=== PATIENT | female | born 1935 | race Caucasian/White ===

== ENCOUNTER 2016-03-24 04:39 | Inpatient (IN) | payer MEDICARE, OTHER ==
[~2016-03-24] VITALS: Ht 160 cm; Wt 61.8 kg
[2016-03-24] VITALS (20 sets, daily range): BP systolic 112–229; BP diastolic 42–93
--- NOTE | 2016-03-24 04:56 | PHYS DOC ---
Past Medical History Past Medical History: Asthma, High Cholesterol, Hypertension Past Surgical History: Angioplasty, Hip Replacement, Hysterectomy, Other Additional Past Surgical Histo: hernia x 2, bladder tie, suspension of vagina Alcohol Use: Occasionally Drug Use: None Adult General Chief Complaint Chief Complaint: CHEST PAIN [facility] HPI 81-year-old female who called about EMS for chest pain that started around 9 PM this evening. She states it is substernal with associated nausea. She feels mildly short of breath as well. She states she's never had chest pain like this before. Upon arrival, EMS administered one sublingual nitroglycerin and a 325 mg aspirin. Patient does state some mild discomfort in her chest but states it improved after sublingual nitroglycerin. She has history of hypercholesterolemia and hypertension but denies any significant coronary disease. Currently she rates her pain a 4/10 on the pain scale described as a mild chest discomfort. Review of Systems Review of Systems Constitutional: Denies fever or chills [] Eyes: Denies change in visual acuity, redness, or eye pain [] HENT: Denies nasal congestion or sore throat [] Respiratory: Denies cough or shortness of breath [] Cardiovascular: No additional information not addressed in HPI [] GI: Denies abdominal pain, has nausea, denies vomiting, denies bloody stools, denies diarrhea [] : Denies dysuria or hematuria [] Musculoskeletal: Denies back pain or joint pain [] Integument: Denies rash or skin lesions [] Neurologic: Denies headache, focal weakness or sensory changes [] Endocrine: Denies polyuria or polydipsia [] Current Medications Current Medications Current Medications Medications (Trade) Dose Ordered Sig/[facility] Start Time Stop Time Status Last Admin Dose Admin Acetaminophen (Tylenol) 650 mg PRN Q4HRS PRN 03/24/16 05:00 03/25/16 04:59 Nitroglycerin (Nitrostat) 0.4 mg PRN Q5MIN PRN 03/24/16 05:00 03/25/16 04:59 Ondansetron HCl (Zofran) 4 mg PRN Q8HRS PRN 03/24/16 05:00 03/25/16 04:59 Allergies Allergies Allergies Coded Allergies Type Severity Reaction Last Updated Verified iodine Allergy Unknown Nausea and Vomiting 03/24/16 Yes shellfish derived Allergy Unknown Nausea and Vomiting 03/24/16 Yes shrimp Allergy Unknown Nausea and Vomiting 03/24/16 Yes Physical Exam Physical Exam Constitutional: Well developed, well nourished, no acute distress, non-toxic appearance. [] HENT: Normocephalic, atraumatic, bilateral external ears normal, oropharynx moist, no oral exudates, nose normal. [] Eyes: PERRLA, EOMI, conjunctiva normal, no discharge. [] Neck: Normal range of motion, no tenderness, supple, no stridor. [] Cardiovascular:Heart rate regular rhythm, no murmur [] Lungs & Thorax: Bilateral breath sounds clear to auscultation [] Abdomen: Bowel sounds normal, soft, no tenderness, no masses, no pulsatile masses. [] Skin: Warm, dry, no erythema, no rash. [] Back: No tenderness, no CVA tenderness. [] Extremities: No tenderness, no cyanosis, no clubbing, ROM intact, no edema. [] Neurologic: Alert and oriented X 3, normal motor function, normal sensory function, no focal deficits noted. [] Psychologic: Affect normal, judgement normal, mood normal. [] Current Patient Data Vital Signs Vital Signs Date Time Temp Pulse Resp B/P Pulse Ox O2 Delivery O2 Flow Rate FiO2 03/24/16 05:11 69 200/89 03/24/16 04:42 98.7 16 95 Room Air 98.7 Lab Values Laboratory Tests Test 03/24/16 05:08 White Blood Count 13.4x10^3/uL (4.0-11.0) H Red Blood Count 4.35x10^6/uL (3.50-5.40) Hemoglobin 13.0g/dL (12.0-15.5) Hematocrit 37.6% (36.0-47.0) Mean Corpuscular Volume 86fL (79-100) Mean Corpuscular Hemoglobin 30pg (25-35) Mean Corpuscular Hemoglobin Concent 35g/dL (31-37) Red Cell Distribution Width 14.0% (11.5-14.5) Platelet Count 224x10^3/uL (140-400) Neutrophils (%) (Auto) 86% (31-73) H Lymphocytes (%) (Auto) 10% (24-48) L Monocytes (%) (Auto) 3% (0-9) Eosinophils (%) (Auto) 0% (0-3) Basophils (%) (Auto) 1% (0-3) Neutrophils # (Auto) 11.5x10^3uL (1.8-7.7) H Lymphocytes # (Auto) 1.4x10^3/uL (1.0-4.8) Monocytes # (Auto) 0.4x10^3/uL (0.0-1.1) Eosinophils # (Auto) 0.0x10^3/uL (0.0-0.7) Basophils # (Auto) 0.1x10^3/uL (0.0-0.2) Platelet Estimate Pending Sodium Level 139mmol/L (136-145) Potassium Level 4.3mmol/L (3.5-5.1) Chloride Level 104mmol/L (98-107) Carbon Dioxide Level 29mmol/L (21-32) Anion Gap 6 (6-14) Blood Urea Nitrogen 15mg/dL (7-20) Creatinine 0.7mg/dL (0.6-1.0) Estimated GFR (Cockcroft-Gault) 80.1 Glucose Level 181mg/dL (70-99) H Calcium Level 9.2mg/dL (8.5-10.1) Troponin I Quantitative < 0.017ng/mL (0.000-0.055) Laboratory Tests 03/24/16 05:08 Laboratory Tests 03/24/16 05:08 EKG EKG EKG as interpreted by me shows a normal sinus rhythm with a rate of 71 bpm. There are no acute ischemic findings on this EKG. Radiology/Procedures Radiology/Procedures Portable one view of the chest does not reveal an acute cardiopulmonary process. Course & Med Decision Making Course & Med Decision Making Pertinent Labs and Imaging studies reviewed. (See chart for details) This 81 yo female who presents with chest pain that began around 9 pm last evening and relieved with one SL nitroglycerin will be admitted to the hospital for further evaluation and treatment as I have strong suspicion that her symptoms are cardiac in etiology. Her EKG does not reveal any acute signs of ischemia. A portable 1 view of her chest did not demonstrate an acute cardiopulmonary process. Her laboratory workup, including a set of cardiac enzymes, is unrevealing. I discussed the case with the hospitalist, Dr. Velasco, and placed a cardiology consult as well for her ongoing chest pain. Dragon Disclaimer Dragon Disclaimer This electronic medical record was generated, in whole or in part, using a voice recognition dictation system. Departure Departure Impression: Primary Impression: Chest pain Disposition: ADMITTED INPATIENT Admitting Physician: Osmani Velasco Condition: STABLE BRIANA GONZALEZ DO Mar 24, 2016 04:55
[2016-03-24] MEDS ORDERED: NITROGLYCERIN SUBLINGUAL 0.4 MG BOTTLE OF 25. SL PRN ×2 (05:00→06:00)
[2016-03-24] MEDS ORDERED: ONDANSETRON PF 4 MG/2 ML VIAL. IV PRN ×2 (05:00→10:45)
[2016-03-24] MEDS ORDERED: ACETAMINOPHEN 325 MG TABLET. PO PRN (05:00)
[2016-03-24] MEDS: NITROGLYCERIN SUBLINGUAL 0.4 MG BOTTLE OF 25. SL PRN ×2 (05:11→05:54)
[2016-03-24 05:21] LABS: BASO # 0.1 x10^3/uL (0.0-0.2); BASO % 1 % (0-3); EOS % 0 % (0-3); HEMATOCRIT 37.6 % (36.0-47.0); LYMPH # 1.4 x10^3/uL (1.0-4.8); LYMPH % 10 % (24-48); MEAN CORPUSCULAR HEMOGLOBIN 30 pg (25-35); MEAN CORPUSCULAR HGB CONC 35 g/dL (31-37); MEAN CORPUSCULAR VOLUME 86 fL (79-100); MONO % 3 % (0-9); NEUT % 86 % (31-73); PLATELET COUNT 224 x10^3/uL (140-400); RED BLOOD COUNT 4.35 x10^6/uL (3.50-5.40); WHITE BLOOD COUNT 13.4 x10^3/uL (4.0-11.0)
[2016-03-24 05:29] LABS: CALCIUM 9.2 mg/dL (8.5-10.1); CREATININE 0.7 mg/dL (0.6-1.0); GFR 80.1; POTASSIUM 4.3 mmol/L (3.5-5.1)
[2016-03-24] MEDS ORDERED: LISINOPRIL 10 MG TABLET PO ONE ×2 (06:00→16:00)
--- NOTE | 2016-03-24 06:28 | ACF ---
Admission Forms Criteria CARDIOLOGY GRG Clinical Indications for Admission to Inpatient Care ( Place 'X' for any and all applicable criteria): Hospital admission is needed for appropriate care of the patient because of ANY ONE of the following (1): [ ] I. Hemodynamic instability as indicated by ALL of the following (1)(2)(3) (4)(5) [ ]a) Vital signs or other findings not as expected for chronic patient condition or baseline [ ]b) Instability indicated by ANY ONE of the following: [ ]i) Hypotension [ ]ii) Symptomatic Tachycardia unresponsive to treatment ( e.g., analgesia, fluids, sedation as indicated) [ ]iii) Inadequate perfusion indicated by ANY ONE of the following: [ ] 1) Lactic acidosis (> 2 mmol/L) [ ] 2) New abnormal capillary refill (> 3 seconds) [ ] 3) Reduced urine output [ ] 4) New altered mental status [ ]iv) Orthostatic vital sign changes unresponsive to treatment (e.g., fluids) [ ]v) IV inotropic or vasopressor medication required to maintain adequate blood pressure or perfusion [ ] II. Severe heart failure as indicated by ANY ONE of the following(17)(18) [ ]a) Respiratory distress [ ]b) Hypotension [ ]c) Anasarca (refractory to outpatient therapy) [ ]d) Cardiac arrhythmias of immediate concern [ ]e) Myocardial ischemia [ ] III. Cardiac arrhythmias or findings of immediate concern indicated by ANY ONE of the following (19)(20): [ ] a) Heart rhythms that are inherently dangerous or unstable indicated by ANY ONE of the following (21)(22)(23): [ ] i) Resuscitated ventricular fibrillation or cardiac arrest [ ] ii) Ventricular escape rhythm [ ] iii) Sustained ventricular tachycardia (30 seconds or more of ventricular rhythm at greater than 100 beats per minute) [ ] iv) Nonsustained ventricular tachycardia and ANY ONE of the following: [ ] 1) Suspected cardiac ischemia as cause or consequence of ventricular tachycardia [ ] 2) In setting of acute myocarditis [ ] b) Unstable cardiac conduction defects indicated by ANY ONE of the following(23)(24)(25) [ ] i) Type II second-degree atrioventricular block [ ]ii) Third-degree atrioventricular block [ ]iii) New-onset left bundle branch block with suspected myocardial ischemia [ ]c) Any heart rhythm and ANY ONE of the following (21)(22)(26)(27) (28) [ ] i) Continuous long-term ECG monitoring needed (e.g., initiation of drug requiring monitoring for more than 24 hours) [ ] ii) Patient has automatic implanted cardioverter defibrillator that is repeatedly firing, malfunctioning, or in need of immediate adjustment of settings beyond the scope of ambulatory or observation care [ ]d) Heart rhythms of concern due to ANY ONE of the following: [ ] i) Hypotension [ ] ii) Respiratory distress [ ] iii) Association with other significant symptoms (e.g., bradycardia with syncope or ongoing dizziness, supraventricular tachycardia with chest pain (14)(15)(17) [ ] IV. Monitoring for cardiac contusion beyond the scope of observation care needed [A](30)(31)(32) [ ] V. Surgical or device complication (e.g., valve replacement complication , pacemaker dysfunction) (35)(41)(44)(45)(46) [ ] . Inpatient palliative care needed. [B](49) Also use Inpatient Palliative Care Criteria [ ] VII. Nonbacterial thrombotic (marantic) endocarditis (36)(43)(47)(48) [X] VIII. Cardiology condition, symptom, or finding for which emergency and observation care has failed or are not considered appropriate. [ ] IX. Acute valvular disease requiring inpatient as indicated by ANY ONE of the following (41) [ ]a) Acute valvular regurgitation (42) [ ]b) Noninfectious valvulitis (43) [ ]c) Obstructive valve thrombosis [ ]d) Paravalvular leak [ ]e) Other significant valvular disorder remaining after emergency or observation level of care (as appropriate) [ ]X. Pericardial disease requiring inpatient treatment as indicated by ANY ONE of the following (33)(34)(35)(36)(37) [ ]a) Suspected tamponade (38)(39)(40) [ ]b) Hemopericardium [ ]c) Other significant pericardial disorder remaining after emergency or observation level of care (as appropriate) [ ] XI. Cardiac ischemia beyond scope of emergency and observation care. [ ] XII. Hypertension requiring inpatient treatment as indicated by ANY ONE of the following (6)(7)(8) [ ]a) SBP greater than 220 mm Hg or DBP greater than 120 mmHg despite treatment [ ]b) SBP greater than 140 mm Hg or DBP greater than 100 mm Hg with evidence of acute end organ damage as indicated by ANY ONE of the following [ ] i) Encephalopathy [ ] ii) Acute renal failure as indicated by new onset of ANY ONE of the following (9)(10)(11)(12)(13) [ ]1) 3-fold rise in serum creatinine from baseline [ ]2) Serum creatinine greater than 4 mg/dL ( 354 micromoles/L) with acute rise greater than 0.5 mg/dL (44.2 micromoles/L) [ ]3) Reduction of more than 75% in estimated glomerular filtration rate from baseline [ ]4) Estimated glomerular filtration rate less than 35 mL/min/1.73m2 (0.59 mL/sec/1.73m2) in child up to 18 years of age [ ]5) Cessation of urine output indicated by ALL of the following [ ]A. Adequate volume status [ ]B. Inadequate urine output as indicated by ANY ONE of the following [ ]a. Urine output less than 0.3 mL/kg/hr for 24 hours [ ]b. Anuria (urine output less than 0.1 mL/kg/hr) for 12 hours [ ] iii) Aortic dissection [ ] iv) Myocardial Ischemia [ ] v) Left ventricular heart failure [ ]vi) Retinal Hemorrhage [ ]vii) Other significant finding [ ]c) Hypertension in child requiring inpatient treatment as indicated by ALL of the following(14)(15)(16) [ ] i) Outpatient treatment not effective, not available, or not appropriate [ ]ii) SBP or DBP greater than 95th percentile for age [ ]iii) Evidence of acute end organ damage as indicated by ANY ONE of the following [ ]1) Altered mental status [ ]2) Acute renal failure as indicated by new onset of ANY ONE of the following(9)(10)(11)(12)(13) [ ]A. 3-fold rise in serum creatinine from baseline [ ]B. Serum creatinine greater than 4 mg/dL (354 micromoles/L) with acute rise greater than 0.5 mg/dL (44.2 micromoles/L) [ ]C. Reduction of more than 75% in estimated glomerular filtration rate from baseline [ ]D. Estimated glomerular filtration rate less than 35 mL/min/1.73m2 (0.59 mL/sec/1.73m2) in child up to 18 years of age [ ]E. Cessation of urine output indicated by ALL of the following [ ]a. Adequate volume status [ ]b. Inadequate urine output as indicated by ANY ONE of the following [ ]i) Urine output less than 0.3 mL/kg/hr for 24 hours [ ]ii) Anuria ( urine output less than 0.1 mL/kg/hr) for 12 hours [ ]3) Severe headache [ ]4) Visual disturbance [ ]5) Retinal hemorrhage [ ]6) Other significant finding [ ]XIII. Complications of transplanted heart indicated by ANY ONE of the following(61): [ ]a) Acute graft rejection requiring inpatient management (eg, intravenous immunosuppression)(62)(63) [ ]b) Acute graft heart failure indicated by ANY ONE of the following(64): [ ]i) Hemodynamic instability [ ]ii) Cardiac arrhythmias of immediate concern [ ]iii) Pulmonary edema that is very severe (eg, mechanical ventilation needed, imminent or likely, need for 100% oxygen to keep oxygen saturation above 90%) [ ]iv) Pulmonary edema that is persistent as indicated by ALL of the following: [ ]1) New need for oxygen therapy to keep oxygen saturation above 90% (or increased FiO2 need from baseline) [ ]2) Has not improved sufficiently with emergency department or observation care IV diuretics or other heart failure treatments[E] [ ]v) Altered mental status that is severe or persistent [ ]vi) Increased creatinine (new on laboratory test) with reduction of more than 50% in estimated glomerular filtration rate from baseline [ ]vii) Progressively (ongoing) rising creatinine (known from past laboratory test) with reduction of more than 25% in estimated glomerular filtration rate from baseline [ ]viii) Acute renal failure [ ]ix) Acute peripheral ischemia (eg, examination shows pulseless, cool, mottled, or cyanotic extremity) [ ]x) Pulmonary artery catheter monitoring needed [ ]xi) Other sign or symptom of heart failure requiring inpatient treatment (ie, too severe or not responsive to outpatient and observation care treatment) [ ]c) Infection requiring inpatient management (eg, Hemodynamic instability, need for intravenous antimicrobial treatment)(66)(67)(68)(69)(70) [ ]d) Cardiac allograft vasculopathy requiring inpatient management ( eg evidence of cardiac ischemia)(71) [ ]e) Other complication of transplanted heart (eg, stroke, severe pulmonary hypertension, severe valvular dysfunction) requiring inpatient management(72) The original [facility] content created by [facility] has been revised. The portions of the content which have been revised are identified through the use of italic text or in bold, and [facility] has neither reviewed nor approved the modified material. All other unmodified content is copyright [facility]. Please see references footnoted in the original [facility] edition 2016 Admission Criteria Met?: Yes ALEXANDRU SINHA Mar 24, 2016 06:28
[2016-03-24] MEDS ORDERED: MORPHINE SULFATE 2 MG/ML DISP.SYRIN. IV ONE (06:30)
[2016-03-24] MEDS ORDERED: hydrALAZINE 20 MG/ML VIAL. IVP PRN (06:30)
--- NOTE | 2016-03-24 06:48 | EKG ---
[facility] [address] [place] [address] Test Date: 2016-03-24 Test Time: 04:44:03 Pat Name: ALIVIA MARRERO Department: Room: [facility] Gender: F Cradle Placer: : 1935 Requested By: BRIANA GONZALEZ Order Number: [id number] Reading MD: Isabel Grant Measurements Intervals Cameron Rate: 71 P: 51 CO: 128 QRS: 57 QRSD: 82 T: 65 QT: 398 QTc: 437 Interpretive Statements SINUS RHYTHM NORMAL ECG RI6.01 No previous ECG available for comparison Electronically Signed On 03-25-2016 9:35:47 PRODUCTION LINE SOLDERER by Isabel Grant
[2016-03-24 07:06] LABS: % EOS 1 % (0-5); PLT ESTIMATE ADEQUATE (ADEQUATE)
--- NOTE | 2016-03-24 07:13 | RAD ---
Portable chest, 03/24/2016: History: Chest pain The heart size and pulmonary vascularity are normal. There is calcific plaquing of the thoracic aorta. No pulmonary infiltrates are seen. There is no evidence of pleural fluid. The bony structures are demineralized. There is moderate degenerative change of the left shoulder. IMPRESSION: 1. Aortic atherosclerosis. 2. No acute cardiopulmonary abnormality is detected.
[2016-03-24] MEDS ORDERED: HYDR-2868 PO (07:40)
[2016-03-24] MEDS ORDERED: BIMA2.5D OP (07:40)
[2016-03-24] MEDS ORDERED: VENTOLIN HFA18 GM INH (07:40)
[2016-03-24] MEDS ORDERED: ASPI-482 PO (07:40)
[2016-03-24] MEDS ORDERED: FLUT1DIS3 IH (07:40)
[2016-03-24] MEDS ORDERED: FLUT9.9S NS (07:40)
[2016-03-24] MEDS ORDERED: LISI10TA2 PO (07:40)
[2016-03-24] MEDS ORDERED: OMEP20TA63 PO (07:40)
[2016-03-24] MEDS: BUDESONIDE 0.5 MG/2 ML NEBU NEB SCH ×2 (08:00→19:20)
[2016-03-24] MEDS: ALBUTEROL SULFATE 2.5 MG/3 ML NEBU. NEB SCH ×3 (08:00→19:20)
[2016-03-24] MEDS ORDERED: PANTOPRAZOLE 40 MG TABLET. PO SCH (08:00)
--- NOTE | 2016-03-24 08:43 | RAD ---
Indication right upper quadrant abdominal pain. Grayscale imaging was performed. Examination was targeted to the right upper quadrant. Imaging of the liver demonstrates increased attenuation of the ultrasound beam compatible with fatty infiltration. A focal mass lesion in the visualized liver is not seen. The gallbladder is somewhat distended. There is cholelithiasis. There is no gallbladder wall thickening. The common bile duct is prominent measuring 11 mm. The right kidney appears unremarkable. The visualized pancreas appears unremarkable. IMPRESSION: Cholelithiasis. The gallbladder, additionally, is somewhat distended. Dilated common bile duct to approximately 11 mm. Fatty infiltration of the liver
[2016-03-24] MEDS ORDERED: NON FORMULARY ITEM (Albuterol Sulfate (Ventolin Hfa Inhaler) 2 PUFF) INH SCH (09:00)
[2016-03-24] MEDS: ASPIRIN ENTERIC COATED 81 MG TABLET.DR. PO SCH (09:00)
[2016-03-24] MEDS: FLUTICASONE 50MCG/NASAL SPRAY 16GM BOTTLE. NS SCH (09:00)
[2016-03-24] MEDS: LISINOPRIL 10 MG TABLET PO SCH (09:00)
[2016-03-24] MEDS ORDERED: HYDRALAZINE 25 MG TABLET PO SCH (09:00)
[2016-03-24] MEDS ORDERED: NON FORMULARY ITEM (Fluticasone/Salmeterol (Advair 250-50 Diskus) 1 INH) IH SCH (09:00)
--- NOTE | 2016-03-24 09:12 | HP ---
ADMIT DATE: 03/24/2016 CHIEF COMPLAINT: Chest pain. HISTORY OF PRESENT ILLNESS: The patient is a pleasant middle-aged female who presents to the ER with chest pain, rates it 7/10, states it is pressure like in sensation. She has associated nausea. She came in by EMS. She has some slight shortness of breath. Denies any history of coronary disease. She does not smoke. She does not have diabetes, coronary artery diseases not run in her family. I have discussed the case with the ER physician. We are concerned she could be having a cardiac event. I am going to go ahead and admit the patient and consult Cardiology. I am also going to check ultrasound of her gallbladder to make sure she does not have gallstones. PAST MEDICAL HISTORY: Asthma, hypertension, hyperlipidemia, previous angioplasty (the patient denies any history of coronary disease when I originally spoke with her), hip replacement, hysterectomy, hernia, vaginal suspension. ALLERGIES: IODINE AND SHRIMP. FAMILY HISTORY: She denies any coronary disease in the family. SOCIAL HISTORY: She is . She does not drink, smoke or take drugs. MEDICATIONS: Reviewed, please refer to the MRAD. REVIEW OF SYSTEMS: GENERAL: No history of weight change, weakness or fevers. SKIN: No bruising, hair changes or rashes. EYES: No blurred, double or loss of vision. NOSE AND THROAT: No history of nosebleeds, hoarseness or sore throat. HEART: No history of palpitations, chest pain or shortness of breath on exertion. LUNGS: Denies cough, hemoptysis, wheezing or shortness of breath. GASTROINTESTINAL: She complains of nausea. Denies changes in appetite, vomiting, diarrhea or constipation. GENITOURINARY: No history of frequency, urgency, hesitancy or nocturia. NEUROLOGIC: Denies history of numbness, tingling, tremor or weakness. PSYCHIATRIC: No history of panic, anxiety or depression. ENDOCRINE: No history of heat or cold intolerance, polyuria or polydipsia. EXTREMITIES: Denies muscle weakness, joint pain, pain on walking or stiffness. PHYSICAL EXAMINATION: VITAL SIGNS: Temperature afebrile, pulse 74, respirations 18, blood pressure 113/60... GENERAL: Upon my arrival, she has nausea. She has emesis . Her is present. The patient appears moderately ill. HEART: Distant S1, S2. LUNGS: Clear to auscultation. ABDOMEN: Soft. Decreased bowel sounds, tender in the epigastrium. EXTREMITIES: No edema. SKIN: No rashes. PSYCHIATRIC: She seems depressed. VASCULAR: Good capillary refill. ENDOCRINE: No thyromegaly. LYMPHATICS: No cervical nodes. HEMATOPOIETIC: No bruising. LABORATORY DATA: White count 13, hemoglobin 13, platelets 224. Electrolytes normal other than glucose of 181. Troponin is 0.017. ASSESSMENT AND PLAN: Chest pain with nausea, suspect cardiac disease versus gallstones. The patient has been admitted. We will check serial enzymes, serial EKGs, cardiac monitoring, consult Cardiology, check an ultrasound of gallbladder, continue home medicines, p.r.n. antiemetics, p.r.n. narcotics. PROGNOSIS: Guarded. SALO HANNAH DO DR: SHERLY/robert JOB#: [id number] / [id number]
[2016-03-24] MEDS ORDERED: METOPROLOL TARTRATE 5 MG/5 ML VIAL. IVP STA (09:23)
[2016-03-24] MEDS ORDERED: METOCLOPRAMIDE HCL 10 MG/2 ML VIAL. IV ONE (09:45)
[2016-03-24] MEDS ORDERED: PANTOPRAZOLE IV PUSH 40 MG VIAL. IVP ONE (09:45)
[2016-03-24] MEDS ORDERED: HYDR12.58 PO ×2 (09:48→15:56)
--- NOTE | 2016-03-24 09:48 | PDOC2 ---
MARLENE VIDES [employer] 03/24/16 0948: CARDIAC CONSULT DATE OF CONSULT Date of Consult DATE: 03/24/16 TIME: 09:47 REASON FOR CONSULT Reason for Consult: chest pain REFERRING PHYSICIAN Referring Physician: Dr. Ariel Santiago SOURCE Source: Chart review, Patient HISTORY OF PRESENT ILLNESS HISTORY OF PRESENT ILLNESS 81 year old female who developed substernal chest discomfort while watching football about 2100 yesterday evening. Pain has been constant and associated with nausea but not dyspnea or dizziness. Minimal relief with SL NTG in the ER. No previous similar episodes. Remains nauseated this a.m. despite IV Zofran. Malignant HTN POA without significant changes in readings overnight. EKG NSR without acute findings and initial troponin level not consistent with AMI. 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 ), Hysterectomy (with bladder suspension), Other ( vaginal suspension ) FAMILY HISTORY Family History: Coronary Artery Disease (father) SOCIAL HISTORY Smoke: Quit (20 years ago) ALCOHOL: occassional Drugs: None Lives: with Family CURRENT MEDICATIONS CURRENT MEDICATIONS Current Medications Medications (Trade) Dose Ordered Sig/Gagan Route PRN Reason Start Time Stop Time Status Last Admin Dose Admin Nitroglycerin (Nitrostat) 0.4 mg PRN Q5MIN PRN SL CHEST PAIN 03/24/16 05:00 03/24/16 05:54 Ondansetron HCl (Zofran) 4 mg PRN Q8HRS PRN IV NAUSEA/VOMITING 03/24/16 05:00 03/25/16 04:59 03/24/16 05:57 Lisinopril (Prinivil) 10 mg 1X ONCE PO 03/24/16 06:00 03/24/16 06:01 DC 03/24/16 05:57 Morphine Sulfate 2 mg 1X ONCE IV 03/24/16 06:30 03/24/16 06:31 DC 03/24/16 06:27 Hydralazine HCl (Apresoline) 10 mg PRN Q4HRS PRN IVP ELEVATED BP, SEE COMMENTS 03/24/16 06:30 03/24/16 06:59 Metoprolol Tartrate (Lopressor) 5 mg STAT STAT IVP 03/24/16 09:23 03/24/16 09:25 DC 03/24/16 09:31 ALLERGIES ALLERGIES: Coded Allergies: iodine (Verified Allergy, Unknown, Nausea and Vomiting, 03/24/16) shellfish derived (Verified Allergy, Unknown, Nausea and Vomiting, 03/24/16 ) shrimp (Verified Allergy, Unknown, Nausea and Vomiting, 03/24/16) ROS General: No: Appetite, Chills, Fatigue, Malaise, Night Sweats, Other PSYCHOLOGICAL ROS: No: Anxiety, Behavioral Disorder, Concentration difficultie , Decreased libido, Depression, Disorientation, Hallucinations, Hostility, Irritablity, Memory difficulties, Mood Swings, Obsessive thoughts, Other, Physical abuse, Sexual abuse, Sleep disturbances, Suicidal ideation Eyes: Yes Uses glasses HEENT: No: Epistaxis, Heacaches, Hearing change, Nasal congestion, Nasal discharge, Oral lesions, Other, Sinus pain, Sneezing, Snoring, Sore Throat, Tinnitus, Vertigo, Visual Changes, Vocal changes ALLERGY AND IMMUNOLOGY: No: Hives, Insect Bite Sensitivity, Itchy/Watery Eyes, Nasal Congestion, Other, Post Nasal Drip, Seasonal Allergies Hematological and Lymphatic: No: Bleeding Problems, Blood Clots, Blood Transfusions, Brusing, Night Sweats, Other, Pallor, Swollen Lymph Nodes ENDOCRINE: No: Breast Changes, Galactorrhea, Hair Pattern Changes, Hot Flashes , Malaise/lethargy, Mood Swings, Other, Palpitations, Polydipsia/polyuria, Skin Changes, Temperature Intolerance, Unexpected Weight Changes Respiratory: YES: SOB with excertion, No: Cough, Hemoptysis, Orthopnea, Other, Pleuritic Pain, Shortness of breath , Sputum Changes, Stridor, Tachypnea, Wheezing Cardiovascular: yes Chest Pain, No Edema, No Lt Headedness, No Orthopnea, No Other, No Palpitations, No Paroxysmal Noc. Dyspnea Gastrointestinal: Yes Nausea, Yes Vomiting, No Abdominal Pain, No Constipation, No Diarrhea, No Hematochezia, No Melena, No Other Genitourinary: No Discharge, No Dysuria, No Flank Pain, No Frequency, No Hematuria, No Incontinence, No Other, No Pain, No Retention, No Urgency Musculoskeletal: No Gait Disturbance, No Joint Pain, No Joint Stiffness, No Joint Swelling, No Muscle Pain, No Muscular Weakness, No Other, No Pain In:, No Swelling In: Neurological: No Behavorial Changes, No Bowel/Bladder ControlChng, No Confusion , No Dizziness, No Gait Disturbance, No Headaches, No Impaired Coord/balance, No Memory Loss, No Numbness/Tingling, No Other, No Seizures, No Speech Problems , No Tremors, No Visual Changes, No Weakness Skin: No Acne, No Dry Skin, No Eczema, No Hair Changes, No Lumps, No Mole Changes, No Mottling, No Nail Changes, No Other, No Pruritus, No Rash, No Skin Lesion Changes PHYSICAL EXAM General: Alert, Oriented X3, Cooperative, mild distress HEENT: Atraumatic, PERRLA Lungs: Clear to auscultation, Normal air movement Heart: Regular rate, Normal S1, Normal S2, No murmurs, Other (no carotid bruits ) Abdomen: Soft, Other (diffuse tenderness) Extremities: No edema, Normal pulses Skin: No rashes Neuro: Normal speech Psych/Mental Status: Mental status NL, Mood NL MUSCULOSKELETAL: Osteoarthritic changes both hands VITALS VITALS Vital Signs Date Time Temp Pulse Resp B/P Pulse Ox O2 Delivery O2 Flow Rate FiO2 03/24/16 09:31 118 188/79 03/24/16 07:53 22 Room Air 03/24/16 06:49 98.0 96 98.0 LABS Lab: Laboratory Tests Test 03/24/16 05:08 White Blood Count 13.4x10^3/uL (4.0-11.0) Red Blood Count 4.35x10^6/uL (3.50-5.40) Hemoglobin 13.0g/dL (12.0-15.5) Hematocrit 37.6% (36.0-47.0) Mean Corpuscular Volume 86fL (79-100) Mean Corpuscular Hemoglobin 30pg (25-35) Mean Corpuscular Hemoglobin Concent 35g/dL (31-37) Red Cell Distribution Width 14.0% (11.5-14.5) Platelet Count 224x10^3/uL (140-400) Neutrophils (%) (Auto) 86% (31-73) Lymphocytes (%) (Auto) 10% (24-48) Monocytes (%) (Auto) 3% (0-9) Eosinophils (%) (Auto) 0% (0-3) Basophils (%) (Auto) 1% (0-3) Neutrophils # (Auto) 11.5x10^3uL (1.8-7.7) Lymphocytes # (Auto) 1.4x10^3/uL (1.0-4.8) Monocytes # (Auto) 0.4x10^3/uL (0.0-1.1) Eosinophils # (Auto) 0.0x10^3/uL (0.0-0.7) Basophils # (Auto) 0.1x10^3/uL (0.0-0.2) Segmented Neutrophils % 80% (35-66) Band Neutrophils % 9% (0-9) Lymphocytes % 6% (24-48) Atypical Lymphocytes % (Manual) 1% (0-0) Monocytes % 3% (0-10) Eosinophils % 1% (0-5) Platelet Estimate Adequate (ADEQUATE) Sodium Level 139mmol/L (136-145) Potassium Level 4.3mmol/L (3.5-5.1) Chloride Level 104mmol/L (98-107) Carbon Dioxide Level 29mmol/L (21-32) Anion Gap 6 (6-14) Blood Urea Nitrogen 15mg/dL (7-20) Creatinine 0.7mg/dL (0.6-1.0) Estimated GFR (Cockcroft-Gault) 80.1 Glucose Level 181mg/dL (70-99) Calcium Level 9.2mg/dL (8.5-10.1) Troponin I Quantitative < 0.017ng/mL (0.000-0.055) IMAGES IMAGES US GB: Cholelithiasis. The gallbladder, additionally, is somewhat distended. Dilated common bile duct to approximately 11 mm. Fatty infiltration of the liver CXR: The heart size and pulmonary vascularity are normal. There is calcific plaquing of the thoracic aorta. No pulmonary infiltrates are seen. There is no evidence of pleural fluid. The bony structures are demineralized. There is moderate degenerative change of the left shoulder. IMPRESSION: 1. Aortic atherosclerosis. 2. No acute cardiopulmonary abnormality is detected. EKG EKG no acute changes ASSESSMENT/PLAN ASSESSMENT/PLAN 1. chest pain no evidence of AMI in EKG or initial troponin - continue serial markers echo to evaluate LVEF and assess WM - will consider further evaluation if abnormal IV PPI while NPO ? pain related to GB disease 2. malignant HTN, POA IV hydralazine X 1 and lisinopril p.o. X 1 without improvement stat dose of IV metoprolol, if no response, will move to ICU for titratable gtt 3 . ? GB disease US with cholelithiasis and distended GB one time dose of Reglan to address nausea 4. HLD continue home statin therapy Problems: TANMAY MONROY MD 03/24/16 2020: CARDIAC CONSULT ALLERGIES ALLERGIES: Coded Allergies: iodine (Verified Allergy, Unknown, Nausea and Vomiting, 03/24/16) shellfish derived (Verified Allergy, Unknown, Nausea and Vomiting, 03/24/16 ) shrimp (Verified Allergy, Unknown, Nausea and Vomiting, 03/24/16) ASSESSMENT/PLAN ASSESSMENT/PLAN Pt. seen and examined. Agree with above TECHNOLOGY ADMINISTRATOR note. 81 y.o woman presenting with nausea and uncontrolled BP On exam normal heart tones. labs reviewed. Echo wnl. Start home meds. Will follow. Problems: MARLENE VIDES APRN Mar 24, 2016 09:48 TANMAY MONROY MD Mar 24, 2016 20:20
[2016-03-24] MEDS: METOPROLOL TARTRATE 5 MG/5 ML VIAL. IVP SCH ×2 (10:00→17:09)
[2016-03-24] MEDS ORDERED: PROCHLORPERAZINE 10 MG/2 ML VIAL. IV PRN (10:30)
[2016-03-24] MEDS ORDERED: NICARDIPINE HCL 50 MG in IV NORMAL SALINE 250ML 250 ML IV PRN (11:00)
--- NOTE | 2016-03-24 13:27 | CARD ---
APPROVED REPORT EXAM: Two-dimensional and M-mode echocardiogram with Doppler and color Doppler. Other Information Quality : GoodHR: 113bpm Rhythm : Tachycardia INDICATION Hypertension/HCVD Chest Pain 2D DIMENSIONS RVDd1.8 (2.9-3.5cm)Left Atrium(2D)3.1 (1.6-4.0cm) IVSd0.9 (0.7-1.1cm)Aortic Root(2D)2.7 (2.0-3.7cm) LVDd4.6 (3.9-5.9cm)LVOT Diameter2.1 (1.8-2.4cm) PWd0.9 (0.7-1.1cm)LVDs2.8 (2.5-4.0cm) FS (%) 38.6 %SV66.2 ml LVEF(%)69.0 (>50%) Aortic Valve AoV Peak Marcelo.191.6cm/sAoV VTI32.0cm AO Peak GR.14.7mmHgLVOT VTI 22.51cm AO Mean GR.8mmHg Mitral Valve MV E Oqlmrsde528.2cm/sMV E Peak Gr.13mmHg MV DECEL [id number] A Xwctqtmr847.2cm/s MV E Mean Gr.5mmHgE/A Ratio0.9 LEFT VENTRICLE The left ventricle is normal size. There is normal left ventricular wall thickness. The Ejection Frac tion is > 70%. There is normal LV segmental wall motion. The left ventricular diastolic function and filling is normal for age. RIGHT VENTRICLE The right ventricle is normal size. There is normal right ventricular wall thickness. The right ventr icular systolic function is normal. ATRIA The left atrium size is normal. The right atrium size is normal. The interatrial septum is intact wit h no evidence for an atrial septal defect or patent foramen ovale as noted on 2-D or Doppler imaging. AORTIC VALVE The aortic valve is normal in structure and function. Doppler and Color Flow revealed no significant aortic regurgitation. There is no significant aortic valvular stenosis. MITRAL VALVE The mitral valve is normal in structure and function. There is no evidence of mitral valve prolapse. There is no mitral valve stenosis. Doppler and Color Flow revealed no mitral valve regurgitation note d. TRICUSPID VALVE The tricuspid valve is normal in structure and function. Doppler and Color Flow revealed no tricuspid valve regurgitation noted. PULMONIC VALVE The pulmonary valve is normal in structure and function. Doppler and Color Flow revealed no pulmonic valvular regurgitation. GREAT VESSELS The aortic root is normal in size. The ascending aorta is normal in size. The IVC is normal in size a nd collapses >50% with inspiration. PERICARDIAL EFFUSION There is no evidence of significant pericardial effusion. Critical Notification Critical Value: No <Conclusion> The Ejection Fraction is > 70%. There is normal LV segmental wall motion.
[2016-03-24] MEDS ORDERED: IV NORMAL SALINE 500ML BAG 500 ML IV ONE (13:45)
[2016-03-24] MEDS ORDERED: NON FORMULARY ITEM (Hydrochlorothiazide (Hydrochlorothiazide Tablet) 25 MG) PO SCH (16:00)
--- NOTE | 2016-03-24 16:58 | PDOC2 ---
CONSULT Date of Consult Date of Consult DATE: 03/24/16 TIME: 16:43 Reason for Consult Reason for Consult: "Black stools"/gallstones. Referring Physician Referring Physician: Dr. Ibarra Source Source: Chart review, Patient History of Present Illness Reason for Visit: 81 y/o female after several hours of lower substernal/epigastric pain with N and V last evening. Feels better now. Not felt to have cardiac issue from serial enzymes and ECHO. Vomiting was bilious. Stools were black, but took PeptoBismol a couple of days ago and her description not consistent with true melena. On sonogram, cholelithiasis with somewhat dilated GB and CBD. No known h/o gallstones. Long h/o reflux with prior EGD remotely w/o historically much injury. Takes daily PPI faithfully. No dysphagia, PUD, liver or pancreatic history. Tells me no tobacco or alcohol use. May use ASA (as [place]- [place]) occasionally. No NSAID use. Recent gastroenteritis-like illness with diarrhea, but typically w/o this or constipation chronically. No overt hematochezia. Prior colonoscopy 6-7 years ago showed diverticulosis. Wt/ appetite stable. GI FH negative. 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 ), Hysterectomy (with bladder suspension), Other ( vaginal suspension ) Family History Family History: Coronary Artery Disease (father) Social History Quit (20 years ago) ALCOHOL: occassional Drugs: None Lives: with Family Current Problem List Problem List Problems Medical Problems: (1) Chest pain Status: Acute (2) Malignant hypertension Status: Acute Current Medications Current Medications Current Medications Nitroglycerin (Nitrostat) 0.4 mg PRN Q5MIN PRN SL CHEST PAIN Last administered on 03/24/16 05:54; Start 03/24/16 at 05:00 Ondansetron HCl (Zofran) 4 mg PRN Q8HRS PRN IV NAUSEA/VOMITING Last administered on 03/24/16 05:57; Start 03/24/16 at 05:00; Stop 03/24/16 at 10:54 ; Status DC Acetaminophen (Tylenol) 650 mg PRN Q4HRS PRN PO FEVER; Start 03/24/16 at 05:00 ; Stop 03/25/16 at 04:59 Nitroglycerin (Nitrostat) 0.4 mg PRN Q5MIN PRN SL CHEST PAIN; Start 03/24/16 at 05:00; Stop 03/25/16 at 04:59; Status Cancel Lisinopril (Prinivil) 10 mg 1X ONCE PO Last administered on 03/24/16 05:57; Start 03/24/16 at 06:00; Stop 03/24/16 at 06:01; Status DC Nitroglycerin (Nitrostat) 0.4 mg PRN Q5MIN PRN SL CHEST PAIN; Start 03/24/16 at 06:00; Status Cancel Morphine Sulfate 2 mg PRN Q2HR PRN IV PAIN; Start 03/24/16 at 06:30 Morphine Sulfate 2 mg 1X ONCE IV Last administered on 03/24/16 06:27; Start 03/24/16 at 06:30; Stop 03/24/16 at 06:31; Status DC Hydralazine HCl (Apresoline) 10 mg PRN Q4HRS PRN IVP ELEVATED BP, SEE COMMENTS Last administered on 03/24/16 06:59; Start 03/24/16 at 06:30 Aspirin (Ecotrin) 81 mg DAILY PO ; Start 03/24/16 at 09:00 Hydralazine HCl (Apresoline) 25 mg DAILY PO Last administered on 03/24/16 09: 00; Start 03/24/16 at 09:00; Stop 03/24/16 at 09:49; Status DC Lisinopril (Prinivil) 10 mg DAILY PO ; Start 03/24/16 at 09:00 Non-Formulary Medication 2 puff QID INH FOR ASTHMA; Start 03/24/16 at 09:00; Stop 03/24/16 at 09:00; Status DC Fluticasone Propionate (Flonase) 2 spray DAILY NS ; Start 03/24/16 at 09:00 Non-Formulary Medication 1 inh BID IH ; Start 03/24/16 at 09:00; Stop 03/24/16 at 09:00; Status DC Pantoprazole Sodium (Protonix) 40 mg DAILYAC PO ; Start 03/24/16 at 08:00 Albuterol Sulfate (Ventolin Neb Soln) 2.5 mg Q6HRS NEB ; Start 03/24/16 at 08:00 Budesonide (Pulmicort) 0.5 mg RTBID NEB ; Start 03/24/16 at 08:00 Metoprolol Tartrate (Lopressor) 5 mg STAT STAT IVP Last administered on 09:31; Start 03/24/16 at 09:23; Stop 03/24/16 at 09:25; Status DC Pantoprazole Sodium (Protonix Vial) 40 mg 1X ONCE IVP ; Start 03/24/16 at 09:45 ; Stop 03/24/16 at 09:53; Status DC Metoclopramide HCl (Reglan) 10 mg 1X ONCE IV ; Start 03/24/16 at 09:45; Stop at 09:53; Status DC Metoprolol Tartrate (Lopressor) 5 mg Q6HRS IVP ; Start 03/24/16 at 10:00 Prochlorperazine Edisylate (Compazine) 10 mg PRN Q6HRS PRN IV NAUSEA/VOMITING Last administered on 03/24/16 10:56; Start 03/24/16 at 10:30 Ondansetron HCl 4 mg 4 mg PRN Q6HRS PRN IV NAUSEA/VOMITING; Start 03/24/16 at 10:45 Nicardipine HCl 50 mg/Sodium Chloride 270 ml @ 0 mls/hr CONT PRN IV SEE I/O RECORD; Start 03/24/16 at 11:00 Sodium Chloride (Iv Sodium Chloride 0.9% 500ml Bag) 500 ml @ 500 mls/hr 1X ONCE IV Last administered on 03/24/16 15:03; Start 03/24/16 at 13:45; Stop at 14:44; Status DC Lisinopril (Prinivil) 10 mg 1X ONCE PO Last administered on 03/24/16 16:08; Start 03/24/16 at 16:00; Stop 03/24/16 at 16:01; Status DC Non-Formulary Medication 25 mg PRN PO ; Start 03/24/16 at 16:00; Status UNV Active Scripts Active Reported Lumigan (Bimatoprost) 2.5 Ml Drops 2.5 Ml OP Ventolin Hfa Inhaler (Albuterol Sulfate) 18 Gm Hfa.aer.ad 2 Puff INH QID Advair 250-50 Diskus (Fluticasone/Salmeterol) 1 Each Disk.w.dev 1 Inh IH BID Flonase Allergy Relief (Fluticasone Propionate) 9.9 Ml [place].susp 2 Sprays NS DAILY Prilosec Otc (Omeprazole Magnesium) 20 Mg Tablet. 20 Mg PO DAILY Aspir 81 (Aspirin) 81 Mg Tablet. 81 Mg PO Lisinopril 10 Mg Tablet 10 Mg PO DAILY Allergies Allergies: Coded Allergies: iodine (Verified Allergy, Unknown, Nausea and Vomiting, 03/24/16) shellfish derived (Verified Allergy, Unknown, Nausea and Vomiting, 03/24/16 ) shrimp (Verified Allergy, Unknown, Nausea and Vomiting, 03/24/16) ROS Review of System 10-point review otherwise negative Physical Exam General: Alert, Oriented X3, Cooperative, No acute distress HEENT: Other (maybe a hint of scleral icterus?) Lungs: Clear to auscultation Heart: Regular rate, Normal S1, Normal S2, No murmurs Abdomen: Normal bowel sounds, Soft, No hepatosplenomegaly, No masses, Other ( epigastric, tending toward RUQ, tenderness) Extremities: No cyanosis, No edema Skin: No significant lesion Neuro: Normal speech, Strength at 5/5 X4 ext, Normal tone, Sensation intact, Cranial nerves 3-12 NL, Reflexes 2+ Psych/Mental Status: Mental status NL MUSCULOSKELETAL: No deformity, No swelling Vitals VITALS Vital Signs Date Time Temp Pulse Resp B/P Pulse Ox O2 Delivery O2 Flow Rate FiO2 03/24/16 16:27 Nasal Cannula 2.0 03/24/16 16:25 107 18 126/64 97 03/24/16 12:28 98.3 98.3 Labs Labs Laboratory Tests Test 03/24/16 05:08 03/24/16 10:55 White Blood Count 13.4x10^3/uL (4.0-11.0) Red Blood Count 4.35x10^6/uL (3.50-5.40) Hemoglobin 13.0g/dL (12.0-15.5) Hematocrit 37.6% (36.0-47.0) Mean Corpuscular Volume 86fL (79-100) Mean Corpuscular Hemoglobin 30pg (25-35) Mean Corpuscular Hemoglobin Concent 35g/dL (31-37) Red Cell Distribution Width 14.0% (11.5-14.5) Platelet Count 224x10^3/uL (140-400) Neutrophils (%) (Auto) 86% (31-73) Lymphocytes (%) (Auto) 10% (24-48) Monocytes (%) (Auto) 3% (0-9) Eosinophils (%) (Auto) 0% (0-3) Basophils (%) (Auto) 1% (0-3) Neutrophils # (Auto) 11.5x10^3uL (1.8-7.7) Lymphocytes # (Auto) 1.4x10^3/uL (1.0-4.8) Monocytes # (Auto) 0.4x10^3/uL (0.0-1.1) Eosinophils # (Auto) 0.0x10^3/uL (0.0-0.7) Basophils # (Auto) 0.1x10^3/uL (0.0-0.2) Segmented Neutrophils % 80% (35-66) Band Neutrophils % 9% (0-9) Lymphocytes % 6% (24-48) Atypical Lymphocytes % (Manual) 1% (0-0) Monocytes % 3% (0-10) Eosinophils % 1% (0-5) Platelet Estimate Adequate (ADEQUATE) Sodium Level 139mmol/L (136-145) Potassium Level 4.3mmol/L (3.5-5.1) Chloride Level 104mmol/L (98-107) Carbon Dioxide Level 29mmol/L (21-32) Anion Gap 6 (6-14) Blood Urea Nitrogen 15mg/dL (7-20) Creatinine 0.7mg/dL (0.6-1.0) Estimated GFR (Cockcroft-Gault) 80.1 Glucose Level 181mg/dL (70-99) Calcium Level 9.2mg/dL (8.5-10.1) Troponin I Quantitative < 0.017ng/mL (0.000-0.055) 0.039ng/mL (0.000-0.055) Magnesium Level 1.9mg/dL (1.8-2.4) Thyroid Stimulating Hormone (TSH) 0.332uIU/mL (0.358-3.74) Free Thyroxine 1.16ng/dL (0.76-1.46) Laboratory Tests Test 03/24/16 05:08 03/24/16 10:55 White Blood Count 13.4x10^3/uL (4.0-11.0) Red Blood Count 4.35x10^6/uL (3.50-5.40) Hemoglobin 13.0g/dL (12.0-15.5) Hematocrit 37.6% (36.0-47.0) Mean Corpuscular Volume 86fL (79-100) Mean Corpuscular Hemoglobin 30pg (25-35) Mean Corpuscular Hemoglobin Concent 35g/dL (31-37) Red Cell Distribution Width 14.0% (11.5-14.5) Platelet Count 224x10^3/uL (140-400) Neutrophils (%) (Auto) 86% (31-73) Lymphocytes (%) (Auto) 10% (24-48) Monocytes (%) (Auto) 3% (0-9) Eosinophils (%) (Auto) 0% (0-3) Basophils (%) (Auto) 1% (0-3) Neutrophils # (Auto) 11.5x10^3uL (1.8-7.7) Lymphocytes # (Auto) 1.4x10^3/uL (1.0-4.8) Monocytes # (Auto) 0.4x10^3/uL (0.0-1.1) Eosinophils # (Auto) 0.0x10^3/uL (0.0-0.7) Basophils # (Auto) 0.1x10^3/uL (0.0-0.2) Segmented Neutrophils % 80% (35-66) Band Neutrophils % 9% (0-9) Lymphocytes % 6% (24-48) Atypical Lymphocytes % (Manual) 1% (0-0) Monocytes % 3% (0-10) Eosinophils % 1% (0-5) Platelet Estimate Adequate (ADEQUATE) Sodium Level 139mmol/L (136-145) Potassium Level 4.3mmol/L (3.5-5.1) Chloride Level 104mmol/L (98-107) Carbon Dioxide Level 29mmol/L (21-32) Anion Gap 6 (6-14) Blood Urea Nitrogen 15mg/dL (7-20) Creatinine 0.7mg/dL (0.6-1.0) Estimated GFR (Cockcroft-Gault) 80.1 Glucose Level 181mg/dL (70-99) Calcium Level 9.2mg/dL (8.5-10.1) Troponin I Quantitative < 0.017ng/mL (0.000-0.055) 0.039ng/mL (0.000-0.055) Magnesium Level 1.9mg/dL (1.8-2.4) Thyroid Stimulating Hormone (TSH) 0.332uIU/mL (0.358-3.74) Free Thyroxine 1.16ng/dL (0.76-1.46) No LFT's. Lowish TSH. Images Images Sono as mentioned above. Assessment/Plan Assessment/Plan IMP: 1. Biliary colic? Concern re: choledocholithiasis. 2. H/o GERD, on daily PPI. PUD doubtful in this setting and no history to suggest UGI bleeding from other source. 3. Diverticulosis 4. T3 toxicosis? Seems doubtful with only borderline low TSH and normal T4, though T3 toxicosis possible. REC: 1. Check LFT''s and "true" T3. 2. MRCP. 3. IV PPI as basically NPO though could have ice chips. --other pending. Thank you for allowing me to assist in the care of this patient. Please call if questions. PRESTON RANDOLPH MD Mar 24, 2016 16:58
[2016-03-24] MEDS: PANTOPRAZOLE IV PUSH 40 MG VIAL. IVP SCH (17:32)
[2016-03-24 17:53] LABS: ALBUMIN 3.3 g/dL (3.4-5.0); DIRECT BILIRUBIN 0.2 mg/dL (0.0-0.2); TOTAL BILIRUBIN 0.5 mg/dL (0.2-1.0); TOTAL PROTEIN 7.3 g/dL (6.4-8.2)
[2016-03-24] MEDS: IV 1/2 NORMAL SALINE 1,000 ML IV SCH (19:15)
[2016-03-24] MEDS: MORPHINE SULFATE 2 MG/ML DISP.SYRIN. IV PRN (21:35)
[2016-03-25] VITALS (13 sets, daily range): BP systolic 101–143; BP diastolic 54–66
[2016-03-25] MEDS: METOPROLOL TARTRATE 5 MG/5 ML VIAL. IVP SCH ×4 (00:01→18:00)
[2016-03-25] MEDS: ALBUTEROL SULFATE 2.5 MG/3 ML NEBU. NEB SCH ×6 (01:00→18:00)
[2016-03-25] MEDS: MORPHINE SULFATE 2 MG/ML DISP.SYRIN. IV PRN ×2 (04:36→11:44)
[2016-03-25 05:24] LABS: ALBUMIN 3.1 g/dL (3.4-5.0); ALBUMIN/GLOBULIN RATIO 0.8 (1.0-1.7); CALCIUM 9.1 mg/dL (8.5-10.1); CREATININE 0.7 mg/dL (0.6-1.0); GFR 80.1; TOTAL BILIRUBIN 0.8 mg/dL (0.2-1.0); TOTAL PROTEIN 6.8 g/dL (6.4-8.2)
[2016-03-25 05:25] LABS: POTASSIUM 5.3 mmol/L (3.5-5.1)
[2016-03-25 05:55] LABS: CHOLESTEROL/HDL RATIO 1.7
[2016-03-25] MEDS: PANTOPRAZOLE IV PUSH 40 MG VIAL. IVP SCH ×2 (06:21→18:24)
[2016-03-25] MEDS: BUDESONIDE 0.5 MG/2 ML NEBU NEB SCH ×2 (07:48→19:25)
[2016-03-25] MEDS: IV 1/2 NORMAL SALINE 1,000 ML IV SCH (08:41)
[2016-03-25] MEDS: ASPIRIN ENTERIC COATED 81 MG TABLET.DR. PO SCH (08:41)
[2016-03-25] MEDS: LISINOPRIL 10 MG TABLET PO SCH (08:41)
[2016-03-25] MEDS: FLUTICASONE 50MCG/NASAL SPRAY 16GM BOTTLE. NS SCH (08:42)
[2016-03-25 08:44] LABS: BASO # 0.1 x10^3/uL (0.0-0.2); BASO % 0 % (0-3); EOS % 0 % (0-3); HEMATOCRIT 40.5 % (36.0-47.0); HEMOGLOBIN 13.2 g/dL (12.0-15.5); LYMPH # 2.3 x10^3/uL (1.0-4.8); LYMPH % 10 % (24-48); MEAN CORPUSCULAR HEMOGLOBIN 29 pg (25-35); MEAN CORPUSCULAR HGB CONC 33 g/dL (31-37); MEAN CORPUSCULAR VOLUME 88 fL (79-100); MONO % 9 % (0-9); NEUT % 81 % (31-73); PLATELET COUNT 224 x10^3/uL (140-400); RED BLOOD COUNT 4.61 x10^6/uL (3.50-5.40); RED CELL DISTRIBUTION WIDTH 14.4 % (11.5-14.5)
--- NOTE | 2016-03-25 10:00 | PDOC ---
MAHOGANYMARLENE Ella [employer] 03/25/16 1000: CARDIO Progress Notes Date and Time Date of Service 03/25/2016 Time of Evaluation 0956 Subjective Subjective: No Chest Pain, No shortness of breath, No Palpitations, No Dizziness, Other (nausea resolved with being NPO) Vitals Vitals Vital Signs Date Time Temp Pulse Resp B/P Pulse Ox O2 Delivery O2 Flow Rate FiO2 03/25/16 09:05 85 22 132/60 95 Nasal Cannula 2.0 03/25/16 07:21 99.5 99.5 Weight Weight [ ] Stability Assessment Stability Assess.: stable for transfer Input and Output Intake and Output Intake and Output 03/25/16 07:00 Intake Total 890 ml Output Total 300 ml Balance 590 ml Intake Oral 60 ml IV Total 330 ml Other 500 ml Output Urine Total 300 ml # Voids 2 Laboratory Labs Laboratory Tests Test 03/24/16 10:55 03/24/16 16:20 03/25/16 04:08 03/25/16 07:48 Magnesium Level 1.9mg/dL (1.8-2.4) Troponin I Quantitative 0.039ng/mL (0.000-0.055) 0.047ng/mL (0.000-0.055) Thyroid Stimulating Hormone (TSH) 0.332uIU/mL (0.358-3.74) Free Thyroxine 1.16ng/dL (0.76-1.46) Total Triiodothyronine 105ng/dL (71-180) Total Bilirubin 0.5mg/dL (0.2-1.0) 0.8mg/dL (0.2-1.0) Direct Bilirubin 0.2mg/dL (0.0-0.2) Aspartate Amino Transf (AST/SGOT) 25U/L (15-37) 32U/L (15-37) Alanine Aminotransferase (ALT/SGPT) 30U/L (14-59) 30U/L (14-59) Alkaline Phosphatase 71U/L (46-116) 70U/L (46-116) Total Protein 7.3g/dL (6.4-8.2) 6.8g/dL (6.4-8.2) Albumin 3.3g/dL (3.4-5.0) 3.1g/dL (3.4-5.0) Free Triiodothyronine (T3) pg/mL 2.10pg/mL (2.18-3.98) Sodium Level 137mmol/L (136-145) Potassium Level 5.3mmol/L (3.5-5.1) Chloride Level 102mmol/L (98-107) Carbon Dioxide Level 26mmol/L (21-32) Anion Gap 9 (6-14) Blood Urea Nitrogen 17mg/dL (7-20) Creatinine 0.7mg/dL (0.6-1.0) Estimated GFR (Cockcroft-Gault) 80.1 BUN/Creatinine Ratio 24 (6-20) Glucose Level 106mg/dL (70-99) Calcium Level 9.1mg/dL (8.5-10.1) Albumin/Globulin Ratio 0.8 (1.0-1.7) Triglycerides Level 35mg/dL (0-150) Cholesterol Level 141mg/dL (0-200) LDL Cholesterol, Calculated 52mg/dL (0-100) VLDL Cholesterol, Calculated 7mg/dL (0-40) HDL Cholesterol 82mg/dL (40-60) Cholesterol/HDL Ratio 1.7 White Blood Count 24.0x10^3/uL (4.0-11.0) Red Blood Count 4.61x10^6/uL (3.50-5.40) Hemoglobin 13.2g/dL (12.0-15.5) Hematocrit 40.5% (36.0-47.0) Mean Corpuscular Volume 88fL (79-100) Mean Corpuscular Hemoglobin 29pg (25-35) Mean Corpuscular Hemoglobin Concent 33g/dL (31-37) Red Cell Distribution Width 14.4% (11.5-14.5) Platelet Count 224x10^3/uL (140-400) Neutrophils (%) (Auto) 81% (31-73) Lymphocytes (%) (Auto) 10% (24-48) Monocytes (%) (Auto) 9% (0-9) Eosinophils (%) (Auto) 0% (0-3) Basophils (%) (Auto) 0% (0-3) Neutrophils # (Auto) 19.4x10^3uL (1.8-7.7) Lymphocytes # (Auto) 2.3x10^3/uL (1.0-4.8) Monocytes # (Auto) 2.1x10^3/uL (0.0-1.1) Eosinophils # (Auto) 0.0x10^3/uL (0.0-0.7) Basophils # (Auto) 0.1x10^3/uL (0.0-0.2) Physical Exam HEENT: Neck Supple W Full Motion Chest: Symmetric LUNGS: Clear to Auscultation Heart: S1S2, RRR, no murmurs, other (Tele: ST) Extremities: No Edema Neurology: alert, oriented Assessment Assessment 1. 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 malignant HTN, POA resolved with nicardipine weaned off overnight continue IV meds while NPO may transfer to med-tele 3 . ? GB disease US with cholelithiasis and distended GB one time dose of Reglan to address nausea per GI 4. HLD continue home statin therapy Will follow peripherally Please contact for further assistance TANMAY MONROY MD 03/25/16 0037: CARDIO Progress Notes Plan Plan Pt. seen and examined. Agree with above WELT [employer]KER note. No acute CV events overnight. Normal heart exam. no edema. labs reviewed. echo wnl. Supportive care from CV perspective. No further testing necessary prior to any GI w/u or procedure. Thx for consult. MARLENE VIDES APRN Mar 25, 2016 10:00 TANMAY MONROY MD Mar 25, 2016 22:37
--- NOTE | 2016-03-25 10:54 | PDOC ---
G I PROGRESS NOTE Subjective Stomach feels better; nausea improved. Some right-sided pain when she coughs. Physical Exam Lungs clear. RRR Abdomen soft, not distended nor tender. Right-sided rib tenderness. Review of Relevant I have reviewed the following items rodrigue (where applicable) has been applied. Labs Laboratory Tests Test 03/24/16 05:08 03/24/16 10:55 03/24/16 16:20 03/25/16 04:08 White Blood Count 13.4x10^3/uL (4.0-11.0) Red Blood Count 4.35x10^6/uL (3.50-5.40) Hemoglobin 13.0g/dL (12.0-15.5) Hematocrit 37.6% (36.0-47.0) Mean Corpuscular Volume 86fL (79-100) Mean Corpuscular Hemoglobin 30pg (25-35) Mean Corpuscular Hemoglobin Concent 35g/dL (31-37) Red Cell Distribution Width 14.0% (11.5-14.5) Platelet Count 224x10^3/uL (140-400) Neutrophils (%) (Auto) 86% (31-73) Lymphocytes (%) (Auto) 10% (24-48) Monocytes (%) (Auto) 3% (0-9) Eosinophils (%) (Auto) 0% (0-3) Basophils (%) (Auto) 1% (0-3) Neutrophils # (Auto) 11.5x10^3uL (1.8-7.7) Lymphocytes # (Auto) 1.4x10^3/uL (1.0-4.8) Monocytes # (Auto) 0.4x10^3/uL (0.0-1.1) Eosinophils # (Auto) 0.0x10^3/uL (0.0-0.7) Basophils # (Auto) 0.1x10^3/uL (0.0-0.2) Segmented Neutrophils % 80% (35-66) Band Neutrophils % 9% (0-9) Lymphocytes % 6% (24-48) Atypical Lymphocytes % (Manual) 1% (0-0) Monocytes % 3% (0-10) Eosinophils % 1% (0-5) Platelet Estimate Adequate (ADEQUATE) Sodium Level 139mmol/L (136-145) 137mmol/L (136-145) Potassium Level 4.3mmol/L (3.5-5.1) 5.3mmol/L (3.5-5.1) Chloride Level 104mmol/L (98-107) 102mmol/L (98-107) Carbon Dioxide Level 29mmol/L (21-32) 26mmol/L (21-32) Anion Gap 6 (6-14) 9 (6-14) Blood Urea Nitrogen 15mg/dL (7-20) 17mg/dL (7-20) Creatinine 0.7mg/dL (0.6-1.0) 0.7mg/dL (0.6-1.0) Estimated GFR (Cockcroft-Gault) 80.1 80.1 Glucose Level 181mg/dL (70-99) 106mg/dL (70-99) Calcium Level 9.2mg/dL (8.5-10.1) 9.1mg/dL (8.5-10.1) Troponin I Quantitative < 0.017ng/mL (0.000-0.055) 0.039ng/mL (0.000-0.055) 0.047ng/mL (0.000-0.055) Magnesium Level 1.9mg/dL (1.8-2.4) Thyroid Stimulating Hormone (TSH) 0.332uIU/mL (0.358-3.74) Free Thyroxine 1.16ng/dL (0.76-1.46) Total Triiodothyronine 105ng/dL (71-180) Total Bilirubin 0.5mg/dL (0.2-1.0) 0.8mg/dL (0.2-1.0) Direct Bilirubin 0.2mg/dL (0.0-0.2) Aspartate Amino Transf (AST/SGOT) 25U/L (15-37) 32U/L (15-37) Alanine Aminotransferase (ALT/SGPT) 30U/L (14-59) 30U/L (14-59) Alkaline Phosphatase 71U/L (46-116) 70U/L (46-116) Total Protein 7.3g/dL (6.4-8.2) 6.8g/dL (6.4-8.2) Albumin 3.3g/dL (3.4-5.0) 3.1g/dL (3.4-5.0) Free Triiodothyronine (T3) pg/mL 2.10pg/mL (2.18-3.98) BUN/Creatinine Ratio 24 (6-20) Albumin/Globulin Ratio 0.8 (1.0-1.7) Triglycerides Level 35mg/dL (0-150) Cholesterol Level 141mg/dL (0-200) LDL Cholesterol, Calculated 52mg/dL (0-100) VLDL Cholesterol, Calculated 7mg/dL (0-40) HDL Cholesterol 82mg/dL (40-60) Cholesterol/HDL Ratio 1.7 Test 03/25/16 07:48 White Blood Count 24.0x10^3/uL (4.0-11.0) Red Blood Count 4.61x10^6/uL (3.50-5.40) Hemoglobin 13.2g/dL (12.0-15.5) Hematocrit 40.5% (36.0-47.0) Mean Corpuscular Volume 88fL (79-100) Mean Corpuscular Hemoglobin 29pg (25-35) Mean Corpuscular Hemoglobin Concent 33g/dL (31-37) Red Cell Distribution Width 14.4% (11.5-14.5) Platelet Count 224x10^3/uL (140-400) Neutrophils (%) (Auto) 81% (31-73) Lymphocytes (%) (Auto) 10% (24-48) Monocytes (%) (Auto) 9% (0-9) Eosinophils (%) (Auto) 0% (0-3) Basophils (%) (Auto) 0% (0-3) Neutrophils # (Auto) 19.4x10^3uL (1.8-7.7) Lymphocytes # (Auto) 2.3x10^3/uL (1.0-4.8) Monocytes # (Auto) 2.1x10^3/uL (0.0-1.1) Eosinophils # (Auto) 0.0x10^3/uL (0.0-0.7) Basophils # (Auto) 0.1x10^3/uL (0.0-0.2) Laboratory Tests Test 03/24/16 10:55 03/24/16 16:20 03/25/16 04:08 03/25/16 07:48 Magnesium Level 1.9mg/dL (1.8-2.4) Troponin I Quantitative 0.039ng/mL (0.000-0.055) 0.047ng/mL (0.000-0.055) Thyroid Stimulating Hormone (TSH) 0.332uIU/mL (0.358-3.74) Free Thyroxine 1.16ng/dL (0.76-1.46) Total Triiodothyronine 105ng/dL (71-180) Total Bilirubin 0.5mg/dL (0.2-1.0) 0.8mg/dL (0.2-1.0) Direct Bilirubin 0.2mg/dL (0.0-0.2) Aspartate Amino Transf (AST/SGOT) 25U/L (15-37) 32U/L (15-37) Alanine Aminotransferase (ALT/SGPT) 30U/L (14-59) 30U/L (14-59) Alkaline Phosphatase 71U/L (46-116) 70U/L (46-116) Total Protein 7.3g/dL (6.4-8.2) 6.8g/dL (6.4-8.2) Albumin 3.3g/dL (3.4-5.0) 3.1g/dL (3.4-5.0) Free Triiodothyronine (T3) pg/mL 2.10pg/mL (2.18-3.98) Sodium Level 137mmol/L (136-145) Potassium Level 5.3mmol/L (3.5-5.1) Chloride Level 102mmol/L (98-107) Carbon Dioxide Level 26mmol/L (21-32) Anion Gap 9 (6-14) Blood Urea Nitrogen 17mg/dL (7-20) Creatinine 0.7mg/dL (0.6-1.0) Estimated GFR (Cockcroft-Gault) 80.1 BUN/Creatinine Ratio 24 (6-20) Glucose Level 106mg/dL (70-99) Calcium Level 9.1mg/dL (8.5-10.1) Albumin/Globulin Ratio 0.8 (1.0-1.7) Triglycerides Level 35mg/dL (0-150) Cholesterol Level 141mg/dL (0-200) LDL Cholesterol, Calculated 52mg/dL (0-100) VLDL Cholesterol, Calculated 7mg/dL (0-40) HDL Cholesterol 82mg/dL (40-60) Cholesterol/HDL Ratio 1.7 White Blood Count 24.0x10^3/uL (4.0-11.0) Red Blood Count 4.61x10^6/uL (3.50-5.40) Hemoglobin 13.2g/dL (12.0-15.5) Hematocrit 40.5% (36.0-47.0) Mean Corpuscular Volume 88fL (79-100) Mean Corpuscular Hemoglobin 29pg (25-35) Mean Corpuscular Hemoglobin Concent 33g/dL (31-37) Red Cell Distribution Width 14.4% (11.5-14.5) Platelet Count 224x10^3/uL (140-400) Neutrophils (%) (Auto) 81% (31-73) Lymphocytes (%) (Auto) 10% (24-48) Monocytes (%) (Auto) 9% (0-9) Eosinophils (%) (Auto) 0% (0-3) Basophils (%) (Auto) 0% (0-3) Neutrophils # (Auto) 19.4x10^3uL (1.8-7.7) Lymphocytes # (Auto) 2.3x10^3/uL (1.0-4.8) Monocytes # (Auto) 2.1x10^3/uL (0.0-1.1) Eosinophils # (Auto) 0.0x10^3/uL (0.0-0.7) Basophils # (Auto) 0.1x10^3/uL (0.0-0.2) LFT's and thyroid studies OK. Medications Current Medications Nitroglycerin (Nitrostat) 0.4 mg PRN Q5MIN PRN SL CHEST PAIN Last administered on 03/24/16 05:54; Start 03/24/16 at 05:00 Ondansetron HCl (Zofran) 4 mg PRN Q8HRS PRN IV NAUSEA/VOMITING Last administered on 03/24/16 05:57; Start 03/24/16 at 05:00; Stop 03/24/16 at 10:54 ; Status DC Acetaminophen (Tylenol) 650 mg PRN Q4HRS PRN PO FEVER; Start 03/24/16 at 05:00 ; Stop 03/25/16 at 04:59; Status DC Nitroglycerin (Nitrostat) 0.4 mg PRN Q5MIN PRN SL CHEST PAIN; Start 03/24/16 at 05:00; Stop 03/25/16 at 04:59; Status Cancel Lisinopril (Prinivil) 10 mg 1X ONCE PO Last administered on 03/24/16 05:57; Start 03/24/16 at 06:00; Stop 03/24/16 at 06:01; Status DC Nitroglycerin (Nitrostat) 0.4 mg PRN Q5MIN PRN SL CHEST PAIN; Start 03/24/16 at 06:00; Status Cancel Morphine Sulfate 2 mg PRN Q2HR PRN IV PAIN Last administered on 03/25/16 04:36 ; Start 03/24/16 at 06:30 Morphine Sulfate 2 mg 1X ONCE IV Last administered on 03/24/16 06:27; Start 03/24/16 at 06:30; Stop 03/24/16 at 06:31; Status DC Hydralazine HCl (Apresoline) 10 mg PRN Q4HRS PRN IVP ELEVATED BP, SEE COMMENTS Last administered on 03/24/16 06:59; Start 03/24/16 at 06:30 Aspirin (Ecotrin) 81 mg DAILY PO Last administered on 03/25/16 08:41; Start at 09:00 Hydralazine HCl (Apresoline) 25 mg DAILY PO Last administered on 03/24/16 09: 00; Start 03/24/16 at 09:00; Stop 03/24/16 at 09:49; Status DC Lisinopril (Prinivil) 10 mg DAILY PO Last administered on 03/25/16 08:41; Start 03/24/16 at 09:00 Non-Formulary Medication 2 puff QID INH FOR ASTHMA; Start 03/24/16 at 09:00; Stop 03/24/16 at 09:00; Status DC Fluticasone Propionate (Flonase) 2 spray DAILY NS Last administered on 08:42; Start 03/24/16 at 09:00 Non-Formulary Medication 1 inh BID IH ; Start 03/24/16 at 09:00; Stop 03/24/16 at 09:00; Status DC Pantoprazole Sodium (Protonix) 40 mg DAILYAC PO ; Start 03/24/16 at 08:00; Stop 03/24/16 at 17:03; Status DC Albuterol Sulfate (Ventolin Neb Soln) 2.5 mg Q6HRS NEB Last administered on 07:48; Start 03/24/16 at 08:00 Budesonide (Pulmicort) 0.5 mg RTBID NEB Last administered on 03/25/16 07:48; Start 03/24/16 at 08:00 Metoprolol Tartrate (Lopressor) 5 mg STAT STAT IVP Last administered on 09:31; Start 03/24/16 at 09:23; Stop 03/24/16 at 09:25; Status DC Pantoprazole Sodium (Protonix Vial) 40 mg 1X ONCE IVP ; Start 03/24/16 at 09:45 ; Stop 03/24/16 at 09:53; Status DC Metoclopramide HCl (Reglan) 10 mg 1X ONCE IV ; Start 03/24/16 at 09:45; Stop at 09:53; Status DC Metoprolol Tartrate (Lopressor) 5 mg Q6HRS IVP Last administered on 03/25/16 06:17; Start 03/24/16 at 10:00 Prochlorperazine Edisylate (Compazine) 10 mg PRN Q6HRS PRN IV NAUSEA/VOMITING Last administered on 03/24/16 10:56; Start 03/24/16 at 10:30 Ondansetron HCl 4 mg 4 mg PRN Q6HRS PRN IV NAUSEA/VOMITING; Start 03/24/16 at 10:45 Nicardipine HCl 50 mg/Sodium Chloride 270 ml @ 0 mls/hr CONT PRN IV SEE I/O RECORD; Start 03/24/16 at 11:00 Sodium Chloride (Iv Sodium Chloride 0.9% 500ml Bag) 500 ml @ 500 mls/hr 1X ONCE IV Last administered on 03/24/16 15:03; Start 03/24/16 at 13:45; Stop at 14:44; Status DC Lisinopril (Prinivil) 10 mg 1X ONCE PO Last administered on 03/24/16 16:08; Start 03/24/16 at 16:00; Stop 03/24/16 at 16:01; Status DC Non-Formulary Medication 25 mg PRN PO ; Start 03/24/16 at 16:00; Stop 03/24/16 at 17:57; Status DC Pantoprazole Sodium 40 mg 40 mg [id number] IVP Last administered on 03/25/16 06:21 ; Start 03/24/16 at 18:00 Sodium Chloride (Iv Sodium Chloride 0.45%) 1,000 ml @ 75 mls/hr [id number] IV Last administered on 03/25/16 08:41; Start 03/24/16 at 19:00 Active Scripts Active Reported Lumigan (Bimatoprost) 2.5 Ml Drops 2.5 Ml OP Ventolin Hfa Inhaler (Albuterol Sulfate) 18 Gm Hfa.aer.ad 2 Puff INH QID Advair 250-50 Diskus (Fluticasone/Salmeterol) 1 Each Disk.w.dev 1 Inh IH BID Flonase Allergy Relief (Fluticasone Propionate) 9.9 [address] [place] [address]ane.susp 2 Sprays NS DAILY Prilosec Otc (Omeprazole Magnesium) 20 Mg Tablet. 20 Mg PO DAILY Aspir 81 (Aspirin) 81 Mg Tablet. 81 Mg PO Lisinopril 10 Mg Tablet 10 Mg PO DAILY Vitals/I & O Vital Sign - Last 24 Hours 03/24/16 03/24/16 03/24/16 03/24/16 11:11 11:23 12:00 12:28 Temp 98.2 98.3 98.2 98.3 Pulse 104 108 115 Resp 20 16 18 B/P 168/75 169/74 119/42 Pulse Ox 92 92 O2 Delivery Room Air Room Air Room Air Room Air 03/24/16 03/24/16 03/24/16 03/24/16 12:29 13:25 13:40 14:52 Pulse 115 110 110 Resp 20 21 20 B/P 136/60 145/56 112/93 Pulse Ox 92 93 90 90 O2 Delivery Room Air Room Air Room Air Room Air 03/24/16 03/24/16 03/24/1617 16:08 16:25 16:27 16:59 Pulse 109 107 103 Resp 18 16 B/P 152/59 126/64 113/57 Pulse Ox 97 97 O2 Delivery Room Air Nasal Cannula Room Air O2 Flow Rate 2.0 03/24/16 03/24/16 03/24/16 03/24/16 17:09 17:48 18:42 19:00 Temp 98.8 98.8 Pulse 96 96 106 100 Resp 18 18 20 B/P 128/62 159/70 156/74 159/71 Pulse Ox 98 98 98 O2 Delivery Room Air Nasal Cannula Nasal Cannula O2 Flow Rate 2.0 2.0 03/24/16 03/24/16 03/24/16 03/24/16 19:18 20:00 20:00 21:00 Temp 97.7 97.7 Pulse 102 100 Resp 20 20 B/P 124/65 154/72 Pulse Ox 96 97 97 O2 Delivery Nasal Cannula Nasal Cannula Nasal Cannula Nasal Cannula O2 Flow Rate 2.0 2.0 2.0 2.0 03/24/16 03/24/16 03/24/16 03/24/16 21:35 22:00 23:00 23:59 Pulse 92 90 Resp 18 20 20 B/P 147/64 148/72 Pulse Ox 97 97 O2 Delivery Nasal Cannula Nasal Cannula Nasal Cannula Nasal Cannula O2 Flow Rate 2.0 2.0 2.0 2.0 03/24/16 03/25/16 03/25/16 03/25/16 23:59 00:01 01:00 01:00 Temp 99.1 99.1 Pulse 96 96 77 Resp 18 18 B/P 136/58 136/58 125/63 Pulse Ox 95 100 97 O2 Delivery Nasal Cannula Nasal Cannula Nasal Cannula O2 Flow Rate 2.0 2.0 2.0 03/25/16 03/25/16 03/25/16 03/25/16 02:00 03:00 04:00 04:00 Temp 98.1 98.1 Pulse 80 84 90 Resp 20 18 20 B/P 143/64 135/58 137/56 Pulse Ox 96 96 97 O2 Delivery Nasal Cannula Nasal Cannula Nasal Cannula Nasal Cannula O2 Flow Rate 2.0 2.0 2.0 2.0 03/25/16 03/25/16 03/25/16 03/25/16 04:36 05:00 05:00 06:00 Pulse 85 92 Resp 20 18 18 18 B/P 134/62 120/57 Pulse Ox 96 95 95 95 O2 Delivery Nasal Cannula Nasal Cannula Nasal Cannula Nasal Cannula O2 Flow Rate 2.0 2.0 2.0 2.0 03/25/16 03/25/16 03/25/16 03/25/16 06:17 07:00 07:21 07:45 Temp 99.5 99.5 Pulse 86 74 Resp 18 B/P 120/57 112/54 Pulse Ox 95 96 O2 Delivery Nasal Cannula Nasal Cannula O2 Flow Rate 2.0 2.0 03/25/16 03/25/16 03/25/16 03/25/16 07:55 08:41 09:05 10:08 Pulse 89 85 93 Resp 22 36 B/P 134/59 132/60 119/66 Pulse Ox 95 95 O2 Delivery Nasal Cannula Nasal Cannula Nasal Cannula O2 Flow Rate 2.0 2.0 2.0 Intake and Output 03/24/16 03/24/16 03/25/16 15:00 23:00 07:00 Intake Total 500 ml 0 ml 390 ml Output Total 300 ml Balance 500 ml 0 ml 90 ml Images MRCP pending. Problem List Problems Medical Problems: (1) Chest pain Status: Acute (2) Malignant hypertension Status: Acute Assessment Abdomen/chest pain--GERD may contribute, but cholelithiasis and question of dilated CBD. Plan of Care: Continue current Tx, Mgmt Plan of Care Note Await MRCP. PRESTON RANDOLPH MD Mar 25, 2016 10:53
[2016-03-25 12:54] LABS: PLT ESTIMATE ADEQUATE (ADEQUATE)
--- NOTE | 2016-03-25 16:54 | RAD ---
MRCP, 03/25/2016: History: Abnormal gallbladder, dilated common hepatic duct Imaging was performed in axial and coronal planes utilizing a variety of imaging sequences included T2-weighted, fat-suppressed T2 weighted and opposed phase gradient echo sequences. 2-D and 3-D MRCP sequences were obtained with and without respiratory gating and MIP images reconstructed. The gallbladder is distended. It contains multiple gallstones. There is increased pericholecystic signal on the T2-weighted sequences compatible with pericholecystic edema. The common hepatic duct is mildly dilated measuring 2-11 mm. In the head of the pancreas the common bile duct is at the upper limits of normal in size measuring 9-10 mm. On series 5 there is a small focus of decreased signal within the distal common bile duct. There is also a suggestion of tiny distal common duct filling defects on image 1 of series 7. These findings are not confirmed on some of the other images. The pancreatic duct is unremarkable. There appears to be right-sided pleural fluid with underlying right basilar atelectasis. IMPRESSION: 1. Cholelithiasis with pericholecystic edema compatible with acute cholecystitis. 2. Mild dilatation of the common hepatic duct with possible choledocholithiasis as described above. 3. Small right pleural effusion with right basilar atelectasis/infiltrate.
--- NOTE | 2016-03-25 18:23 | PDOC ---
PROGRESS NOTES Chief Complaint Chief Complaint Chest pain ?CAD? Asthma, Hypertension, Hyperlipidemia, ? Previous angioplasty (the patient denies any history of coronary disease when I originally spoke with her), Hip replacement, Hysterectomy Hernia vaginal suspension. History of Present Illness History of Present Illness Pt seen in ICU VSS Cardiac w/u in progress BATSHEVA RN Vitals Vitals Vital Signs Date Time Temp Pulse Resp B/P Pulse Ox O2 Delivery O2 Flow Rate FiO2 03/25/16 16:04 97 25 113/63 91 Nasal Cannula 2.0 03/25/16 07:21 99.5 99.5 Physical Exam General: Alert, Oriented X3, Cooperative, No acute distress Heart: Regular rate, Normal S1, Normal S2, No murmurs Lungs: Clear Abdomen: Normal bowel sounds, Soft, No hepatosplenomegaly, No masses, Other ( epigastric, tending toward RUQ, tenderness) Extremities: No cyanosis, No edema Skin: No rashes, No breakdown, No significant lesion Labs LABS Laboratory Tests Test 03/25/16 04:08 03/25/16 07:48 Sodium Level 137mmol/L (136-145) Potassium Level 5.3mmol/L (3.5-5.1) Chloride Level 102mmol/L (98-107) Carbon Dioxide Level 26mmol/L (21-32) Anion Gap 9 (6-14) Blood Urea Nitrogen 17mg/dL (7-20) Creatinine 0.7mg/dL (0.6-1.0) Estimated GFR (Cockcroft-Gault) 80.1 BUN/Creatinine Ratio 24 (6-20) Glucose Level 106mg/dL (70-99) Calcium Level 9.1mg/dL (8.5-10.1) Total Bilirubin 0.8mg/dL (0.2-1.0) Aspartate Amino Transf (AST/SGOT) 32U/L (15-37) Alanine Aminotransferase (ALT/SGPT) 30U/L (14-59) Alkaline Phosphatase 70U/L (46-116) Total Protein 6.8g/dL (6.4-8.2) Albumin 3.1g/dL (3.4-5.0) Albumin/Globulin Ratio 0.8 (1.0-1.7) Triglycerides Level 35mg/dL (0-150) Cholesterol Level 141mg/dL (0-200) LDL Cholesterol, Calculated 52mg/dL (0-100) VLDL Cholesterol, Calculated 7mg/dL (0-40) HDL Cholesterol 82mg/dL (40-60) Cholesterol/HDL Ratio 1.7 White Blood Count 24.0x10^3/uL (4.0-11.0) Red Blood Count 4.61x10^6/uL (3.50-5.40) Hemoglobin 13.2g/dL (12.0-15.5) Hematocrit 40.5% (36.0-47.0) Mean Corpuscular Volume 88fL (79-100) Mean Corpuscular Hemoglobin 29pg (25-35) Mean Corpuscular Hemoglobin Concent 33g/dL (31-37) Red Cell Distribution Width 14.4% (11.5-14.5) Platelet Count 224x10^3/uL (140-400) Neutrophils (%) (Auto) 81% (31-73) Lymphocytes (%) (Auto) 10% (24-48) Monocytes (%) (Auto) 9% (0-9) Eosinophils (%) (Auto) 0% (0-3) Basophils (%) (Auto) 0% (0-3) Neutrophils # (Auto) 19.4x10^3uL (1.8-7.7) Lymphocytes # (Auto) 2.3x10^3/uL (1.0-4.8) Monocytes # (Auto) 2.1x10^3/uL (0.0-1.1) Eosinophils # (Auto) 0.0x10^3/uL (0.0-0.7) Basophils # (Auto) 0.1x10^3/uL (0.0-0.2) Segmented Neutrophils % 86% (35-66) Band Neutrophils % 3% (0-9) Lymphocytes % 9% (24-48) Monocytes % 2% (0-10) Platelet Estimate Adequate (ADEQUATE) Review of Systems Review of Systems co cp co weakness Assessment and Plan Assessmemt and Plan Problems Medical Problems: (1) Chest pain Status: Acute (2) Malignant hypertension Status: Acute Chest pain ?CAD? Asthma, Hypertension, Hyperlipidemia, ? Previous angioplasty (the patient denies any history of coronary disease when I originally spoke with her), Hip replacement, Hysterectomy Hernia vaginal suspension. Plan Serial Enzymes Cardiac consult Heart Monitor Home med ASA PTOT Problems: Comment Review of Relevant I have reviewed the following items rodrigue (where applicable) has been applied. Labs Laboratory Tests Test 03/24/16 05:08 03/24/16 10:55 03/24/16 16:20 03/25/16 04:08 White Blood Count 13.4x10^3/uL (4.0-11.0) Red Blood Count 4.35x10^6/uL (3.50-5.40) Hemoglobin 13.0g/dL (12.0-15.5) Hematocrit 37.6% (36.0-47.0) Mean Corpuscular Volume 86fL (79-100) Mean Corpuscular Hemoglobin 30pg (25-35) Mean Corpuscular Hemoglobin Concent 35g/dL (31-37) Red Cell Distribution Width 14.0% (11.5-14.5) Platelet Count 224x10^3/uL (140-400) Neutrophils (%) (Auto) 86% (31-73) Lymphocytes (%) (Auto) 10% (24-48) Monocytes (%) (Auto) 3% (0-9) Eosinophils (%) (Auto) 0% (0-3) Basophils (%) (Auto) 1% (0-3) Neutrophils # (Auto) 11.5x10^3uL (1.8-7.7) Lymphocytes # (Auto) 1.4x10^3/uL (1.0-4.8) Monocytes # (Auto) 0.4x10^3/uL (0.0-1.1) Eosinophils # (Auto) 0.0x10^3/uL (0.0-0.7) Basophils # (Auto) 0.1x10^3/uL (0.0-0.2) Segmented Neutrophils % 80% (35-66) Band Neutrophils % 9% (0-9) Lymphocytes % 6% (24-48) Atypical Lymphocytes % (Manual) 1% (0-0) Monocytes % 3% (0-10) Eosinophils % 1% (0-5) Platelet Estimate Adequate (ADEQUATE) Sodium Level 139mmol/L (136-145) 137mmol/L (136-145) Potassium Level 4.3mmol/L (3.5-5.1) 5.3mmol/L (3.5-5.1) Chloride Level 104mmol/L (98-107) 102mmol/L (98-107) Carbon Dioxide Level 29mmol/L (21-32) 26mmol/L (21-32) Anion Gap 6 (6-14) 9 (6-14) Blood Urea Nitrogen 15mg/dL (7-20) 17mg/dL (7-20) Creatinine 0.7mg/dL (0.6-1.0) 0.7mg/dL (0.6-1.0) Estimated GFR (Cockcroft-Gault) 80.1 80.1 Glucose Level 181mg/dL (70-99) 106mg/dL (70-99) Calcium Level 9.2mg/dL (8.5-10.1) 9.1mg/dL (8.5-10.1) Troponin I Quantitative < 0.017ng/mL (0.000-0.055) 0.039ng/mL (0.000-0.055) 0.047ng/mL (0.000-0.055) Magnesium Level 1.9mg/dL (1.8-2.4) Thyroid Stimulating Hormone (TSH) 0.332uIU/mL (0.358-3.74) Free Thyroxine 1.16ng/dL (0.76-1.46) Total Triiodothyronine 105ng/dL (71-180) Total Bilirubin 0.5mg/dL (0.2-1.0) 0.8mg/dL (0.2-1.0) Direct Bilirubin 0.2mg/dL (0.0-0.2) Aspartate Amino Transf (AST/SGOT) 25U/L (15-37) 32U/L (15-37) Alanine Aminotransferase (ALT/SGPT) 30U/L (14-59) 30U/L (14-59) Alkaline Phosphatase 71U/L (46-116) 70U/L (46-116) Total Protein 7.3g/dL (6.4-8.2) 6.8g/dL (6.4-8.2) Albumin 3.3g/dL (3.4-5.0) 3.1g/dL (3.4-5.0) Free Triiodothyronine (T3) pg/mL 2.10pg/mL (2.18-3.98) BUN/Creatinine Ratio 24 (6-20) Albumin/Globulin Ratio 0.8 (1.0-1.7) Triglycerides Level 35mg/dL (0-150) Cholesterol Level 141mg/dL (0-200) LDL Cholesterol, Calculated 52mg/dL (0-100) VLDL Cholesterol, Calculated 7mg/dL (0-40) HDL Cholesterol 82mg/dL (40-60) Cholesterol/HDL Ratio 1.7 Test 03/25/16 07:48 White Blood Count 24.0x10^3/uL (4.0-11.0) Red Blood Count 4.61x10^6/uL (3.50-5.40) Hemoglobin 13.2g/dL (12.0-15.5) Hematocrit 40.5% (36.0-47.0) Mean Corpuscular Volume 88fL (79-100) Mean Corpuscular Hemoglobin 29pg (25-35) Mean Corpuscular Hemoglobin Concent 33g/dL (31-37) Red Cell Distribution Width 14.4% (11.5-14.5) Platelet Count 224x10^3/uL (140-400) Neutrophils (%) (Auto) 81% (31-73) Lymphocytes (%) (Auto) 10% (24-48) Monocytes (%) (Auto) 9% (0-9) Eosinophils (%) (Auto) 0% (0-3) Basophils (%) (Auto) 0% (0-3) Neutrophils # (Auto) 19.4x10^3uL (1.8-7.7) Lymphocytes # (Auto) 2.3x10^3/uL (1.0-4.8) Monocytes # (Auto) 2.1x10^3/uL (0.0-1.1) Eosinophils # (Auto) 0.0x10^3/uL (0.0-0.7) Basophils # (Auto) 0.1x10^3/uL (0.0-0.2) Segmented Neutrophils % 86% (35-66) Band Neutrophils % 3% (0-9) Lymphocytes % 9% (24-48) Monocytes % 2% (0-10) Platelet Estimate Adequate (ADEQUATE) Laboratory Tests Test 03/25/16 04:08 1/17/17 07:48 Sodium Level 137mmol/L (136-145) Potassium Level 5.3mmol/L (3.5-5.1) Chloride Level 102mmol/L (98-107) Carbon Dioxide Level 26mmol/L (21-32) Anion Gap 9 (6-14) Blood Urea Nitrogen 17mg/dL (7-20) Creatinine 0.7mg/dL (0.6-1.0) Estimated GFR (Cockcroft-Gault) 80.1 BUN/Creatinine Ratio 24 (6-20) Glucose Level 106mg/dL (70-99) Calcium Level 9.1mg/dL (8.5-10.1) Total Bilirubin 0.8mg/dL (0.2-1.0) Aspartate Amino Transf (AST/SGOT) 32U/L (15-37) Alanine Aminotransferase (ALT/SGPT) 30U/L (14-59) Alkaline Phosphatase 70U/L (46-116) Total Protein 6.8g/dL (6.4-8.2) Albumin 3.1g/dL (3.4-5.0) Albumin/Globulin Ratio 0.8 (1.0-1.7) Triglycerides Level 35mg/dL (0-150) Cholesterol Level 141mg/dL (0-200) LDL Cholesterol, Calculated 52mg/dL (0-100) VLDL Cholesterol, Calculated 7mg/dL (0-40) HDL Cholesterol 82mg/dL (40-60) Cholesterol/HDL Ratio 1.7 White Blood Count 24.0x10^3/uL (4.0-11.0) Red Blood Count 4.61x10^6/uL (3.50-5.40) Hemoglobin 13.2g/dL (12.0-15.5) Hematocrit 40.5% (36.0-47.0) Mean Corpuscular Volume 88fL (79-100) Mean Corpuscular Hemoglobin 29pg (25-35) Mean Corpuscular Hemoglobin Concent 33g/dL (31-37) Red Cell Distribution Width 14.4% (11.5-14.5) Platelet Count 224x10^3/uL (140-400) Neutrophils (%) (Auto) 81% (31-73) Lymphocytes (%) (Auto) 10% (24-48) Monocytes (%) (Auto) 9% (0-9) Eosinophils (%) (Auto) 0% (0-3) Basophils (%) (Auto) 0% (0-3) Neutrophils # (Auto) 19.4x10^3uL (1.8-7.7) Lymphocytes # (Auto) 2.3x10^3/uL (1.0-4.8) Monocytes # (Auto) 2.1x10^3/uL (0.0-1.1) Eosinophils # (Auto) 0.0x10^3/uL (0.0-0.7) Basophils # (Auto) 0.1x10^3/uL (0.0-0.2) Segmented Neutrophils % 86% (35-66) Band Neutrophils % 3% (0-9) Lymphocytes % 9% (24-48) Monocytes % 2% (0-10) Platelet Estimate Adequate (ADEQUATE) Medications Current Medications Nitroglycerin (Nitrostat) 0.4 mg PRN Q5MIN PRN SL CHEST PAIN Last administered on 03/24/16 05:54; Start 03/24/16 at 05:00 Ondansetron HCl (Zofran) 4 mg PRN Q8HRS PRN IV NAUSEA/VOMITING Last administered on 03/24/16 05:57; Start 03/24/16 at 05:00; Stop 03/24/16 at 10:54 ; Status DC Acetaminophen (Tylenol) 650 mg PRN Q4HRS PRN PO FEVER; Start 03/24/16 at 05:00 ; Stop 03/25/16 at 04:59; Status DC Nitroglycerin (Nitrostat) 0.4 mg PRN Q5MIN PRN SL CHEST PAIN; Start 03/24/16 at 05:00; Stop 03/25/16 at 04:59; Status Cancel Lisinopril (Prinivil) 10 mg 1X ONCE PO Last administered on 03/24/16 05:57; Start 03/24/16 at 06:00; Stop 03/24/16 at 06:01; Status DC Nitroglycerin (Nitrostat) 0.4 mg PRN Q5MIN PRN SL CHEST PAIN; Start 03/24/16 at 06:00; Status Cancel Morphine Sulfate 2 mg PRN Q2HR PRN IV PAIN Last administered on 03/25/16 11:44 ; Start 03/24/16 at 06:30 Morphine Sulfate 2 mg 1X ONCE IV Last administered on 03/24/16 06:27; Start 03/24/16 at 06:30; Stop 03/24/16 at 06:31; Status DC Hydralazine HCl (Apresoline) 10 mg PRN Q4HRS PRN IVP ELEVATED BP, SEE COMMENTS Last administered on 03/24/16 06:59; Start 03/24/16 at 06:30 Aspirin (Ecotrin) 81 mg DAILY PO Last administered on 03/25/16 08:41; Start at 09:00 Hydralazine HCl (Apresoline) 25 mg DAILY PO Last administered on 03/24/16 09: 00; Start 03/24/16 at 09:00; Stop 03/24/16 at 09:49; Status DC Lisinopril (Prinivil) 10 mg DAILY PO Last administered on 03/25/16 08:41; Start 03/24/16 at 09:00 Non-Formulary Medication 2 puff QID INH FOR ASTHMA; Start 03/24/16 at 09:00; Stop 03/24/16 at 09:00; Status DC Fluticasone Propionate (Flonase) 2 spray DAILY NS Last administered on 08:42; Start 03/24/16 at 09:00 Non-Formulary Medication 1 inh BID IH ; Start 03/24/16 at 09:00; Stop 03/24/16 at 09:00; Status DC Pantoprazole Sodium (Protonix) 40 mg DAILYAC PO ; Start 03/24/16 at 08:00; Stop 03/24/16 at 17:03; Status DC Albuterol Sulfate (Ventolin Neb Soln) 2.5 mg Q6HRS NEB Last administered on 13:33; Start 03/24/16 at 08:00 Budesonide (Pulmicort) 0.5 mg RTBID NEB Last administered on 03/25/16 07:48; Start 03/24/16 at 08:00 Metoprolol Tartrate (Lopressor) 5 mg STAT STAT IVP Last administered on 09:31; Start 03/24/16 at 09:23; Stop 03/24/16 at 09:25; Status DC Pantoprazole Sodium (Protonix Vial) 40 mg 1X ONCE IVP ; Start 03/24/16 at 09:45 ; Stop 03/24/16 at 09:53; Status DC Metoclopramide HCl (Reglan) 10 mg 1X ONCE IV ; Start 03/24/16 at 09:45; Stop at 09:53; Status DC Metoprolol Tartrate (Lopressor) 5 mg Q6HRS IVP Last administered on 03/25/16 06:17; Start 03/24/16 at 10:00 Prochlorperazine Edisylate (Compazine) 10 mg PRN Q6HRS PRN IV NAUSEA/VOMITING Last administered on 03/24/16 10:56; Start 03/24/16 at 10:30 Ondansetron HCl 4 mg 4 mg PRN Q6HRS PRN IV NAUSEA/VOMITING; Start 03/24/16 at 10:45 Nicardipine HCl 50 mg/Sodium Chloride 270 ml @ 0 mls/hr CONT PRN IV SEE I/O RECORD; Start 03/24/16 at 11:00 Sodium Chloride (Iv Sodium Chloride 0.9% 500ml Bag) 500 ml @ 500 mls/hr 1X ONCE IV Last administered on 03/24/16 15:03; Start 03/24/16 at 13:45; Stop at 14:44; Status DC Lisinopril (Prinivil) 10 mg 1X ONCE PO Last administered on 03/24/16 16:08; Start 03/24/16 at 16:00; Stop 03/24/16 at 16:01; Status DC Non-Formulary Medication 25 mg PRN PO ; Start 03/24/16 at 16:00; Stop 03/24/16 at 17:57; Status DC Pantoprazole Sodium 40 mg 40 mg [id number] IVP Last administered on 03/25/16 06:21 ; Start 03/24/16 at 18:00 Sodium Chloride (Iv Sodium Chloride 0.45%) 1,000 ml @ 75 mls/hr [id number] IV Last administered on 03/25/16 08:41; Start 03/24/16 at 19:00 Active Scripts Active Reported Lumigan (Bimatoprost) 2.5 Ml Drops 2.5 Ml OP Ventolin Hfa Inhaler (Albuterol Sulfate) 18 Gm Hfa.aer.ad 2 Puff INH QID Advair 250-50 Diskus (Fluticasone/Salmeterol) 1 Each Disk.w.dev 1 Inh IH BID Flonase Allergy Relief (Fluticasone Propionate) 9.9 Ml [place].susp 2 Sprays NS DAILY Prilosec Otc (Omeprazole Magnesium) 20 Mg Tablet. 20 Mg PO DAILY Aspir 81 (Aspirin) 81 Mg Tablet. 81 Mg PO Lisinopril 10 Mg Tablet 10 Mg PO DAILY Vitals/I & O Vital Sign - Last 24 Hours 03/24/16 03/24/16 03/24/16 03/24/16 18:42 19:00 19:18 20:00 Temp 98.8 97.7 98.8 97.7 Pulse 106 100 102 Resp 18 20 20 B/P 156/74 159/71 124/65 Pulse Ox 98 98 96 97 O2 Delivery Nasal Cannula Nasal Cannula Nasal Cannula Nasal Cannula O2 Flow Rate 2.0 2.0 2.0 2.0 03/24/16 03/24/16 03/24/16 03/24/16 20:00 21:00 21:35 22:00 Pulse 100 92 Resp 20 18 20 B/P 154/72 147/64 Pulse Ox 97 97 O2 Delivery Nasal Cannula Nasal Cannula Nasal Cannula Nasal Cannula O2 Flow Rate 2.0 2.0 2.0 2.0 03/24/16 03/24/16 03/24/16 03/25/16 23:00 23:59 23:59 00:01 Temp 99.1 99.1 Pulse 90 96 96 Resp 20 18 B/P 148/72 136/58 136/58 Pulse Ox 97 95 O2 Delivery Nasal Cannula Nasal Cannula Nasal Cannula O2 Flow Rate 2.0 2.0 2.0 03/25/16 03/25/16 03/25/16 03/25/16 01:00 01:00 02:00 03:00 Pulse 77 80 84 Resp 18 20 18 B/P 125/63 143/64 135/58 Pulse Ox 100 97 96 96 O2 Delivery Nasal Cannula Nasal Cannula Nasal Cannula Nasal Cannula O2 Flow Rate 2.0 2.0 2.0 2.0 03/25/16 03/25/16 03/25/1603/25/17 04:00 04:00 04:36 05:00 Temp 98.1 98.1 Pulse 90 Resp 20 20 18 B/P 137/56 Pulse Ox 97 96 95 O2 Delivery Nasal Cannula Nasal Cannula Nasal Cannula Nasal Cannula O2 Flow Rate 2.0 2.0 2.0 2.0 03/25/16 03/25/16 03/25/16 03/25/16 05:00 06:00 06:17 07:00 Pulse 85 92 86 74 Resp 18 18 18 B/P 134/62 120/57 120/57 112/54 Pulse Ox 95 95 95 O2 Delivery Nasal Cannula Nasal Cannula Nasal Cannula O2 Flow Rate 2.0 2.0 2.0 03/25/16 03/25/16 03/25/16 03/25/16 07:21 07:45 07:55 08:41 Temp 99.5 99.5 Pulse 89 B/P 134/59 Pulse Ox 96 O2 Delivery Nasal Cannula Nasal Cannula O2 Flow Rate 2.0 2.0 03/25/16 03/25/16 03/25/16 03/25/16 09:05 10:08 11:44 11:45 Pulse 85 93 94 Resp 22 36 B/P 132/60 119/66 102/60 Pulse Ox 95 95 95 O2 Delivery Nasal Cannula Nasal Cannula Nasal Cannula O2 Flow Rate 2.0 2.0 2.0 03/25/16 03/25/16 03/25/16 11:48 13:33 16:04 Pulse 100 97 Resp 20 25 B/P 102/60 113/63 Pulse Ox 93 91 O2 Delivery Nasal Cannula Nasal Cannula Nasal Cannula O2 Flow Rate 2.0 2.0 2.0 Intake and Output 03/24/16 03/24/16 03/25/16 15:00 23:00 07:00 Intake Total 500 ml 0 ml 390 ml Output Total 300 ml Balance 500 ml 0 ml 90 ml CASTLE,NIAL K III DO Mar 25, 2016 18:23
[2016-03-26] VITALS (7 sets, daily range): BP systolic 122–155; BP diastolic 53–66
[2016-03-26] MEDS: ALBUTEROL SULFATE 2.5 MG/3 ML NEBU. NEB SCH ×5 (00:51→23:14)
[2016-03-26] MEDS: METOPROLOL TARTRATE 5 MG/5 ML VIAL. IVP SCH ×4 (01:10→17:38)
[2016-03-26] MEDS: IV 1/2 NORMAL SALINE 1,000 ML IV SCH ×2 (01:11→11:00)
[2016-03-26] MEDS: MORPHINE SULFATE 2 MG/ML DISP.SYRIN. IV PRN (05:04)
[2016-03-26] MEDS: PANTOPRAZOLE IV PUSH 40 MG VIAL. IVP SCH ×2 (06:35→17:42)
[2016-03-26] MEDS: BUDESONIDE 0.5 MG/2 ML NEBU NEB SCH ×2 (07:16→19:22)
[2016-03-26] MEDS: FLUTICASONE 50MCG/NASAL SPRAY 16GM BOTTLE. NS SCH (08:41)
[2016-03-26] MEDS: LISINOPRIL 10 MG TABLET PO SCH (09:00)
[2016-03-26] MEDS: ASPIRIN ENTERIC COATED 81 MG TABLET.DR. PO SCH (09:00)
--- NOTE | 2016-03-26 11:06 | PDOC ---
Subjective: Subjective: Right-sided pain but feeling okay. Objective: Vital Signs: Vital Signs Date Time Temp Pulse Resp B/P Pulse Ox O2 Delivery O2 Flow Rate FiO2 03/26/16 08:10 Nasal Cannula 2.0 03/26/16 08:10 98.6 92 19 122/55 95 98.6 Imaging: MRCP 03/25/16 IMPRESSION: 1. Cholelithiasis with pericholecystic edema compatible with acute cholecystitis. 2. Mild dilatation of the common hepatic duct with possible choledocholithiasis as described above. 3. Small right pleural effusion with right basilar atelectasis/infiltrate. PE: GEN: NAD LUNGS: CTAB HEART: RRR ABD: NABS, S/ND/NT, tenderness over right rib NEURO/PSYCH: A & O 3 A/P: Abd/chest pain Cholecystitis, cholelithiasis, ?choledocholithiasis -LFTs WNL -- Will ask surgery to see for possible cholecystectomy w/ IOC. PAUL CAIN Mar 26, 2016 11:06
[2016-03-26] MEDS: PIPERACILLIN/TAZOBACTAM 3.375 GM in IV NORMAL SALINE 50ML 50 ML IV SCH ×2 (12:16→17:37)
--- NOTE | 2016-03-26 12:21 | PDOC2 ---
CONSULT Date of Consult Date of Consult DATE: 03/26/16 TIME: 12:17 History of Present Illness Reason for Visit: The patient is an 81 year old female who was admitted due to chest pain and initial concern for a cardiac source. She reports emesis, and currently describes RUQ pain for the last couple of days. The pain is nonradiating and sharp in nature. She denies any change in bowel function. 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 ), Hysterectomy (with bladder suspension), Other ( vaginal suspension ) Family History Family History: Coronary Artery Disease (father) Social History Quit (20 years ago) ALCOHOL: occassional Drugs: None Lives: with Family Current Problem List Problem List Problems Medical Problems: (1) Chest pain Status: Acute (2) Malignant hypertension Status: Acute Current Medications Current Medications Current Medications Nitroglycerin (Nitrostat) 0.4 mg PRN Q5MIN PRN SL CHEST PAIN Last administered on 03/24/16 05:54; Start 03/24/16 at 05:00 Ondansetron HCl (Zofran) 4 mg PRN Q8HRS PRN IV NAUSEA/VOMITING Last administered on 03/24/16 05:57; Start 03/24/16 at 05:00; Stop 03/24/16 at 10:54 ; Status DC Acetaminophen (Tylenol) 650 mg PRN Q4HRS PRN PO FEVER; Start 03/24/16 at 05:00 ; Stop 03/25/16 at 04:59; Status DC Nitroglycerin (Nitrostat) 0.4 mg PRN Q5MIN PRN SL CHEST PAIN; Start 03/24/16 at 05:00; Stop 03/25/16 at 04:59; Status Cancel Lisinopril (Prinivil) 10 mg 1X ONCE PO Last administered on 03/24/16 05:57; Start 03/24/16 at 06:00; Stop 03/24/16 at 06:01; Status DC Nitroglycerin (Nitrostat) 0.4 mg PRN Q5MIN PRN SL CHEST PAIN; Start 03/24/16 at 06:00; Status Cancel Morphine Sulfate 2 mg PRN Q2HR PRN IV PAIN Last administered on 03/26/16 05:04 ; Start 03/24/16 at 06:30 Morphine Sulfate 2 mg 1X ONCE IV Last administered on 03/24/16 06:27; Start 03/24/16 at 06:30; Stop 03/24/16 at 06:31; Status DC Hydralazine HCl (Apresoline) 10 mg PRN Q4HRS PRN IVP ELEVATED BP, SEE COMMENTS Last administered on 03/24/16 06:59; Start 03/24/16 at 06:30 Aspirin (Ecotrin) 81 mg DAILY PO Last administered on 03/25/16 08:41; Start at 09:00 Hydralazine HCl (Apresoline) 25 mg DAILY PO Last administered on 03/24/16 09: 00; Start 03/24/16 at 09:00; Stop 03/24/16 at 09:49; Status DC Lisinopril (Prinivil) 10 mg DAILY PO Last administered on 03/25/16 08:41; Start 03/24/16 at 09:00 Non-Formulary Medication 2 puff QID INH FOR ASTHMA; Start 03/24/16 at 09:00; Stop 03/24/16 at 09:00; Status DC Fluticasone Propionate (Flonase) 2 spray DAILY NS Last administered on 08:41; Start 03/24/16 at 09:00 Non-Formulary Medication 1 inh BID IH ; Start 03/24/16 at 09:00; Stop 03/24/16 at 09:00; Status DC Pantoprazole Sodium (Protonix) 40 mg DAILYAC PO ; Start 03/24/16 at 08:00; Stop 03/24/16 at 17:03; Status DC Albuterol Sulfate (Ventolin Neb Soln) 2.5 mg Q6HRS NEB Last administered on 07:16; Start 03/24/16 at 08:00 Budesonide (Pulmicort) 0.5 mg RTBID NEB Last administered on 03/26/16 07:16; Start 03/24/16 at 08:00 Metoprolol Tartrate (Lopressor) 5 mg STAT STAT IVP Last administered on 09:31; Start 03/24/16 at 09:23; Stop 03/24/16 at 09:25; Status DC Pantoprazole Sodium (Protonix Vial) 40 mg 1X ONCE IVP ; Start 03/24/16 at 09:45 ; Stop 03/24/16 at 09:53; Status DC Metoclopramide HCl (Reglan) 10 mg 1X ONCE IV ; Start 03/24/16 at 09:45; Stop at 09:53; Status DC Metoprolol Tartrate (Lopressor) 5 mg Q6HRS IVP Last administered on 03/26/16 12:16; Start 03/24/16 at 10:00 Prochlorperazine Edisylate (Compazine) 10 mg PRN Q6HRS PRN IV NAUSEA/VOMITING Last administered on 03/24/16 10:56; Start 03/24/16 at 10:30 Ondansetron HCl 4 mg 4 mg PRN Q6HRS PRN IV NAUSEA/VOMITING; Start 03/24/16 at 10:45 Nicardipine HCl 50 mg/Sodium Chloride 270 ml @ 0 mls/hr CONT PRN IV SEE I/O RECORD; Start 03/24/16 at 11:00 Sodium Chloride (Iv Sodium Chloride 0.9% 500ml Bag) 500 ml @ 500 mls/hr 1X ONCE IV Last administered on 03/24/16 15:03; Start 03/24/16 at 13:45; Stop at 14:44; Status DC Lisinopril (Prinivil) 10 mg 1X ONCE PO Last administered on 03/24/16 16:08; Start 03/24/16 at 16:00; Stop 03/24/16 at 16:01; Status DC Non-Formulary Medication 25 mg PRN PO ; Start 03/24/16 at 16:00; Stop 03/24/16 at 17:57; Status DC Pantoprazole Sodium 40 mg 40 mg [id number] IVP Last administered on 03/26/16 06:35 ; Start 03/24/16 at 18:00 Sodium Chloride 1,000 ml @ 75 mls/hr [id number] IV Last administered on 01:11; Start 03/24/16 at 19:00 Piperacillin Sod/ Tazobactam Sod/ Sodium Chloride (Zosyn/Iv Sodium Chloride 0.9 % 50ml) 50 ml @ 100 mls/hr Q6HRS IV Last administered on 03/26/16t 12:16; Start 03/26/16 at 12:00 Active Scripts Active Reported Lumigan (Bimatoprost) 2.5 Ml Drops 2.5 Ml OP Ventolin Hfa Inhaler (Albuterol Sulfate) 18 Gm Hfa.aer.ad 2 Puff INH QID Advair 250-50 Diskus (Fluticasone/Salmeterol) 1 Each Disk.w.dev 1 Inh IH BID Flonase Allergy Relief (Fluticasone Propionate) 9.9 Ml [place].susp 2 Sprays NS DAILY Prilosec Otc (Omeprazole Magnesium) 20 Mg Tablet.dr 20 Mg PO DAILY Aspir 81 (Aspirin) 81 Mg Tablet.dr 81 Mg PO Lisinopril 10 Mg Tablet 10 Mg PO DAILY Allergies Allergies: Coded Allergies: iodine (Verified Allergy, Unknown, Nausea and Vomiting, 03/24/16) shellfish derived (Verified Allergy, Unknown, Nausea and Vomiting, 03/24/16 ) shrimp (Verified Allergy, Unknown, Nausea and Vomiting, 03/24/16) ROS General: No: Appetite, Chills, Fatigue, Malaise, Night Sweats, Other PSYCHOLOGICAL ROS: No: Anxiety, Behavioral Disorder, Concentration difficultie , Decreased libido, Depression, Disorientation, Hallucinations, Hostility, Irritablity, Memory difficulties, Mood Swings, Obsessive thoughts, Other, Physical abuse, Sexual abuse, Sleep disturbances, Suicidal ideation Eyes: No Blurry vision, No Decreased vision, No Double vision, No Dry eyes, No Excessive tearing, No Eye Pain, No Itchy Eyes, No Loss of vision, No Other, No Photophobia, No Scotomata, No Uses contacts, No Uses glasses HEENT: No: Epistaxis, Heacaches, Hearing change, Nasal congestion, Nasal discharge, Oral lesions, Other, Sinus pain, Sneezing, Snoring, Sore Throat, Tinnitus, Vertigo, Visual Changes, Vocal changes ALLERGY AND IMMUNOLOGY: No: Hives, Insect Bite Sensitivity, Itchy/Watery Eyes, Nasal Congestion, Other, Post Nasal Drip, Seasonal Allergies Hematological and Lymphatic: No: Bleeding Problems, Blood Clots, Blood Transfusions, Brusing, Night Sweats, Other, Pallor, Swollen Lymph Nodes Breast: No New/Changing Breast Lumps, No Nipple changes, No Nipple discharge, No Other Respiratory: No: Cough, Hemoptysis, Orthopnea, Other, Pleuritic Pain, SOB with excertion, Shortness of breath, Sputum Changes, Stridor, Tachypnea, Wheezing Cardiovascular: yes Chest Pain Gastrointestinal: Yes Abdominal Pain, Yes Vomiting Genitourinary: No , No , No , No , No , No , No , No Discharge, No Dysuria, No Flank Pain, No Frequency, No Hematuria, No Incontinence, No Other, No Pain, No Retention, No Urgency Musculoskeletal: No Gait Disturbance, No Joint Pain, No Joint Stiffness, No Joint Swelling, No Muscle Pain, No Muscular Weakness, No Other, No Pain In:, No Swelling In: Neurological: No Behavorial Changes, No Bowel/Bladder ControlChng, No Confusion , No Dizziness, No Gait Disturbance, No Headaches, No Impaired Coord/balance, No Memory Loss, No Numbness/Tingling, No Other, No Seizures, No Speech Problems , No Tremors, No Visual Changes, No Weakness Physical Exam General: Alert, Oriented X3, Cooperative HEENT: Atraumatic Lungs: Clear to auscultation Abdomen: Soft (tender RUQ) Extremities: No cyanosis Skin: No rashes, No breakdown Neuro: Normal speech, Strength at 5/5 X4 ext Psych/Mental Status: Mental status NL Vitals VITALS Vital Signs Date Time Temp Pulse Resp B/P Pulse Ox O2 Delivery O2 Flow Rate FiO2 03/26/16 12:16 97 138/59 03/26/16 11:00 100.9 19 92 Room Air 100.9 03/26/16 08:10 2.0 Labs Labs Laboratory Tests Test 03/24/16 16:20 03/24/16 19:45 03/25/16 04:08 03/25/16 07:48 Total Bilirubin 0.5mg/dL (0.2-1.0) 0.8mg/dL (0.2-1.0) Direct Bilirubin 0.2mg/dL (0.0-0.2) Aspartate Amino Transf (AST/SGOT) 25U/L (15-37) 32U/L (15-37) Alanine Aminotransferase (ALT/SGPT) 30U/L (14-59) 30U/L (14-59) Alkaline Phosphatase 71U/L (46-116) 70U/L (46-116) Troponin I Quantitative 0.047ng/mL (0.000-0.055) Total Protein 7.3g/dL (6.4-8.2) 6.8g/dL (6.4-8.2) Albumin 3.3g/dL (3.4-5.0) 3.1g/dL (3.4-5.0) Free Triiodothyronine (T3) pg/mL 2.10pg/mL (2.18-3.98) Nasal Screen MRSA (PCR) Negative (Negative) Sodium Level 137mmol/L (136-145) Potassium Level 5.3mmol/L (3.5-5.1) Chloride Level 102mmol/L (98-107) Carbon Dioxide Level 26mmol/L (21-32) Anion Gap 9 (6-14) Blood Urea Nitrogen 17mg/dL (7-20) Creatinine 0.7mg/dL (0.6-1.0) Estimated GFR (Cockcroft-Gault) 80.1 BUN/Creatinine Ratio 24 (6-20) Glucose Level 106mg/dL (70-99) Calcium Level 9.1mg/dL (8.5-10.1) Albumin/Globulin Ratio 0.8 (1.0-1.7) Triglycerides Level 35mg/dL (0-150) Cholesterol Level 141mg/dL (0-200) LDL Cholesterol, Calculated 52mg/dL (0-100) VLDL Cholesterol, Calculated 7mg/dL (0-40) HDL Cholesterol 82mg/dL (40-60) Cholesterol/HDL Ratio 1.7 White Blood Count 24.0x10^3/uL (4.0-11.0) Red Blood Count 4.61x10^6/uL (3.50-5.40) Hemoglobin 13.2g/dL (12.0-15.5) Hematocrit 40.5% (36.0-47.0) Mean Corpuscular Volume 88fL (79-100) Mean Corpuscular Hemoglobin 29pg (25-35) Mean Corpuscular Hemoglobin Concent 33g/dL (31-37) Red Cell Distribution Width 14.4% (11.5-14.5) Platelet Count 224x10^3/uL (140-400) Neutrophils (%) (Auto) 81% (31-73) Lymphocytes (%) (Auto) 10% (24-48) Monocytes (%) (Auto) 9% (0-9) Eosinophils (%) (Auto) 0% (0-3) Basophils (%) (Auto) 0% (0-3) Neutrophils # (Auto) 19.4x10^3uL (1.8-7.7) Lymphocytes # (Auto) 2.3x10^3/uL (1.0-4.8) Monocytes # (Auto) 2.1x10^3/uL (0.0-1.1) Eosinophils # (Auto) 0.0x10^3/uL (0.0-0.7) Basophils # (Auto) 0.1x10^3/uL (0.0-0.2) Segmented Neutrophils % 86% (35-66) Band Neutrophils % 3% (0-9) Lymphocytes % 9% (24-48) Monocytes % 2% (0-10) Platelet Estimate Adequate (ADEQUATE) Images Images MRCP and Sonogram reviewed Assessment/Plan Assessment/Plan Suspect acute cholecystitis, start Zosyn, schedule for lap harsh, likely in AM 03/27. I discussed the details and risks of surgery with the patient. She understands and would like to proceed. BRIANA ZIMMERMAN MD Mar 26, 2016 12:21
--- NOTE | 2016-03-26 14:13 | PDOC ---
PROGRESS NOTES Chief Complaint Chief Complaint Chest pain ASSESSMENT AND PLAN: 1. CP: non-cardiac, now resolved. moved to [facility] 2. Cholecystitis per MRCP, prob etiology of CP as well. appreciate GI service input; await surg eval. 3. Sepsis: fever, tachycardia, worsening leukocytosis. on empiric zosyn. recheck labs 3. Asthma: no acute issues . albuterol PRN 4. Hypertension: well controlled on home regimen 5. Hyperlipidemia: on statin 6. Hypernatremia: poss dehydration. IVF. monitor daily Vitals Vitals Vital Signs Date Time Temp Pulse Resp B/P Pulse Ox O2 Delivery O2 Flow Rate FiO2 03/26/16 12:51 Nasal Cannula 2.0 03/26/16 12:16 97 138/59 03/26/16 11:00 100.9 19 92 100.9 Physical Exam General: Alert, Oriented X3, Cooperative, No acute distress Heart: Regular rate, No murmurs Lungs: Clear Abdomen: Soft (tender RUQ), No hepatosplenomegaly Extremities: No cyanosis, No edema Skin: No rashes, No breakdown Review of Systems Review of Systems in good spirits. RUQ pain persisting, but well controlled. no N/V. Comment Review of Relevant I have reviewed the following items rodrigue (where applicable) has been applied. Labs Laboratory Tests Test 03/24/16 16:20 03/24/16 19:45 03/25/16 04:08 03/25/16 07:48 Total Bilirubin 0.5mg/dL (0.2-1.0) 0.8mg/dL (0.2-1.0) Direct Bilirubin 0.2mg/dL (0.0-0.2) Aspartate Amino Transf (AST/SGOT) 25U/L (15-37) 32U/L (15-37) Alanine Aminotransferase (ALT/SGPT) 30U/L (14-59) 30U/L (14-59) Alkaline Phosphatase 71U/L (46-116) 70U/L (46-116) Troponin I Quantitative 0.047ng/mL (0.000-0.055) Total Protein 7.3g/dL (6.4-8.2) 6.8g/dL (6.4-8.2) Albumin 3.3g/dL (3.4-5.0) 3.1g/dL (3.4-5.0) Free Triiodothyronine (T3) pg/mL 2.10pg/mL (2.18-3.98) Nasal Screen MRSA (PCR) Negative (Negative) Sodium Level 137mmol/L (136-145) Potassium Level 5.3mmol/L (3.5-5.1) Chloride Level 102mmol/L (98-107) Carbon Dioxide Level 26mmol/L (21-32) Anion Gap 9 (6-14) Blood Urea Nitrogen 17mg/dL (7-20) Creatinine 0.7mg/dL (0.6-1.0) Estimated GFR (Cockcroft-Gault) 80.1 BUN/Creatinine Ratio 24 (6-20) Glucose Level 106mg/dL (70-99) Calcium Level 9.1mg/dL (8.5-10.1) Albumin/Globulin Ratio 0.8 (1.0-1.7) Triglycerides Level 35mg/dL (0-150) Cholesterol Level 141mg/dL (0-200) LDL Cholesterol, Calculated 52mg/dL (0-100) VLDL Cholesterol, Calculated 7mg/dL (0-40) HDL Cholesterol 82mg/dL (40-60) Cholesterol/HDL Ratio 1.7 White Blood Count 24.0x10^3/uL (4.0-11.0) Red Blood Count 4.61x10^6/uL (3.50-5.40) Hemoglobin 13.2g/dL (12.0-15.5) Hematocrit 40.5% (36.0-47.0) Mean Corpuscular Volume 88fL (79-100) Mean Corpuscular Hemoglobin 29pg (25-35) Mean Corpuscular Hemoglobin Concent 33g/dL (31-37) Red Cell Distribution Width 14.4% (11.5-14.5) Platelet Count 224x10^3/uL (140-400) Neutrophils (%) (Auto) 81% (31-73) Lymphocytes (%) (Auto) 10% (24-48) Monocytes (%) (Auto) 9% (0-9) Eosinophils (%) (Auto) 0% (0-3) Basophils (%) (Auto) 0% (0-3) Neutrophils # (Auto) 19.4x10^3uL (1.8-7.7) Lymphocytes # (Auto) 2.3x10^3/uL (1.0-4.8) Monocytes # (Auto) 2.1x10^3/uL (0.0-1.1) Eosinophils # (Auto) 0.0x10^3/uL (0.0-0.7) Basophils # (Auto) 0.1x10^3/uL (0.0-0.2) Segmented Neutrophils % 86% (35-66) Band Neutrophils % 3% (0-9) Lymphocytes % 9% (24-48) Monocytes % 2% (0-10) Platelet Estimate Adequate (ADEQUATE) Medications Current Medications Nitroglycerin (Nitrostat) 0.4 mg PRN Q5MIN PRN SL CHEST PAIN Last administered on 03/24/16 05:54; Start 03/24/16 at 05:00 Ondansetron HCl (Zofran) 4 mg PRN Q8HRS PRN IV NAUSEA/VOMITING Last administered on 03/24/16 05:57; Start 03/24/16 at 05:00; Stop 03/24/16 at 10:54 ; Status DC Acetaminophen (Tylenol) 650 mg PRN Q4HRS PRN PO FEVER; Start 03/24/16 at 05:00 ; Stop 03/25/16 at 04:59; Status DC Nitroglycerin (Nitrostat) 0.4 mg PRN Q5MIN PRN SL CHEST PAIN; Start 03/24/16 at 05:00; Stop 03/25/16 at 04:59; Status Cancel Lisinopril (Prinivil) 10 mg 1X ONCE PO Last administered on 03/24/16 05:57; Start 03/24/16 at 06:00; Stop 03/24/16 at 06:01; Status DC Nitroglycerin (Nitrostat) 0.4 mg PRN Q5MIN PRN SL CHEST PAIN; Start 03/24/16 at 06:00; Status Cancel Morphine Sulfate 2 mg PRN Q2HR PRN IV PAIN Last administered on 03/26/16 05:04 ; Start 03/24/16 at 06:30 Morphine Sulfate 2 mg 1X ONCE IV Last administered on 03/24/16 06:27; Start 03/24/16 at 06:30; Stop 03/24/16 at 06:31; Status DC Hydralazine HCl (Apresoline) 10 mg PRN Q4HRS PRN IVP ELEVATED BP, SEE COMMENTS Last administered on 03/24/16 06:59; Start 03/24/16 at 06:30 Aspirin (Ecotrin) 81 mg DAILY PO Last administered on 03/25/16 08:41; Start at 09:00 Hydralazine HCl (Apresoline) 25 mg DAILY PO Last administered on 03/24/16 09: 00; Start 03/24/16 at 09:00; Stop 03/24/16 at 09:49; Status DC Lisinopril (Prinivil) 10 mg DAILY PO Last administered on 03/25/16 08:41; Start 03/24/16 at 09:00 Non-Formulary Medication 2 puff QID INH FOR ASTHMA; Start 03/24/16 at 09:00; Stop 03/24/16 at 09:00; Status DC Fluticasone Propionate (Flonase) 2 spray DAILY NS Last administered on 08:41; Start 03/24/16 at 09:00 Non-Formulary Medication 1 inh BID IH ; Start 03/24/16 at 09:00; Stop 03/24/16 at 09:00; Status DC Pantoprazole Sodium (Protonix) 40 mg DAILYAC PO ; Start 03/24/16 at 08:00; Stop 03/24/16 at 17:03; Status DC Albuterol Sulfate (Ventolin Neb Soln) 2.5 mg Q6HRS NEB Last administered on 12:51; Start 03/24/16 at 08:00 Budesonide (Pulmicort) 0.5 mg RTBID NEB Last administered on 03/26/16 07:16; Start 03/24/16 at 08:00 Metoprolol Tartrate (Lopressor) 5 mg STAT STAT IVP Last administered on 09:31; Start 03/24/16 at 09:23; Stop 03/24/16 at 09:25; Status DC Pantoprazole Sodium (Protonix Vial) 40 mg 1X ONCE IVP ; Start 03/24/16 at 09:45 ; Stop 03/24/16 at 09:53; Status DC Metoclopramide HCl (Reglan) 10 mg 1X ONCE IV ; Start 03/24/16 at 09:45; Stop at 09:53; Status DC Metoprolol Tartrate (Lopressor) 5 mg Q6HRS IVP Last administered on 03/26/16 12:16; Start 03/24/16 at 10:00 Prochlorperazine Edisylate (Compazine) 10 mg PRN Q6HRS PRN IV NAUSEA/VOMITING Last administered on 03/24/16 10:56; Start 03/24/16 at 10:30 Ondansetron HCl 4 mg 4 mg PRN Q6HRS PRN IV NAUSEA/VOMITING; Start 03/24/16 at 10:45 Nicardipine HCl 50 mg/Sodium Chloride 270 ml @ 0 mls/hr CONT PRN IV SEE I/O RECORD; Start 03/24/16 at 11:00 Sodium Chloride (Iv Sodium Chloride 0.9% 500ml Bag) 500 ml @ 500 mls/hr 1X ONCE IV Last administered on 03/24/16 15:03; Start 03/24/16 at 13:45; Stop at 14:44; Status DC Lisinopril (Prinivil) 10 mg 1X ONCE PO Last administered on 03/24/16 16:08; Start 03/24/16 at 16:00; Stop 03/24/16 at 16:01; Status DC Non-Formulary Medication 25 mg PRN PO ; Start 03/24/16 at 16:00; Stop 03/24/16 at 17:57; Status DC Pantoprazole Sodium 40 mg 40 mg [id number] IVP Last administered on 03/26/16 06:35 ; Start 03/24/16 at 18:00 Sodium Chloride 1,000 ml @ 75 mls/hr [id number] IV Last administered on 01:11; Start 03/24/16 at 19:00 Piperacillin Sod/ Tazobactam Sod/ Sodium Chloride (Zosyn/Iv Sodium Chloride 0.9 % 50ml) 50 ml @ 100 mls/hr Q6HRS IV Last administered on 03/26/16 12:16; Start 03/26/16 at 12:00 Active Scripts Active Reported Lumigan (Bimatoprost) 2.5 Ml Drops 2.5 Ml OP Ventolin Hfa Inhaler (Albuterol Sulfate) 18 Gm Hfa.aer.ad 2 Puff INH QID Advair 250-50 Diskus (Fluticasone/Salmeterol) 1 Each Disk.w.dev 1 Inh IH BID Flonase Allergy Relief (Fluticasone Propionate) 9.9 Ml [place].susp 2 Sprays NS DAILY Prilosec Otc (Omeprazole Magnesium) 20 Mg Tablet. 20 Mg PO DAILY Aspir 81 (Aspirin) 81 Mg Tablet. 81 Mg PO Lisinopril 10 Mg Tablet 10 Mg PO DAILY Vitals/I & O Vital Sign - Last 24 Hours 03/25/16 03/25/16 03/25/16 03/25/16 16:04 18:00 18:46 19:25 Temp 99.9 99.9 Pulse 97 98 99 Resp 25 19 B/P 113/63 101/65 101/65 Pulse Ox 91 92 96 O2 Delivery Nasal Cannula Nasal Cannula Nasal Cannula O2 Flow Rate 2.0 2.0 2.0 03/25/16 03/25/16 03/26/16 03/26/16 20:00 23:00 00:51 01:10 Temp 99.5 99.5 Pulse 89 94 Resp 18 B/P 120/56 120/56 Pulse Ox 91 O2 Delivery Nasal Cannula Nasal Cannula Nasal Cannula O2 Flow Rate 2.0 2.0 03/26/16 03/26/16 03/26/16 03/26/16 03:15 05:04 05:34 06:35 Temp 98.8 98.8 Pulse 83 93 Resp 18 18 18 B/P 122/66 122/66 Pulse Ox 93 O2 Delivery Nasal Cannula Room Air Room Air 03/26/16 03/26/16 03/26/16 03/26/16 07:16 08:10 08:10 09:00 Temp 98.6 98.6 Pulse 92 92 Resp 19 B/P 122/55 122/55 Pulse Ox 95 95 O2 Delivery Nasal Cannula Room Air Nasal Cannula O2 Flow Rate 2.0 2.0 03/26/16 03/26/16 03/26/16 03/26/16 11:00 12:14 12:16 12:51 Temp 100.9 100.9 Pulse 100 97 97 Resp 19 B/P 155/62 138/59 138/59 Pulse Ox 92 O2 Delivery Room Air Nasal Cannula O2 Flow Rate 2.0 Intake and Output 03/25/16 03/25/16 03/26/16 15:00 23:00 07:00 Intake Total 0 ml 0 ml Output Total 150 ml 200 ml 400 ml Balance -150 ml -200 ml -400 ml ALEJANDRA HERRERA MD Mar 26, 2016 14:13
[2016-03-27] VITALS (13 sets, daily range): BP systolic 129–160; BP diastolic 48–70
[2016-03-27] MEDS: METOPROLOL TARTRATE 5 MG/5 ML VIAL. IVP SCH ×4 (00:07→18:07)
[2016-03-27] MEDS: PIPERACILLIN/TAZOBACTAM 3.375 GM in IV NORMAL SALINE 50ML 50 ML IV SCH ×4 (00:07→18:06)
[2016-03-27] MEDS: IV 1/2 NORMAL SALINE 1,000 ML IV SCH ×2 (00:08→13:40)
[2016-03-27 04:43] LABS: BASO # 0.1 x10^3/uL (0.0-0.2); BASO % 0 % (0-3); EOS % 1 % (0-3); HEMATOCRIT 33.5 % (36.0-47.0); HEMOGLOBIN 11.3 g/dL (12.0-15.5); LYMPH # 2.2 x10^3/uL (1.0-4.8); LYMPH % 15 % (24-48); MEAN CORPUSCULAR HEMOGLOBIN 29 pg (25-35); MEAN CORPUSCULAR HGB CONC 34 g/dL (31-37); MEAN CORPUSCULAR VOLUME 88 fL (79-100); MONO % 10 % (0-9); NEUT % 73 % (31-73); PLATELET COUNT 184 x10^3/uL (140-400); RED BLOOD COUNT 3.83 x10^6/uL (3.50-5.40); RED CELL DISTRIBUTION WIDTH 14.1 % (11.5-14.5); WHITE BLOOD COUNT 14.5 x10^3/uL (4.0-11.0)
[2016-03-27 05:10] LABS: ALBUMIN 2.3 g/dL (3.4-5.0); ALBUMIN/GLOBULIN RATIO 0.6 (1.0-1.7); CALCIUM 8.7 mg/dL (8.5-10.1); CREATININE 0.9 mg/dL (0.6-1.0); GFR 59.9; POTASSIUM 3.6 mmol/L (3.5-5.1); TOTAL BILIRUBIN 1.2 mg/dL (0.2-1.0); TOTAL PROTEIN 6.2 g/dL (6.4-8.2)
[2016-03-27] MEDS: PANTOPRAZOLE IV PUSH 40 MG VIAL. IVP SCH ×2 (05:55→18:07)
[2016-03-27] MEDS ORDERED: PROCHLORPERAZINE 10 MG/2 ML VIAL. IV PRN (07:00)
[2016-03-27] MEDS ORDERED: ONDANSETRON PF 4 MG/2 ML VIAL. IV PRN (07:00)
[2016-03-27] MEDS ORDERED: HYDROMORPHONE 2 MG/ML VIAL. IV PRN (07:00)
[2016-03-27] MEDS ORDERED: LIDOCAINE 1% 1 ML SYRINGE. ID PRN (07:00)
[2016-03-27] MEDS ORDERED: FENTANYL PF 100 MCG/2 ML VIAL. IV PRN ×2 (07:00)
[2016-03-27] MEDS ORDERED: MORPHINE SULFATE 2 MG/ML DISP.SYRIN. IV PRN (07:00)
[2016-03-27] MEDS ORDERED: IV RINGERS,LACTATED 1000ML 1,000 ML IV SCH (07:00)
[2016-03-27] MEDS: LISINOPRIL 10 MG TABLET PO SCH (08:20)
[2016-03-27] MEDS: FLUTICASONE 50MCG/NASAL SPRAY 16GM BOTTLE. NS SCH (08:21)
[2016-03-27] MEDS: BUDESONIDE 0.5 MG/2 ML NEBU NEB SCH ×2 (08:45→19:21)
[2016-03-27] MEDS: ALBUTEROL SULFATE 2.5 MG/3 ML NEBU. NEB SCH ×4 (08:46→19:21)
[2016-03-27] MEDS ORDERED: FENTANYL PF 100 MCG/2 ML VIAL. ONE (10:25)
[2016-03-27] MEDS ORDERED: ROCURONIUM 50 MG/5 ML VIAL. ONE (10:26)
[2016-03-27] MEDS ORDERED: PROPOFOL 20 ML IV ONE ×2 (10:26→13:38)
[2016-03-27] MEDS ORDERED: ONDANSETRON PF 4 MG/2 ML VIAL. ONE (10:26)
[2016-03-27] MEDS ORDERED: DEXAMETHASONE SOD PHOS 20 MG/5 ML VIAL. ONE (10:26)
[2016-03-27] MEDS ORDERED: DESFLURANE > 120 MINUTES IH ONE (10:26)
[2016-03-27] MEDS ORDERED: PHENYLEPHRINE in 0.9% NACL PF 1 MG/10 ML DISP.SYRIN. IV ONE (10:26)
[2016-03-27] MEDS ORDERED: LIDOCAINE 2% 100 MG/5 ML DISP.SYRIN. ONE ×2 (10:26→13:22)
--- NOTE | 2016-03-27 11:08 | PDOC ---
Subjective: Subjective: Out for surgery Objective: Vital Signs: Vital Signs Date Time Temp Pulse Resp B/P Pulse Ox O2 Delivery O2 Flow Rate FiO2 03/27/16 10:26 98.6 95 15 148/67 93 Room Air 98.6 03/27/16 08:01 2.0 Labs: Laboratory Tests Test 03/27/16 03:23 White Blood Count 14.5x10^3/uL Red Blood Count 3.83x10^6/uL Hemoglobin 11.3g/dL Hematocrit 33.5% Mean Corpuscular Volume 88fL Mean Corpuscular Hemoglobin 29pg Mean Corpuscular Hemoglobin Concent 34g/dL Red Cell Distribution Width 14.1% Platelet Count 184x10^3/uL Neutrophils (%) (Auto) 73% Lymphocytes (%) (Auto) 15% Monocytes (%) (Auto) 10% Eosinophils (%) (Auto) 1% Basophils (%) (Auto) 0% Neutrophils # (Auto) 10.6x10^3uL Lymphocytes # (Auto) 2.2x10^3/uL Monocytes # (Auto) 1.5x10^3/uL Eosinophils # (Auto) 0.1x10^3/uL Basophils # (Auto) 0.1x10^3/uL Sodium Level 138mmol/L Potassium Level 3.6mmol/L Chloride Level 103mmol/L Carbon Dioxide Level 27mmol/L Anion Gap 8 Blood Urea Nitrogen 17mg/dL Creatinine 0.9mg/dL Estimated GFR (Cockcroft-Gault) 59.9 BUN/Creatinine Ratio 19 Glucose Level 91mg/dL Calcium Level 8.7mg/dL Total Bilirubin 1.2mg/dL Aspartate Amino Transf (AST/SGOT) 18U/L Alanine Aminotransferase (ALT/SGPT) 20U/L Alkaline Phosphatase 77U/L Total Protein 6.2g/dL Albumin 2.3g/dL Albumin/Globulin Ratio 0.6 PE: no exam A/P: Abd/chest pain Cholecystitis, cholelithiasis, ?choledocholithiasis Leukocytosis -- Await operative findings, IO. PAUL CAIN Mar 27, 2016 11:08
[2016-03-27] MEDS ORDERED: IOHEXOL 300 MG/ML 50 ML VIAL. ONE (11:14)
[2016-03-27] MEDS ORDERED: BUPIVACAINE-EPI 0.5%-1:200000 50 ML VIAL. ONE (11:14)
[2016-03-27] MEDS ORDERED: SURGICEL HEMOSTAT 4X8 EACH. ONE (11:14)
--- NOTE | 2016-03-27 12:08 | PDOC ---
PROGRESS NOTES Chief Complaint Chief Complaint Chest pain ASSESSMENT AND PLAN: 1. CP: non-cardiac, now resolved. moved to [facility] 2. Cholecystitis per MRCP, prob etiology of CP as well. laprascopic CCY by Dr Braxton today 3. Sepsis: resolving by VS and decreasing leukocytosis. on empiric Abx 3. Asthma: no acute issues . albuterol PRN 4. Hypertension: well controlled on home regimen 5. Hyperlipidemia: on statin 6. Hyperkalemia: resolved Vitals Vitals Vital Signs Date Time Temp Pulse Resp B/P Pulse Ox O2 Delivery O2 Flow Rate FiO2 03/27/16 10:26 98.6 95 15 148/67 93 Room Air 98.6 03/27/16 08:01 2.0 Physical Exam General: Alert, Oriented X3, Cooperative, No acute distress Heart: Regular rate, No murmurs Lungs: Clear Abdomen: Soft (tender RUQ) Extremities: No edema Skin: No rashes Labs LABS Laboratory Tests Test 03/27/16 03:23 White Blood Count 14.5x10^3/uL (4.0-11.0) Red Blood Count 3.83x10^6/uL (3.50-5.40) Hemoglobin 11.3g/dL (12.0-15.5) Hematocrit 33.5% (36.0-47.0) Mean Corpuscular Volume 88fL (79-100) Mean Corpuscular Hemoglobin 29pg (25-35) Mean Corpuscular Hemoglobin Concent 34g/dL (31-37) Red Cell Distribution Width 14.1% (11.5-14.5) Platelet Count 184x10^3/uL (140-400) Neutrophils (%) (Auto) 73% (31-73) Lymphocytes (%) (Auto) 15% (24-48) Monocytes (%) (Auto) 10% (0-9) Eosinophils (%) (Auto) 1% (0-3) Basophils (%) (Auto) 0% (0-3) Neutrophils # (Auto) 10.6x10^3uL (1.8-7.7) Lymphocytes # (Auto) 2.2x10^3/uL (1.0-4.8) Monocytes # (Auto) 1.5x10^3/uL (0.0-1.1) Eosinophils # (Auto) 0.1x10^3/uL (0.0-0.7) Basophils # (Auto) 0.1x10^3/uL (0.0-0.2) Sodium Level 138mmol/L (136-145) Potassium Level 3.6mmol/L (3.5-5.1) Chloride Level 103mmol/L (98-107) Carbon Dioxide Level 27mmol/L (21-32) Anion Gap 8 (6-14) Blood Urea Nitrogen 17mg/dL (7-20) Creatinine 0.9mg/dL (0.6-1.0) Estimated GFR (Cockcroft-Gault) 59.9 BUN/Creatinine Ratio 19 (6-20) Glucose Level 91mg/dL (70-99) Calcium Level 8.7mg/dL (8.5-10.1) Total Bilirubin 1.2mg/dL (0.2-1.0) Aspartate Amino Transf (AST/SGOT) 18U/L (15-37) Alanine Aminotransferase (ALT/SGPT) 20U/L (14-59) Alkaline Phosphatase 77U/L (46-116) Total Protein 6.2g/dL (6.4-8.2) Albumin 2.3g/dL (3.4-5.0) Albumin/Globulin Ratio 0.6 (1.0-1.7) Review of Systems Review of Systems feels ok, in good spirits Comment Review of Relevant I have reviewed the following items rodrigue (where applicable) has been applied. Labs Laboratory Tests Test 03/27/16 03:23 White Blood Count 14.5x10^3/uL (4.0-11.0) Red Blood Count 3.83x10^6/uL (3.50-5.40) Hemoglobin 11.3g/dL (12.0-15.5) Hematocrit 33.5% (36.0-47.0) Mean Corpuscular Volume 88fL (79-100) Mean Corpuscular Hemoglobin 29pg (25-35) Mean Corpuscular Hemoglobin Concent 34g/dL (31-37) Red Cell Distribution Width 14.1% (11.5-14.5) Platelet Count 184x10^3/uL (140-400) Neutrophils (%) (Auto) 73% (31-73) Lymphocytes (%) (Auto) 15% (24-48) Monocytes (%) (Auto) 10% (0-9) Eosinophils (%) (Auto) 1% (0-3) Basophils (%) (Auto) 0% (0-3) Neutrophils # (Auto) 10.6x10^3uL (1.8-7.7) Lymphocytes # (Auto) 2.2x10^3/uL (1.0-4.8) Monocytes # (Auto) 1.5x10^3/uL (0.0-1.1) Eosinophils # (Auto) 0.1x10^3/uL (0.0-0.7) Basophils # (Auto) 0.1x10^3/uL (0.0-0.2) Sodium Level 138mmol/L (136-145) Potassium Level 3.6mmol/L (3.5-5.1) Chloride Level 103mmol/L (98-107) Carbon Dioxide Level 27mmol/L (21-32) Anion Gap 8 (6-14) Blood Urea Nitrogen 17mg/dL (7-20) Creatinine 0.9mg/dL (0.6-1.0) Estimated GFR (Cockcroft-Gault) 59.9 BUN/Creatinine Ratio 19 (6-20) Glucose Level 91mg/dL (70-99) Calcium Level 8.7mg/dL (8.5-10.1) Total Bilirubin 1.2mg/dL (0.2-1.0) Aspartate Amino Transf (AST/SGOT) 18U/L (15-37) Alanine Aminotransferase (ALT/SGPT) 20U/L (14-59) Alkaline Phosphatase 77U/L (46-116) Total Protein 6.2g/dL (6.4-8.2) Albumin 2.3g/dL (3.4-5.0) Albumin/Globulin Ratio 0.6 (1.0-1.7) Laboratory Tests Test 03/27/16 03:23 White Blood Count 14.5x10^3/uL (4.0-11.0) Red Blood Count 3.83x10^6/uL (3.50-5.40) Hemoglobin 11.3g/dL (12.0-15.5) Hematocrit 33.5% (36.0-47.0) Mean Corpuscular Volume 88fL (79-100) Mean Corpuscular Hemoglobin 29pg (25-35) Mean Corpuscular Hemoglobin Concent 34g/dL (31-37) Red Cell Distribution Width 14.1% (11.5-14.5) Platelet Count 184x10^3/uL (140-400) Neutrophils (%) (Auto) 73% (31-73) Lymphocytes (%) (Auto) 15% (24-48) Monocytes (%) (Auto) 10% (0-9) Eosinophils (%) (Auto) 1% (0-3) Basophils (%) (Auto) 0% (0-3) Neutrophils # (Auto) 10.6x10^3uL (1.8-7.7) Lymphocytes # (Auto) 2.2x10^3/uL (1.0-4.8) Monocytes # (Auto) 1.5x10^3/uL (0.0-1.1) Eosinophils # (Auto) 0.1x10^3/uL (0.0-0.7) Basophils # (Auto) 0.1x10^3/uL (0.0-0.2) Sodium Level 138mmol/L (136-145) Potassium Level 3.6mmol/L (3.5-5.1) Chloride Level 103mmol/L (98-107) Carbon Dioxide Level 27mmol/L (21-32) Anion Gap 8 (6-14) Blood Urea Nitrogen 17mg/dL (7-20) Creatinine 0.9mg/dL (0.6-1.0) Estimated GFR (Cockcroft-Gault) 59.9 BUN/Creatinine Ratio 19 (6-20) Glucose Level 91mg/dL (70-99) Calcium Level 8.7mg/dL (8.5-10.1) Total Bilirubin 1.2mg/dL (0.2-1.0) Aspartate Amino Transf (AST/SGOT) 18U/L (15-37) Alanine Aminotransferase (ALT/SGPT) 20U/L (14-59) Alkaline Phosphatase 77U/L (46-116) Total Protein 6.2g/dL (6.4-8.2) Albumin 2.3g/dL (3.4-5.0) Albumin/Globulin Ratio 0.6 (1.0-1.7) Medications Current Medications Nitroglycerin (Nitrostat) 0.4 mg PRN Q5MIN PRN SL CHEST PAIN Last administered on 03/24/16 05:54; Start 03/24/16 at 05:00; Stop 03/26/16 at 16:09; Status DC Ondansetron HCl (Zofran) 4 mg PRN Q8HRS PRN IV NAUSEA/VOMITING Last administered on 03/24/16 05:57; Start 03/24/16 at 05:00; Stop 03/24/16 at 10:54 ; Status DC Acetaminophen (Tylenol) 650 mg PRN Q4HRS PRN PO FEVER; Start 03/24/16 at 05:00 ; Stop 03/25/16 at 04:59; Status DC Nitroglycerin (Nitrostat) 0.4 mg PRN Q5MIN PRN SL CHEST PAIN; Start 03/24/16 at 05:00; Stop 03/25/16 at 04:59; Status Cancel Lisinopril (Prinivil) 10 mg 1X ONCE PO Last administered on 03/24/16 05:57; Start 03/24/16 at 06:00; Stop 03/24/16 at 06:01; Status DC Nitroglycerin (Nitrostat) 0.4 mg PRN Q5MIN PRN SL CHEST PAIN; Start 03/24/16 at 06:00; Status Cancel Morphine Sulfate 2 mg PRN Q2HR PRN IV PAIN Last administered on 03/26/16 05:04 ; Start 03/24/16 at 06:30 Morphine Sulfate 2 mg 1X ONCE IV Last administered on 03/24/16 06:27; Start 03/24/16 at 06:30; Stop 03/24/16 at 06:31; Status DC Hydralazine HCl (Apresoline) 10 mg PRN Q4HRS PRN IVP ELEVATED BP, SEE COMMENTS Last administered on 03/24/16 06:59; Start 03/24/16 at 06:30 Aspirin (Ecotrin) 81 mg DAILY PO Last administered on 03/25/16 08:41; Start at 09:00; Stop 03/26/16 at 16:11; Status DC Hydralazine HCl (Apresoline) 25 mg DAILY PO Last administered on 03/24/16 09: 00; Start 03/24/16 at 09:00; Stop 03/24/16 at 09:49; Status DC Lisinopril (Prinivil) 10 mg DAILY PO Last administered on 03/27/16 08:20; Start 03/24/16 at 09:00 Non-Formulary Medication 2 puff QID INH FOR ASTHMA; Start 03/24/16 at 09:00; Stop 03/24/16 at 09:00; Status DC Fluticasone Propionate (Flonase) 2 spray DAILY NS Last administered on 08:21; Start 03/24/16 at 09:00 Non-Formulary Medication 1 inh BID IH ; Start 03/24/16 at 09:00; Stop 03/24/16 at 09:00; Status DC Pantoprazole Sodium (Protonix) 40 mg DAILYAC PO ; Start 03/24/16 at 08:00; Stop 03/24/16 at 17:03; Status DC Albuterol Sulfate (Ventolin Neb Soln) 2.5 mg Q6HRS NEB Last administered on 08:46; Start 03/24/16 at 08:00 Budesonide (Pulmicort) 0.5 mg RTBID NEB Last administered on 03/27/16 08:45; Start 03/24/16 at 08:00 Metoprolol Tartrate (Lopressor) 5 mg STAT STAT IVP Last administered on 09:31; Start 03/24/16 at 09:23; Stop 03/24/16 at 09:25; Status DC Pantoprazole Sodium (Protonix Vial) 40 mg 1X ONCE IVP ; Start 03/24/16 at 09:45 ; Stop 03/24/16 at 09:53; Status DC Metoclopramide HCl (Reglan) 10 mg 1X ONCE IV ; Start 03/24/16 at 09:45; Stop at 09:53; Status DC Metoprolol Tartrate (Lopressor) 5 mg Q6HRS IVP Last administered on 03/27/16 05:56; Start 03/24/16 at 10:00 Prochlorperazine Edisylate (Compazine) 10 mg PRN Q6HRS PRN IV NAUSEA/VOMITING Last administered on 03/24/16 10:56; Start 03/24/16 at 10:30 Ondansetron HCl 4 mg 4 mg PRN Q6HRS PRN IV NAUSEA/VOMITING; Start 03/24/16 at 10:45 Nicardipine HCl 50 mg/Sodium Chloride 270 ml @ 0 mls/hr CONT PRN IV SEE I/O RECORD; Start 03/24/16 at 11:00 Sodium Chloride (Iv Sodium Chloride 0.9% 500ml Bag) 500 ml @ 500 mls/hr 1X ONCE IV Last administered on 03/24/16 15:03; Start 03/24/16 at 13:45; Stop at 14:44; Status DC Lisinopril (Prinivil) 10 mg 1X ONCE PO Last administered on 03/24/16 16:08; Start 03/24/16 at 16:00; Stop 03/24/16 at 16:01; Status DC Non-Formulary Medication 25 mg PRN PO ; Start 03/24/16 at 16:00; Stop 03/24/16 at 17:57; Status DC Pantoprazole Sodium 40 mg 40 mg [id number] IVP Last administered on 03/27/16 05:55 ; Start 03/24/16 at 18:00 Sodium Chloride 1,000 ml @ 75 mls/hr [id number] IV Last administered on 00:08; Start 03/24/16 at 19:00 Piperacillin Sod/ Tazobactam Sod/ Sodium Chloride (Zosyn/Iv Sodium Chloride 0.9 % 50ml) 50 ml @ 100 mls/hr Q6HRS IV Last administered on 03/27/16 05:55; Start 03/26/16 at 12:00 Ondansetron HCl (Zofran) 4 mg PRN Q6HRS PRN IV Nausea; Start 03/27/16 at 07:00 ; Stop 03/28/16 at 06:59 Fentanyl Citrate (Fentanyl 2ml Vial) 25 mcg PRN Q5MIN PRN IV MILD PAIN; Start 03/27/16 at 07:00; Stop 03/28/16 at 06:59 Fentanyl Citrate (Fentanyl 2ml Vial) 50 mcg PRN Q5MIN PRN IV MODERATE PAIN; Start 03/27/16 at 07:00; Stop 03/28/16 at 06:59 Morphine Sulfate 1 mg 1 mg PRN Q10MIN PRN IV SEVERE PAIN; Start 03/27/16 at 07: 00; Stop 03/28/16 at 06:59 Lactated Ringer's (Iv Lactated Ringers) 1,000 ml @ 0 mls/hr Q0M IV Last administered on 03/27/16t 10:28; Start 03/27/16 at 07:00; Stop 03/27/16 at 18:59 Lidocaine HCl 2 ml 1X PRN PRN ID IV START; Start 03/27/16 at 07:00; Stop at 06:59 Hydromorphone HCl (Dilaudid) 0.5 mg PRN Q10MIN PRN IV SEVERE PAIN, Second choice; Start 03/27/16 at 07:00; Stop 03/28/16 at 06:59 Prochlorperazine Edisylate (Compazine) 5 mg PACU PRN PRN IV NAUSEA; Start 03/27 at 07:00; Stop 03/28/16 at 06:59 Fentanyl Citrate (Fentanyl 2ml Vial) 100 mcg STK-MED ONCE .ROUTE ; Start at 10:25; Stop 03/27/16 at 10:26; Status DC Rocuronium Krebs (Zemuron) 50 mg STK-MED ONCE .ROUTE ; Start 03/27/16 at 10:26 ; Stop 03/27/16 at 10:27; Status DC Desflurane (Suprane) 90 ml STK-MED ONCE IH ; Start 03/27/16 at 10:26; Stop 03/27 at 10:27; Status DC Dexamethasone Sodium Phosphate 20 mg 20 mg STK-MED ONCE .ROUTE ; Start 03/27/16 at 10:26; Stop 03/27/16 at 10:27; Status DC Propofol (Diprivan) 20 ml @ As Directed STK-MED ONCE IV ; Start 03/27/16 at 10: 26; Stop 03/27/16 at 10:27; Status DC Lidocaine HCl 100 mg STK-MED ONCE .ROUTE ; Start 03/27/16 at 10:26; Stop at 10:27; Status DC Ondansetron HCl (Zofran) 4 mg STK-MED ONCE .ROUTE ; Start 03/27/16 at 10:26; Stop 03/27/16 at 10:27; Status DC Phenylephrine HCl 1 mg STK-MED ONCE IV ; Start 03/27/16 at 10:26; Stop 03/27/16 at 10:27; Status DC Cellulose 1 each STK-MED ONCE .ROUTE ; Start 03/27/16 at 11:14; Stop 03/27/16 at 11:15; Status DC Iohexol (Omnipaque 300 Mg/ml) 50 ml STK-MED ONCE .ROUTE ; Start 03/27/16 at 11: 14; Stop 03/27/16 at 11:15; Status DC Bupivacaine HCl/ Epinephrine Bitart (Marcaine-Epi 0.5%-1:[id number]) 50 ml STK-MED ONCE .ROUTE ; Start 03/27/16 at 11:14; Stop 03/27/16 at 11:15; Status DC Active Scripts Active Reported Lumigan (Bimatoprost) 2.5 Ml Drops 2.5 Ml OP Ventolin Hfa Inhaler (Albuterol Sulfate) 18 Gm Hfa.aer.ad 2 Puff INH QID Advair 250-50 Diskus (Fluticasone/Salmeterol) 1 Each Disk.w.dev 1 Inh IH BID Flonase Allergy Relief (Fluticasone Propionate) 9.9 Ml [place].susp 2 Sprays NS DAILY Prilosec Otc (Omeprazole Magnesium) 20 Mg Tablet. 20 Mg PO DAILY Aspir 81 (Aspirin) 81 Mg Tablet. 81 Mg PO Lisinopril 10 Mg Tablet 10 Mg PO DAILY Vitals/I & O Vital Sign - Last 24 Hours 03/26/16 03/26/16 03/26/16 03/26/16 12:14 12:16 12:51 16:00 Temp 98.4 98.4 Pulse 97 97 104 Resp 19 B/P 138/59 138/59 140/53 Pulse Ox 94 O2 Delivery Nasal Cannula Room Air O2 Flow Rate 2.0 03/26/16 03/26/16 03/26/16 03/26/16 17:38 19:00 19:23 20:00 Temp 101.3 101.3 Pulse 104 89 Resp 18 B/P 140/53 128/57 Pulse Ox 91 98 O2 Delivery Room Air Nasal Cannula Nasal Cannula O2 Flow Rate 2.0 2.0 03/26/16 03/26/16 03/27/1619/17 23:00 23:14 00:07 03:00 Temp 100.8 97.9 100.8 97.9 Pulse 88 98 79 Resp 18 18 B/P 125/56 125/56 129/58 Pulse Ox 95 98 94 O2 Delivery Room Air Nasal Cannula Room Air O2 Flow Rate 2.0 03/27/16 03/27/16 03/27/16 03/27/16 05:56 08:01 08:20 08:48 Pulse 79 79 B/P 129/58 129/58 Pulse Ox 93 O2 Delivery Nasal Cannula Room Air O2 Flow Rate 2.0 03/27/16 10:26 Temp 98.6 98.6 Pulse 95 Resp 15 B/P 148/67 Pulse Ox 93 O2 Delivery Room Air Intake and Output 03/26/16 03/26/16 03/27/16 15:00 23:00 07:00 Intake Total 250 ml 650 ml 1915 ml Output Total 1475 ml 500 ml Balance 250 ml -825 ml 1415 ml ALEJANDRA HERRERA MD Mar 27, 2016 12:08
[2016-03-27] MEDS ORDERED: GLYCOPYRROLATE 1 MG/5 ML VIAL. ONE (12:44)
[2016-03-27] MEDS ORDERED: NEOSTIGMINE METHYLSULFATE 5 MG/5 ML SYRINGE. ONE (12:45)
[2016-03-27] MEDS ORDERED: EPHEDRINE SULFATE 50 MG/ML VIAL. ONE (12:45)
--- NOTE | 2016-03-27 13:30 | RAD ---
C-arm fluoroscopy with fluoroscopic spot images Clinical indications: Cholecystectomy. Intraoperative cholangiogram. Total fluoroscopic time: 51 seconds. Total fluoroscopic spot images: 6. IMPRESSION: Fluoroscopic spot images demonstrate opacification of the extra hepatic biliary tree. There is a round filling defect within the mid common bile duct consistent with a common bile duct stone. This finding was discussed with Dr. Braxton in the OR at 1:27 PM on March 27, 2016. No stricture is evident. Free flow of contrast from the common bile duct into the duodenum is seen. Mild retrograde opacification of the distal pancreatic duct is seen.
--- NOTE | 2016-03-27 14:13 | PDOC4 ---
Operative Note Operative Note Operative Note: Preoperative Diagnosis: Acute cholecystitis Postoperative Diagnosis: Same Procedure: Laparoscopic cholecystectomy with intraoperative cholangiogram Surgeons: [employer] Technical Architect: Arti HO Anesthesia: Gen. Estimated Blood Loss: 50 mL Specimen: Gallbladder to pathology Drains: 19 [place] round Arslan drain to gallbladder fossa Complications: None Indications: The patient is a 81-year-old female who was admitted with upper abdominal and lower chest pain. Her evaluation is consistent with acute cholecystitis due to gallstones. There is some possible suggestion of a common duct stone based on her MRCP. Surgical treatment was offered by means of a laparoscopic cholecystectomy and we plan to include an intraoperative cholangiogram. The risks of surgery were discussed which include bleeding, infection, bile duct injury, bile leak, pain, the potential for additional surgeries or procedures. The patient understands and would like to proceed. Description: The patient was taken to the operating room and laid supine on the operating table. General anesthesia was performed. The abdomen was prepped with ChloraPrep and draped in a standard surgical fashion. A small incision was made in the left upper quadrant through which a visualized 5 mm trocar was inserted. A pneumoperitoneum was then created and the laparoscopes introduced. There is no evidence of intra-abdominal bleeding or visceral injury. She had prior abdominal surgery however there were only a few omental adhesions which did not affect the remainder of the surgery. In the right abdomen a 5 mm trocar was inserted and the laparoscope was relocated there. In the right upper quadrant two 5 mm trochars were inserted. The gallbladder was initially obscured by omentum and the transverse colon due to marked inflammatory adhesions. We were able to peel these away revealing a very distended, inflamed gallbladder consistent with severe acute cholecystitis. We aspirated over 50 mL of dark bilious fluid which assisted with gallbladder decompression. The gallbladder was then retracted cephalad. The cystic duct was dissected free from surrounding tissues. One clip was placed on the duct near the gallbladder junction. An opening was made in the duct and a cholangiocatheter placed within and secured with a clip. Using contrast dye and fluoroscopy an intraoperative cholangiogram was performed. This was reviewed with the radiologist and suggestive of a possible mid common duct filling defect. Contrast did pass into the duodenum. The clip and catheter were then withdrawn. Three clips were placed on the cystic duct and it was divided. The cystic artery was then identified, dissected free, doubly clipped and divided as well. There was also a posterior vascular branch that was clipped and divided. The gallbladder was then mobilized away from the liver with cautery. This was difficult due to the marked inflammatory reaction of the gallbladder and adherence to the liver. The left upper quadrant 5 millimeter trocar was exchanged for an 11 millimeter trocar. A Surgicel pack was then placed on the gallbladder fossa to assist with any oozing. A 19 [place]e round Arslan drain was then also placed in the gallbladder fossa with an exit site in the right lateral port incision. This was secured to the skin with 2-0 silk. The gallbladder was then placed in an endoscopic bag and extracted at the left upper quadrant trocar site. The fascia and skin incisions had to be extended some to allow for extraction of the dilated thick walled gallbladder containing large stones. The fascia there was closed with an 0 PDS sutures. The laparoscope was reintroduced and the right upper quadrant was reevaluated. All blood and irrigation fluid was suctioned and hemostasis was good. The drain remained well in place. The remaining ports were removed and the pneumoperitoneum was relieved. The skin incisions were injected with half percent Marcaine with epinephrine, and all were closed using 4-0 Monocryl suture. Steri-Strips and dressings were then applied. The patient tolerated the procedure well and was sent to the recovery room in stable condition. At the end of the case all counts were correct. The GI service is following and will be notified of the cholangiogram results for consideration of ERCP with stone extraction. BRIANA ZIMMERMAN MD Mar 27, 2016 14:13
[2016-03-27] MEDS: MORPHINE SULFATE 2 MG/ML DISP.SYRIN. IV PRN (20:13)
[2016-03-28] VITALS (11 sets, daily range): BP systolic 142–187; BP diastolic 58–82
[2016-03-28] MEDS: PIPERACILLIN/TAZOBACTAM 3.375 GM in IV NORMAL SALINE 50ML 50 ML IV SCH ×4 (00:19→18:04)
[2016-03-28] MEDS: METOPROLOL TARTRATE 5 MG/5 ML VIAL. IVP SCH ×4 (00:20→18:04)
[2016-03-28] MEDS: MORPHINE SULFATE 2 MG/ML DISP.SYRIN. IV PRN ×2 (00:22→05:33)
[2016-03-28] MEDS: IV 1/2 NORMAL SALINE 1,000 ML IV SCH ×2 (03:25→16:20)
[2016-03-28] MEDS: PANTOPRAZOLE IV PUSH 40 MG VIAL. IVP SCH ×2 (05:32→18:07)
[2016-03-28 05:48] LABS: BASO % 0 % (0-3); EOS % 0 % (0-3); HEMATOCRIT 32.5 % (36.0-47.0); HEMOGLOBIN 10.7 g/dL (12.0-15.5); LYMPH # 1.4 x10^3/uL (1.0-4.8); LYMPH % 9 % (24-48); MEAN CORPUSCULAR HEMOGLOBIN 29 pg (25-35); MEAN CORPUSCULAR HGB CONC 33 g/dL (31-37); MEAN CORPUSCULAR VOLUME 87 fL (79-100); MONO % 7 % (0-9); NEUT % 84 % (31-73); PLATELET COUNT 233 x10^3/uL (140-400); RED BLOOD COUNT 3.74 x10^6/uL (3.50-5.40); RED CELL DISTRIBUTION WIDTH 13.7 % (11.5-14.5); WHITE BLOOD COUNT 14.9 x10^3/uL (4.0-11.0)
[2016-03-28 06:23] LABS: ALBUMIN 2.2 g/dL (3.4-5.0); ALBUMIN/GLOBULIN RATIO 0.6 (1.0-1.7); CALCIUM 8.8 mg/dL (8.5-10.1); CREATININE 0.7 mg/dL (0.6-1.0); GFR 80.1; POTASSIUM 4.5 mmol/L (3.5-5.1); TOTAL BILIRUBIN 0.7 mg/dL (0.2-1.0); TOTAL PROTEIN 6.2 g/dL (6.4-8.2)
[2016-03-28] MEDS ORDERED: HYDROMORPHONE 2 MG/ML VIAL. IV PRN (07:00)
[2016-03-28] MEDS ORDERED: LIDOCAINE 1% 1 ML SYRINGE. ID PRN (07:00)
[2016-03-28] MEDS ORDERED: IV RINGERS,LACTATED 1000ML 1,000 ML IV SCH (07:00)
[2016-03-28] MEDS ORDERED: MORPHINE SULFATE 2 MG/ML DISP.SYRIN. IV PRN (07:00)
[2016-03-28] MEDS ORDERED: PROCHLORPERAZINE 10 MG/2 ML VIAL. IV PRN (07:00)
[2016-03-28] MEDS ORDERED: FENTANYL PF 100 MCG/2 ML VIAL. IV PRN ×2 (07:00)
[2016-03-28] MEDS ORDERED: ONDANSETRON PF 4 MG/2 ML VIAL. IV PRN (07:00)
[2016-03-28] MEDS: ALBUTEROL SULFATE 2.5 MG/3 ML NEBU. NEB SCH ×3 (08:42→19:18)
[2016-03-28] MEDS: BUDESONIDE 0.5 MG/2 ML NEBU NEB SCH ×2 (08:42→19:18)
[2016-03-28] MEDS: LISINOPRIL 10 MG TABLET PO SCH (08:46)
[2016-03-28] MEDS: FLUTICASONE 50MCG/NASAL SPRAY 16GM BOTTLE. NS SCH (08:46)
[2016-03-28] MEDS ORDERED: PHENYLEPHRINE in 0.9% NACL PF 1 MG/10 ML DISP.SYRIN. IV ONE (12:00)
[2016-03-28] MEDS ORDERED: GLYCOPYRROLATE 1 MG/5 ML VIAL. ONE (13:29)
[2016-03-28] MEDS ORDERED: IOHEXOL 300 MG/ML 50 ML VIAL. ONE (13:54)
--- NOTE | 2016-03-28 13:58 | PATHOLOGY ---
PATHOLOGY REPORT * * * * * * * * FINAL DIAGNOSIS: Gallbladder, laparoscopic cholecystectomy: - Cholelithiasis. - Acute hemorrhagic and necrotizing (gangrenous) cholecystitis. COMMENT: There is no evidence of malignancy. (JEEVANM:; d/t: 03/28/16) REPORT ELECTRONICALLY SIGNED BY: Jeanmarie Adair M.D. DATE/TIME: 03/28/2016 13:38 * * * * * * * * GROSS PATHOLOGY: Received in formalin labeled "PacoLuisen-gallbladder and contents," is an 11.4 x 5.3 x 3.8 cm, enlarged and intact gallbladder with red-pink, diffusely hemorrhagic, and wrinkled serosal surfaces. Opening the gallbladder reveals dark red, roughened, and granular mucosa with focal green-dumont plaque-like areas and an average wall thickness of 0.4 cm. Multiple yellow-green, irregular, and multifaceted to multinodular calculi ranging from 0.9-2.2 cm in greatest dimension are present and no masses are noted grossly. Glass Laminating Operator sections from the body and fundus are submitted along with the proximal margin in cassette A1. (TTL; 03/27/2016) INITIAL CPT CODE(S): A; 99708 Professional services performed [place] [facility] [place] [address] Technical services performed by [facility] at [address] [place] [address], [facility] [address], [place] [address]. SPECIMEN(S) RECEIVED: A.Gallbladder and contents CLINICAL HISTORY: Acute cholecystitis, cholelithiasis PATIENT: JANES DEANNE /AGE: 11 1935 (Age: 81) PATIENT #: [id number] ALT CASE #: SPECIMEN COLLECTION DATE: 03/27/2016 SPECIMEN RECEIVED DATE: 03/27/2016 [facility] - [address] [place] [address] - PHONE: [phone] * * * END OF REPORT * * *
[2016-03-28] MEDS: IV RINGERS,LACTATED 1000ML 1,000 ML IV SCH ×2 (14:08→22:08)
[2016-03-28] MEDS ORDERED: PROPOFOL 20 ML IV ONE (14:45)
[2016-03-28] MEDS ORDERED: SUCCINYLCHOLINE 200 MG/10 ML VIAL. ONE (14:45)
[2016-03-28] MEDS ORDERED: LIDOCAINE 2% PF Vial for OR 5 ML VIAL. ONE (14:46)
[2016-03-28] MEDS ORDERED: IOPAMIDOL IV ONE (15:41)
--- NOTE | 2016-03-28 15:44 | PDOC4 ---
PROCEDURE Procedure ERCP/ES/balloon dilation of papilla/balloon stone extraction. Indication: choledocholithiasis on IOC Meds: per anesthesia. Findings: E-not well seen\\ G-normal w/in limits of scope and cursory exam. D-normal Papilla-small and tucked under a fold. CBD-mildly dilated with stone seen. --ES done; could not extend much due to small papilla. Dilated orifice with 9mm pyloric balloon. Stone balloon passed with much "gravel" and one ~8mm stone exiting. Second pass with balloon negative. -Occlusion cholangiogram after w/o retained calculi. tolerated well. IMP: choledocholithiasis, resolved. REC: Clears tonight; advance in am. No ASA, NSAIDs for 2 weeks. D/c antibiotics in AM. Thanks. PRESTON RANDOLPH MD Mar 28, 2016 15:44
--- NOTE | 2016-03-28 16:20 | PDOC ---
PROGRESS NOTES Chief Complaint Chief Complaint Chest pain ASSESSMENT AND PLAN: 1. CP: non-cardiac, now resolved. moved to [facility] 2. Cholecystitis per MRCP, prob etiology of CP as well. laprascopic CCY by Dr Braxton 03/27, no complications. scheduled for ERCP stone retrieval by Dr Cook later today 3. Sepsis: resolved; prob related to cholecystitis/stone. on empiric Abx 4. Anemia: suspect combination of dilutional effect and acute bleed w/surg. remains in double digits. monitor 5. Asthma: no acute issues . albuterol PRN 6. Hypertension: well controlled on home regimen 7. Hyperlipidemia: on statin 8. Hyperkalemia: resolved 9. Dispo: anticipate home w/ HH in AM Vitals Vitals Vital Signs Date Time Temp Pulse Resp B/P Pulse Ox O2 Delivery O2 Flow Rate FiO2 03/28/16 15:53 97.8 89 16 171/74 95 Nasal Cannula 2 97.8 Physical Exam General: Alert, Oriented X3, Cooperative, No acute distress Heart: Regular rate, No murmurs Lungs: Clear Abdomen: Soft (tender RUQ) Extremities: No edema Skin: No rashes Labs LABS Laboratory Tests Test 03/28/16 05:05 White Blood Count 14.9x10^3/uL (4.0-11.0) Red Blood Count 3.74x10^6/uL (3.50-5.40) Hemoglobin 10.7g/dL (12.0-15.5) Hematocrit 32.5% (36.0-47.0) Mean Corpuscular Volume 87fL (79-100) Mean Corpuscular Hemoglobin 29pg (25-35) Mean Corpuscular Hemoglobin Concent 33g/dL (31-37) Red Cell Distribution Width 13.7% (11.5-14.5) Platelet Count 233x10^3/uL (140-400) Neutrophils (%) (Auto) 84% (31-73) Lymphocytes (%) (Auto) 9% (24-48) Monocytes (%) (Auto) 7% (0-9) Eosinophils (%) (Auto) 0% (0-3) Basophils (%) (Auto) 0% (0-3) Neutrophils # (Auto) 12.5x10^3uL (1.8-7.7) Lymphocytes # (Auto) 1.4x10^3/uL (1.0-4.8) Monocytes # (Auto) 1.0x10^3/uL (0.0-1.1) Eosinophils # (Auto) 0.0x10^3/uL (0.0-0.7) Basophils # (Auto) 0.0x10^3/uL (0.0-0.2) Sodium Level 138mmol/L (136-145) Potassium Level 4.5mmol/L (3.5-5.1) Chloride Level 104mmol/L (98-107) Carbon Dioxide Level 25mmol/L (21-32) Anion Gap 9 (6-14) Blood Urea Nitrogen 23mg/dL (7-20) Creatinine 0.7mg/dL (0.6-1.0) Estimated GFR (Cockcroft-Gault) 80.1 BUN/Creatinine Ratio 33 (6-20) Glucose Level 107mg/dL (70-99) Calcium Level 8.8mg/dL (8.5-10.1) Total Bilirubin 0.7mg/dL (0.2-1.0) Aspartate Amino Transf (AST/SGOT) 17U/L (15-37) Alanine Aminotransferase (ALT/SGPT) 22U/L (14-59) Alkaline Phosphatase 65U/L (46-116) Total Protein 6.2g/dL (6.4-8.2) Albumin 2.2g/dL (3.4-5.0) Albumin/Globulin Ratio 0.6 (1.0-1.7) Review of Systems Review of Systems pain post-imelda fairly well controlled. reluctant to bebeto for meds, would rather not move Comment Review of Relevant I have reviewed the following items rodrigue (where applicable) has been applied. Labs Laboratory Tests Test 03/27/16 03:23 03/28/16 05:05 White Blood Count 14.5x10^3/uL (4.0-11.0) 14.9x10^3/uL (4.0-11.0) Red Blood Count 3.83x10^6/uL (3.50-5.40) 3.74x10^6/uL (3.50-5.40) Hemoglobin 11.3g/dL (12.0-15.5) 10.7g/dL (12.0-15.5) Hematocrit 33.5% (36.0-47.0) 32.5% (36.0-47.0) Mean Corpuscular Volume 88fL (79-100) 87fL (79-100) Mean Corpuscular Hemoglobin 29pg (25-35) 29pg (25-35) Mean Corpuscular Hemoglobin Concent 34g/dL (31-37) 33g/dL (31-37) Red Cell Distribution Width 14.1% (11.5-14.5) 13.7% (11.5-14.5) Platelet Count 184x10^3/uL (140-400) 233x10^3/uL (140-400) Neutrophils (%) (Auto) 73% (31-73) 84% (31-73) Lymphocytes (%) (Auto) 15% (24-48) 9% (24-48) Monocytes (%) (Auto) 10% (0-9) 7% (0-9) Eosinophils (%) (Auto) 1% (0-3) 0% (0-3) Basophils (%) (Auto) 0% (0-3) 0% (0-3) Neutrophils # (Auto) 10.6x10^3uL (1.8-7.7) 12.5x10^3uL (1.8-7.7) Lymphocytes # (Auto) 2.2x10^3/uL (1.0-4.8) 1.4x10^3/uL (1.0-4.8) Monocytes # (Auto) 1.5x10^3/uL (0.0-1.1) 1.0x10^3/uL (0.0-1.1) Eosinophils # (Auto) 0.1x10^3/uL (0.0-0.7) 0.0x10^3/uL (0.0-0.7) Basophils # (Auto) 0.1x10^3/uL (0.0-0.2) 0.0x10^3/uL (0.0-0.2) Sodium Level 138mmol/L (136-145) 138mmol/L (136-145) Potassium Level 3.6mmol/L (3.5-5.1) 4.5mmol/L (3.5-5.1) Chloride Level 103mmol/L (98-107) 104mmol/L (98-107) Carbon Dioxide Level 27mmol/L (21-32) 25mmol/L (21-32) Anion Gap 8 (6-14) 9 (6-14) Blood Urea Nitrogen 17mg/dL (7-20) 23mg/dL (7-20) Creatinine 0.9mg/dL (0.6-1.0) 0.7mg/dL (0.6-1.0) Estimated GFR (Cockcroft-Gault) 59.9 80.1 BUN/Creatinine Ratio 19 (6-20) 33 (6-20) Glucose Level 91mg/dL (70-99) 107mg/dL (70-99) Calcium Level 8.7mg/dL (8.5-10.1) 8.8mg/dL (8.5-10.1) Total Bilirubin 1.2mg/dL (0.2-1.0) 0.7mg/dL (0.2-1.0) Aspartate Amino Transf (AST/SGOT) 18U/L (15-37) 17U/L (15-37) Alanine Aminotransferase (ALT/SGPT) 20U/L (14-59) 22U/L (14-59) Alkaline Phosphatase 77U/L (46-116) 65U/L (46-116) Total Protein 6.2g/dL (6.4-8.2) 6.2g/dL (6.4-8.2) Albumin 2.3g/dL (3.4-5.0) 2.2g/dL (3.4-5.0) Albumin/Globulin Ratio 0.6 (1.0-1.7) 0.6 (1.0-1.7) Laboratory Tests Test 03/28/16 05:05 White Blood Count 14.9x10^3/uL (4.0-11.0) Red Blood Count 3.74x10^6/uL (3.50-5.40) Hemoglobin 10.7g/dL (12.0-15.5) Hematocrit 32.5% (36.0-47.0) Mean Corpuscular Volume 87fL (79-100) Mean Corpuscular Hemoglobin 29pg (25-35) Mean Corpuscular Hemoglobin Concent 33g/dL (31-37) Red Cell Distribution Width 13.7% (11.5-14.5) Platelet Count 233x10^3/uL (140-400) Neutrophils (%) (Auto) 84% (31-73) Lymphocytes (%) (Auto) 9% (24-48) Monocytes (%) (Auto) 7% (0-9) Eosinophils (%) (Auto) 0% (0-3) Basophils (%) (Auto) 0% (0-3) Neutrophils # (Auto) 12.5x10^3uL (1.8-7.7) Lymphocytes # (Auto) 1.4x10^3/uL (1.0-4.8) Monocytes # (Auto) 1.0x10^3/uL (0.0-1.1) Eosinophils # (Auto) 0.0x10^3/uL (0.0-0.7) Basophils # (Auto) 0.0x10^3/uL (0.0-0.2) Sodium Level 138mmol/L (136-145) Potassium Level 4.5mmol/L (3.5-5.1) Chloride Level 104mmol/L (98-107) Carbon Dioxide Level 25mmol/L (21-32) Anion Gap 9 (6-14) Blood Urea Nitrogen 23mg/dL (7-20) Creatinine 0.7mg/dL (0.6-1.0) Estimated GFR (Cockcroft-Gault) 80.1 BUN/Creatinine Ratio 33 (6-20) Glucose Level 107mg/dL (70-99) Calcium Level 8.8mg/dL (8.5-10.1) Total Bilirubin 0.7mg/dL (0.2-1.0) Aspartate Amino Transf (AST/SGOT) 17U/L (15-37) Alanine Aminotransferase (ALT/SGPT) 22U/L (14-59) Alkaline Phosphatase 65U/L (46-116) Total Protein 6.2g/dL (6.4-8.2) Albumin 2.2g/dL (3.4-5.0) Albumin/Globulin Ratio 0.6 (1.0-1.7) Medications Current Medications Nitroglycerin (Nitrostat) 0.4 mg PRN Q5MIN PRN SL CHEST PAIN Last administered on 03/24/16 05:54; Start 03/24/16 at 05:00; Stop 03/26/16 at 16:09; Status DC Ondansetron HCl (Zofran) 4 mg PRN Q8HRS PRN IV NAUSEA/VOMITING Last administered on 03/24/16 05:57; Start 03/24/16 at 05:00; Stop 03/24/16 at 10:54 ; Status DC Acetaminophen (Tylenol) 650 mg PRN Q4HRS PRN PO FEVER; Start 03/24/16 at 05:00 ; Stop 03/25/16 at 04:59; Status DC Nitroglycerin (Nitrostat) 0.4 mg PRN Q5MIN PRN SL CHEST PAIN; Start 03/24/16 at 05:00; Stop 03/25/16 at 04:59; Status Cancel Lisinopril (Prinivil) 10 mg 1X ONCE PO Last administered on 03/24/16 05:57; Start 03/24/16 at 06:00; Stop 03/24/16 at 06:01; Status DC Nitroglycerin (Nitrostat) 0.4 mg PRN Q5MIN PRN SL CHEST PAIN; Start 03/24/16 at 06:00; Status Cancel Morphine Sulfate 2 mg PRN Q2HR PRN IV PAIN Last administered on 03/28/16 05:33 ; Start 03/24/16 at 06:30 Morphine Sulfate 2 mg 1X ONCE IV Last administered on 03/24/16 06:27; Start 03/24/16 at 06:30; Stop 03/24/16 at 06:31; Status DC Hydralazine HCl (Apresoline) 10 mg PRN Q4HRS PRN IVP ELEVATED BP, SEE COMMENTS Last administered on 03/24/16 06:59; Start 03/24/16 at 06:30 Aspirin (Ecotrin) 81 mg DAILY PO Last administered on 03/25/16 08:41; Start at 09:00; Stop 03/26/16 at 16:11; Status DC Hydralazine HCl (Apresoline) 25 mg DAILY PO Last administered on 03/24/16 09: 00; Start 03/24/16 at 09:00; Stop 03/24/16 at 09:49; Status DC Lisinopril (Prinivil) 10 mg DAILY PO Last administered on 03/28/16 08:46; Start 03/24/16 at 09:00 Non-Formulary Medication 2 puff QID INH FOR ASTHMA; Start 03/24/16 at 09:00; Stop 03/24/16 at 09:00; Status DC Fluticasone Propionate (Flonase) 2 spray DAILY NS Last administered on 08:46; Start 03/24/16 at 09:00 Non-Formulary Medication 1 inh BID IH ; Start 03/24/16 at 09:00; Stop 03/24/16 at 09:00; Status DC Pantoprazole Sodium (Protonix) 40 mg DAILYAC PO ; Start 03/24/16 at 08:00; Stop 03/24/16 at 17:03; Status DC Albuterol Sulfate (Ventolin Neb Soln) 2.5 mg Q6HRS NEB Last administered on 12:31; Start 03/24/16 at 08:00 Budesonide (Pulmicort) 0.5 mg RTBID NEB Last administered on 03/28/16 08:42; Start 03/24/16 at 08:00 Metoprolol Tartrate (Lopressor) 5 mg STAT STAT IVP Last administered on 09:31; Start 03/24/16 at 09:23; Stop 03/24/16 at 09:25; Status DC Pantoprazole Sodium (Protonix Vial) 40 mg 1X ONCE IVP ; Start 03/24/16 at 09:45 ; Stop 03/24/16 at 09:53; Status DC Metoclopramide HCl (Reglan) 10 mg 1X ONCE IV ; Start 03/24/16 at 09:45; Stop at 09:53; Status DC Metoprolol Tartrate (Lopressor) 5 mg Q6HRS IVP Last administered on 03/28/16 05:32; Start 03/24/16 at 10:00 Prochlorperazine Edisylate (Compazine) 10 mg PRN Q6HRS PRN IV NAUSEA/VOMITING, 2ND CHOICE Last administered on 03/24/16 10:56; Start 03/24/16 at 10:30 Ondansetron HCl 4 mg 4 mg PRN Q6HRS PRN IV NAUSEA/VOMITING, 1ST CHOICE; Start 03/24/16 at 10:45 Nicardipine HCl 50 mg/Sodium Chloride 270 ml @ 0 mls/hr CONT PRN IV SEE I/O RECORD; Start 03/24/16 at 11:00 Sodium Chloride (Iv Sodium Chloride 0.9% 500ml Bag) 500 ml @ 500 mls/hr 1X ONCE IV Last administered on 03/24/16 15:03; Start 03/24/16 at 13:45; Stop at 14:44; Status DC Lisinopril (Prinivil) 10 mg 1X ONCE PO Last administered on 03/24/16 16:08; Start 03/24/16 at 16:00; Stop 03/24/16 at 16:01; Status DC Non-Formulary Medication 25 mg PRN PO ; Start 03/24/16 at 16:00; Stop 03/24/16 at 17:57; Status DC Pantoprazole Sodium 40 mg 40 mg [id number] IVP Last administered on 03/28/16 05:32 ; Start 03/24/16 at 18:00 Sodium Chloride 1,000 ml @ 75 mls/hr [id number] IV Last administered on 03:25; Start 03/24/16 at 19:00 Piperacillin Sod/ Tazobactam Sod/ Sodium Chloride (Zosyn/Iv Sodium Chloride 0.9 % 50ml) 50 ml @ 100 mls/hr Q6HRS IV Last administered on 03/28/16 14:22; Start 03/26/16 at 12:00 Ondansetron HCl (Zofran) 4 mg PRN Q6HRS PRN IV Nausea; Start 03/27/16 at 07:00 ; Stop 03/28/16 at 06:59; Status DC Fentanyl Citrate (Fentanyl 2ml Vial) 25 mcg PRN Q5MIN PRN IV MILD PAIN; Start 03/27/16 at 07:00; Stop 03/28/16 at 06:59; Status DC Fentanyl Citrate (Fentanyl 2ml Vial) 50 mcg PRN Q5MIN PRN IV MODERATE PAIN; Start 03/27/16 at 07:00; Stop 03/28/16 at 06:59; Status DC Morphine Sulfate 1 mg 1 mg PRN Q10MIN PRN IV SEVERE PAIN Last administered on 14:30; Start 03/27/16 at 07:00; Stop 03/28/16 at 06:59; Status DC Lactated Ringer's (Iv Lactated Ringers) 1,000 ml @ 0 mls/hr Q0M IV Last administered on 03/27/16 10:28; Start 03/27/16 at 07:00; Stop 03/27/16 at 18:59 ; Status DC Lidocaine HCl 2 ml 1X PRN PRN ID IV START; Start 03/27/16 at 07:00; Stop at 06:59; Status DC Hydromorphone HCl (Dilaudid) 0.5 mg PRN Q10MIN PRN IV SEVERE PAIN, Second choice; Start 03/27/16 at 07:00; Stop 03/28/16 at 06:59; Status DC Prochlorperazine Edisylate (Compazine) 5 mg PACU PRN PRN IV NAUSEA Last administered on 03/27/16 14:08; Start 03/27/16 at 07:00; Stop 03/28/16 at 06:59 ; Status DC Fentanyl Citrate (Fentanyl 2ml Vial) 100 mcg STK-MED ONCE .ROUTE ; Start at 10:25; Stop 03/27/16 at 10:26; Status DC Rocuronium [place] (Zemuron) 50 mg STK-MED ONCE .ROUTE ; Start 03/27/16 at 10:26 ; Stop 03/27/16 at 10:27; Status DC Desflurane (Suprane) 90 ml STK-MED ONCE IH ; Start 03/27/16 at 10:26; Stop 03/27 at 10:27; Status DC Dexamethasone Sodium Phosphate 20 mg 20 mg STK-MED ONCE .ROUTE ; Start 03/27/16 at 10:26; Stop 03/27/16 at 10:27; Status DC Propofol (Diprivan) 20 ml @ As Directed STK-MED ONCE IV ; Start 03/27/16 at 10: 26; Stop 03/27/16 at 10:27; Status DC Lidocaine HCl 100 mg STK-MED ONCE .ROUTE ; Start 03/27/16 at 10:26; Stop at 10:27; Status DC Ondansetron HCl (Zofran) 4 mg STK-MED ONCE .ROUTE ; Start 03/27/16 at 10:26; Stop 03/27/16 at 10:27; Status DC Phenylephrine HCl 1 mg STK-MED ONCE IV ; Start 03/27/16 at 10:26; Stop 03/27/16 at 10:27; Status DC Cellulose 1 each STK-MED ONCE .ROUTE Last administered on 03/27/16 13:28; Start 03/27/16 at 11:14; Stop 03/27/16 at 11:15; Status DC Iohexol (Omnipaque 300 Mg/ml) 50 ml STK-MED ONCE .ROUTE Last administered on 12:57; Start 03/27/16 at 11:14; Stop 03/27/16 at 11:15; Status DC Bupivacaine HCl/ Epinephrine Bitart (Marcaine-Epi 0.5%-[id number]) 50 ml STK-MED ONCE .ROUTE Last administered on 03/27/16 12:56; Start 03/27/16 at 11:14; Stop 03/27/16 at 11:15; Status DC Glycopyrrolate (Robinul) 1 mg STK-MED ONCE .ROUTE ; Start 03/27/16 at 12:44; Stop 03/27/16 at 12:45; Status DC Ephedrine Sulfate (Akovaz) 50 mg STK-MED ONCE .ROUTE ; Start 03/27/16 at 12:45; Stop 03/27/16 at 12:46; Status DC Neostigmine Methylsulfate 5 mg STK-MED ONCE .ROUTE ; Start 03/27/16 at 12:45; Stop 03/27/16 at 12:46; Status DC Lidocaine HCl 100 mg 100 mg STK-MED ONCE .ROUTE ; Start 03/27/16 at 13:22; Stop 03/27/16 at 13:23; Status DC Propofol (Diprivan) 20 ml @ As Directed STK-MED ONCE IV ; Start 03/27/16 at 13: 38; Stop 03/27/16 at 13:39; Status DC Ondansetron HCl (Zofran) 4 mg PRN Q6HRS PRN IV Nausea; Start 03/28/16 at 07:00 ; Stop 03/29/16 at 06:59 Fentanyl Citrate (Fentanyl 2ml Vial) 25 mcg PRN Q5MIN PRN IV MILD PAIN; Start 03/28/16 at 07:00; Stop 03/29/16 at 06:59 Fentanyl Citrate (Fentanyl 2ml Vial) 50 mcg PRN Q5MIN PRN IV MODERATE PAIN; Start 03/28/16 at 07:00; Stop 03/29/16 at 06:59 Morphine Sulfate 1 mg 1 mg PRN Q10MIN PRN IV SEVERE PAIN; Start 03/28/16 at 07: 00; Stop 03/29/16 at 06:59 Lactated Ringer's (Iv Lactated Ringers) 1,000 ml @ 30 mls/hr Q24H IV Last administered on 03/28/16t 14:10; Start 03/28/16 at 07:00; Stop 03/28/16 at 18:59 Lidocaine HCl 2 ml 1X PRN PRN ID IV START; Start 03/28/16 at 07:00; Stop at 06:59 Hydromorphone HCl (Dilaudid) 0.5 mg PRN Q10MIN PRN IV SEVERE PAIN, Second choice; Start 03/28/16 at 07:00; Stop 03/29/16 at 06:59 Prochlorperazine Edisylate (Compazine) 5 mg PACU PRN PRN IV NAUSEA; Start 03/28 at 07:00; Stop 03/29/16 at 06:59 Glycopyrrolate (Robinul) 1 mg STK-MED ONCE .ROUTE ; Start 03/28/16 at 13:29; Stop 03/28/16 at 13:30; Status DC Iohexol 50 ml 50 ml STK-MED ONCE .ROUTE ; Start 03/28/16 at 13:54; Stop at 13:55; Status DC Lactated Ringer's 1,000 ml @ 125 mls/hr Q8H IV ; Start 03/28/16 at 14:08; Stop 03/29/16 at 02:07 Propofol (Diprivan) 20 ml @ As Directed STK-MED ONCE IV ; Start 03/28/16 at 14: 45; Stop 03/28/16 at 14:46; Status DC Succinylcholine Chloride (Anectine) 200 mg STK-MED ONCE .ROUTE ; Start 03/28/16 at 14:45; Stop 03/28/16 at 14:46; Status DC Lidocaine HCl (Lidocaine Pf 2% Vial) 5 ml STK-MED ONCE .ROUTE ; Start 03/28/16 at 14:46; Stop 03/28/16 at 14:47; Status DC Iopamidol (Isovue-300) 50 ml STK-MED ONCE IV Last administered on 03/28/16t 15: 41; Start 03/28/16 at 15:41; Stop 03/28/16 at 15:53; Status DC Active Scripts Active Reported Lumigan (Bimatoprost) 2.5 Ml Drops 2.5 Ml OP Ventolin Hfa Inhaler (Albuterol Sulfate) 18 Gm Hfa.aer.ad 2 Puff INH QID Advair 250-50 Diskus (Fluticasone/Salmeterol) 1 Each Disk.w.dev 1 Inh IH BID Flonase Allergy Relief (Fluticasone Propionate) 9.9 Ml [place].susp 2 Sprays NS DAILY Prilosec Otc (Omeprazole Magnesium) 20 Mg Tablet. 20 Mg PO DAILY Aspir 81 (Aspirin) 81 Mg Tablet. 81 Mg PO Lisinopril 10 Mg Tablet 10 Mg PO DAILY Vitals/I & O Vital Sign - Last 24 Hours 03/27/16 03/27/16 03/27/16 03/27/16 16:15 16:30 16:45 17:00 Temp 97.7 97.7 97.7 97.7 97.7 97.7 97.7 97.7 Pulse 91 91 96 91 Resp B/P 149/60 160/60 155/48 147/60 Pulse Ox 94 93 91 93 O2 Delivery Nasal Cannula Nasal Cannula Nasal Cannula Nasal Cannula O2 Flow Rate 2.0 2.0 2.0 2.0 03/27/16 03/27/16 03/27/16 03/27/16 17:15 17:30 18:00 18:07 Temp 97.7 97.7 97.7 97.7 97.7 97.7 Pulse 92 90 96 80 Resp B/P 153/59 152/56 144/61 165/71 Pulse Ox 92 92 96 O2 Delivery Nasal Cannula Nasal Cannula Nasal Cannula O2 Flow Rate 2.0 2.0 2.0 03/27/16 03/27/16 03/27/16 03/27/16 18:30 19:00 19:00 20:00 Temp 97.7 97.6 97.7 97.7 97.6 97.7 Pulse 101 92 101 Resp 19 18 19 B/P 146/60 150/70 142/54 Pulse Ox 91 91 91 O2 Delivery Nasal Cannula Nasal Cannula Nasal Cannula O2 Flow Rate 2.0 2.0 2.0 03/27/16 03/27/16 03/27/16 03/27/16 20:04 20:04 20:13 23:00 Temp 98.4 98.4 Pulse 96 Resp 18 18 B/P 146/67 Pulse Ox 93 93 93 O2 Delivery Nasal Cannula Nasal Cannula Nasal Cannula O2 Flow Rate 2.0 2.0 2.0 03/28/16 03/28/16 03/28/16 03/28/16 00:20 00:22 03:00 05:32 Temp 99.1 99.1 Pulse 92 91 91 Resp 18 18 B/P 150/70 142/65 142/65 Pulse Ox 91 O2 Delivery Room Air 03/28/16 03/28/16 03/28/16 03/28/16 05:33 06:09 07:30 08:33 Temp 99.1 99.1 Pulse 67 Resp 18 18 18 B/P 146/66 Pulse Ox 91 94 O2 Delivery Nasal Cannula Nasal Cannula Nasal Cannula Nasal Cannula O2 Flow Rate 2.0 2.0 2.0 2.0 03/28/16 03/28/16 03/28/16 03/28/16 08:44 08:44 08:46 11:55 Temp 98.1 98.1 Pulse 67 76 Resp 18 B/P 146/66 150/61 Pulse Ox 94 94 96 O2 Delivery Nasal Cannula Nasal Cannula Nasal Cannula O2 Flow Rate 2.0 2.0 3.0 03/28/16 03/28/16 03/28/16 03/28/16 12:00 12:32 14:01 14:05 Temp 98.7 98.7 Pulse 88 88 Resp 18 B/P 172/74 172/74 Pulse Ox 95 92 O2 Delivery Nasal Cannula Nasal Cannula Nasal Cannula O2 Flow Rate 2.0 2.0 2 03/28/16 15:53 Temp 97.8 97.8 Pulse 89 Resp 16 B/P 171/74 Pulse Ox 95 O2 Delivery Nasal Cannula O2 Flow Rate 2 Intake and Output 03/27/16 03/27/16 03/28/16 15:00 23:00 07:00 Intake Total 1050 ml 225 ml 0 ml Output Total 110 ml 505 ml Balance 940 ml -280 ml 0 ml ALEJANDRA HERRERA MD Mar 28, 2016 16:20
--- NOTE | 2016-03-28 16:22 | DISCH ---
DISCHARGE INSTRUCTIONS Condition on Discharge Condition on Discharge: Stable Activity After Discharge Activity Instructions for Disc: Resume previous activity Diet after Discharge Diet after Discharge: Domenic Contacting the DRLeodan after DC Call your doctor for: If your condition worsens Follow-Up Follow up with: Dr Braxton on 10-14 days ALEJANDRA HERRERA MD Mar 28, 2016 16:22
[2016-03-28] MEDS ORDERED: HYDR-2666 PO (16:24)
[2016-03-29] MEDS: MORPHINE SULFATE 2 MG/ML DISP.SYRIN. IV PRN ×3 (00:33→09:26)
[2016-03-29] MEDS: METOPROLOL TARTRATE 5 MG/5 ML VIAL. IVP SCH ×4 (00:37→18:00)
[2016-03-29] MEDS: PIPERACILLIN/TAZOBACTAM 3.375 GM in IV NORMAL SALINE 50ML 50 ML IV SCH ×4 (00:40→18:00)
[2016-03-29] MEDS: ALBUTEROL SULFATE 2.5 MG/3 ML NEBU. NEB SCH ×5 (01:11→23:47)
[2016-03-29] MEDS: IV 1/2 NORMAL SALINE 1,000 ML IV SCH ×2 (03:31→18:03)
[2016-03-29 03:45] VITALS: BP 126/60
[2016-03-29 05:41] LABS: BASO % 0 % (0-3); EOS % 1 % (0-3); LYMPH # 2.4 x10^3/uL (1.0-4.8); LYMPH % 24 % (24-48); MEAN CORPUSCULAR HEMOGLOBIN 29 pg (25-35); MEAN CORPUSCULAR HGB CONC 33 g/dL (31-37); MEAN CORPUSCULAR VOLUME 87 fL (79-100); MONO % 10 % (0-9); NEUT % 65 % (31-73); PLATELET COUNT 248 x10^3/uL (140-400); RED BLOOD COUNT 3.44 x10^6/uL (3.50-5.40); WHITE BLOOD COUNT 10.1 x10^3/uL (4.0-11.0)
[2016-03-29 05:59] LABS: ALBUMIN/GLOBULIN RATIO 0.6 (1.0-1.7); CALCIUM 8.2 mg/dL (8.5-10.1); CREATININE 0.7 mg/dL (0.6-1.0); GFR 80.1; POTASSIUM 3.7 mmol/L (3.5-5.1); TOTAL BILIRUBIN 0.7 mg/dL (0.2-1.0); TOTAL PROTEIN 5.5 g/dL (6.4-8.2)
[2016-03-29] MEDS: BUDESONIDE 0.5 MG/2 ML NEBU NEB SCH ×2 (06:10→20:34)
[2016-03-29 07:00] VITALS: BP 146/59
[2016-03-29] MEDS: PANTOPRAZOLE IV PUSH 40 MG VIAL. IVP SCH ×2 (07:41→16:28)
[2016-03-29] MEDS: LISINOPRIL 10 MG TABLET PO SCH (09:29)
[2016-03-29] MEDS: FLUTICASONE 50MCG/NASAL SPRAY 16GM BOTTLE. NS SCH (09:29)
[2016-03-29 11:00] VITALS: BP 151/70
--- NOTE | 2016-03-29 11:02 | PDOC ---
PROGRESS NOTES Chief Complaint Chief Complaint Chest pain ASSESSMENT AND PLAN: 1. CP: non-cardiac, now resolved. moved to [facility] 2. Cholecystitis per MRCP, prob etiology of CP as well. laprascopic CCY by Dr Braxton 03/27, no complications. scheduled for ERCP stone retrieval by Dr Cook later today 3. Sepsis: resolved; prob related to cholecystitis/stone. on empiric Abx 4. Anemia: suspect combination of dilutional effect and acute bleed w/surg. remains in double digits. monitor 5. Asthma: no acute issues . albuterol PRN 6. Hypertension: well controlled on home regimen 7. Hyperlipidemia: on statin 8. Hyperkalemia: resolved 9. Dispo: anticipate home w/ HH in AM History of Present Illness History of Present Illness Pt seen and examined CO weakness and intermitent CP DW RN VSS Vitals Vitals Vital Signs Date Time Temp Pulse Resp B/P Pulse Ox O2 Delivery O2 Flow Rate FiO2 03/29/16 09:29 85 146/59 03/29/16 09:26 20 92 Room Air 03/29/16 08:00 2.0 03/29/16 07:00 98.0 98.0 Physical Exam General: Alert, Oriented X3, Cooperative, No acute distress Heart: Regular rate, Normal S1, No murmurs Lungs: Clear Abdomen: Soft (tender RUQ) Extremities: No clubbing, No cyanosis, No edema Skin: No rashes, No breakdown Labs LABS Laboratory Tests Test 03/29/16 05:05 White Blood Count 10.1x10^3/uL (4.0-11.0) Red Blood Count 3.44x10^6/uL (3.50-5.40) Hemoglobin 10.0g/dL (12.0-15.5) Hematocrit 30.0% (36.0-47.0) Mean Corpuscular Volume 87fL (79-100) Mean Corpuscular Hemoglobin 29pg (25-35) Mean Corpuscular Hemoglobin Concent 33g/dL (31-37) Red Cell Distribution Width 14.0% (11.5-14.5) Platelet Count 248x10^3/uL (140-400) Neutrophils (%) (Auto) 65% (31-73) Lymphocytes (%) (Auto) 24% (24-48) Monocytes (%) (Auto) 10% (0-9) Eosinophils (%) (Auto) 1% (0-3) Basophils (%) (Auto) 0% (0-3) Neutrophils # (Auto) 6.6x10^3uL (1.8-7.7) Lymphocytes # (Auto) 2.4x10^3/uL (1.0-4.8) Monocytes # (Auto) 1.0x10^3/uL (0.0-1.1) Eosinophils # (Auto) 0.1x10^3/uL (0.0-0.7) Basophils # (Auto) 0.0x10^3/uL (0.0-0.2) Sodium Level 142mmol/L (136-145) Potassium Level 3.7mmol/L (3.5-5.1) Chloride Level 107mmol/L (98-107) Carbon Dioxide Level 25mmol/L (21-32) Anion Gap 10 (6-14) Blood Urea Nitrogen 20mg/dL (7-20) Creatinine 0.7mg/dL (0.6-1.0) Estimated GFR (Cockcroft-Gault) 80.1 BUN/Creatinine Ratio 29 (6-20) Glucose Level 76mg/dL (70-99) Calcium Level 8.2mg/dL (8.5-10.1) Total Bilirubin 0.7mg/dL (0.2-1.0) Aspartate Amino Transf (AST/SGOT) 19U/L (15-37) Alanine Aminotransferase (ALT/SGPT) 19U/L (14-59) Alkaline Phosphatase 49U/L (46-116) Total Protein 5.5g/dL (6.4-8.2) Albumin 2.0g/dL (3.4-5.0) Albumin/Globulin Ratio 0.6 (1.0-1.7) Review of Systems Review of Systems co weakness co cp Assessment and Plan Assessmemt and Plan Problems Medical Problems: (1) Chest pain Status: Acute (2) Malignant hypertension Status: Acute ASSESSMENT AND PLAN: 1. CP: non-cardiac, now resolved. moved to [facility] 2. Cholecystitis per MRCP, prob etiology of CP as well. laprascopic CCY by Dr Braxton 03/27, no complications. scheduled for ERCP stone retrieval by Dr Cook yesterday 3. Sepsis: resolved; prob related to cholecystitis/stone. on empiric Abx 4. Anemia: suspect combination of dilutional effect and acute bleed w/surg. remains in double digits. monitor 5. Asthma: no acute issues . albuterol PRN 6. Hypertension: well controlled on home regimen 7. Hyperlipidemia: on statin 8. Hyperkalemia: resolved 9. Dispo: anticipate home w/ HH in AM Problems: Comment Review of Relevant I have reviewed the following items rodrigue (where applicable) has been applied. Labs Laboratory Tests Test 03/28/16 05:05 03/29/16 05:05 White Blood Count 14.9x10^3/uL (4.0-11.0) 10.1x10^3/uL (4.0-11.0) Red Blood Count 3.74x10^6/uL (3.50-5.40) 3.44x10^6/uL (3.50-5.40) Hemoglobin 10.7g/dL (12.0-15.5) 10.0g/dL (12.0-15.5) Hematocrit 32.5% (36.0-47.0) 30.0% (36.0-47.0) Mean Corpuscular Volume 87fL (79-100) 87fL (79-100) Mean Corpuscular Hemoglobin 29pg (25-35) 29pg (25-35) Mean Corpuscular Hemoglobin Concent 33g/dL (31-37) 33g/dL (31-37) Red Cell Distribution Width 13.7% (11.5-14.5) 14.0% (11.5-14.5) Platelet Count 233x10^3/uL (140-400) 248x10^3/uL (140-400) Neutrophils (%) (Auto) 84% (31-73) 65% (31-73) Lymphocytes (%) (Auto) 9% (24-48) 24% (24-48) Monocytes (%) (Auto) 7% (0-9) 10% (0-9) Eosinophils (%) (Auto) 0% (0-3) 1% (0-3) Basophils (%) (Auto) 0% (0-3) 0% (0-3) Neutrophils # (Auto) 12.5x10^3uL (1.8-7.7) 6.6x10^3uL (1.8-7.7) Lymphocytes # (Auto) 1.4x10^3/uL (1.0-4.8) 2.4x10^3/uL (1.0-4.8) Monocytes # (Auto) 1.0x10^3/uL (0.0-1.1) 1.0x10^3/uL (0.0-1.1) Eosinophils # (Auto) 0.0x10^3/uL (0.0-0.7) 0.1x10^3/uL (0.0-0.7) Basophils # (Auto) 0.0x10^3/uL (0.0-0.2) 0.0x10^3/uL (0.0-0.2) Sodium Level 138mmol/L (136-145) 142mmol/L (136-145) Potassium Level 4.5mmol/L (3.5-5.1) 3.7mmol/L (3.5-5.1) Chloride Level 104mmol/L (98-107) 107mmol/L (98-107) Carbon Dioxide Level 25mmol/L (21-32) 25mmol/L (21-32) Anion Gap 9 (6-14) 10 (6-14) Blood Urea Nitrogen 23mg/dL (7-20) 20mg/dL (7-20) Creatinine 0.7mg/dL (0.6-1.0) 0.7mg/dL (0.6-1.0) Estimated GFR (Cockcroft-Gault) 80.1 80.1 BUN/Creatinine Ratio 33 (6-20) 29 (6-20) Glucose Level 107mg/dL (70-99) 76mg/dL (70-99) Calcium Level 8.8mg/dL (8.5-10.1) 8.2mg/dL (8.5-10.1) Total Bilirubin 0.7mg/dL (0.2-1.0) 0.7mg/dL (0.2-1.0) Aspartate Amino Transf (AST/SGOT) 17U/L (15-37) 19U/L (15-37) Alanine Aminotransferase (ALT/SGPT) 22U/L (14-59) 19U/L (14-59) Alkaline Phosphatase 65U/L (46-116) 49U/L (46-116) Total Protein 6.2g/dL (6.4-8.2) 5.5g/dL (6.4-8.2) Albumin 2.2g/dL (3.4-5.0) 2.0g/dL (3.4-5.0) Albumin/Globulin Ratio 0.6 (1.0-1.7) 0.6 (1.0-1.7) Laboratory Tests Test 03/29/16 05:05 White Blood Count 10.1x10^3/uL (4.0-11.0) Red Blood Count 3.44x10^6/uL (3.50-5.40) Hemoglobin 10.0g/dL (12.0-15.5) Hematocrit 30.0% (36.0-47.0) Mean Corpuscular Volume 87fL (79-100) Mean Corpuscular Hemoglobin 29pg (25-35) Mean Corpuscular Hemoglobin Concent 33g/dL (31-37) Red Cell Distribution Width 14.0% (11.5-14.5) Platelet Count 248x10^3/uL (140-400) Neutrophils (%) (Auto) 65% (31-73) Lymphocytes (%) (Auto) 24% (24-48) Monocytes (%) (Auto) 10% (0-9) Eosinophils (%) (Auto) 1% (0-3) Basophils (%) (Auto) 0% (0-3) Neutrophils # (Auto) 6.6x10^3uL (1.8-7.7) Lymphocytes # (Auto) 2.4x10^3/uL (1.0-4.8) Monocytes # (Auto) 1.0x10^3/uL (0.0-1.1) Eosinophils # (Auto) 0.1x10^3/uL (0.0-0.7) Basophils # (Auto) 0.0x10^3/uL (0.0-0.2) Sodium Level 142mmol/L (136-145) Potassium Level 3.7mmol/L (3.5-5.1) Chloride Level 107mmol/L (98-107) Carbon Dioxide Level 25mmol/L (21-32) Anion Gap 10 (6-14) Blood Urea Nitrogen 20mg/dL (7-20) Creatinine 0.7mg/dL (0.6-1.0) Estimated GFR (Cockcroft-Gault) 80.1 BUN/Creatinine Ratio 29 (6-20) Glucose Level 76mg/dL (70-99) Calcium Level 8.2mg/dL (8.5-10.1) Total Bilirubin 0.7mg/dL (0.2-1.0) Aspartate Amino Transf (AST/SGOT) 19U/L (15-37) Alanine Aminotransferase (ALT/SGPT) 19U/L (14-59) Alkaline Phosphatase 49U/L (46-116) Total Protein 5.5g/dL (6.4-8.2) Albumin 2.0g/dL (3.4-5.0) Albumin/Globulin Ratio 0.6 (1.0-1.7) Medications Current Medications Nitroglycerin (Nitrostat) 0.4 mg PRN Q5MIN PRN SL CHEST PAIN Last administered on 03/24/16 05:54; Start 03/24/16 at 05:00; Stop 03/26/16 at 16:09; Status DC Ondansetron HCl (Zofran) 4 mg PRN Q8HRS PRN IV NAUSEA/VOMITING Last administered on 03/24/16 05:57; Start 03/24/16 at 05:00; Stop 03/24/16 at 10:54 ; Status DC Acetaminophen (Tylenol) 650 mg PRN Q4HRS PRN PO FEVER; Start 03/24/16 at 05:00 ; Stop 03/25/16 at 04:59; Status DC Nitroglycerin (Nitrostat) 0.4 mg PRN Q5MIN PRN SL CHEST PAIN; Start 03/24/16 at 05:00; Stop 03/25/16 at 04:59; Status Cancel Lisinopril (Prinivil) 10 mg 1X ONCE PO Last administered on 03/24/16 05:57; Start 03/24/16 at 06:00; Stop 03/24/16 at 06:01; Status DC Nitroglycerin (Nitrostat) 0.4 mg PRN Q5MIN PRN SL CHEST PAIN; Start 03/24/16 at 06:00; Status Cancel Morphine Sulfate 2 mg PRN Q2HR PRN IV PAIN Last administered on 03/29/16 09:26 ; Start 03/24/16 at 06:30 Morphine Sulfate 2 mg 1X ONCE IV Last administered on 03/24/16 06:27; Start 03/24/16 at 06:30; Stop 03/24/16 at 06:31; Status DC Hydralazine HCl (Apresoline) 10 mg PRN Q4HRS PRN IVP ELEVATED BP, SEE COMMENTS Last administered on 03/24/16 06:59; Start 03/24/16 at 06:30 Aspirin (Ecotrin) 81 mg DAILY PO Last administered on 03/25/16 08:41; Start at 09:00; Stop 03/26/16 at 16:11; Status DC Hydralazine HCl (Apresoline) 25 mg DAILY PO Last administered on 03/24/16 09: 00; Start 03/24/16 at 09:00; Stop 03/24/16 at 09:49; Status DC Lisinopril (Prinivil) 10 mg DAILY PO Last administered on 03/29/16 09:29; Start 03/24/16 at 09:00 Non-Formulary Medication 2 puff QID INH FOR ASTHMA; Start 03/24/16 at 09:00; Stop 03/24/16 at 09:00; Status DC Fluticasone Propionate (Flonase) 2 spray DAILY NS Last administered on 09:29; Start 03/24/16 at 09:00 Non-Formulary Medication 1 inh BID IH ; Start 03/24/16 at 09:00; Stop 03/24/16 at 09:00; Status DC Pantoprazole Sodium (Protonix) 40 mg DAILYAC PO ; Start 03/24/16 at 08:00; Stop 03/24/16 at 17:03; Status DC Albuterol Sulfate (Ventolin Neb Soln) 2.5 mg Q6HRS NEB Last administered on 06:10; Start 03/24/16 at 08:00 Budesonide (Pulmicort) 0.5 mg RTBID NEB Last administered on 03/29/16 06:10; Start 03/24/16 at 08:00 Metoprolol Tartrate (Lopressor) 5 mg STAT STAT IVP Last administered on 09:31; Start 03/24/16 at 09:23; Stop 03/24/16 at 09:25; Status DC Pantoprazole Sodium (Protonix Vial) 40 mg 1X ONCE IVP ; Start 03/24/16 at 09:45 ; Stop 03/24/16 at 09:53; Status DC Metoclopramide HCl (Reglan) 10 mg 1X ONCE IV ; Start 03/24/16 at 09:45; Stop at 09:53; Status DC Metoprolol Tartrate (Lopressor) 5 mg Q6HRS IVP Last administered on 03/29/16 07:40; Start 03/24/16 at 10:00 Prochlorperazine Edisylate (Compazine) 10 mg PRN Q6HRS PRN IV NAUSEA/VOMITING, 2ND CHOICE Last administered on 03/24/16 10:56; Start 03/24/16 at 10:30 Ondansetron HCl 4 mg 4 mg PRN Q6HRS PRN IV NAUSEA/VOMITING, 1ST CHOICE; Start 03/24/16 at 10:45 Nicardipine HCl 50 mg/Sodium Chloride 270 ml @ 0 mls/hr CONT PRN IV SEE I/O RECORD; Start 03/24/16 at 11:00; Stop 03/28/16 at 16:58; Status DC Sodium Chloride (Iv Sodium Chloride 0.9% 500ml Bag) 500 ml @ 500 mls/hr 1X ONCE IV Last administered on 03/24/16 15:03; Start 03/24/16 at 13:45; Stop at 14:44; Status DC Lisinopril (Prinivil) 10 mg 1X ONCE PO Last administered on 03/24/16 16:08; Start 03/24/16 at 16:00; Stop 03/24/16 at 16:01; Status DC Non-Formulary Medication 25 mg PRN PO ; Start 03/24/16 at 16:00; Stop 03/24/16 at 17:57; Status DC Pantoprazole Sodium 40 mg 40 mg [id number] IVP Last administered on 03/29/16 07:41 ; Start 03/24/16 at 18:00 Sodium Chloride 1,000 ml @ 75 mls/hr [id number] IV Last administered on 03:31; Start 03/24/16 at 19:00 Piperacillin Sod/ Tazobactam Sod/ Sodium Chloride (Zosyn/Iv Sodium Chloride 0.9 % 50ml) 50 ml @ 100 mls/hr Q6HRS IV Last administered on 03/29/16 07:42; Start 03/26/16 at 12:00 Ondansetron HCl (Zofran) 4 mg PRN Q6HRS PRN IV Nausea; Start 03/27/16 at 07:00 ; Stop 03/28/16 at 06:59; Status DC Fentanyl Citrate (Fentanyl 2ml Vial) 25 mcg PRN Q5MIN PRN IV MILD PAIN; Start 03/27/16 at 07:00; Stop 03/28/16 at 06:59; Status DC Fentanyl Citrate (Fentanyl 2ml Vial) 50 mcg PRN Q5MIN PRN IV MODERATE PAIN; Start 03/27/16 at 07:00; Stop 03/28/16 at 06:59; Status DC Morphine Sulfate 1 mg 1 mg PRN Q10MIN PRN IV SEVERE PAIN Last administered on 14:30; Start 03/27/16 at 07:00; Stop 03/28/16 at 06:59; Status DC Lactated Ringer's (Iv Lactated Ringers) 1,000 ml @ 0 mls/hr Q0M IV Last administered on 03/27/16 10:28; Start 03/27/16 at 07:00; Stop 03/27/16 at 18:59 ; Status DC Lidocaine HCl 2 ml 1X PRN PRN ID IV START; Start 03/27/16 at 07:00; Stop at 06:59; Status DC Hydromorphone HCl (Dilaudid) 0.5 mg PRN Q10MIN PRN IV SEVERE PAIN, Second choice; Start 03/27/16 at 07:00; Stop 03/28/16 at 06:59; Status DC Prochlorperazine Edisylate (Compazine) 5 mg PACU PRN PRN IV NAUSEA Last administered on 1/19/17at 14:08; Start 03/27/16 at 07:00; Stop 03/28/16 at 06:59 ; Status DC Fentanyl Citrate (Fentanyl 2ml Vial) 100 mcg STK-MED ONCE .ROUTE ; Start at 10:25; Stop 03/27/16 at 10:26; Status DC Rocuronium [place] (Zemuron) 50 mg STK-MED ONCE .ROUTE ; Start 03/27/16 at 10:26 ; Stop 03/27/16 at 10:27; Status DC Desflurane (Suprane) 90 ml STK-MED ONCE IH ; Start 03/27/16 at 10:26; Stop 03/27 at 10:27; Status DC Dexamethasone Sodium Phosphate 20 mg 20 mg STK-MED ONCE .ROUTE ; Start 03/27/16 at 10:26; Stop 03/27/16 at 10:27; Status DC Propofol (Diprivan) 20 ml @ As Directed STK-MED ONCE IV ; Start 03/27/16 at 10: 26; Stop 03/27/16 at 10:27; Status DC Lidocaine HCl 100 mg STK-MED ONCE .ROUTE ; Start 03/27/16 at 10:26; Stop at 10:27; Status DC Ondansetron HCl (Zofran) 4 mg STK-MED ONCE .ROUTE ; Start 03/27/16 at 10:26; Stop 03/27/16 at 10:27; Status DC Phenylephrine HCl 1 mg STK-MED ONCE IV ; Start 03/27/16 at 10:26; Stop 03/27/16 at 10:27; Status DC Cellulose 1 each STK-MED ONCE .ROUTE Last administered on 03/27/16 13:28; Start 03/27/16 at 11:14; Stop 03/27/16 at 11:15; Status DC Iohexol (Omnipaque 300 Mg/ml) 50 ml STK-MED ONCE .ROUTE Last administered on 12:57; Start 03/27/16 at 11:14; Stop 03/27/16 at 11:15; Status DC Bupivacaine HCl/ Epinephrine Bitart (Marcaine-Epi 0.5%-1:[id number]) 50 ml STK-MED ONCE .ROUTE Last administered on 03/27/16 12:56; Start 03/27/16 at 11:14; Stop 03/27/16 at 11:15; Status DC Glycopyrrolate (Robinul) 1 mg STK-MED ONCE .ROUTE ; Start 03/27/16 at 12:44; Stop 03/27/16 at 12:45; Status DC Ephedrine Sulfate (Akovaz) 50 mg STK-MED ONCE .ROUTE ; Start 03/27/16 at 12:45; Stop 03/27/16 at 12:46; Status DC Neostigmine Methylsulfate 5 mg STK-MED ONCE .ROUTE ; Start 03/27/16 at 12:45; Stop 03/27/16 at 12:46; Status DC Lidocaine HCl 100 mg 100 mg STK-MED ONCE .ROUTE ; Start 03/27/16 at 13:22; Stop 03/27/16 at 13:23; Status DC Propofol (Diprivan) 20 ml @ As Directed STK-MED ONCE IV ; Start 03/27/16 at 13: 38; Stop 03/27/16 at 13:39; Status DC Ondansetron HCl (Zofran) 4 mg PRN Q6HRS PRN IV Nausea; Start 03/28/16 at 07:00 ; Stop 03/29/16 at 06:59; Status DC Fentanyl Citrate (Fentanyl 2ml Vial) 25 mcg PRN Q5MIN PRN IV MILD PAIN; Start 03/28/16 at 07:00; Stop 03/29/16 at 06:59; Status DC Fentanyl Citrate (Fentanyl 2ml Vial) 50 mcg PRN Q5MIN PRN IV MODERATE PAIN; Start 03/28/16 at 07:00; Stop 03/29/16 at 06:59; Status DC Morphine Sulfate 1 mg 1 mg PRN Q10MIN PRN IV SEVERE PAIN; Start 03/28/16 at 07: 00; Stop 03/29/16 at 06:59; Status DC Lactated Ringer's (Iv Lactated Ringers) 1,000 ml @ 30 mls/hr Q24H IV Last administered on 03/28/16t 14:10; Start 03/28/16 at 07:00; Stop 03/28/16 at 18:59 ; Status DC Lidocaine HCl 2 ml 1X PRN PRN ID IV START; Start 03/28/16 at 07:00; Stop at 06:59; Status DC Hydromorphone HCl (Dilaudid) 0.5 mg PRN Q10MIN PRN IV SEVERE PAIN, Second choice; Start 03/28/16 at 07:00; Stop 03/29/16 at 06:59; Status DC Prochlorperazine Edisylate (Compazine) 5 mg PACU PRN PRN IV NAUSEA; Start 03/28 at 07:00; Stop 03/29/16 at 06:59; Status DC Glycopyrrolate (Robinul) 1 mg STK-MED ONCE .ROUTE ; Start 03/28/16 at 13:29; Stop 03/28/16 at 13:30; Status DC Iohexol 50 ml 50 ml STK-MED ONCE .ROUTE ; Start 03/28/16 at 13:54; Stop at 13:55; Status DC Lactated Ringer's 1,000 ml @ 125 mls/hr Q8H IV ; Start 03/28/16 at 14:08; Stop 03/29/16 at 02:07; Status DC Propofol (Diprivan) 20 ml @ As Directed STK-MED ONCE IV ; Start 03/28/16 at 14: 45; Stop 03/28/16 at 14:46; Status DC Succinylcholine Chloride (Anectine) 200 mg STK-MED ONCE .ROUTE ; Start 03/28/16 at 14:45; Stop 03/28/16 at 14:46; Status DC Lidocaine HCl (Lidocaine Pf 2% Vial) 5 ml STK-MED ONCE .ROUTE ; Start 03/28/16 at 14:46; Stop 03/28/16 at 14:47; Status DC Iopamidol (Isovue-300) 50 ml STK-MED ONCE IV Last administered on 03/28/16t 15: 41; Start 03/28/16 at 15:41; Stop 03/28/16 at 15:53; Status DC Active Scripts Active Hydrocodone-Apap 5-325 (Hydrocodone Bit/Acetaminophen) 1 Each Tablet 0.5-1 Tab PO Q4HRS PRN Reported Lumigan (Bimatoprost) 2.5 Ml Drops 2.5 Ml OP Ventolin Hfa Inhaler (Albuterol Sulfate) 18 Gm Hfa.aer.ad 2 Puff INH QID Advair 250-50 Diskus (Fluticasone/Salmeterol) 1 Each Disk.w.dev 1 Inh IH BID Flonase Allergy Relief (Fluticasone Propionate) 9.9 Ml Marshall.susp 2 Sprays NS DAILY Prilosec Otc (Omeprazole Magnesium) 20 Mg Tablet. 20 Mg PO DAILY Aspir 81 (Aspirin) 81 Mg Tablet. 81 Mg PO Lisinopril 10 Mg Tablet 10 Mg PO DAILY Vitals/I & O Vital Sign - Last 24 Hours 03/28/16 03/28/16 03/28/16 03/28/16 11:55 12:00 12:32 14:01 Temp 98.1 98.1 Pulse 76 88 Resp 18 B/P 150/61 172/74 Pulse Ox 96 95 O2 Delivery Nasal Cannula Nasal Cannula Nasal Cannula O2 Flow Rate 3.0 2.0 2.0 03/28/16 03/28/16 03/28/16 03/28/16 14:05 15:53 16:15 16:28 Temp 98.7 97.8 98.7 97.8 Pulse 88 89 80 78 Resp 18 16 16 20 B/P 172/74 171/74 182/78 177/77 Pulse Ox 92 95 93 94 O2 Delivery Nasal Cannula Nasal Cannula Nasal Cannula Nasal Cannula O2 Flow Rate 2 2 2 2 03/28/16 03/28/16 03/28/16 03/28/16 16:38 17:00 17:05 17:15 Temp 98.1 98.1 Pulse 81 82 82 Resp 16 18 B/P 193/78 186/76 167/82 Pulse Ox 95 91 91 O2 Delivery Nasal Cannula Nasal Cannula Nasal Cannula Nasal Cannula O2 Flow Rate 3.0 2.0 3.0 03/28/16 03/28/16 03/28/16 03/28/16 17:45 18:04 18:15 18:45 Pulse 79 82 72 70 B/P 187/68 167/82 165/65 166/58 Pulse Ox 94 94 95 O2 Delivery Nasal Cannula Nasal Cannula Nasal Cannula O2 Flow Rate 3.0 3.0 3.0 03/28/16 03/28/16 03/28/16 03/28/16 18:52 19:51 20:00 20:09 Temp 98.1 98.1 Pulse 82 79 B/P 170/65 166/58 Pulse Ox 93 95 94 O2 Delivery Nasal Cannula Nasal Cannula Nasal Cannula Nasal Cannula O2 Flow Rate 3.0 2.0 2.0 03/28/16 03/28/16 03/29/16 03/29/16 20:09 23:54 00:33 00:37 Temp 98.4 98.4 Pulse 99 99 Resp 20 B/P 155/68 155/68 Pulse Ox 94 94 O2 Delivery Nasal Cannula Room Air Nasal Cannula O2 Flow Rate 2.0 3.0 03/29/16 03/29/16 03/29/16 03/29/16 01:10 03:28 03:45 04:00 Temp 98.0 98.0 Pulse 75 Resp 20 18 20 B/P 126/60 Pulse Ox 98 O2 Delivery Nasal Cannula Nasal Cannula O2 Flow Rate 2.0 2.0 03/29/16 03/29/16 03/29/16 03/29/16 06:09 07:00 07:40 08:00 Temp 98.0 98.0 Pulse 85 85 Resp 18 B/P 146/59 146/59 Pulse Ox 92 93 O2 Delivery Nasal Cannula Nasal Cannula Nasal Cannula O2 Flow Rate 2.0 2.0 2.0 03/29/16 03/29/16 09:26 09:29 Pulse 85 Resp 20 B/P 146/59 Pulse Ox 92 O2 Delivery Room Air Intake and Output 03/28/16 03/28/16 03/29/16 15:00 23:00 07:00 Intake Total 1675 ml 120 ml Output Total 30 ml 1280 ml 450 ml Balance -30 ml 395 ml -330 ml SALO HANNAH III DO Mar 29, 2016 11:02
--- NOTE | 2016-03-29 11:32 | PDOC ---
Subjective: Subjective: Feels good. No abd pain Objective: Vital Signs: Vital Signs Date Time Temp Pulse Resp B/P Pulse Ox O2 Delivery O2 Flow Rate FiO2 03/29/16 11:00 98.6 86 18 151/70 92 Nasal Cannula 2.0 98.6 Labs: Laboratory Tests Test 03/29/16 05:05 White Blood Count 10.1x10^3/uL (4.0-11.0) Red Blood Count 3.44x10^6/uL (3.50-5.40) Hemoglobin 10.0g/dL (12.0-15.5) Hematocrit 30.0% (36.0-47.0) Mean Corpuscular Volume 87fL (79-100) Mean Corpuscular Hemoglobin 29pg (25-35) Mean Corpuscular Hemoglobin Concent 33g/dL (31-37) Red Cell Distribution Width 14.0% (11.5-14.5) Platelet Count 248x10^3/uL (140-400) Neutrophils (%) (Auto) 65% (31-73) Lymphocytes (%) (Auto) 24% (24-48) Monocytes (%) (Auto) 10% (0-9) Eosinophils (%) (Auto) 1% (0-3) Basophils (%) (Auto) 0% (0-3) Neutrophils # (Auto) 6.6x10^3uL (1.8-7.7) Lymphocytes # (Auto) 2.4x10^3/uL (1.0-4.8) Monocytes # (Auto) 1.0x10^3/uL (0.0-1.1) Eosinophils # (Auto) 0.1x10^3/uL (0.0-0.7) Basophils # (Auto) 0.0x10^3/uL (0.0-0.2) Sodium Level 142mmol/L (136-145) Potassium Level 3.7mmol/L (3.5-5.1) Chloride Level 107mmol/L (98-107) Carbon Dioxide Level 25mmol/L (21-32) Anion Gap 10 (6-14) Blood Urea Nitrogen 20mg/dL (7-20) Creatinine 0.7mg/dL (0.6-1.0) Estimated GFR (Cockcroft-Gault) 80.1 BUN/Creatinine Ratio 29 (6-20) Glucose Level 76mg/dL (70-99) Calcium Level 8.2mg/dL (8.5-10.1) Total Bilirubin 0.7mg/dL (0.2-1.0) Aspartate Amino Transf (AST/SGOT) 19U/L (15-37) Alanine Aminotransferase (ALT/SGPT) 19U/L (14-59) Alkaline Phosphatase 49U/L (46-116) Total Protein 5.5g/dL (6.4-8.2) Albumin 2.0g/dL (3.4-5.0) Albumin/Globulin Ratio 0.6 (1.0-1.7) Physical Exam: Physical Exam: GEN: NAD HEENT: OP clear CV: S1S2 without murmurs, rubs, or gallops RESP: CTAB without wheezing, rhonchi, or crackles ABD: NABS, SNT/ND. JEEVAN drain RUQ EXT: No edema NEURO: AAO x 3 Assessment & Plan: Assessment : 1) Choledocholithiasis 2) Anemia Plan: s/p ERCP with stone extractions doing well. Monitor Hgb D/C soon Problems: SOFIA BAEZ MD Mar 29, 2016 11:32
[2016-03-29 14:58] VITALS: BP 141/48
[2016-03-29 19:00] VITALS: BP 132/57
[2016-03-29 23:00] VITALS: BP 145/61
[2016-03-30] MEDS: PIPERACILLIN/TAZOBACTAM 3.375 GM in IV NORMAL SALINE 50ML 50 ML IV SCH ×5 (00:08→23:54)
[2016-03-30] MEDS: METOPROLOL TARTRATE 5 MG/5 ML VIAL. IVP SCH ×5 (00:09→23:56)
[2016-03-30 03:08] VITALS: BP 121/70
[2016-03-30] MEDS: PANTOPRAZOLE IV PUSH 40 MG VIAL. IVP SCH ×2 (06:05→18:20)
[2016-03-30 07:49] VITALS: BP 158/100
[2016-03-30] MEDS: ALBUTEROL SULFATE 2.5 MG/3 ML NEBU. NEB SCH ×3 (08:42→18:10)
[2016-03-30] MEDS: BUDESONIDE 0.5 MG/2 ML NEBU NEB SCH ×2 (08:42→18:10)
[2016-03-30] MEDS: LISINOPRIL 10 MG TABLET PO SCH (10:29)
[2016-03-30] MEDS: FLUTICASONE 50MCG/NASAL SPRAY 16GM BOTTLE. NS SCH (10:30)
[2016-03-30] MEDS: IV 1/2 NORMAL SALINE 1,000 ML IV SCH ×2 (10:30→21:32)
--- NOTE | 2016-03-30 11:31 | PDOC ---
Subjective: Subjective: feels good Objective: Vital Signs: Vital Signs Date Time Temp Pulse Resp B/P Pulse Ox O2 Delivery O2 Flow Rate FiO2 03/30/16 10:29 88 148/65 03/30/16 08:42 92 Room Air 03/30/16 07:49 97.7 16 97.7 03/29/16 23:48 2.0 Labs: none today Physical Exam: Physical Exam: GEN: NAD HEENT: OP clear CV: S1S2 without murmurs, rubs, or gallops RESP: CTAB without wheezing, rhonchi, or crackles ABD: NABS, SNT/ND. JEEVAN in RUQ EXT: No edema NEURO: AAO x 3 Assessment & Plan: Assessment : 1) Choledocholithiasis 2) Anemia Plan: s/p ERCP with stone extractions doing well. Monitor Hgb D/C soon Problems: SOFIA BAEZ MD Mar 30, 2016 11:31
[2016-03-30 12:00] VITALS: BP 148/65
--- NOTE | 2016-03-30 14:13 | PDOC ---
PROGRESS NOTES Chief Complaint Chief Complaint Chest pain ASSESSMENT AND PLAN: 1. CP: non-cardiac, now resolved. moved to RU 2. Cholecystitis per MRCP, prob etiology of CP as well. laprascopic CCY by Dr Braxton 03/27, no complications. scheduled for ERCP stone retrieval by Dr Cook later today 3. Sepsis: resolved; prob related to cholecystitis/stone. on empiric Abx 4. Anemia: suspect combination of dilutional effect and acute bleed w/surg. remains in double digits. monitor 5. Asthma: no acute issues . albuterol PRN 6. Hypertension: well controlled on home regimen 7. Hyperlipidemia: on statin 8. Hyperkalemia: resolved 9. Dispo: anticipate home w/ HH in AM History of Present Illness History of Present Illness Pt seen and examined Approaching baseline Daughter present CO weakness and intermitent CP DW RN VSS Vitals Vitals Vital Signs Date Time Temp Pulse Resp B/P Pulse Ox O2 Delivery O2 Flow Rate FiO2 03/30/16 13:25 Nasal Cannula 2.0 03/30/16 12:00 98.2 84 16 148/65 94 98.2 Physical Exam General: Alert, Oriented X3, Cooperative, No acute distress Heart: Regular rate, Normal S1, No murmurs Lungs: Clear Abdomen: Soft (tender RUQ) Extremities: No clubbing, No cyanosis, No edema Skin: No rashes, No breakdown Review of Systems Review of Systems co weak co hunger Assessment and Plan Assessmemt and Plan Problems Medical Problems: (1) Chest pain Status: Acute (2) Malignant hypertension Status: Acute ASSESSMENT AND PLAN: 1. CP: non-cardiac, now resolved. moved to [facility] 2. Cholecystitis per MRCP, prob etiology of CP as well. laprascopic CCY by Dr Braxton 03/27, no complications 3. Sepsis: resolved; prob related to cholecystitis/stone. on empiric Abx 4. Anemia: suspect combination of dilutional effect and acute bleed w/surg. remains in double digits. monitor 5. Asthma: no acute issues . albuterol PRN 6. Hypertension: well controlled on home regimen 7. Hyperlipidemia: on statin 8. Hyperkalemia: resolved 9. Dispo: anticipate home w/ HH in Thursday am if stable Problems: Comment Review of Relevant I have reviewed the following items rodrigue (where applicable) has been applied. Labs Laboratory Tests Test 1/21/17 05:05 White Blood Count 10.1x10^3/uL (4.0-11.0) Red Blood Count 3.44x10^6/uL (3.50-5.40) Hemoglobin 10.0g/dL (12.0-15.5) Hematocrit 30.0% (36.0-47.0) Mean Corpuscular Volume 87fL (79-100) Mean Corpuscular Hemoglobin 29pg (25-35) Mean Corpuscular Hemoglobin Concent 33g/dL (31-37) Red Cell Distribution Width 14.0% (11.5-14.5) Platelet Count 248x10^3/uL (140-400) Neutrophils (%) (Auto) 65% (31-73) Lymphocytes (%) (Auto) 24% (24-48) Monocytes (%) (Auto) 10% (0-9) Eosinophils (%) (Auto) 1% (0-3) Basophils (%) (Auto) 0% (0-3) Neutrophils # (Auto) 6.6x10^3uL (1.8-7.7) Lymphocytes # (Auto) 2.4x10^3/uL (1.0-4.8) Monocytes # (Auto) 1.0x10^3/uL (0.0-1.1) Eosinophils # (Auto) 0.1x10^3/uL (0.0-0.7) Basophils # (Auto) 0.0x10^3/uL (0.0-0.2) Sodium Level 142mmol/L (136-145) Potassium Level 3.7mmol/L (3.5-5.1) Chloride Level 107mmol/L (98-107) Carbon Dioxide Level 25mmol/L (21-32) Anion Gap 10 (6-14) Blood Urea Nitrogen 20mg/dL (7-20) Creatinine 0.7mg/dL (0.6-1.0) Estimated GFR (Cockcroft-Gault) 80.1 BUN/Creatinine Ratio 29 (6-20) Glucose Level 76mg/dL (70-99) Calcium Level 8.2mg/dL (8.5-10.1) Total Bilirubin 0.7mg/dL (0.2-1.0) Aspartate Amino Transf (AST/SGOT) 19U/L (15-37) Alanine Aminotransferase (ALT/SGPT) 19U/L (14-59) Alkaline Phosphatase 49U/L (46-116) Total Protein 5.5g/dL (6.4-8.2) Albumin 2.0g/dL (3.4-5.0) Albumin/Globulin Ratio 0.6 (1.0-1.7) Medications Current Medications Nitroglycerin (Nitrostat) 0.4 mg PRN Q5MIN PRN SL CHEST PAIN Last administered on 03/24/16 05:54; Start 03/24/16 at 05:00; Stop 03/26/16 at 16:09; Status DC Ondansetron HCl (Zofran) 4 mg PRN Q8HRS PRN IV NAUSEA/VOMITING Last administered on 03/24/16 05:57; Start 03/24/16 at 05:00; Stop 03/24/16 at 10:54 ; Status DC Acetaminophen (Tylenol) 650 mg PRN Q4HRS PRN PO FEVER; Start 03/24/16 at 05:00 ; Stop 03/25/16 at 04:59; Status DC Nitroglycerin (Nitrostat) 0.4 mg PRN Q5MIN PRN SL CHEST PAIN; Start 03/24/16 at 05:00; Stop 03/25/16 at 04:59; Status Cancel Lisinopril (Prinivil) 10 mg 1X ONCE PO Last administered on 03/24/16 05:57; Start 03/24/16 at 06:00; Stop 03/24/16 at 06:01; Status DC Nitroglycerin (Nitrostat) 0.4 mg PRN Q5MIN PRN SL CHEST PAIN; Start 03/24/16 at 06:00; Status Cancel Morphine Sulfate 2 mg PRN Q2HR PRN IV PAIN Last administered on 03/29/16 09:26 ; Start 03/24/16 at 06:30 Morphine Sulfate 2 mg 1X ONCE IV Last administered on 03/24/16 06:27; Start 03/24/16 at 06:30; Stop 03/24/16 at 06:31; Status DC Hydralazine HCl (Apresoline) 10 mg PRN Q4HRS PRN IVP ELEVATED BP, SEE COMMENTS Last administered on 03/24/16 06:59; Start 03/24/16 at 06:30 Aspirin (Ecotrin) 81 mg DAILY PO Last administered on 03/25/16 08:41; Start at 09:00; Stop 03/26/16 at 16:11; Status DC Hydralazine HCl (Apresoline) 25 mg DAILY PO Last administered on 03/24/16 09: 00; Start 03/24/16 at 09:00; Stop 03/24/16 at 09:49; Status DC Lisinopril (Prinivil) 10 mg DAILY PO Last administered on 03/30/16 10:29; Start 03/24/16 at 09:00 Non-Formulary Medication 2 puff QID INH FOR ASTHMA; Start 03/24/16 at 09:00; Stop 03/24/16 at 09:00; Status DC Fluticasone Propionate (Flonase) 2 spray DAILY NS Last administered on 10:30; Start 03/24/16 at 09:00 Non-Formulary Medication 1 inh BID IH ; Start 03/24/16 at 09:00; Stop 03/24/16 at 09:00; Status DC Pantoprazole Sodium (Protonix) 40 mg DAILYAC PO ; Start 03/24/16 at 08:00; Stop 03/24/16 at 17:03; Status DC Albuterol Sulfate (Ventolin Neb Soln) 2.5 mg Q6HRS NEB Last administered on 13:24; Start 03/24/16 at 08:00 Budesonide (Pulmicort) 0.5 mg RTBID NEB Last administered on 03/30/16 08:42; Start 03/24/16 at 08:00 Metoprolol Tartrate (Lopressor) 5 mg STAT STAT IVP Last administered on 09:31; Start 03/24/16 at 09:23; Stop 03/24/16 at 09:25; Status DC Pantoprazole Sodium (Protonix Vial) 40 mg 1X ONCE IVP ; Start 03/24/16 at 09:45 ; Stop 03/24/16 at 09:53; Status DC Metoclopramide HCl (Reglan) 10 mg 1X ONCE IV ; Start 03/24/16 at 09:45; Stop at 09:53; Status DC Metoprolol Tartrate (Lopressor) 5 mg Q6HRS IVP Last administered on 03/30/16 06:06; Start 03/24/16 at 10:00 Prochlorperazine Edisylate (Compazine) 10 mg PRN Q6HRS PRN IV NAUSEA/VOMITING, 2ND CHOICE Last administered on 03/24/16 10:56; Start 03/24/16 at 10:30 Ondansetron HCl 4 mg 4 mg PRN Q6HRS PRN IV NAUSEA/VOMITING, 1ST CHOICE; Start 03/24/16 at 10:45 Nicardipine HCl 50 mg/Sodium Chloride 270 ml @ 0 mls/hr CONT PRN IV SEE I/O RECORD; Start 03/24/16 at 11:00; Stop 03/28/16 at 16:58; Status DC Sodium Chloride (Iv Sodium Chloride 0.9% 500ml Bag) 500 ml @ 500 mls/hr 1X ONCE IV Last administered on 03/24/16 15:03; Start 03/24/16 at 13:45; Stop at 14:44; Status DC Lisinopril (Prinivil) 10 mg 1X ONCE PO Last administered on 03/24/16 16:08; Start 03/24/16 at 16:00; Stop 03/24/16 at 16:01; Status DC Non-Formulary Medication 25 mg PRN PO ; Start 03/24/16 at 16:00; Stop 03/24/16 at 17:57; Status DC Pantoprazole Sodium 40 mg 40 mg [id number] IVP Last administered on 03/30/16 06:05 ; Start 03/24/16 at 18:00 Sodium Chloride 1,000 ml @ 75 mls/hr [id number] IV Last administered on 10:30; Start 03/24/16 at 19:00 Piperacillin Sod/ Tazobactam Sod/ Sodium Chloride (Zosyn/Iv Sodium Chloride 0.9 % 50ml) 50 ml @ 100 mls/hr Q6HRS IV Last administered on 03/30/16 06:05; Start 03/26/16 at 12:00 Ondansetron HCl (Zofran) 4 mg PRN Q6HRS PRN IV Nausea; Start 03/27/16 at 07:00 ; Stop 03/28/16 at 06:59; Status DC Fentanyl Citrate (Fentanyl 2ml Vial) 25 mcg PRN Q5MIN PRN IV MILD PAIN; Start 03/27/16 at 07:00; Stop 03/28/16 at 06:59; Status DC Fentanyl Citrate (Fentanyl 2ml Vial) 50 mcg PRN Q5MIN PRN IV MODERATE PAIN; Start 03/27/16 at 07:00; Stop 03/28/16 at 06:59; Status DC Morphine Sulfate 1 mg 1 mg PRN Q10MIN PRN IV SEVERE PAIN Last administered on 14:30; Start 03/27/16 at 07:00; Stop 03/28/16 at 06:59; Status DC Lactated Ringer's (Iv Lactated Ringers) 1,000 ml @ 0 mls/hr Q0M IV Last administered on 03/27/16 10:28; Start 03/27/16 at 07:00; Stop 03/27/16 at 18:59 ; Status DC Lidocaine HCl 2 ml 1X PRN PRN ID IV START; Start 03/27/16 at 07:00; Stop at 06:59; Status DC Hydromorphone HCl (Dilaudid) 0.5 mg PRN Q10MIN PRN IV SEVERE PAIN, Second choice; Start 03/27/16 at 07:00; Stop 03/28/16 at 06:59; Status DC Prochlorperazine Edisylate (Compazine) 5 mg PACU PRN PRN IV NAUSEA Last administered on 03/27/16 14:08; Start 03/27/16 at 07:00; Stop 03/28/16 at 06:59 ; Status DC Fentanyl Citrate (Fentanyl 2ml Vial) 100 mcg STK-MED ONCE .ROUTE ; Start at 10:25; Stop 03/27/16 at 10:26; Status DC Rocuronium [place] (Zemuron) 50 mg STK-MED ONCE .ROUTE ; Start 03/27/16 at 10:26 ; Stop 03/27/16 at 10:27; Status DC Desflurane (Suprane) 90 ml STK-MED ONCE IH ; Start 03/27/16 at 10:26; Stop 03/27 at 10:27; Status DC Dexamethasone Sodium Phosphate 20 mg 20 mg STK-MED ONCE .ROUTE ; Start 03/27/16 at 10:26; Stop 03/27/16 at 10:27; Status DC Propofol (Diprivan) 20 ml @ As Directed STK-MED ONCE IV ; Start 03/27/16 at 10: 26; Stop 03/27/16 at 10:27; Status DC Lidocaine HCl 100 mg STK-MED ONCE .ROUTE ; Start 03/27/16 at 10:26; Stop at 10:27; Status DC Ondansetron HCl (Zofran) 4 mg STK-MED ONCE .ROUTE ; Start 03/27/16 at 10:26; Stop 03/27/16 at 10:27; Status DC Phenylephrine HCl 1 mg STK-MED ONCE IV ; Start 03/27/16 at 10:26; Stop 03/27/16 at 10:27; Status DC Cellulose 1 each STK-MED ONCE .ROUTE Last administered on 03/27/16 13:28; Start 03/27/16 at 11:14; Stop 03/27/16 at 11:15; Status DC Iohexol (Omnipaque 300 Mg/ml) 50 ml STK-MED ONCE .ROUTE Last administered on 12:57; Start 03/27/16 at 11:14; Stop 03/27/16 at 11:15; Status DC Bupivacaine HCl/ Epinephrine Bitart (Marcaine-Epi 0.5%-[id number]) 50 ml STK-MED ONCE .ROUTE Last administered on 03/27/16 12:56; Start 03/27/16 at 11:14; Stop 03/27/16 at 11:15; Status DC Glycopyrrolate (Robinul) 1 mg STK-MED ONCE .ROUTE ; Start 03/27/16 at 12:44; Stop 03/27/16 at 12:45; Status DC Ephedrine Sulfate (Akovaz) 50 mg STK-MED ONCE .ROUTE ; Start 03/27/16 at 12:45; Stop 03/27/16 at 12:46; Status DC Neostigmine Methylsulfate 5 mg STK-MED ONCE .ROUTE ; Start 03/27/16 at 12:45; Stop 03/27/16 at 12:46; Status DC Lidocaine HCl 100 mg 100 mg STK-MED ONCE .ROUTE ; Start 03/27/16 at 13:22; Stop 03/27/16 at 13:23; Status DC Propofol (Diprivan) 20 ml @ As Directed STK-MED ONCE IV ; Start 03/27/16 at 13: 38; Stop 03/27/16 at 13:39; Status DC Ondansetron HCl (Zofran) 4 mg PRN Q6HRS PRN IV Nausea; Start 03/28/16 at 07:00 ; Stop 03/29/16 at 06:59; Status DC Fentanyl Citrate (Fentanyl 2ml Vial) 25 mcg PRN Q5MIN PRN IV MILD PAIN; Start 03/28/16 at 07:00; Stop 03/29/16 at 06:59; Status DC Fentanyl Citrate (Fentanyl 2ml Vial) 50 mcg PRN Q5MIN PRN IV MODERATE PAIN; Start 03/28/16 at 07:00; Stop 03/29/16 at 06:59; Status DC Morphine Sulfate 1 mg 1 mg PRN Q10MIN PRN IV SEVERE PAIN; Start 03/28/16 at 07: 00; Stop 03/29/16 at 06:59; Status DC Lactated Ringer's (Iv Lactated Ringers) 1,000 ml @ 30 mls/hr Q24H IV Last administered on 03/28/16t 14:10; Start 03/28/16 at 07:00; Stop 03/28/16 at 18:59 ; Status DC Lidocaine HCl 2 ml 1X PRN PRN ID IV START; Start 03/28/16 at 07:00; Stop at 06:59; Status DC Hydromorphone HCl (Dilaudid) 0.5 mg PRN Q10MIN PRN IV SEVERE PAIN, Second choice; Start 03/28/16 at 07:00; Stop 03/29/16 at 06:59; Status DC Prochlorperazine Edisylate (Compazine) 5 mg PACU PRN PRN IV NAUSEA; Start 03/28 at 07:00; Stop 03/29/16 at 06:59; Status DC Glycopyrrolate (Robinul) 1 mg STK-MED ONCE .ROUTE ; Start 03/28/16 at 13:29; Stop 03/28/16 at 13:30; Status DC Iohexol 50 ml 50 ml STK-MED ONCE .ROUTE ; Start 03/28/16 at 13:54; Stop at 13:55; Status DC Lactated Ringer's 1,000 ml @ 125 mls/hr Q8H IV ; Start 03/28/16 at 14:08; Stop 03/29/16 at 02:07; Status DC Propofol (Diprivan) 20 ml @ As Directed STK-MED ONCE IV ; Start 03/28/16 at 14: 45; Stop 03/28/16 at 14:46; Status DC Succinylcholine Chloride (Anectine) 200 mg STK-MED ONCE .ROUTE ; Start 03/28/16 at 14:45; Stop 03/28/16 at 14:46; Status DC Lidocaine HCl (Lidocaine Pf 2% Vial) 5 ml STK-MED ONCE .ROUTE ; Start 03/28/16 at 14:46; Stop 03/28/16 at 14:47; Status DC Iopamidol (Isovue-300) 50 ml STK-MED ONCE IV Last administered on 03/28/16t 15: 41; Start 03/28/16 at 15:41; Stop 03/28/16 at 15:53; Status DC Active Scripts Active Hydrocodone-Apap 5-325 (Hydrocodone Bit/Acetaminophen) 1 Each Tablet 0.5-1 Tab PO Q4HRS PRN Reported Lumigan (Bimatoprost) 2.5 Ml Drops 2.5 Ml OP Ventolin Hfa Inhaler (Albuterol Sulfate) 18 Gm Hfa.aer.ad 2 Puff INH QID Advair 250-50 Diskus (Fluticasone/Salmeterol) 1 Each Disk.w.dev 1 Inh IH BID Flonase Allergy Relief (Fluticasone Propionate) 9.9 Ml [place].susp 2 Sprays NS DAILY Prilosec Otc (Omeprazole Magnesium) 20 Mg Tablet. 20 Mg PO DAILY Aspir 81 (Aspirin) 81 Mg Tablet. 81 Mg PO Lisinopril 10 Mg Tablet 10 Mg PO DAILY Vitals/I & O Vital Sign - Last 24 Hours 03/29/16 03/29/16 03/29/16 03/29/16 14:58 16:34 19:00 20:00 Temp 98.4 97.5 98.4 97.5 Pulse 88 82 82 Resp 18 20 B/P 141/48 143/56 132/57 Pulse Ox 93 91 O2 Delivery Nasal Cannula Nasal Cannula Nasal Cannula O2 Flow Rate 2.0 2.0 03/29/16 03/29/16 03/29/16 03/29/16 20:35 20:38 23:00 23:48 Temp 99.1 99.1 Pulse 91 Resp 20 B/P 145/61 Pulse Ox 99 99 92 98 O2 Delivery Nasal Cannula Nasal Cannula Nasal Cannula Nasal Cannula O2 Flow Rate 2.0 2.0 2.0 03/30/16 03/30/16 03/30/16 03/30/16 00:09 03:08 06:06 07:49 Temp 98.1 97.7 98.1 97.7 Pulse 91 82 82 77 Resp 20 16 B/P 145/61 121/70 121/70 158/100 Pulse Ox 91 94 O2 Delivery Nasal Cannula Nasal Cannula 03/30/16 03/30/16 03/30/16 03/30/16 08:00 08:42 10:29 12:00 Temp 98.2 98.2 Pulse 88 84 Resp 16 B/P 148/65 148/65 Pulse Ox 92 94 O2 Delivery Nasal Cannula Room Air Nasal Cannula O2 Flow Rate 2.0 03/30/16 13:25 O2 Delivery Nasal Cannula O2 Flow Rate 2.0 Intake and Output 03/29/16 03/29/16 03/30/16 15:00 23:00 07:00 Intake Total 400 ml Output Total 800 ml 1535 ml Balance -400 ml -1535 ml SALO HANNAH III DO Mar 30, 2016 14:13
[2016-03-30 15:05] VITALS: BP 155/70
--- NOTE | 2016-03-30 15:08 | PDOC ---
PROGRESS NOTES Subjective Subjective doing well, no complaints Objective Objective Vital Signs Date Time Temp Pulse Resp B/P Pulse Ox O2 Delivery O2 Flow Rate FiO2 03/30/16 15:05 98.4 88 16 155/70 94 Nasal Cannula 98.4 03/30/16 13:25 2.0 Intake and Output 03/30/16 07:00 Intake Total 400 ml Output Total 2335 ml Balance -1935 ml Intake Oral 400 ml Output Urine Total 2300 ml Drainage Total 35 ml Physical Exam Abdomen: Soft, No tenderness (JEEVAN serosang) Assessment Assessment Problems Medical Problems: (1) Chest pain Status: Acute (2) Malignant hypertension Status: Acute Plan Plan of Care DC JEEVAN drain, plan for discharge tomorrow Comment Review of Relevant I have reviewed the following items rodrigue (where applicable) has been applied. Labs Laboratory Tests Test 03/29/16 05:05 White Blood Count 10.1x10^3/uL (4.0-11.0) Red Blood Count 3.44x10^6/uL (3.50-5.40) Hemoglobin 10.0g/dL (12.0-15.5) Hematocrit 30.0% (36.0-47.0) Mean Corpuscular Volume 87fL (79-100) Mean Corpuscular Hemoglobin 29pg (25-35) Mean Corpuscular Hemoglobin Concent 33g/dL (31-37) Red Cell Distribution Width 14.0% (11.5-14.5) Platelet Count 248x10^3/uL (140-400) Neutrophils (%) (Auto) 65% (31-73) Lymphocytes (%) (Auto) 24% (24-48) Monocytes (%) (Auto) 10% (0-9) Eosinophils (%) (Auto) 1% (0-3) Basophils (%) (Auto) 0% (0-3) Neutrophils # (Auto) 6.6x10^3uL (1.8-7.7) Lymphocytes # (Auto) 2.4x10^3/uL (1.0-4.8) Monocytes # (Auto) 1.0x10^3/uL (0.0-1.1) Eosinophils # (Auto) 0.1x10^3/uL (0.0-0.7) Basophils # (Auto) 0.0x10^3/uL (0.0-0.2) Sodium Level 142mmol/L (136-145) Potassium Level 3.7mmol/L (3.5-5.1) Chloride Level 107mmol/L (98-107) Carbon Dioxide Level 25mmol/L (21-32) Anion Gap 10 (6-14) Blood Urea Nitrogen 20mg/dL (7-20) Creatinine 0.7mg/dL (0.6-1.0) Estimated GFR (Cockcroft-Gault) 80.1 BUN/Creatinine Ratio 29 (6-20) Glucose Level 76mg/dL (70-99) Calcium Level 8.2mg/dL (8.5-10.1) Total Bilirubin 0.7mg/dL (0.2-1.0) Aspartate Amino Transf (AST/SGOT) 19U/L (15-37) Alanine Aminotransferase (ALT/SGPT) 19U/L (14-59) Alkaline Phosphatase 49U/L (46-116) Total Protein 5.5g/dL (6.4-8.2) Albumin 2.0g/dL (3.4-5.0) Albumin/Globulin Ratio 0.6 (1.0-1.7) Medications Current Medications Nitroglycerin (Nitrostat) 0.4 mg PRN Q5MIN PRN SL CHEST PAIN Last administered on 03/24/16 05:54; Start 03/24/16 at 05:00; Stop 03/26/16 at 16:09; Status DC Ondansetron HCl (Zofran) 4 mg PRN Q8HRS PRN IV NAUSEA/VOMITING Last administered on 03/24/16 05:57; Start 03/24/16 at 05:00; Stop 03/24/16 at 10:54 ; Status DC Acetaminophen (Tylenol) 650 mg PRN Q4HRS PRN PO FEVER; Start 03/24/16 at 05:00 ; Stop 03/25/16 at 04:59; Status DC Nitroglycerin (Nitrostat) 0.4 mg PRN Q5MIN PRN SL CHEST PAIN; Start 03/24/16 at 05:00; Stop 03/25/16 at 04:59; Status Cancel Lisinopril (Prinivil) 10 mg 1X ONCE PO Last administered on 1/16/17at 05:57; Start 03/24/16 at 06:00; Stop 03/24/16 at 06:01; Status DC Nitroglycerin (Nitrostat) 0.4 mg PRN Q5MIN PRN SL CHEST PAIN; Start 03/24/16 at 06:00; Status Cancel Morphine Sulfate 2 mg PRN Q2HR PRN IV PAIN Last administered on 03/29/16 09:26 ; Start 03/24/16 at 06:30 Morphine Sulfate 2 mg 1X ONCE IV Last administered on 03/24/16 06:27; Start 03/24/16 at 06:30; Stop 03/24/16 at 06:31; Status DC Hydralazine HCl (Apresoline) 10 mg PRN Q4HRS PRN IVP ELEVATED BP, SEE COMMENTS Last administered on 03/24/16 06:59; Start 03/24/16 at 06:30 Aspirin (Ecotrin) 81 mg DAILY PO Last administered on 03/25/16 08:41; Start at 09:00; Stop 03/26/16 at 16:11; Status DC Hydralazine HCl (Apresoline) 25 mg DAILY PO Last administered on 03/24/16 09: 00; Start 03/24/16 at 09:00; Stop 03/24/16 at 09:49; Status DC Lisinopril (Prinivil) 10 mg DAILY PO Last administered on 03/30/16 10:29; Start 03/24/16 at 09:00 Non-Formulary Medication 2 puff QID INH FOR ASTHMA; Start 03/24/16 at 09:00; Stop 03/24/16 at 09:00; Status DC Fluticasone Propionate (Flonase) 2 spray DAILY NS Last administered on 10:30; Start 03/24/16 at 09:00 Non-Formulary Medication 1 inh BID IH ; Start 03/24/16 at 09:00; Stop 03/24/16 at 09:00; Status DC Pantoprazole Sodium (Protonix) 40 mg DAILYAC PO ; Start 03/24/16 at 08:00; Stop 03/24/16 at 17:03; Status DC Albuterol Sulfate (Ventolin Neb Soln) 2.5 mg Q6HRS NEB Last administered on 13:24; Start 03/24/16 at 08:00 Budesonide (Pulmicort) 0.5 mg RTBID NEB Last administered on 03/30/16 08:42; Start 03/24/16 at 08:00 Metoprolol Tartrate (Lopressor) 5 mg STAT STAT IVP Last administered on 09:31; Start 03/24/16 at 09:23; Stop 03/24/16 at 09:25; Status DC Pantoprazole Sodium (Protonix Vial) 40 mg 1X ONCE IVP ; Start 03/24/16 at 09:45 ; Stop 03/24/16 at 09:53; Status DC Metoclopramide HCl (Reglan) 10 mg 1X ONCE IV ; Start 03/24/16 at 09:45; Stop at 09:53; Status DC Metoprolol Tartrate (Lopressor) 5 mg Q6HRS IVP Last administered on 03/30/16 14:18; Start 03/24/16 at 10:00 Prochlorperazine Edisylate (Compazine) 10 mg PRN Q6HRS PRN IV NAUSEA/VOMITING, 2ND CHOICE Last administered on 03/24/16 10:56; Start 03/24/16 at 10:30 Ondansetron HCl 4 mg 4 mg PRN Q6HRS PRN IV NAUSEA/VOMITING, 1ST CHOICE; Start 03/24/16 at 10:45 Nicardipine HCl 50 mg/Sodium Chloride 270 ml @ 0 mls/hr CONT PRN IV SEE I/O RECORD; Start 03/24/16 at 11:00; Stop 03/28/16 at 16:58; Status DC Sodium Chloride (Iv Sodium Chloride 0.9% 500ml Bag) 500 ml @ 500 mls/hr 1X ONCE IV Last administered on 03/24/16 15:03; Start 03/24/16 at 13:45; Stop at 14:44; Status DC Lisinopril (Prinivil) 10 mg 1X ONCE PO Last administered on 03/24/16 16:08; Start 03/24/16 at 16:00; Stop 03/24/16 at 16:01; Status DC Non-Formulary Medication 25 mg PRN PO ; Start 03/24/16 at 16:00; Stop 03/24/16 at 17:57; Status DC Pantoprazole Sodium 40 mg 40 mg [id number] IVP Last administered on 03/30/16 06:05 ; Start 03/24/16 at 18:00 Sodium Chloride 1,000 ml @ 75 mls/hr [id number] IV Last administered on 10:30; Start 03/24/16 at 19:00 Piperacillin Sod/ Tazobactam Sod/ Sodium Chloride (Zosyn/Iv Sodium Chloride 0.9 % 50ml) 50 ml @ 100 mls/hr Q6HRS IV Last administered on 03/30/16 14:17; Start 03/26/16 at 12:00 Ondansetron HCl (Zofran) 4 mg PRN Q6HRS PRN IV Nausea; Start 03/27/16 at 07:00 ; Stop 03/28/16 at 06:59; Status DC Fentanyl Citrate (Fentanyl 2ml Vial) 25 mcg PRN Q5MIN PRN IV MILD PAIN; Start 03/27/16 at 07:00; Stop 03/28/16 at 06:59; Status DC Fentanyl Citrate (Fentanyl 2ml Vial) 50 mcg PRN Q5MIN PRN IV MODERATE PAIN; Start 03/27/16 at 07:00; Stop 03/28/16 at 06:59; Status DC Morphine Sulfate 1 mg 1 mg PRN Q10MIN PRN IV SEVERE PAIN Last administered on 14:30; Start 03/27/16 at 07:00; Stop 03/28/16 at 06:59; Status DC Lactated Ringer's (Iv Lactated Ringers) 1,000 ml @ 0 mls/hr Q0M IV Last administered on 03/27/16 10:28; Start 03/27/16 at 07:00; Stop 03/27/16 at 18:59 ; Status DC Lidocaine HCl 2 ml 1X PRN PRN ID IV START; Start 03/27/16 at 07:00; Stop at 06:59; Status DC Hydromorphone HCl (Dilaudid) 0.5 mg PRN Q10MIN PRN IV SEVERE PAIN, Second choice; Start 03/27/16 at 07:00; Stop 03/28/16 at 06:59; Status DC Prochlorperazine Edisylate (Compazine) 5 mg PACU PRN PRN IV NAUSEA Last administered on 03/27/16 14:08; Start 03/27/16 at 07:00; Stop 03/28/16 at 06:59 ; Status DC Fentanyl Citrate (Fentanyl 2ml Vial) 100 mcg STK-MED ONCE .ROUTE ; Start at 10:25; Stop 03/27/16 at 10:26; Status DC Rocuronium [place] (Zemuron) 50 mg STK-MED ONCE .ROUTE ; Start 03/27/16 at 10:26 ; Stop 03/27/16 at 10:27; Status DC Desflurane (Suprane) 90 ml STK-MED ONCE IH ; Start 03/27/16 at 10:26; Stop 03/27 at 10:27; Status DC Dexamethasone Sodium Phosphate 20 mg 20 mg STK-MED ONCE .ROUTE ; Start 03/27/16 at 10:26; Stop 03/27/16 at 10:27; Status DC Propofol (Diprivan) 20 ml @ As Directed STK-MED ONCE IV ; Start 03/27/16 at 10: 26; Stop 03/27/16 at 10:27; Status DC Lidocaine HCl 100 mg STK-MED ONCE .ROUTE ; Start 03/27/16 at 10:26; Stop at 10:27; Status DC Ondansetron HCl (Zofran) 4 mg STK-MED ONCE .ROUTE ; Start 03/27/16 at 10:26; Stop 03/27/16 at 10:27; Status DC Phenylephrine HCl 1 mg STK-MED ONCE IV ; Start 03/27/16 at 10:26; Stop 03/27/16 at 10:27; Status DC Cellulose 1 each STK-MED ONCE .ROUTE Last administered on 03/27/16 13:28; Start 03/27/16 at 11:14; Stop 03/27/16 at 11:15; Status DC Iohexol (Omnipaque 300 Mg/ml) 50 ml STK-MED ONCE .ROUTE Last administered on 12:57; Start 03/27/16 at 11:14; Stop 03/27/16 at 11:15; Status DC Bupivacaine HCl/ Epinephrine Bitart (Marcaine-Epi 0.5%-1:[id number]) 50 ml STK-MED ONCE .ROUTE Last administered on 03/27/16t 12:56; Start 03/27/16 at 11:14; Stop 03/27/16 at 11:15; Status DC Glycopyrrolate (Robinul) 1 mg STK-MED ONCE .ROUTE ; Start 03/27/16 at 12:44; Stop 03/27/16 at 12:45; Status DC Ephedrine Sulfate (Akovaz) 50 mg STK-MED ONCE .ROUTE ; Start 03/27/16 at 12:45; Stop 03/27/16 at 12:46; Status DC Neostigmine Methylsulfate 5 mg STK-MED ONCE .ROUTE ; Start 03/27/16 at 12:45; Stop 03/27/16 at 12:46; Status DC Lidocaine HCl 100 mg 100 mg STK-MED ONCE .ROUTE ; Start 03/27/16 at 13:22; Stop 03/27/16 at 13:23; Status DC Propofol (Diprivan) 20 ml @ As Directed STK-MED ONCE IV ; Start 03/27/16 at 13: 38; Stop 03/27/16 at 13:39; Status DC Ondansetron HCl (Zofran) 4 mg PRN Q6HRS PRN IV Nausea; Start 03/28/16 at 07:00 ; Stop 03/29/16 at 06:59; Status DC Fentanyl Citrate (Fentanyl 2ml Vial) 25 mcg PRN Q5MIN PRN IV MILD PAIN; Start 03/28/16 at 07:00; Stop 03/29/16 at 06:59; Status DC Fentanyl Citrate (Fentanyl 2ml Vial) 50 mcg PRN Q5MIN PRN IV MODERATE PAIN; Start 03/28/16 at 07:00; Stop 03/29/16 at 06:59; Status DC Morphine Sulfate 1 mg 1 mg PRN Q10MIN PRN IV SEVERE PAIN; Start 03/28/16 at 07: 00; Stop 03/29/16 at 06:59; Status DC Lactated Ringer's (Iv Lactated Ringers) 1,000 ml @ 30 mls/hr Q24H IV Last administered on 03/28/16t 14:10; Start 03/28/16 at 07:00; Stop 03/28/16 at 18:59 ; Status DC Lidocaine HCl 2 ml 1X PRN PRN ID IV START; Start 03/28/16 at 07:00; Stop at 06:59; Status DC Hydromorphone HCl (Dilaudid) 0.5 mg PRN Q10MIN PRN IV SEVERE PAIN, Second choice; Start 03/28/16 at 07:00; Stop 03/29/16 at 06:59; Status DC Prochlorperazine Edisylate (Compazine) 5 mg PACU PRN PRN IV NAUSEA; Start 03/28 at 07:00; Stop 03/29/16 at 06:59; Status DC Glycopyrrolate (Robinul) 1 mg STK-MED ONCE .ROUTE ; Start 03/28/16 at 13:29; Stop 03/28/16 at 13:30; Status DC Iohexol 50 ml 50 ml STK-MED ONCE .ROUTE ; Start 03/28/16 at 13:54; Stop at 13:55; Status DC Lactated Ringer's 1,000 ml @ 125 mls/hr Q8H IV ; Start 03/28/16 at 14:08; Stop 03/29/16 at 02:07; Status DC Propofol (Diprivan) 20 ml @ As Directed STK-MED ONCE IV ; Start 03/28/16 at 14: 45; Stop 03/28/16 at 14:46; Status DC Succinylcholine Chloride (Anectine) 200 mg STK-MED ONCE .ROUTE ; Start 03/28/16 at 14:45; Stop 03/28/16 at 14:46; Status DC Lidocaine HCl (Lidocaine Pf 2% Vial) 5 ml STK-MED ONCE .ROUTE ; Start 03/28/16 at 14:46; Stop 03/28/16 at 14:47; Status DC Iopamidol (Isovue-300) 50 ml STK-MED ONCE IV Last administered on 03/28/16t 15: 41; Start 03/28/16 at 15:41; Stop 03/28/16 at 15:53; Status DC Active Scripts Active Hydrocodone-Apap 5-325 (Hydrocodone Bit/Acetaminophen) 1 Each Tablet 0.5-1 Tab PO Q4HRS PRN Reported Lumigan (Bimatoprost) 2.5 Ml Drops 2.5 Ml OP Ventolin Hfa Inhaler (Albuterol Sulfate) 18 Gm Hfa.aer.ad 2 Puff INH QID Advair 250-50 Diskus (Fluticasone/Salmeterol) 1 Each Disk.w.dev 1 Inh IH BID Flonase Allergy Relief (Fluticasone Propionate) 9.9 Ml Calvin.susp 2 Sprays NS DAILY Prilosec Otc (Omeprazole Magnesium) 20 Mg Tablet. 20 Mg PO DAILY Aspir 81 (Aspirin) 81 Mg Tablet.dr 81 Mg PO Lisinopril 10 Mg Tablet 10 Mg PO DAILY Vitals/I & O Vital Sign - Last 24 Hours 03/29/16 03/29/16 03/29/16 03/29/16 16:34 19:00 20:00 20:35 Temp 97.5 97.5 Pulse 82 82 Resp 20 B/P 143/56 132/57 Pulse Ox 91 99 O2 Delivery Nasal Cannula Nasal Cannula Nasal Cannula O2 Flow Rate 2.0 2.0 03/29/16 03/29/16 03/29/16 03/30/16 20:38 23:00 23:48 00:09 Temp 99.1 99.1 Pulse 91 91 Resp 20 B/P 145/61 145/61 Pulse Ox 99 92 98 O2 Delivery Nasal Cannula Nasal Cannula Nasal Cannula O2 Flow Rate 2.0 2.0 03/30/16 03/30/16 03/30/16 03/30/16 03:08 06:06 07:49 08:00 Temp 98.1 97.7 98.1 97.7 Pulse 82 82 77 Resp 20 16 B/P 121/70 121/70 158/100 Pulse Ox 91 94 O2 Delivery Nasal Cannula Nasal Cannula Nasal Cannula O2 Flow Rate 2.0 03/30/16 03/30/16 03/30/16 03/30/16 08:42 10:29 12:00 13:25 Temp 98.2 98.2 Pulse 88 84 Resp 16 B/P 148/65 148/65 Pulse Ox 92 94 O2 Delivery Room Air Nasal Cannula Nasal Cannula O2 Flow Rate 2.0 03/30/16 03/30/16 14:18 15:05 Temp 98.4 98.4 Pulse 88 88 Resp 16 B/P 148/65 155/70 Pulse Ox 94 O2 Delivery Nasal Cannula Intake and Output 03/29/16 03/29/16 03/30/16 15:00 23:00 07:00 Intake Total 400 ml Output Total 800 ml 1535 ml Balance -400 ml -1535 ml BRIANA ZIMMERMAN MD Mar 30, 2016 15:08
[2016-03-30 19:00] VITALS: BP 159/71
[2016-03-30 23:00] VITALS: BP 148/73
[2016-03-31] MEDS: ALBUTEROL SULFATE 2.5 MG/3 ML NEBU. NEB SCH ×4 (00:24→16:24)
[2016-03-31 03:06] VITALS: BP 149/73
[2016-03-31] MEDS: PANTOPRAZOLE IV PUSH 40 MG VIAL. IVP SCH (06:04)
[2016-03-31] MEDS: PIPERACILLIN/TAZOBACTAM 3.375 GM in IV NORMAL SALINE 50ML 50 ML IV SCH ×2 (06:04→12:22)
[2016-03-31] MEDS: METOPROLOL TARTRATE 5 MG/5 ML VIAL. IVP SCH ×2 (06:05→12:27)
[2016-03-31] MEDS: BUDESONIDE 0.5 MG/2 ML NEBU NEB SCH (07:48)
[2016-03-31 08:00] VITALS: BP 143/88
[2016-03-31] MEDS: FLUTICASONE 50MCG/NASAL SPRAY 16GM BOTTLE. NS SCH (08:31)
[2016-03-31] MEDS: LISINOPRIL 10 MG TABLET PO SCH (08:31)
[2016-03-31 10:45] VITALS: BP 136/58
--- NOTE | 2016-03-31 13:27 | PDOC ---
G I PROGRESS NOTE Subjective No complaints today. Hopes to go home. Physical Exam Abdomen soft, not tender nor distended. Review of Relevant I have reviewed the following items rodrigue (where applicable) has been applied. Labs LFT's normal over the weekend. Medications Current Medications Nitroglycerin (Nitrostat) 0.4 mg PRN Q5MIN PRN SL CHEST PAIN Last administered on 03/24/16 05:54; Start 03/24/16 at 05:00; Stop 03/26/16 at 16:09; Status DC Ondansetron HCl (Zofran) 4 mg PRN Q8HRS PRN IV NAUSEA/VOMITING Last administered on 03/24/16 05:57; Start 03/24/16 at 05:00; Stop 03/24/16 at 10:54 ; Status DC Acetaminophen (Tylenol) 650 mg PRN Q4HRS PRN PO FEVER; Start 03/24/16 at 05:00 ; Stop 03/25/16 at 04:59; Status DC Nitroglycerin (Nitrostat) 0.4 mg PRN Q5MIN PRN SL CHEST PAIN; Start 03/24/16 at 05:00; Stop 03/25/16 at 04:59; Status Cancel Lisinopril (Prinivil) 10 mg 1X ONCE PO Last administered on 03/24/16 05:57; Start 03/24/16 at 06:00; Stop 03/24/16 at 06:01; Status DC Nitroglycerin (Nitrostat) 0.4 mg PRN Q5MIN PRN SL CHEST PAIN; Start 03/24/16 at 06:00; Status Cancel Morphine Sulfate 2 mg PRN Q2HR PRN IV PAIN Last administered on 03/29/16 09:26 ; Start 03/24/16 at 06:30 Morphine Sulfate 2 mg 1X ONCE IV Last administered on 03/24/16 06:27; Start 03/24/16 at 06:30; Stop 03/24/16 at 06:31; Status DC Hydralazine HCl (Apresoline) 10 mg PRN Q4HRS PRN IVP ELEVATED BP, SEE COMMENTS Last administered on 03/24/16 06:59; Start 03/24/16 at 06:30 Aspirin (Ecotrin) 81 mg DAILY PO Last administered on 03/25/16 08:41; Start at 09:00; Stop 03/26/16 at 16:11; Status DC Hydralazine HCl (Apresoline) 25 mg DAILY PO Last administered on 03/24/16 09: 00; Start 03/24/16 at 09:00; Stop 03/24/16 at 09:49; Status DC Lisinopril (Prinivil) 10 mg DAILY PO Last administered on 03/31/16 08:31; Start 03/24/16 at 09:00 Non-Formulary Medication 2 puff QID INH FOR ASTHMA; Start 03/24/16 at 09:00; Stop 03/24/16 at 09:00; Status DC Fluticasone Propionate (Flonase) 2 spray DAILY NS Last administered on 08:31; Start 03/24/16 at 09:00 Non-Formulary Medication 1 inh BID IH ; Start 03/24/16 at 09:00; Stop 03/24/16 at 09:00; Status DC Pantoprazole Sodium (Protonix) 40 mg DAILYAC PO ; Start 03/24/16 at 08:00; Stop 03/24/16 at 17:03; Status DC Albuterol Sulfate (Ventolin Neb Soln) 2.5 mg Q6HRS NEB Last administered on 11:33; Start 03/24/16 at 08:00 Budesonide (Pulmicort) 0.5 mg RTBID NEB Last administered on 03/31/16 07:48; Start 03/24/16 at 08:00 Metoprolol Tartrate (Lopressor) 5 mg STAT STAT IVP Last administered on 09:31; Start 03/24/16 at 09:23; Stop 03/24/16 at 09:25; Status DC Pantoprazole Sodium (Protonix Vial) 40 mg 1X ONCE IVP ; Start 03/24/16 at 09:45 ; Stop 03/24/16 at 09:53; Status DC Metoclopramide HCl (Reglan) 10 mg 1X ONCE IV ; Start 03/24/16 at 09:45; Stop at 09:53; Status DC Metoprolol Tartrate (Lopressor) 5 mg Q6HRS IVP Last administered on 03/31/16 12:27; Start 03/24/16 at 10:00 Prochlorperazine Edisylate (Compazine) 10 mg PRN Q6HRS PRN IV NAUSEA/VOMITING, 2ND CHOICE Last administered on 03/24/16 10:56; Start 03/24/16 at 10:30 Ondansetron HCl 4 mg 4 mg PRN Q6HRS PRN IV NAUSEA/VOMITING, 1ST CHOICE; Start 03/24/16 at 10:45 Nicardipine HCl 50 mg/Sodium Chloride 270 ml @ 0 mls/hr CONT PRN IV SEE I/O RECORD; Start 03/24/16 at 11:00; Stop 03/28/16 at 16:58; Status DC Sodium Chloride (Iv Sodium Chloride 0.9% 500ml Bag) 500 ml @ 500 mls/hr 1X ONCE IV Last administered on 03/24/16 15:03; Start 03/24/16 at 13:45; Stop at 14:44; Status DC Lisinopril (Prinivil) 10 mg 1X ONCE PO Last administered on 03/24/16 16:08; Start 03/24/16 at 16:00; Stop 03/24/16 at 16:01; Status DC Non-Formulary Medication 25 mg PRN PO ; Start 03/24/16 at 16:00; Stop 03/24/16 at 17:57; Status DC Pantoprazole Sodium 40 mg 40 mg [id number] IVP Last administered on 03/31/16 06:04 ; Start 03/24/16 at 18:00 Sodium Chloride 1,000 ml @ 75 mls/hr [id number] IV Last administered on 21:32; Start 03/24/16 at 19:00 Piperacillin Sod/ Tazobactam Sod/ Sodium Chloride (Zosyn/Iv Sodium Chloride 0.9 % 50ml) 50 ml @ 100 mls/hr Q6HRS IV Last administered on 03/31/16 12:22; Start 03/26/16 at 12:00 Ondansetron HCl (Zofran) 4 mg PRN Q6HRS PRN IV Nausea; Start 03/27/16 at 07:00 ; Stop 03/28/16 at 06:59; Status DC Fentanyl Citrate (Fentanyl 2ml Vial) 25 mcg PRN Q5MIN PRN IV MILD PAIN; Start 03/27/16 at 07:00; Stop 03/28/16 at 06:59; Status DC Fentanyl Citrate (Fentanyl 2ml Vial) 50 mcg PRN Q5MIN PRN IV MODERATE PAIN; Start 03/27/16 at 07:00; Stop 03/28/16 at 06:59; Status DC Morphine Sulfate 1 mg 1 mg PRN Q10MIN PRN IV SEVERE PAIN Last administered on 14:30; Start 03/27/16 at 07:00; Stop 03/28/16 at 06:59; Status DC Lactated Ringer's (Iv Lactated Ringers) 1,000 ml @ 0 mls/hr Q0M IV Last administered on 03/27/16 10:28; Start 03/27/16 at 07:00; Stop 03/27/16 at 18:59 ; Status DC Lidocaine HCl 2 ml 1X PRN PRN ID IV START; Start 03/27/16 at 07:00; Stop at 06:59; Status DC Hydromorphone HCl (Dilaudid) 0.5 mg PRN Q10MIN PRN IV SEVERE PAIN, Second choice; Start 03/27/16 at 07:00; Stop 03/28/16 at 06:59; Status DC Prochlorperazine Edisylate (Compazine) 5 mg PACU PRN PRN IV NAUSEA Last administered on 03/27/16 14:08; Start 03/27/16 at 07:00; Stop 03/28/16 at 06:59 ; Status DC Fentanyl Citrate (Fentanyl 2ml Vial) 100 mcg STK-MED ONCE .ROUTE ; Start at 10:25; Stop 03/27/16 at 10:26; Status DC Rocuronium [place] (Zemuron) 50 mg STK-MED ONCE .ROUTE ; Start 03/27/16 at 10:26 ; Stop 03/27/16 at 10:27; Status DC Desflurane (Suprane) 90 ml STK-MED ONCE IH ; Start 03/27/16 at 10:26; Stop 03/27 at 10:27; Status DC Dexamethasone Sodium Phosphate 20 mg 20 mg STK-MED ONCE .ROUTE ; Start 03/27/16 at 10:26; Stop 03/27/16 at 10:27; Status DC Propofol (Diprivan) 20 ml @ As Directed STK-MED ONCE IV ; Start 03/27/16 at 10: 26; Stop 03/27/16 at 10:27; Status DC Lidocaine HCl 100 mg STK-MED ONCE .ROUTE ; Start 03/27/16 at 10:26; Stop at 10:27; Status DC Ondansetron HCl (Zofran) 4 mg STK-MED ONCE .ROUTE ; Start 03/27/16 at 10:26; Stop 03/27/16 at 10:27; Status DC Phenylephrine HCl 1 mg STK-MED ONCE IV ; Start 03/27/16 at 10:26; Stop 03/27/16 at 10:27; Status DC Cellulose 1 each STK-MED ONCE .ROUTE Last administered on 03/27/16 13:28; Start 03/27/16 at 11:14; Stop 03/27/16 at 11:15; Status DC Iohexol (Omnipaque 300 Mg/ml) 50 ml STK-MED ONCE .ROUTE Last administered on 12:57; Start 03/27/16 at 11:14; Stop 03/27/16 at 11:15; Status DC Bupivacaine HCl/ Epinephrine Bitart (Marcaine-Epi 0.5%-1:220694) 50 ml STK-MED ONCE .ROUTE Last administered on 03/27/16 12:56; Start 03/27/16 at 11:14; Stop 03/27/16 at 11:15; Status DC Glycopyrrolate (Robinul) 1 mg STK-MED ONCE .ROUTE ; Start 03/27/16 at 12:44; Stop 03/27/16 at 12:45; Status DC Ephedrine Sulfate (Akovaz) 50 mg STK-MED ONCE .ROUTE ; Start 03/27/16 at 12:45; Stop 03/27/16 at 12:46; Status DC Neostigmine Methylsulfate 5 mg STK-MED ONCE .ROUTE ; Start 03/27/16 at 12:45; Stop 03/27/16 at 12:46; Status DC Lidocaine HCl 100 mg 100 mg STK-MED ONCE .ROUTE ; Start 03/27/16 at 13:22; Stop 03/27/16 at 13:23; Status DC Propofol (Diprivan) 20 ml @ As Directed STK-MED ONCE IV ; Start 03/27/16 at 13: 38; Stop 03/27/16 at 13:39; Status DC Ondansetron HCl (Zofran) 4 mg PRN Q6HRS PRN IV Nausea; Start 03/28/16 at 07:00 ; Stop 03/29/16 at 06:59; Status DC Fentanyl Citrate (Fentanyl 2ml Vial) 25 mcg PRN Q5MIN PRN IV MILD PAIN; Start 03/28/16 at 07:00; Stop 03/29/16 at 06:59; Status DC Fentanyl Citrate (Fentanyl 2ml Vial) 50 mcg PRN Q5MIN PRN IV MODERATE PAIN; Start 03/28/16 at 07:00; Stop 03/29/16 at 06:59; Status DC Morphine Sulfate 1 mg 1 mg PRN Q10MIN PRN IV SEVERE PAIN; Start 03/28/16 at 07: 00; Stop 03/29/16 at 06:59; Status DC Lactated Ringer's (Iv Lactated Ringers) 1,000 ml @ 30 mls/hr Q24H IV Last administered on 03/28/16t 14:10; Start 03/28/16 at 07:00; Stop 03/28/16 at 18:59 ; Status DC Lidocaine HCl 2 ml 1X PRN PRN ID IV START; Start 03/28/16 at 07:00; Stop at 06:59; Status DC Hydromorphone HCl (Dilaudid) 0.5 mg PRN Q10MIN PRN IV SEVERE PAIN, Second choice; Start 03/28/16 at 07:00; Stop 03/29/16 at 06:59; Status DC Prochlorperazine Edisylate (Compazine) 5 mg PACU PRN PRN IV NAUSEA; Start 03/28 at 07:00; Stop 03/29/16 at 06:59; Status DC Glycopyrrolate (Robinul) 1 mg STK-MED ONCE .ROUTE ; Start 03/28/16 at 13:29; Stop 03/28/16 at 13:30; Status DC Iohexol 50 ml 50 ml STK-MED ONCE .ROUTE ; Start 03/28/16 at 13:54; Stop at 13:55; Status DC Lactated Ringer's 1,000 ml @ 125 mls/hr Q8H IV ; Start 03/28/16 at 14:08; Stop 03/29/16 at 02:07; Status DC Propofol (Diprivan) 20 ml @ As Directed STK-MED ONCE IV ; Start 03/28/16 at 14: 45; Stop 03/28/16 at 14:46; Status DC Succinylcholine Chloride (Anectine) 200 mg STK-MED ONCE .ROUTE ; Start 03/28/16 at 14:45; Stop 03/28/16 at 14:46; Status DC Lidocaine HCl (Lidocaine Pf 2% Vial) 5 ml STK-MED ONCE .ROUTE ; Start 03/28/16 at 14:46; Stop 03/28/16 at 14:47; Status DC Iopamidol (Isovue-300) 50 ml STK-MED ONCE IV Last administered on 03/28/16t 15: 41; Start 03/28/16 at 15:41; Stop 03/28/16 at 15:53; Status DC Phenylephrine HCl 1 mg STK-MED ONCE IV ; Start 03/28/16 at 12:00; Stop 03/31/16 at 07:58; Status DC Active Scripts Active Hydrocodone-Apap 5-325 (Hydrocodone Bit/Acetaminophen) 1 Each Tablet 0.5-1 Tab PO Q4HRS PRN Reported Lumigan (Bimatoprost) 2.5 Ml Drops 2.5 Ml OP Ventolin Hfa Inhaler (Albuterol Sulfate) 18 Gm Hfa.aer.ad 2 Puff INH QID Advair 250-50 Diskus (Fluticasone/Salmeterol) 1 Each Disk.w.dev 1 Inh IH BID Flonase Allergy Relief (Fluticasone Propionate) 9.9 Ml [place].susp 2 Sprays NS DAILY Prilosec Otc (Omeprazole Magnesium) 20 Mg Tablet. 20 Mg PO DAILY Aspir 81 (Aspirin) 81 Mg Tablet. 81 Mg PO Lisinopril 10 Mg Tablet 10 Mg PO DAILY Vitals/I & O Vital Sign - Last 24 Hours 03/30/16 03/30/16 03/30/16 03/30/16 14:18 15:05 18:12 18:33 Temp 98.4 98.4 Pulse 88 88 86 Resp 16 B/P 148/65 155/70 166/56 Pulse Ox 94 O2 Delivery Nasal Cannula Nasal Cannula O2 Flow Rate 2.0 03/30/16 03/30/16 03/30/16 03/30/16 19:00 20:00 23:00 23:56 Temp 99.2 98.2 99.2 98.2 Pulse 81 75 75 Resp 20 20 B/P 159/71 148/73 148/73 Pulse Ox 96 94 O2 Delivery Room Air Nasal Cannula Nasal Cannula O2 Flow Rate 2.0 03/31/16 03/31/16 03/31/16 03/31/16 00:24 03:06 06:05 07:50 Temp 98.4 98.4 Pulse 73 75 Resp 20 B/P 149/73 147/83 Pulse Ox 98 95 95 O2 Delivery Nasal Cannula Nasal Cannula Nasal Cannula O2 Flow Rate 2.0 2.0 03/31/16 03/31/16 03/31/16 03/31/16 08:00 08:00 08:31 10:45 Temp 98.3 97.9 98.3 97.9 Pulse 83 88 76 Resp 18 B/P 143/88 143/88 136/58 Pulse Ox 92 96 O2 Delivery Nasal Cannula Nasal Cannula Nasal Cannula O2 Flow Rate 3.0 2.0 2.0 03/31/16 03/31/16 11:34 12:27 Pulse 83 B/P 165/68 Pulse Ox 99 O2 Delivery Nasal Cannula O2 Flow Rate 2.0 Intake and Output 03/30/16 03/30/16 03/31/16 15:00 23:00 07:00 Intake Total 720 ml 2060 ml 929 ml Output Total 2640 ml 1400 ml Balance 720 ml -580 ml -471 ml Problem List Problems Medical Problems: (1) Chest pain Status: Acute (2) Malignant hypertension Status: Acute Assessment Choledocholithiasis, resolved after ERCP/ES, stone extraction. Plan of Care: Continue current Tx, Mgmt Plan of Care Note Home OK with me at your discretion. Can f/u with me prn. PRESTON RANDOLPH MD Mar 31, 2016 13:27
[2016-03-31 15:00] VITALS: BP 142/65
--- NOTE | 2016-04-01 04:26 | DS ---
DATE OF DISCHARGE: 03/31/2016 DISCHARGE DIAGNOSES: 1. Chest pain, likely due to cholecystitis, status post laparoscopic cholecystectomy by Dr. Braxton on 03/27/2016. 2. Anemia, stable. 3. Asthma, stable. 4. Hypertension, stable. 5. Hyperlipidemia, stable. 6. Hyperkalemia, resolved. CONSULTATION DURING HOSPITALIZATION: Dr. Braxton, Dr. Cook, and Dr. Khalil. PROCEDURES DURING HOSPITALIZATION: Echocardiogram, LV ejection fraction more than 70%. ERCP/balloon dilatation, papilla balloon stone extraction by Dr. Cook. BRIEF HOSPITAL COURSE: This 81-year-old female patient admitted to the hospital on 03/24/2016 for chest pain and epigastric pain; however, later this pain is right quadrant pain. The patient was diagnosed with acute cholecystitis and eventually she had cholecystectomy. The patient had ERCP with balloon dilatation of papilla by Dr. Cook and postoperatively the patient was started on antibiotics and her drain was removed on 03/30/2016. Today, she deemed clinically stable, able to tolerate diet very well. No further complications noted and she deemed stable enough to go home with home health Center. The patient was evaluated with physical therapy during hospitalization, she was requiring more and physical therapy and occupational therapy due to her physical weakness next 2 weeks. DISCHARGE EXAMINATION: GENERAL: Alert, oriented x 3. HEART: S1, S2. ANTERIOR CHEST: Clear. ABDOMEN: Soft, nontender, bowel sounds present. EXTREMITIES: No edema. DISCHARGE DISPOSITION: Home. DISCHARGE CONDITION: Stable. DISCHARGE FOLLOWUP: With Dr. Braxton in [address] Cook as needed and PCP in 4 weeks. PROGNOSIS: Good. MEDICATIONS: Reviewed reconciled. Total time spent for discharge is 33 minutes for patient education, counseling, and coordination of care. DARRION ANDREW MD DR: RADHA/robert JOB#: [id number] / [id number]
== END 2016-03-31 19:29 | disposition home health service (06) | DRG 853 ==
LOC: ER 04:39 → 2 SOUTH 04:52 → 1 WEST ICU 12:45 → 5 NORTH 03-25 17:30
PROVIDERS: ADMIT Internal Medicine; ATTEND Internal Medicine
PROC: BF131ZZ Fluoroscopy of Gallbladder and Bile Ducts using Low Osmolar Contrast (ICD-10-PCS; 2016-03-27)
PROC: 0FT44ZZ Resection of Gallbladder, Percutaneous Endoscopic Approach (ICD-10-PCS; principal; 2016-03-27 11:00)
PROC: 0FC98ZZ Extirpation of Matter from Common Bile Duct, Via Natural or Artificial Opening Endoscopic (ICD-10-PCS; 2016-03-28)
DX: A41.9 Sepsis, unspecified organism (principal); J96.20 Acute and chronic respiratory failure, unspecified whether with hypoxia or hypercapnia; K80.66 Calculus of gallbladder and bile duct with acute and chronic cholecystitis without obstruction; J98.11 Atelectasis; J90 Pleural effusion, not elsewhere classified; E87.0 Hyperosmolality and hypernatremia; R07.9 Chest pain, unspecified; D64.9 Anemia, unspecified; E78.00 Pure hypercholesterolemia, unspecified; E78.5 Hyperlipidemia, unspecified; E87.5 Hyperkalemia; H40.9 Unspecified glaucoma; I10 Essential (primary) hypertension; I70.0 Atherosclerosis of aorta; I73.9 Peripheral vascular disease, unspecified; J45.909 Unspecified asthma, uncomplicated; K21.9 Gastro-esophageal reflux disease without esophagitis; K57.90 Diverticulosis of intestine, part unspecified, without perforation or abscess without bleeding; K66.0 Peritoneal adhesions (postprocedural) (postinfection); K66.8 Other specified disorders of peritoneum; K82.8 Other specified diseases of gallbladder; M19.90 Unspecified osteoarthritis, unspecified site; Z96.641 Presence of right artificial hip joint; Z90.49 Acquired absence of other specified parts of digestive tract; Z82.49 Family history of ischemic heart disease and other diseases of the circulatory system; Z90.710 Acquired absence of both cervix and uterus; Z91.041 Radiographic dye allergy status; Z91.013 Allergy to seafood; Z79.899 Other long term (current) drug therapy; Z98.890 Other specified postprocedural states; R65.10 Systemic inflammatory response syndrome (SIRS) of non-infectious origin without acute organ dysfunction
CPT/HCPCS: 36415; 71010; 74181; 74300; 74328; 76705; 80048; 80053; 80061; 80076; 83735; 84439; 84443; 84480; 84481; 84484; 85007; 85027; 87641; 88304; 93005; 93306; 94250; 94640; 94760; 96374; C1726; C1769; C1782; C9113; J0330; J0360; J0780; J1100; J2270; J2370; J2405; J2543; J2704; J2710; J3010; J3490; J7030; J7040; J7120; Q9967; 97116; 99285-25

== ENCOUNTER 2016-12-23 09:44 | Inpatient (IN) | payer MEDICARE, OTHER ==
[~2016-12-23] VITALS: Ht 160 cm; Wt 54.4 kg
[~2016-12-23 09:44] MED LIST: ASPI-482 PO; BIMA2.5D OP; FLUT1DIS3 IH; FLUT9.9S NS; HYDR-2758 PO; HYDR-2868 PO; HYDR12.58 PO; LISI10TA2 PO; OMEP20TA63 PO; VENTOLIN HFA18 GM INH
[2016-12-23] MEDS ORDERED: IV NORMAL SALINE 1000ML BAG 1,000 ML IV SCH (10:30)
[2016-12-23] MEDS ORDERED: 0.9 % SODIUM CHLORIDE 10 ML DISP.SYRIN. IV PRN (10:30)
[2016-12-23] MEDS ORDERED: MORPHINE SULFATE 2 MG/ML DISP.SYRIN. IV/SQ PRN (10:30)
--- NOTE | 2016-12-23 10:35 | PHYS DOC ---
Past Medical History Past Medical History: Asthma, High Cholesterol, Hypertension Past Surgical History: Angioplasty, Cholecystectomy, Hip Replacement, Hysterectomy, Tonsillectomy, Other Additional Past Surgical Histo: hernia x 2, bladder tie, suspension of vagina Additional Information: quit smoking 22 years ago Alcohol Use: None Drug Use: None Adult General Chief Complaint Chief Complaint: ABDOMINAL PAIN [facility] HPI Patient is a pleasant 81-year-old female with a history of prior cholecystectomy , prior hysterectomy, prior hip replacement therapy on the right twice who presents with right lower and left lower quadrant abdominal pain that began intermittently 2 days ago. Patient was out shopping with her daughter when she noticed increasing abdominal pain in the lower areas described as a dull ache waxing and waning lasting anywhere from minutes to hours. It is worse with position and movement. It is also worse with direct pressure. It is not associated with any nausea, vomiting, diarrhea. She denies any UTI symptoms like dysuria urgency or frequency. Denies any vaginal bleeding or discharge denies any trauma. Patient has not had anything like this in the past although she has had a history of diverticulosis with prior studies. Patient has been taking some Pepto-Bismol in an attempt to treat her symptoms as well as spright without much improvement. sHe denies any fevers, chills or other symptoms, denies any antibiotics or travel outside the country. Patient admits that within the last 3 weeks her 's side but she is adjusting well to being living alone. Review of Systems Review of Systems Constitutional: Denies fever or chills [] Eyes: Denies change in visual acuity, redness, or eye pain [] HENT: Denies nasal congestion or sore throat [] Respiratory: Denies cough or shortness of breath [] Cardiovascular: No additional information not addressed in HPI [] GI: Primary complaint is of abdominal pain without nausea vomiting bloody stools or diarrhea. : Denies dysuria or hematuria [] Musculoskeletal: Denies back pain or joint pain [] Integument: Denies rash or skin lesions [] Neurologic: Denies headache, focal weakness or sensory changes [] Endocrine: Denies polyuria or polydipsia [] Current Medications Current Medications Current Medications Medications (Trade) Dose Ordered Sig/Gagan Start Time Stop Time Status Last Admin Dose Admin Morphine Sulfate 2 mg PRN Q15MIN PRN 12/23/16 10:30 12/24/16 10:29 Sodium Chloride (Normal Saline Flush) 10 ml QSHIFT PRN 12/23/16 10:30 12/23/16 10:41 10 ML Allergies Allergies Allergies Coded Allergies Type Severity Reaction Last Updated Verified iodine Adverse Reaction Mild Nausea and Vomiting 03/28/16 Yes shellfish derived Adverse Reaction Mild Nausea and Vomiting 03/28/16 Yes shrimp Adverse Reaction Mild Nausea and Vomiting 03/28/16 Yes Physical Exam Physical Exam Vital signs recorded on the chart patient noted to be hypertensive. Constitutional: Well developed, well nourished, no acute distress, non-toxic appearance. [] HENT: Normocephalic, atraumatic, bilateral external ears normal, oropharynx moist, no oral exudates, nose normal. [] Eyes: PERRLA, EOMI, conjunctiva normal, no discharge. [] Neck: Normal range of motion, no tenderness, supple, no stridor. [] Cardiovascular:Heart rate regular rhythm, no murmur [] Lungs & Thorax: Bilateral breath sounds clear to auscultation [] Abdomen: She has some mild tenderness in the left lower quadrant and right lower quadrant. There are no masses or pulsatile masses, rebound or organomegaly. There is no Luis's or McBurney's point tenderness to palpation. Skin: Warm, dry, no erythema, no rash. [] Back: No tenderness, no CVA tenderness. [] Extremities: No tenderness, no cyanosis, no clubbing, ROM intact, no edema. [] Neurologic: Alert and oriented X 3 Psychologic: Affect normal, judgement normal, mood normal. [] Current Patient Data Vital Signs Vital Signs Date Time Temp Pulse Resp B/P (MAP) Pulse Ox O2 Delivery O2 Flow Rate FiO2 12/23/16 12:35 103 19 162/67 (98) 95 12/23/16 11:52 Room Air 12/23/16 09:51 98.0 98.0 Lab Values Laboratory Tests Test 12/23/16 10:55 12/23/16 11:50 White Blood Count 14.7 x10^3/uL (4.0-11.0) H Red Blood Count 4.18 x10^6/uL (3.50-5.40) Hemoglobin 12.2 g/dL (12.0-15.5) Hematocrit 37.2 % (36.0-47.0) Mean Corpuscular Volume 89 fL (79-100) Mean Corpuscular Hemoglobin 29 pg (25-35) Mean Corpuscular Hemoglobin Concent 33 g/dL (31-37) Red Cell Distribution Width 14.1 % (11.5-14.5) Platelet Count 201 x10^3/uL (140-400) Neutrophils (%) (Auto) 77 % (31-73) H Lymphocytes (%) (Auto) 15 % (24-48) L Monocytes (%) (Auto) 7 % (0-9) Eosinophils (%) (Auto) 0 % (0-3) Basophils (%) (Auto) 1 % (0-3) Neutrophils # (Auto) 11.3 x10^3uL (1.8-7.7) H Lymphocytes # (Auto) 2.2 x10^3/uL (1.0-4.8) Monocytes # (Auto) 1.0 x10^3/uL (0.0-1.1) Eosinophils # (Auto) 0.0 x10^3/uL (0.0-0.7) Basophils # (Auto) 0.1 x10^3/uL (0.0-0.2) Sodium Level 140 mmol/L (136-145) Potassium Level 4.2 mmol/L (3.5-5.1) Chloride Level 104 mmol/L (98-107) Carbon Dioxide Level 31 mmol/L (21-32) Anion Gap 5 (6-14) L Blood Urea Nitrogen 19 mg/dL (7-20) Creatinine 0.7 mg/dL (0.6-1.0) Estimated GFR (Cockcroft-Gault) 80.1 BUN/Creatinine Ratio 27 (6-20) H Glucose Level 100 mg/dL (70-99) H Calcium Level 9.4 mg/dL (8.5-10.1) Total Bilirubin 0.9 mg/dL (0.2-1.0) Aspartate Amino Transferase (AST) 19 U/L (15-37) Alanine Aminotransferase (ALT) 20 U/L (14-59) Alkaline Phosphatase 73 U/L (46-116) Creatine Kinase 48 U/L (26-192) Creatine Kinase MB (Mass) 0.8 ng/mL (0.0-3.6) Creatine Kinase MB Relative Index % (0-4) Troponin I Quantitative < 0.017 ng/mL (0.000-0.055) Total Protein 6.5 g/dL (6.4-8.2) Albumin 3.3 g/dL (3.4-5.0) L Albumin/Globulin Ratio 1.0 (1.0-1.7) Lipase 133 U/L (73-393) Urine Collection Type Unknown Urine Color Yellow Urine Clarity Clear Urine pH 8.0 Urine Specific [place] 1.010 Urine Protein Negative mg/dL (NEG-TRACE) Urine Glucose (UA) Negative mg/dL (NEG) Urine Ketones (Stick) Negative mg/dL (NEG) Urine Blood Negative (NEG) Urine Nitrite Negative (NEG) Urine Bilirubin Negative (NEG) Urine Urobilinogen Dipstick 1.0 mg/dL (0.2 mg/dL) Urine Leukocyte Esterase Small (NEG) Urine RBC 0 /HPF (0-2) Urine WBC 5-10 /HPF (0-4) Urine Squamous Epithelial Cells Few /LPF Urine Bacteria 0 /HPF (0-FEW) Laboratory Tests 12/23/16 10:55 Laboratory Tests 12/23/16 10:55 EKG EKG [] Radiology/Procedures Radiology/Procedures [] [facility] [address] [place] [address] IMAGING REPORT Signed PATIENT: ALIVIA MARRERO ACCOUNT: [id number] : 1935 LOCATION: ER AGE: 81 SEX: F EXAM STATUS: REG ER ORD. PHYSICIAN: RONALDO ALVARADO MD REASON: right lower left lower quadrant abdominal pain PROCEDURE: CT ABDOMEN PELVIS WO CONTRAST Indication right lower quadrant pain. Axial images through the abdomen and pelvis were obtained. No IV or gastrointestinal contrast was administered. No prior CT imaging of the abdomen or pelvis is available. There is volume loss at the right lung base probably reflecting atelectasis. Pneumonia is not entirely excluded. There is a 2 mm nodule in the lingula as seen on the first image. Follow-up imaging along the lines of the Fleischner criteria should be considered. The liver and spleen appear unremarkable. Clips are noted in the gallbladder fossa. No pancreatic abnormality is seen. The adrenal glands and kidneys appear unremarkable. There is mild dilatation of small bowel loops which likely reflects ileus. High-grade mechanical obstruction is not seen. There are multiple diverticula seen scattered throughout the large bowel. These are most numerous in the sigmoid colon. Diverticula, however, are seen in the transverse colon. In the proximal transverse colon extending over approximately a 3 to 4 cm segment there is some stranding in the surrounding mesentery. Findings are most compatible with right-sided diverticulitis. A discrete abscess, amenable to drainage is not seen. A definite underlying mass is not apparent but could not be entirely excluded. Colonoscopy should be considered if not recently performed. There is some suggested thickening of the cecum. This may be incidental. A mass, however, cannot be entirely excluded and again colonoscopy, if not recently performed should be considered.. Scoliosis and degenerative changes are seen in the lumbar spine. Significant calcification of the abdominal aorta. Bilateral iliac stents are noted. IMPRESSION: Findings most compatible with right-sided diverticulitis. There is no discrete abscess seen amenable to drainage. If colonoscopy has not been recently performed this should be considered as outlined above Volume loss at the right lung base likely reflects atelectasis. Underlying pneumonia is not excluded. 2 mm nodule in the lingula. Follow-up along the lines of the Fleischner criteria should be considered Course & Med Decision Making Course & Med Decision Making Pertinent Labs and Imaging studies reviewed. (See chart for details) She is a pleasant 81-year-old female with a history of diverticulosis and malignant hypertension as well as chest discomfort presents with belly pain that began yesterday that got progressively worse. She lives at home alone now after the passing of her 3 weeks ago by concern is possible diverticulitis. My abdominal pain differential includes but not limited to , UTI , pyonephritis, cholecystitis, cholelithiasis, pancreatitis, appendicitis, small bowel obstruction, large bowel obstruction, diverticulosis, Diverticulum, intussusception, volvulus, irritable bowel disease, Crohn's or ulcerative colitis, considered upon arrival and at this point my main concern is Dr. romano. Patient tells me that their symptoms given during CC are improved. Patient's CT results are still pending at noon. Patient tells me that their symptoms given during CC are improved. We reviewed labs and radiology reports with patient and any family at bedside. Patient is resting currently at 12:57 PM tonight about IV antibiotic treatment for diverticulitis as well as possible early ileus with bowel quiet rest. Patient is willing to be admitted to the hospital for close observation she'll be leg exams to ensure that abscess does not develop an ileus is not become obstruction. System Developer Associate Manager note: Dr. Reno System Developer Associate Manager called at of the service was called at approximate 1 PM Consult called back at Discussed the case I presented and they agreed with admission. Time of acceptance. 105 pm Impression: Diverticulitis ileus, abdominal pain Dragon Disclaimer Dragon Disclaimer This electronic medical record was generated, in whole or in part, using a voice recognition dictation system. Departure Departure Impression: Primary Impression: Diverticula of colon Additional Impressions: Diverticula of intestine Ileus Diverticulitis large intestine Disposition: ADMITTED INPATIENT Admitting Physician: Susan Reno Referrals: WILBUR KENDRICK MD (PCP) Problem Qualifiers RONALDO ALVARADO MD Dec 23, 2016 10:35
[2016-12-23 11:12] LABS: BASO # 0.1 x10^3/uL (0.0-0.2); BASO % 1 % (0-3); EOS % 0 % (0-3); HEMATOCRIT 37.2 % (36.0-47.0); HEMOGLOBIN 12.2 g/dL (12.0-15.5); LYMPH # 2.2 x10^3/uL (1.0-4.8); LYMPH % 15 % (24-48); MEAN CORPUSCULAR HEMOGLOBIN 29 pg (25-35); MEAN CORPUSCULAR HGB CONC 33 g/dL (31-37); MEAN CORPUSCULAR VOLUME 89 fL (79-100); MONO % 7 % (0-9); NEUT % 77 % (31-73); PLATELET COUNT 201 x10^3/uL (140-400); RED BLOOD COUNT 4.18 x10^6/uL (3.50-5.40); RED CELL DISTRIBUTION WIDTH 14.1 % (11.5-14.5); WHITE BLOOD COUNT 14.7 x10^3/uL (4.0-11.0)
[2016-12-23 11:32] LABS: ALBUMIN 3.3 g/dL (3.4-5.0); CALCIUM 9.4 mg/dL (8.5-10.1); CREATININE 0.7 mg/dL (0.6-1.0); GFR 80.1; POTASSIUM 4.2 mmol/L (3.5-5.1); TOTAL BILIRUBIN 0.9 mg/dL (0.2-1.0); TOTAL PROTEIN 6.5 g/dL (6.4-8.2)
[2016-12-23 11:50] LABS: CKMB MASS 0.8 ng/mL (0.0-3.6); CREATINE KINASE 48 U/L (26-192)
[2016-12-23 12:07] LABS: BILIRUBIN,URINE NEGATIVE (NEG); GLUCOSE,URINE NEGATIVE (NEG); NITRITE,URINE NEGATIVE (NEG); PROTEIN,URINE NEGATIVE (NEG-TRACE)
--- NOTE | 2016-12-23 12:23 | RAD ---
Indication right lower quadrant pain. Axial images through the abdomen and pelvis were obtained. No IV or gastrointestinal contrast was administered. No prior CT imaging of the abdomen or pelvis is available. There is volume loss at the right lung base probably reflecting atelectasis. Pneumonia is not entirely excluded. There is a 2 mm nodule in the lingula as seen on the first image. Follow-up imaging along the lines of the Fleischner criteria should be considered. The liver and spleen appear unremarkable. Clips are noted in the gallbladder fossa. No pancreatic abnormality is seen. The adrenal glands and kidneys appear unremarkable. There is mild dilatation of small bowel loops which likely reflects ileus. High-grade mechanical obstruction is not seen. There are multiple diverticula seen scattered throughout the large bowel. These are most numerous in the sigmoid colon. Diverticula, however, are seen in the transverse colon. In the proximal transverse colon extending over approximately a 3 to 4 cm segment there is some stranding in the surrounding mesentery. Findings are most compatible with right-sided diverticulitis. A discrete abscess, amenable to drainage is not seen. A definite underlying mass is not apparent but could not be entirely excluded. Colonoscopy should be considered if not recently performed. There is some suggested thickening of the cecum. This may be incidental. A mass, however, cannot be entirely excluded and again colonoscopy, if not recently performed should be considered.. Scoliosis and degenerative changes are seen in the lumbar spine. Significant calcification of the abdominal aorta. Bilateral iliac stents are noted. IMPRESSION: Findings most compatible with right-sided diverticulitis. There is no discrete abscess seen amenable to drainage. If colonoscopy has not been recently performed this should be considered as outlined above Volume loss at the right lung base likely reflects atelectasis. Underlying pneumonia is not excluded. 2 mm nodule in the lingula. Follow-up along the lines of the Fleischner criteria should be considered PQRS Compliance Statement: One or more of the following individualized dose reduction techniques were utilized for this examination: 1. Automated exposure control 2. Adjustment of the mA and/or kV according to patient size 3. Use of iterative reconstruction technique
[2016-12-23 12:30] LABS: BACTERIA,URINE 0 /HPF (0-FEW); RBC,URINE 0 /HPF (0-2); SQUAMOUS EPITHELIAL CELL,UR FEW /LPF
[2016-12-23] MEDS ORDERED: fentaNYL PF VIAL 100 MCG/2 ML VIAL IV PRN ×2 (13:00→14:15)
[2016-12-23] MEDS ORDERED: ONDANSETRON PF 4 MG/2 ML VIAL. IV PRN ×2 (13:00→14:15)
[2016-12-23] MEDS: CIPROFLOXACIN 400MG PREMIX 200 ML IV SCH ×2 (13:15→20:33)
[2016-12-23] MEDS ORDERED: ONDANSETRON ODT 4 MG TAB.RAPDIS. PO PRN (14:15)
[2016-12-23] MEDS ORDERED: HYDROcodone/APAP 5/325MG 1 TAB TABLET PO PRN (14:15)
--- NOTE | 2016-12-23 14:22 | PDOC1 ---
History and Physical Date of Admission Date of Admission DATE: 12/23/16 TIME: :17 Identification/Chief Complaint Chief Complaint abd pain Problems: Source Source: Caregiver, Chart review, Patient History of Present Illness History of Present Illness Very pleasant 82 y.o female with good IADLS and ADLs, no assistive device for ambulation, Thursday started feeling unwell, culminated 2 days ago with RT sided abd pain, no change in BM, no fevers, no nausea or emesis but R side abd paiin 10/16, radiation to Rt side. ER showed diverticultis,. HAd diverticulitis some 12 yrs ago? this will be her second epsidoe, HAd c scope done routine Claudio Luong ok, WBC 14, afebrile, VS ok, admitted for the above Imaging: IMPRESSION: Findings most compatible with right-sided diverticulitis. There is no discrete abscess seen amenable to drainage. If colonoscopy has not been recently performed this should be considered as outlined above Volume loss at the right lung base likely reflects atelectasis. Underlying pneumonia is not excluded. 2 mm nodule in the lingula. Follow-up along the lines of the Fleischner criteria should be considered Past Medical History Cardiovascular: HTN, Hyperlipidemia, Other Pulmonary: Asthma GI: Diverticulosis, GERD Musculoskeletal: Osteoarthritis Past Surgical History Past Surgical History: Hernia Repair, Total hip replacement, Hysterectomy, Other Family History Family History: Coronary Artery Disease Social History Smoke: No ALCOHOL: none Drugs: None Current Problem List Problem List Problems Medical Problems: (1) Diverticula of colon Status: Acute (2) Diverticula of intestine Status: Acute (3) Diverticulitis large intestine Status: Acute (4) Ileus Status: Acute Problems: Current Medications Current Medications Current Medications Morphine Sulfate 2 mg PRN Q15MIN PRN IV/SQ PAIN GREATER THAN 3/10; Start 12/23 at 10:30; Stop 12/23/16 at 14:16; Status DC Sodium Chloride 1,000 ml @ 1,000 mls/hr Q1H IV Last administered on 10:41; Start 12/23/16 at 10:30; Stop 12/23/16 at 11:29; Status DC Sodium Chloride (Normal Saline Flush) 10 ml QSHIFT PRN IV AFTER MEDS AND BLOOD DRAWS Last administered on 12/23/16 10:41; Start 12/23/16 at 10:30 Ciprofloxacin/ Dextrose 200 ml @ 200 mls/hr Q12HR IV Last administered on t 13:15; Start 12/23/16 at 13:00 Metronidazole 100 ml @ 100 mls/hr Q8HRS IV ; Start 12/23/16 at 14:00 Ondansetron HCl (Zofran) 4 mg PRN Q8HRS PRN IV NAUSEA/VOMITING; Start at 13:00; Stop 12/24/16 at 12:59 Fentanyl Citrate (Fentanyl 2ml Vial) 50 mcg PRN Q1HR PRN IV PAIN; Start at 13:00; Stop 12/23/16 at 14:16; Status DC Sodium Chloride 1,000 ml @ 75 mls/hr [id number] IV ; Start 12/23/16 at 13:00; Stop 12/24/16 at 12:59 Fentanyl Citrate (Fentanyl 2ml Vial) 50 mcg PRN Q2HR PRN IV PAIN; Start at 14:15; Stop 12/24/16 at 14:14; Status UNV Ondansetron HCl (Zofran) 4 mg PRN Q6HRS PRN IV NAUSEA/VOMITING; Start at 14:15; Status UNV Ondansetron HCl (Zofran Odt) 4 mg PRN Q6HRS PRN PO NAUSEA/VOMITING; Start at 14:15; Status UNV Active Scripts Active Hydrocodone-Apap 5-325 (Hydrocodone Bit/Acetaminophen) 1 Each Tablet 0.5-1 Tab PO Q4HRS PRN Reported Lumigan (Bimatoprost) 2.5 Ml Drops 2.5 Ml OP Ventolin Hfa Inhaler (Albuterol Sulfate) 18 Gm Hfa.aer.ad 2 Puff INH QID Advair 250-50 Diskus (Fluticasone/Salmeterol) 1 Each Disk.w.dev 1 Inh IH BID Flonase Allergy Relief (Fluticasone Propionate) 9.9 Ml [place].susp 2 Sprays NS DAILY Prilosec Otc (Omeprazole Magnesium) 20 Mg Tablet. 20 Mg PO DAILY Aspir 81 (Aspirin) 81 Mg Tablet. 81 Mg PO Lisinopril 10 Mg Tablet 10 Mg PO DAILY Allergies Allergies: Coded Allergies: iodine (Verified Adverse Reaction, Mild, Nausea and Vomiting, 03/28/16) shellfish derived (Verified Adverse Reaction, Mild, Nausea and Vomiting, ) shrimp (Verified Adverse Reaction, Mild, Nausea and Vomiting, 03/28/16) ROS Review of System all else is neg 14 pt, as per hPI Physical Exam General: Alert, Oriented X3, Cooperative, No acute distress HEENT: Atraumatic, PERRLA, EOMI, Mucous membr. moist/pink Lungs: Clear to auscultation, Normal air movement Heart: S1S2, RRR, no thrills, no rubs, no gallops, no murmurs Cardiovascular: S1, S2 Breasts: Normal, Rt breast nml w/o mass, Lt breast nml w/o mass, Nipples normal Abdomen: Soft, Other (tenderness Right lateral side, actually tender also on left side) Rectal Exam: not examined PELVIC: Nml ext genitalia Extremities: No clubbing, No cyanosis, No edema, Normal pulses, No tenderness/ swelling Skin: No rashes, No breakdown, No significant lesion Neuro: Normal gait, Normal speech, Strength at 5/5 X4 ext, Normal tone, Sensation intact, Cranial nerves 3-12 NL, Reflexes 2+ Vitals Vitals Vital Signs Date Time Temp Pulse Resp B/P (MAP) Pulse Ox O2 Delivery O2 Flow Rate FiO2 12/23/16 13:17 94 152/67 (95) 96 Room Air 12/23/16 12:35 19 12/23/16 09:51 98.0 98.0 Labs Labs Laboratory Tests Test 12/23/16 10:55 12/23/16 11:50 White Blood Count 14.7 x10^3/uL (4.0-11.0) Red Blood Count 4.18 x10^6/uL (3.50-5.40) Hemoglobin 12.2 g/dL (12.0-15.5) Hematocrit 37.2 % (36.0-47.0) Mean Corpuscular Volume 89 fL (79-100) Mean Corpuscular Hemoglobin 29 pg (25-35) Mean Corpuscular Hemoglobin Concent 33 g/dL (31-37) Red Cell Distribution Width 14.1 % (11.5-14.5) Platelet Count 201 x10^3/uL (140-400) Neutrophils (%) (Auto) 77 % (31-73) Lymphocytes (%) (Auto) 15 % (24-48) Monocytes (%) (Auto) 7 % (0-9) Eosinophils (%) (Auto) 0 % (0-3) Basophils (%) (Auto) 1 % (0-3) Neutrophils # (Auto) 11.3 x10^3uL (1.8-7.7) Lymphocytes # (Auto) 2.2 x10^3/uL (1.0-4.8) Monocytes # (Auto) 1.0 x10^3/uL (0.0-1.1) Eosinophils # (Auto) 0.0 x10^3/uL (0.0-0.7) Basophils # (Auto) 0.1 x10^3/uL (0.0-0.2) Sodium Level 140 mmol/L (136-145) Potassium Level 4.2 mmol/L (3.5-5.1) Chloride Level 104 mmol/L (98-107) Carbon Dioxide Level 31 mmol/L (21-32) Anion Gap 5 (6-14) Blood Urea Nitrogen 19 mg/dL (7-20) Creatinine 0.7 mg/dL (0.6-1.0) Estimated GFR (Cockcroft-Gault) 80.1 BUN/Creatinine Ratio 27 (6-20) Glucose Level 100 mg/dL (70-99) Calcium Level 9.4 mg/dL (8.5-10.1) Total Bilirubin 0.9 mg/dL (0.2-1.0) Aspartate Amino Transf (AST/SGOT) 19 U/L (15-37) Alanine Aminotransferase (ALT/SGPT) 20 U/L (14-59) Alkaline Phosphatase 73 U/L (46-116) Creatine Kinase 48 U/L (26-192) Creatine Kinase MB (Mass) 0.8 ng/mL (0.0-3.6) Creatine Kinase MB Relative Index % (0-4) Troponin I Quantitative < 0.017 ng/mL (0.000-0.055) Total Protein 6.5 g/dL (6.4-8.2) Albumin 3.3 g/dL (3.4-5.0) Albumin/Globulin Ratio 1.0 (1.0-1.7) Lipase 133 U/L (73-393) Urine Collection Type Unknown Urine Color Yellow Urine Clarity Clear Urine pH 8.0 Urine Specific [place] 1.010 Urine Protein Negative mg/dL (NEG-TRACE) Urine Glucose (UA) Negative mg/dL (NEG) Urine Ketones (Stick) Negative mg/dL (NEG) Urine Blood Negative (NEG) Urine Nitrite Negative (NEG) Urine Bilirubin Negative (NEG) Urine Urobilinogen Dipstick 1.0 mg/dL (0.2 mg/dL) Urine Leukocyte Esterase Small (NEG) Urine RBC 0 /HPF (0-2) Urine WBC 5-10 /HPF (0-4) Urine Squamous Epithelial Cells Few /LPF Urine Bacteria 0 /HPF (0-FEW) Laboratory Tests Test 12/23/16 10:55 12/23/16 11:50 White Blood Count 14.7 x10^3/uL (4.0-11.0) Red Blood Count 4.18 x10^6/uL (3.50-5.40) Hemoglobin 12.2 g/dL (12.0-15.5) Hematocrit 37.2 % (36.0-47.0) Mean Corpuscular Volume 89 fL (79-100) Mean Corpuscular Hemoglobin 29 pg (25-35) Mean Corpuscular Hemoglobin Concent 33 g/dL (31-37) Red Cell Distribution Width 14.1 % (11.5-14.5) Platelet Count 201 x10^3/uL (140-400) Neutrophils (%) (Auto) 77 % (31-73) Lymphocytes (%) (Auto) 15 % (24-48) Monocytes (%) (Auto) 7 % (0-9) Eosinophils (%) (Auto) 0 % (0-3) Basophils (%) (Auto) 1 % (0-3) Neutrophils # (Auto) 11.3 x10^3uL (1.8-7.7) Lymphocytes # (Auto) 2.2 x10^3/uL (1.0-4.8) Monocytes # (Auto) 1.0 x10^3/uL (0.0-1.1) Eosinophils # (Auto) 0.0 x10^3/uL (0.0-0.7) Basophils # (Auto) 0.1 x10^3/uL (0.0-0.2) Sodium Level 140 mmol/L (136-145) Potassium Level 4.2 mmol/L (3.5-5.1) Chloride Level 104 mmol/L (98-107) Carbon Dioxide Level 31 mmol/L (21-32) Anion Gap 5 (6-14) Blood Urea Nitrogen 19 mg/dL (7-20) Creatinine 0.7 mg/dL (0.6-1.0) Estimated GFR (Cockcroft-Gault) 80.1 BUN/Creatinine Ratio 27 (6-20) Glucose Level 100 mg/dL (70-99) Calcium Level 9.4 mg/dL (8.5-10.1) Total Bilirubin 0.9 mg/dL (0.2-1.0) Aspartate Amino Transf (AST/SGOT) 19 U/L (15-37) Alanine Aminotransferase (ALT/SGPT) 20 U/L (14-59) Alkaline Phosphatase 73 U/L (46-116) Creatine Kinase 48 U/L (26-192) Creatine Kinase MB (Mass) 0.8 ng/mL (0.0-3.6) Creatine Kinase MB Relative Index % (0-4) Troponin I Quantitative < 0.017 ng/mL (0.000-0.055) Total Protein 6.5 g/dL (6.4-8.2) Albumin 3.3 g/dL (3.4-5.0) Albumin/Globulin Ratio 1.0 (1.0-1.7) Lipase 133 U/L (73-393) Urine Collection Type Unknown Urine Color Yellow Urine Clarity Clear Urine pH 8.0 Urine Specific [place] 1.010 Urine Protein Negative mg/dL (NEG-TRACE) Urine Glucose (UA) Negative mg/dL (NEG) Urine Ketones (Stick) Negative mg/dL (NEG) Urine Blood Negative (NEG) Urine Nitrite Negative (NEG) Urine Bilirubin Negative (NEG) Urine Urobilinogen Dipstick 1.0 mg/dL (0.2 mg/dL) Urine Leukocyte Esterase Small (NEG) Urine RBC 0 /HPF (0-2) Urine WBC 5-10 /HPF (0-4) Urine Squamous Epithelial Cells Few /LPF Urine Bacteria 0 /HPF (0-FEW) VTE Prophylaxis Ordered VTE Prophylaxis Devices: Yes VTE Pharmacological Prophylaxi: Yes Assessment/Plan Assessment/Plan 1. RT sided diverticulitis 2. Sub cm incidental pulmo nodule in a non smoker 3. SIRS poA infectious vs inflammatory, no organ dysfcn 4,. GEriatric 5. HTN, asthma etc stable PLAN: admit Liquid diet IVF IV abx GI consult PT./OT Resume home meds ADAt Seen at ER VINH OVALLES MD Dec 23, 2016 14:22
[2016-12-23] MEDS ORDERED: cloNIDine HCL 0.1 MG TABLET PO PRN (14:45)
--- NOTE | 2016-12-23 15:20 | PDOC2 ---
GI CONSULT Reason For Consult: Diverticulitis HPI: HPI: 81 y/o female admitted through ER for 1-2 days of right lower abdominal pain. Noted w/ leukocytosis and CT suggests right-sided diverticulitis. Has a h/o diverticulitis ~12 years ago; recalls hospital stay at that time w/ colonoscopy by Dr. Payton Snyder. H/o GERD controlled w/ Prilosec QD, previous EGD reportedly normal years ago. No dysphagia. Had some soft stools a couple days ago, returned to normal consistency yesterday. No n/v, hematochezia, melena. S/p cholecystectomy and ERCP earlier this year, lost ~12 pounds after surgery. Appetite stable. No NSAIDs. Started on IV Flagyl and Cipro, has full liquid diet ordered. PMH: PMH: HTN, HLD, PVD w/ LE stents, asthma, GERD, diverticulosis/itis, OA, glaucoma, umbilical hernia repair, right total hip replacement/revision, hysterectomy, bladder and vaginal suspension, cholecystectomy, ERCP w/ ES and balloon dilation FH: Family History: CAD Social History: Smoke: Quit ALCOHOL: occassional Drugs: None ROS: GEN: Denies fevers, chills, sweats HEENT: Denies blurred vision, sore throat CV: Denies chest pain RESP: Denies shortness of air, cough GI: Per HPI : Denies hematuria, dysuria ENDO: Denies weight changes NEURO: Denies confusion, dizziness MSK: Denies weakness, joint pain/swelling SKIN: Denies jaundice, pruritus Vitals: Vitals: Vital Signs Date Time Temp Pulse Resp B/P (MAP) Pulse Ox O2 Delivery O2 Flow Rate FiO2 12/23/16 14:29 91 20 133/60 (84) 97 Room Air 12/23/16 09:51 98.0 98.0 Labs: Labs: Laboratory Tests Test 12/23/16 10:55 12/23/16 11:50 White Blood Count 14.7 x10^3/uL (4.0-11.0) Red Blood Count 4.18 x10^6/uL (3.50-5.40) Hemoglobin 12.2 g/dL (12.0-15.5) Hematocrit 37.2 % (36.0-47.0) Mean Corpuscular Volume 89 fL (79-100) Mean Corpuscular Hemoglobin 29 pg (25-35) Mean Corpuscular Hemoglobin Concent 33 g/dL (31-37) Red Cell Distribution Width 14.1 % (11.5-14.5) Platelet Count 201 x10^3/uL (140-400) Neutrophils (%) (Auto) 77 % (31-73) Lymphocytes (%) (Auto) 15 % (24-48) Monocytes (%) (Auto) 7 % (0-9) Eosinophils (%) (Auto) 0 % (0-3) Basophils (%) (Auto) 1 % (0-3) Neutrophils # (Auto) 11.3 x10^3uL (1.8-7.7) Lymphocytes # (Auto) 2.2 x10^3/uL (1.0-4.8) Monocytes # (Auto) 1.0 x10^3/uL (0.0-1.1) Eosinophils # (Auto) 0.0 x10^3/uL (0.0-0.7) Basophils # (Auto) 0.1 x10^3/uL (0.0-0.2) Sodium Level 140 mmol/L (136-145) Potassium Level 4.2 mmol/L (3.5-5.1) Chloride Level 104 mmol/L (98-107) Carbon Dioxide Level 31 mmol/L (21-32) Anion Gap 5 (6-14) Blood Urea Nitrogen 19 mg/dL (7-20) Creatinine 0.7 mg/dL (0.6-1.0) Estimated GFR (Cockcroft-Gault) 80.1 BUN/Creatinine Ratio 27 (6-20) Glucose Level 100 mg/dL (70-99) Calcium Level 9.4 mg/dL (8.5-10.1) Total Bilirubin 0.9 mg/dL (0.2-1.0) Aspartate Amino Transf (AST/SGOT) 19 U/L (15-37) Alanine Aminotransferase (ALT/SGPT) 20 U/L (14-59) Alkaline Phosphatase 73 U/L (46-116) Creatine Kinase 48 U/L (26-192) Creatine Kinase MB (Mass) 0.8 ng/mL (0.0-3.6) Creatine Kinase MB Relative Index % (0-4) Troponin I Quantitative < 0.017 ng/mL (0.000-0.055) Total Protein 6.5 g/dL (6.4-8.2) Albumin 3.3 g/dL (3.4-5.0) Albumin/Globulin Ratio 1.0 (1.0-1.7) Lipase 133 U/L (73-393) Urine Collection Type Unknown Urine Color Yellow Urine Clarity Clear Urine pH 8.0 Urine Specific [place] 1.010 Urine Protein Negative mg/dL (NEG-TRACE) Urine Glucose (UA) Negative mg/dL (NEG) Urine Ketones (Stick) Negative mg/dL (NEG) Urine Blood Negative (NEG) Urine Nitrite Negative (NEG) Urine Bilirubin Negative (NEG) Urine Urobilinogen Dipstick 1.0 mg/dL (0.2 mg/dL) Urine Leukocyte Esterase Small (NEG) Urine RBC 0 /HPF (0-2) Urine WBC 5-10 /HPF (0-4) Urine Squamous Epithelial Cells Few /LPF Urine Bacteria 0 /HPF (0-FEW) Allergies: Coded Allergies: iodine (Verified Adverse Reaction, Mild, Nausea and Vomiting, 03/28/16) shellfish derived (Verified Adverse Reaction, Mild, Nausea and Vomiting, ) shrimp (Verified Adverse Reaction, Mild, Nausea and Vomiting, 03/28/16) Medications: Current Medications Medications (Trade) Dose Ordered Sig/Gagan Route PRN Reason Start Time Stop Time Status Last Admin Dose Admin Sodium Chloride 1,000 ml @ 1,000 mls/hr Q1H IV 12/23/16 10:30 12/23/16 11:29 DC 12/23/16 10:41 Sodium Chloride (Normal Saline Flush) 10 ml QSHIFT PRN IV AFTER MEDS AND BLOOD DRAWS 12/23/16 10:30 12/23/16 10:41 Ciprofloxacin/ Dextrose 200 ml @ 200 mls/hr Q12HR IV 12/23/16 13:00 12/23/16 13:15 Metronidazole 100 ml @ 100 mls/hr Q8HRS IV 12/23/16 14:00 12/23/16 14:27 Imaging: Imaging: CT A/P w/o contrast There is volume loss at the right lung base probably reflecting atelectasis. Pneumonia is not entirely excluded. There is a 2 mm nodule in the lingula as seen on the first image. Follow-up imaging along the lines of the Fleischner criteria should be considered. The liver and spleen appear unremarkable. Clips are noted in the gallbladder fossa. No pancreatic abnormality is seen. The adrenal glands and kidneys appear unremarkable. There is mild dilatation of small bowel loops which likely reflects ileus. High- grade mechanical obstruction is not seen. There are multiple diverticula seen scattered throughout the large bowel. These are most numerous in the sigmoid colon. Diverticula, however, are seen in the transverse colon. In the proximal transverse colon extending over approximately a 3 to 4 cm segment there is some stranding in the surrounding mesentery. Findings are most compatible with right- sided diverticulitis. A discrete abscess, amenable to drainage is not seen. A definite underlying mass is not apparent but could not be entirely excluded. Colonoscopy should be considered if not recently performed. There is some suggested thickening of the cecum. This may be incidental. A mass, however, cannot be entirely excluded and again colonoscopy, if not recently performed should be considered.. Scoliosis and degenerative changes are seen in the lumbar spine. Significant calcification of the abdominal aorta. Bilateral iliac stents are noted. IMPRESSION: Findings most compatible with right-sided diverticulitis. There is no discrete abscess seen amenable to drainage. If colonoscopy has not been recently performed this should be considered as outlined above Volume loss at the right lung base likely reflects atelectasis. Underlying pneumonia is not excluded. 2 mm nodule in the lingula. Follow-up along the lines of the Fleischner criteria should be considered PE: GEN: NAD HEENT: Atraumatic, PERRL LUNGS: CTAB anteriorly HEART: tachycardic ABD: BS+, soft, tenderness from RUQ to RLQ EXTREMITY: No edema SKIN: No rashes, no jaundice NEURO/PSYCH: A & O 3 A/P: A/P: Right-sided abd pain Abnormal CT w/ right-sided diverticulitis -also note 2 mm nodule in the lingula, per primary -h/o diverticulitis w/ colonoscopy (Dr. Snyder) ~12 years ago GERD -controlled w/ PPI QD, remote h/o EGD S/p cholecystectomy, ERCP -- Agree w/ antibiotics, monitor symptoms. Repeat CT/surgical consult if symptoms worse/unresolved. Continue PPI. PAUL CAIN Dec 23, 2016 15:20
[2016-12-23 17:23] VITALS: BP 131/57
[2016-12-23] MEDS: ALBUTEROL SULFATE 2.5 MG/3 ML NEBU. NEB SCH ×2 (17:40→19:53)
[2016-12-23 19:15] VITALS: BP 141/60
[2016-12-23] MEDS: BUDESONIDE 0.5 MG/2 ML NEBU. NEB SCH (19:53)
[2016-12-23] MEDS: IV NORMAL SALINE 1000ML BAG 1,000 ML IV SCH (20:33)
[2016-12-23 23:10] VITALS: BP 119/62
[2016-12-24] MEDS: IV NORMAL SALINE 1000ML BAG 1,000 ML IV SCH (02:20)
[2016-12-24 03:10] VITALS: BP 112/49
[2016-12-24 07:00] VITALS: BP 175/52
[2016-12-24 07:16] LABS: BASO # 0.1 x10^3/uL (0.0-0.2); BASO % 1 % (0-3); EOS % 0 % (0-3); HEMATOCRIT 35.7 % (36.0-47.0); HEMOGLOBIN 11.9 g/dL (12.0-15.5); LYMPH # 1.6 x10^3/uL (1.0-4.8); LYMPH % 12 % (24-48); MEAN CORPUSCULAR HEMOGLOBIN 30 pg (25-35); MEAN CORPUSCULAR HGB CONC 34 g/dL (31-37); MEAN CORPUSCULAR VOLUME 89 fL (79-100); MONO % 7 % (0-9); NEUT % 80 % (31-73); PLATELET COUNT 185 x10^3/uL (140-400); RED BLOOD COUNT 4.03 x10^6/uL (3.50-5.40); RED CELL DISTRIBUTION WIDTH 14.2 % (11.5-14.5); WHITE BLOOD COUNT 13.3 x10^3/uL (4.0-11.0)
[2016-12-24 07:32] LABS: CALCIUM 9.3 mg/dL (8.5-10.1); CREATININE 0.7 mg/dL (0.6-1.0); GFR 80.1; POTASSIUM 4.2 mmol/L (3.5-5.1)
[2016-12-24] MEDS: BUDESONIDE 0.5 MG/2 ML NEBU. NEB SCH ×2 (07:48→19:21)
[2016-12-24] MEDS: ALBUTEROL SULFATE 2.5 MG/3 ML NEBU. NEB SCH ×4 (07:48→19:21)
[2016-12-24] MEDS: PANTOPRAZOLE 40 MG TABLET.DR. PO SCH (08:03)
[2016-12-24] MEDS: CIPROFLOXACIN 400MG PREMIX 200 ML IV SCH ×2 (08:04→20:36)
[2016-12-24] MEDS: LISINOPRIL 10 MG TABLET PO SCH (08:04)
[2016-12-24] MEDS: FLUTICASONE 50MCG/NASAL SPRAY 16GM BOTTLE. NS SCH (09:00)
--- NOTE | 2016-12-24 09:27 | PDOC ---
G I PROGRESS NOTE Subjective Says feels better. Physical Exam Lungs clear. RRR Abdomen soft, not distended. Tender near RUQ, corresponds to area of diverticulitis on CT. Review of Relevant I have reviewed the following items rodrigue (where applicable) has been applied. Labs Laboratory Tests Test 12/23/16 10:55 12/23/16 11:50 12/24/16 06:45 White Blood Count 14.7 x10^3/uL (4.0-11.0) 13.3 x10^3/uL (4.0-11.0) Red Blood Count 4.18 x10^6/uL (3.50-5.40) 4.03 x10^6/uL (3.50-5.40) Hemoglobin 12.2 g/dL (12.0-15.5) 11.9 g/dL (12.0-15.5) Hematocrit 37.2 % (36.0-47.0) 35.7 % (36.0-47.0) Mean Corpuscular Volume 89 fL (79-100) 89 fL (79-100) Mean Corpuscular Hemoglobin 29 pg (25-35) 30 pg (25-35) Mean Corpuscular Hemoglobin Concent 33 g/dL (31-37) 34 g/dL (31-37) Red Cell Distribution Width 14.1 % (11.5-14.5) 14.2 % (11.5-14.5) Platelet Count 201 x10^3/uL (140-400) 185 x10^3/uL (140-400) Neutrophils (%) (Auto) 77 % (31-73) 80 % (31-73) Lymphocytes (%) (Auto) 15 % (24-48) 12 % (24-48) Monocytes (%) (Auto) 7 % (0-9) 7 % (0-9) Eosinophils (%) (Auto) 0 % (0-3) 0 % (0-3) Basophils (%) (Auto) 1 % (0-3) 1 % (0-3) Neutrophils # (Auto) 11.3 x10^3uL (1.8-7.7) 10.6 x10^3uL (1.8-7.7) Lymphocytes # (Auto) 2.2 x10^3/uL (1.0-4.8) 1.6 x10^3/uL (1.0-4.8) Monocytes # (Auto) 1.0 x10^3/uL (0.0-1.1) 1.0 x10^3/uL (0.0-1.1) Eosinophils # (Auto) 0.0 x10^3/uL (0.0-0.7) 0.1 x10^3/uL (0.0-0.7) Basophils # (Auto) 0.1 x10^3/uL (0.0-0.2) 0.1 x10^3/uL (0.0-0.2) Erythrocyte Sedimentation Rate 16 (0-25) Sodium Level 140 mmol/L (136-145) 140 mmol/L (136-145) Potassium Level 4.2 mmol/L (3.5-5.1) 4.2 mmol/L (3.5-5.1) Chloride Level 104 mmol/L (98-107) 106 mmol/L (98-107) Carbon Dioxide Level 31 mmol/L (21-32) 26 mmol/L (21-32) Anion Gap 5 (6-14) 8 (6-14) Blood Urea Nitrogen 19 mg/dL (7-20) 14 mg/dL (7-20) Creatinine 0.7 mg/dL (0.6-1.0) 0.7 mg/dL (0.6-1.0) Estimated GFR (Cockcroft-Gault) 80.1 80.1 BUN/Creatinine Ratio 27 (6-20) Glucose Level 100 mg/dL (70-99) 93 mg/dL (70-99) Calcium Level 9.4 mg/dL (8.5-10.1) 9.3 mg/dL (8.5-10.1) Total Bilirubin 0.9 mg/dL (0.2-1.0) Aspartate Amino Transf (AST/SGOT) 19 U/L (15-37) Alanine Aminotransferase (ALT/SGPT) 20 U/L (14-59) Alkaline Phosphatase 73 U/L (46-116) Creatine Kinase 48 U/L (26-192) Creatine Kinase MB (Mass) 0.8 ng/mL (0.0-3.6) Creatine Kinase MB Relative Index % (0-4) Troponin I Quantitative < 0.017 ng/mL (0.000-0.055) Total Protein 6.5 g/dL (6.4-8.2) Albumin 3.3 g/dL (3.4-5.0) Albumin/Globulin Ratio 1.0 (1.0-1.7) Lipase 133 U/L (73-393) Urine Collection Type Unknown Urine Color Yellow Urine Clarity Clear Urine pH 8.0 Urine Specific [place] 1.010 Urine Protein Negative mg/dL (NEG-TRACE) Urine Glucose (UA) Negative mg/dL (NEG) Urine Ketones (Stick) Negative mg/dL (NEG) Urine Blood Negative (NEG) Urine Nitrite Negative (NEG) Urine Bilirubin Negative (NEG) Urine Urobilinogen Dipstick 1.0 mg/dL (0.2 mg/dL) Urine Leukocyte Esterase Small (NEG) Urine RBC 0 /HPF (0-2) Urine WBC 5-10 /HPF (0-4) Urine Squamous Epithelial Cells Few /LPF Urine Bacteria 0 /HPF (0-FEW) Laboratory Tests Test 12/23/16 10:55 12/23/16 11:50 12/24/16 06:45 White Blood Count 14.7 x10^3/uL (4.0-11.0) 13.3 x10^3/uL (4.0-11.0) Red Blood Count 4.18 x10^6/uL (3.50-5.40) 4.03 x10^6/uL (3.50-5.40) Hemoglobin 12.2 g/dL (12.0-15.5) 11.9 g/dL (12.0-15.5) Hematocrit 37.2 % (36.0-47.0) 35.7 % (36.0-47.0) Mean Corpuscular Volume 89 fL (79-100) 89 fL (79-100) Mean Corpuscular Hemoglobin 29 pg (25-35) 30 pg (25-35) Mean Corpuscular Hemoglobin Concent 33 g/dL (31-37) 34 g/dL (31-37) Red Cell Distribution Width 14.1 % (11.5-14.5) 14.2 % (11.5-14.5) Platelet Count 201 x10^3/uL (140-400) 185 x10^3/uL (140-400) Neutrophils (%) (Auto) 77 % (31-73) 80 % (31-73) Lymphocytes (%) (Auto) 15 % (24-48) 12 % (24-48) Monocytes (%) (Auto) 7 % (0-9) 7 % (0-9) Eosinophils (%) (Auto) 0 % (0-3) 0 % (0-3) Basophils (%) (Auto) 1 % (0-3) 1 % (0-3) Neutrophils # (Auto) 11.3 x10^3uL (1.8-7.7) 10.6 x10^3uL (1.8-7.7) Lymphocytes # (Auto) 2.2 x10^3/uL (1.0-4.8) 1.6 x10^3/uL (1.0-4.8) Monocytes # (Auto) 1.0 x10^3/uL (0.0-1.1) 1.0 x10^3/uL (0.0-1.1) Eosinophils # (Auto) 0.0 x10^3/uL (0.0-0.7) 0.1 x10^3/uL (0.0-0.7) Basophils # (Auto) 0.1 x10^3/uL (0.0-0.2) 0.1 x10^3/uL (0.0-0.2) Erythrocyte Sedimentation Rate 16 (0-25) Sodium Level 140 mmol/L (136-145) 140 mmol/L (136-145) Potassium Level 4.2 mmol/L (3.5-5.1) 4.2 mmol/L (3.5-5.1) Chloride Level 104 mmol/L (98-107) 106 mmol/L (98-107) Carbon Dioxide Level 31 mmol/L (21-32) 26 mmol/L (21-32) Anion Gap 5 (6-14) 8 (6-14) Blood Urea Nitrogen 19 mg/dL (7-20) 14 mg/dL (7-20) Creatinine 0.7 mg/dL (0.6-1.0) 0.7 mg/dL (0.6-1.0) Estimated GFR (Cockcroft-Gault) 80.1 80.1 BUN/Creatinine Ratio 27 (6-20) Glucose Level 100 mg/dL (70-99) 93 mg/dL (70-99) Calcium Level 9.4 mg/dL (8.5-10.1) 9.3 mg/dL (8.5-10.1) Total Bilirubin 0.9 mg/dL (0.2-1.0) Aspartate Amino Transf (AST/SGOT) 19 U/L (15-37) Alanine Aminotransferase (ALT/SGPT) 20 U/L (14-59) Alkaline Phosphatase 73 U/L (46-116) Creatine Kinase 48 U/L (26-192) Creatine Kinase MB (Mass) 0.8 ng/mL (0.0-3.6) Creatine Kinase MB Relative Index % (0-4) Troponin I Quantitative < 0.017 ng/mL (0.000-0.055) Total Protein 6.5 g/dL (6.4-8.2) Albumin 3.3 g/dL (3.4-5.0) Albumin/Globulin Ratio 1.0 (1.0-1.7) Lipase 133 U/L (73-393) Urine Collection Type Unknown Urine Color Yellow Urine Clarity Clear Urine pH 8.0 Urine Specific Bath 1.010 Urine Protein Negative mg/dL (NEG-TRACE) Urine Glucose (UA) Negative mg/dL (NEG) Urine Ketones (Stick) Negative mg/dL (NEG) Urine Blood Negative (NEG) Urine Nitrite Negative (NEG) Urine Bilirubin Negative (NEG) Urine Urobilinogen Dipstick 1.0 mg/dL (0.2 mg/dL) Urine Leukocyte Esterase Small (NEG) Urine RBC 0 /HPF (0-2) Urine WBC 5-10 /HPF (0-4) Urine Squamous Epithelial Cells Few /LPF Urine Bacteria 0 /HPF (0-FEW) Medications Current Medications Morphine Sulfate 2 mg PRN Q15MIN PRN IV/SQ PAIN GREATER THAN 3/10; Start 12/23 at 10:30; Stop 12/23/16 at 14:16; Status DC Sodium Chloride 1,000 ml @ 1,000 mls/hr Q1H IV Last administered on t 10:41; Start 12/23/16 at 10:30; Stop 12/23/16 at 11:29; Status DC Sodium Chloride (Normal Saline Flush) 10 ml QSHIFT PRN IV AFTER MEDS AND BLOOD DRAWS Last administered on 12/23/16 10:41; Start 12/23/16 at 10:30 Ciprofloxacin/ Dextrose 200 ml @ 200 mls/hr Q12HR IV Last administered on 08:04; Start 12/23/16 at 13:00 Metronidazole 100 ml @ 100 mls/hr Q8HRS IV Last administered on 12/24/16 05: 38; Start 12/23/16 at 14:00 Ondansetron HCl (Zofran) 4 mg PRN Q8HRS PRN IV NAUSEA/VOMITING; Start at 13:00; Stop 12/23/16 at 14:45; Status DC Fentanyl Citrate (Fentanyl 2ml Vial) 50 mcg PRN Q1HR PRN IV PAIN; Start at 13:00; Stop 12/23/16 at 14:16; Status DC Sodium Chloride 1,000 ml @ 75 mls/hr [id number] IV Last administered on 20:33; Start 12/23/16 at 13:00; Stop 12/24/16 at 12:59 Fentanyl Citrate (Fentanyl 2ml Vial) 50 mcg PRN Q2HR PRN IV PAIN; Start at 14:15; Stop 12/24/16 at 14:14 Ondansetron HCl (Zofran) 4 mg PRN Q6HRS PRN IV NAUSEA/VOMITING; Start at 14:15 Ondansetron HCl (Zofran Odt) 4 mg PRN Q6HRS PRN PO NAUSEA/VOMITING; Start at 14:15 Acetaminophen/ Hydrocodone Bitart (Lortab 5/325) 1 tab PRN Q4HRS PRN PO PAIN; Start 12/23/16 at 14:15; Stop 12/23/16 at 19:43; Status DC Lisinopril (Prinivil) 10 mg DAILY PO Last administered on 12/24/16 08:04; Start 12/24/16 at 09:00 Albuterol Sulfate (Ventolin Neb Soln) 2.5 mg RTQID NEB Last administered on 07:48; Start 12/23/16 at 16:00 Fluticasone Propionate (Flonase) 2 spray DAILY NS ; Start 12/24/16 at 09:00 Budesonide (Pulmicort) 0.5 mg RTBID NEB Last administered on 12/24/16t 07:48; Start 12/23/16 at 20:00 Pantoprazole Sodium (Protonix) 40 mg DAILYAC PO Last administered on 08:03; Start 12/24/16 at 07:30 Clonidine HCl (Catapres) 0.1 mg PRN Q1HR PRN PO HYPERTENSION, SEE COMMENTS; Start 12/23/16 at 14:45 Acetaminophen/ Hydrocodone Bitart (Lortab 5/325) 1 tab PRN Q4HRS PRN PO PAIN; Start 12/23/16 at 19:45 Active Scripts Active Hydrocodone-Apap 5-325 (Hydrocodone Bit/Acetaminophen) 1 Each Tablet 0.5-1 Tab PO Q4HRS PRN Reported Lumigan (Bimatoprost) 2.5 Ml Drops 2.5 Ml OP Ventolin Hfa Inhaler (Albuterol Sulfate) 18 Gm Hfa.aer.ad 2 Puff INH QID Advair 250-50 Diskus (Fluticasone/Salmeterol) 1 Each Disk.w.dev 1 Inh IH BID Flonase Allergy Relief (Fluticasone Propionate) 9.9 Ml [place].susp 2 Sprays NS DAILY Prilosec Otc (Omeprazole Magnesium) 20 Mg Tablet. 20 Mg PO DAILY Aspir 81 (Aspirin) 81 Mg Tablet. 81 Mg PO Lisinopril 10 Mg Tablet 10 Mg PO DAILY Vitals/I & O Vital Sign - Last 24 Hours 12/23/16 12/23/16 12/23/16 12/23/16 09:51 10:45 11:52 12:35 Temp 98.0 98.0 Pulse 98 87 105 103 Resp 16 20 20 19 B/P (MAP) 155/65 (95) 139/66 (90) 197/82 (120) 162/67 (98) Pulse Ox 97 97 96 95 O2 Delivery Room Air Room Air Room Air 12/23/16 12/23/16 12/23/16 12/23/16 13:17 14:29 17:23 17:23 Temp 98.2 98.2 98.2 98.2 Pulse 94 91 97 97 Resp 20 18 18 B/P (MAP) 152/67 (95) 133/60 (84) 131/57 (81) 131/57 (81) Pulse Ox 96 97 95 95 O2 Delivery Room Air Room Air Room Air Room Air 12/23/16 12/23/16 12/23/16 12/23/16 19:15 19:54 20:00 23:10 Temp 98.5 98.1 98.5 98.1 Pulse 86 85 Resp 20 18 B/P (MAP) 141/60 (87) 119/62 (81) Pulse Ox 96 95 O2 Delivery Room Air Room Air Room Air Room Air 12/24/16 12/24/16 12/24/16 12/24/16 03:10 07:00 07:51 07:55 Temp 98.3 98.8 98.3 98.8 Pulse 83 84 Resp 17 16 B/P (MAP) 112/49 (70) 175/52 (93) Pulse Ox 94 98 97 97 O2 Delivery Room Air Room Air Room Air Room Air 12/24/16 08:04 Pulse 84 B/P (MAP) 175/52 Problem List Problems Medical Problems: (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 Plan of Care: Continue current Tx, Mgmt Plan of Care Note Need to establish definite improving trend before consider outpatient treatment. PRESTON RANDOLPH MD Dec 24, 2016 09:27
[2016-12-24 11:00] VITALS: BP 110/59
[2016-12-24] MEDS: HYDROcodone/APAP 5/325MG 1 TAB TABLET PO PRN (14:09)
--- NOTE | 2016-12-24 14:35 | PDOC ---
PROGRESS NOTES Chief Complaint Chief Complaint 1. RT sided diverticulitis 2. Sub cm incidental pulmo nodule 3. SIRS infectious - is SEPSIS, POA, no organ dysfcn 4 HTN, asthma etc stable History of Present Illness History of Present Illness cont IV abx Liquid diet IVF GI consult, following, unable to DC PT./OT Vitals Vitals Vital Signs Date Time Temp Pulse Resp B/P (MAP) Pulse Ox O2 Delivery O2 Flow Rate FiO2 12/24/16 14:09 99 Room Air 12/24/16 11:00 98.5 109 16 110/59 (76) 98.5 Physical Exam General: Alert, Oriented X3, Cooperative, No acute distress Lungs: Clear Abdomen: Soft, Other (tenderness Right lateral side, actually tender also on left side) Extremities: No clubbing, No cyanosis, No edema, Normal pulses, No tenderness/ swelling Skin: No rashes, No breakdown, No significant lesion Labs LABS Laboratory Tests Test 12/24/16 06:45 White Blood Count 13.3 x10^3/uL (4.0-11.0) Red Blood Count 4.03 x10^6/uL (3.50-5.40) Hemoglobin 11.9 g/dL (12.0-15.5) Hematocrit 35.7 % (36.0-47.0) Mean Corpuscular Volume 89 fL (79-100) Mean Corpuscular Hemoglobin 30 pg (25-35) Mean Corpuscular Hemoglobin Concent 34 g/dL (31-37) Red Cell Distribution Width 14.2 % (11.5-14.5) Platelet Count 185 x10^3/uL (140-400) Neutrophils (%) (Auto) 80 % (31-73) Lymphocytes (%) (Auto) 12 % (24-48) Monocytes (%) (Auto) 7 % (0-9) Eosinophils (%) (Auto) 0 % (0-3) Basophils (%) (Auto) 1 % (0-3) Neutrophils # (Auto) 10.6 x10^3uL (1.8-7.7) Lymphocytes # (Auto) 1.6 x10^3/uL (1.0-4.8) Monocytes # (Auto) 1.0 x10^3/uL (0.0-1.1) Eosinophils # (Auto) 0.1 x10^3/uL (0.0-0.7) Basophils # (Auto) 0.1 x10^3/uL (0.0-0.2) Sodium Level 140 mmol/L (136-145) Potassium Level 4.2 mmol/L (3.5-5.1) Chloride Level 106 mmol/L (98-107) Carbon Dioxide Level 26 mmol/L (21-32) Anion Gap 8 (6-14) Blood Urea Nitrogen 14 mg/dL (7-20) Creatinine 0.7 mg/dL (0.6-1.0) Estimated GFR (Cockcroft-Gault) 80.1 Glucose Level 93 mg/dL (70-99) Calcium Level 9.3 mg/dL (8.5-10.1) Review of Systems Review of Systems nausea pain and limited PO intake Assessment and Plan Assessmemt and Plan Problems Medical Problems: (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 Labs Laboratory Tests Test 12/23/16 10:55 12/23/16 11:50 12/24/16 06:45 White Blood Count 14.7 x10^3/uL (4.0-11.0) 13.3 x10^3/uL (4.0-11.0) Red Blood Count 4.18 x10^6/uL (3.50-5.40) 4.03 x10^6/uL (3.50-5.40) Hemoglobin 12.2 g/dL (12.0-15.5) 11.9 g/dL (12.0-15.5) Hematocrit 37.2 % (36.0-47.0) 35.7 % (36.0-47.0) Mean Corpuscular Volume 89 fL (79-100) 89 fL (79-100) Mean Corpuscular Hemoglobin 29 pg (25-35) 30 pg (25-35) Mean Corpuscular Hemoglobin Concent 33 g/dL (31-37) 34 g/dL (31-37) Red Cell Distribution Width 14.1 % (11.5-14.5) 14.2 % (11.5-14.5) Platelet Count 201 x10^3/uL (140-400) 185 x10^3/uL (140-400) Neutrophils (%) (Auto) 77 % (31-73) 80 % (31-73) Lymphocytes (%) (Auto) 15 % (24-48) 12 % (24-48) Monocytes (%) (Auto) 7 % (0-9) 7 % (0-9) Eosinophils (%) (Auto) 0 % (0-3) 0 % (0-3) Basophils (%) (Auto) 1 % (0-3) 1 % (0-3) Neutrophils # (Auto) 11.3 x10^3uL (1.8-7.7) 10.6 x10^3uL (1.8-7.7) Lymphocytes # (Auto) 2.2 x10^3/uL (1.0-4.8) 1.6 x10^3/uL (1.0-4.8) Monocytes # (Auto) 1.0 x10^3/uL (0.0-1.1) 1.0 x10^3/uL (0.0-1.1) Eosinophils # (Auto) 0.0 x10^3/uL (0.0-0.7) 0.1 x10^3/uL (0.0-0.7) Basophils # (Auto) 0.1 x10^3/uL (0.0-0.2) 0.1 x10^3/uL (0.0-0.2) Erythrocyte Sedimentation Rate 16 (0-25) Sodium Level 140 mmol/L (136-145) 140 mmol/L (136-145) Potassium Level 4.2 mmol/L (3.5-5.1) 4.2 mmol/L (3.5-5.1) Chloride Level 104 mmol/L (98-107) 106 mmol/L (98-107) Carbon Dioxide Level 31 mmol/L (21-32) 26 mmol/L (21-32) Anion Gap 5 (6-14) 8 (6-14) Blood Urea Nitrogen 19 mg/dL (7-20) 14 mg/dL (7-20) Creatinine 0.7 mg/dL (0.6-1.0) 0.7 mg/dL (0.6-1.0) Estimated GFR (Cockcroft-Gault) 80.1 80.1 BUN/Creatinine Ratio 27 (6-20) Glucose Level 100 mg/dL (70-99) 93 mg/dL (70-99) Calcium Level 9.4 mg/dL (8.5-10.1) 9.3 mg/dL (8.5-10.1) Total Bilirubin 0.9 mg/dL (0.2-1.0) Aspartate Amino Transf (AST/SGOT) 19 U/L (15-37) Alanine Aminotransferase (ALT/SGPT) 20 U/L (14-59) Alkaline Phosphatase 73 U/L (46-116) Creatine Kinase 48 U/L (26-192) Creatine Kinase MB (Mass) 0.8 ng/mL (0.0-3.6) Creatine Kinase MB Relative Index % (0-4) Troponin I Quantitative < 0.017 ng/mL (0.000-0.055) Total Protein 6.5 g/dL (6.4-8.2) Albumin 3.3 g/dL (3.4-5.0) Albumin/Globulin Ratio 1.0 (1.0-1.7) Lipase 133 U/L (73-393) Urine Collection Type Unknown Urine Color Yellow Urine Clarity Clear Urine pH 8.0 Urine Specific [place] 1.010 Urine Protein Negative mg/dL (NEG-TRACE) Urine Glucose (UA) Negative mg/dL (NEG) Urine Ketones (Stick) Negative mg/dL (NEG) Urine Blood Negative (NEG) Urine Nitrite Negative (NEG) Urine Bilirubin Negative (NEG) Urine Urobilinogen Dipstick 1.0 mg/dL (0.2 mg/dL) Urine Leukocyte Esterase Small (NEG) Urine RBC 0 /HPF (0-2) Urine WBC 5-10 /HPF (0-4) Urine Squamous Epithelial Cells Few /LPF Urine Bacteria 0 /HPF (0-FEW) Laboratory Tests Test 12/24/16 06:45 White Blood Count 13.3 x10^3/uL (4.0-11.0) Red Blood Count 4.03 x10^6/uL (3.50-5.40) Hemoglobin 11.9 g/dL (12.0-15.5) Hematocrit 35.7 % (36.0-47.0) Mean Corpuscular Volume 89 fL (79-100) Mean Corpuscular Hemoglobin 30 pg (25-35) Mean Corpuscular Hemoglobin Concent 34 g/dL (31-37) Red Cell Distribution Width 14.2 % (11.5-14.5) Platelet Count 185 x10^3/uL (140-400) Neutrophils (%) (Auto) 80 % (31-73) Lymphocytes (%) (Auto) 12 % (24-48) Monocytes (%) (Auto) 7 % (0-9) Eosinophils (%) (Auto) 0 % (0-3) Basophils (%) (Auto) 1 % (0-3) Neutrophils # (Auto) 10.6 x10^3uL (1.8-7.7) Lymphocytes # (Auto) 1.6 x10^3/uL (1.0-4.8) Monocytes # (Auto) 1.0 x10^3/uL (0.0-1.1) Eosinophils # (Auto) 0.1 x10^3/uL (0.0-0.7) Basophils # (Auto) 0.1 x10^3/uL (0.0-0.2) Sodium Level 140 mmol/L (136-145) Potassium Level 4.2 mmol/L (3.5-5.1) Chloride Level 106 mmol/L (98-107) Carbon Dioxide Level 26 mmol/L (21-32) Anion Gap 8 (6-14) Blood Urea Nitrogen 14 mg/dL (7-20) Creatinine 0.7 mg/dL (0.6-1.0) Estimated GFR (Cockcroft-Gault) 80.1 Glucose Level 93 mg/dL (70-99) Calcium Level 9.3 mg/dL (8.5-10.1) Microbiology 12/23/16 Urine Culture - Preliminary, Resulted 12/23/16 Urine Culture Result 1 (ALESSANDRA) - Preliminary, Resulted Medications Current Medications Morphine Sulfate 2 mg PRN Q15MIN PRN IV/SQ PAIN GREATER THAN 3/10; Start 12/23 at 10:30; Stop 12/23/16 at 14:16; Status DC Sodium Chloride 1,000 ml @ 1,000 mls/hr Q1H IV Last administered on t 10:41; Start 12/23/16 at 10:30; Stop 12/23/16 at 11:29; Status DC Sodium Chloride (Normal Saline Flush) 10 ml QSHIFT PRN IV AFTER MEDS AND BLOOD DRAWS Last administered on 12/23/16 10:41; Start 12/23/16 at 10:30 Ciprofloxacin/ Dextrose 200 ml @ 200 mls/hr Q12HR IV Last administered on 08:04; Start 12/23/16 at 13:00 Metronidazole 100 ml @ 100 mls/hr Q8HRS IV Last administered on 12/24/16 14: 10; Start 12/23/16 at 14:00 Ondansetron HCl (Zofran) 4 mg PRN Q8HRS PRN IV NAUSEA/VOMITING; Start at 13:00; Stop 12/23/16 at 14:45; Status DC Fentanyl Citrate (Fentanyl 2ml Vial) 50 mcg PRN Q1HR PRN IV PAIN; Start at 13:00; Stop 12/23/16 at 14:16; Status DC Sodium Chloride 1,000 ml @ 75 mls/hr [id number] IV Last administered on 20:33; Start 12/23/16 at 13:00; Stop 12/24/16 at 12:59; Status DC Fentanyl Citrate (Fentanyl 2ml Vial) 50 mcg PRN Q2HR PRN IV PAIN; Start at 14:15; Stop 12/24/16 at 14:14; Status DC Ondansetron HCl (Zofran) 4 mg PRN Q6HRS PRN IV NAUSEA/VOMITING; Start at 14:15 Ondansetron HCl (Zofran Odt) 4 mg PRN Q6HRS PRN PO NAUSEA/VOMITING; Start at 14:15 Acetaminophen/ Hydrocodone Bitart (Lortab 5/325) 1 tab PRN Q4HRS PRN PO PAIN; Start 12/23/16 at 14:15; Stop 12/23/16 at 19:43; Status DC Lisinopril (Prinivil) 10 mg DAILY PO Last administered on 12/24/16 08:04; Start 12/24/16 at 09:00 Albuterol Sulfate (Ventolin Neb Soln) 2.5 mg RTQID NEB Last administered on 11:09; Start 12/23/16 at 16:00 Fluticasone Propionate (Flonase) 2 spray DAILY NS ; Start 12/24/16 at 09:00 Budesonide (Pulmicort) 0.5 mg RTBID NEB Last administered on 12/24/16 07:48; Start 12/23/16 at 20:00 Pantoprazole Sodium (Protonix) 40 mg DAILYAC PO Last administered on 08:03; Start 12/24/16 at 07:30 Clonidine HCl (Catapres) 0.1 mg PRN Q1HR PRN PO HYPERTENSION, SEE COMMENTS; Start 12/23/16 at 14:45 Acetaminophen/ Hydrocodone Bitart (Lortab 5/325) 1 tab PRN Q4HRS PRN PO PAIN Last administered on 12/24/16 14:09; Start 12/23/16 at 19:45 Active Scripts Active Hydrocodone-Apap 5-325 (Hydrocodone Bit/Acetaminophen) 1 Each Tablet 0.5-1 Tab PO Q4HRS PRN Reported Lumigan (Bimatoprost) 2.5 Ml Drops 2.5 Ml OP Ventolin Hfa Inhaler (Albuterol Sulfate) 18 Gm Hfa.aer.ad 2 Puff INH QID Advair 250-50 Diskus (Fluticasone/Salmeterol) 1 Each Disk.w.dev 1 Inh IH BID Flonase Allergy Relief (Fluticasone Propionate) 9.9 Ml [place].susp 2 Sprays NS DAILY Prilosec Otc (Omeprazole Magnesium) 20 Mg Tablet. 20 Mg PO DAILY Aspir 81 (Aspirin) 81 Mg Tablet. 81 Mg PO Lisinopril 10 Mg Tablet 10 Mg PO DAILY Vitals/I & O Vital Sign - Last 24 Hours 12/23/16 12/23/16 12/23/16 12/23/16 17:23 17:23 19:15 19:54 Temp 98.2 98.2 98.5 98.2 98.2 98.5 Pulse 97 97 86 Resp 18 18 20 B/P (MAP) 131/57 (81) 131/57 (81) 141/60 (87) Pulse Ox 95 95 96 O2 Delivery Room Air Room Air Room Air Room Air 12/23/16 12/23/16 12/24/16 12/24/16 20:00 23:10 03:10 07:00 Temp 98.1 98.3 98.8 98.1 98.3 98.8 Pulse 85 83 84 Resp 18 17 16 B/P (MAP) 119/62 (81) 112/49 (70) 175/52 (93) Pulse Ox 95 94 98 O2 Delivery Room Air Room Air Room Air Room Air 12/24/16 12/24/16 12/24/16 12/24/16 07:51 07:55 08:00 08:04 Pulse 84 B/P (MAP) 175/52 Pulse Ox 97 97 O2 Delivery Room Air Room Air Room Air 12/24/16 12/24/16 12/24/16 11:00 11:10 14:09 Temp 98.5 98.5 Pulse 109 Resp 16 B/P (MAP) 110/59 (76) Pulse Ox 99 99 O2 Delivery Room Air Room Air Room Air Intake and Output 12/24/16 12/24/16 12/25/16 15:00 23:00 07:00 Intake Total 200 ml Balance 200 ml DEVANTE GOLDEN MD Dec 24, 2016 14:35
[2016-12-24 14:56] VITALS: BP 86/49
[2016-12-24 19:00] VITALS: BP 109/46
[2016-12-24 23:00] VITALS: BP 116/50
[2016-12-25 03:00] VITALS: BP 106/58
[2016-12-25 07:00] VITALS: BP 119/61
[2016-12-25] MEDS: LISINOPRIL 10 MG TABLET PO SCH (08:08)
[2016-12-25] MEDS: PANTOPRAZOLE 40 MG TABLET.DR. PO SCH (08:08)
[2016-12-25] MEDS: HYDROcodone/APAP 5/325MG 1 TAB TABLET PO PRN (08:09)
[2016-12-25] MEDS: BUDESONIDE 0.5 MG/2 ML NEBU. NEB SCH (08:46)
[2016-12-25] MEDS: ALBUTEROL SULFATE 2.5 MG/3 ML NEBU. NEB SCH (08:46)
[2016-12-25] MEDS: FLUTICASONE 50MCG/NASAL SPRAY 16GM BOTTLE. NS SCH (09:00)
[2016-12-25] MEDS ORDERED: CIPR250T30 PO (09:04)
[2016-12-25] MEDS ORDERED: METR500T PO (09:04)
[2016-12-25] MEDS ORDERED: LACT1CAP12 PO (09:04)
[2016-12-25] MEDS ORDERED: CIPROFLOXACIN HCL 250 MG TABLET. PO SCH (10:00)
[2016-12-25 11:00] VITALS: BP 129/66
[2016-12-25] MEDS ORDERED: predniSONE 10 MG TABLET PO SCH (11:00)
--- NOTE | 2016-12-25 11:54 | PDOC ---
Subjective: Subjective: Feeling better, wants to advance diet, says going home today. Denies pain. Objective: Vital Signs: Vital Signs Date Time Temp Pulse Resp B/P (MAP) Pulse Ox O2 Delivery O2 Flow Rate FiO2 12/25/16 11:00 97.6 79 18 129/66 (87) 98 Room Air 97.6 Labs: Laboratory Tests Test 12/25/16 10:50 Uric Acid 4.9 mg/dL PE: GEN: NAD, sitting on edge of bed LUNGS: CTAB HEART: RRR, ABD: non-tender NEURO/PSYCH: A & O 3 A/P: Diverticulitis -abd pain resolved -last colonoscopy ~12 years ago -- Improved. Okay to advance diet, DC on atbx if tolerates. PAUL CAIN Dec 25, 2016 11:54
[2016-12-25] MEDS ORDERED: metroNIDAZOLE 500 MG TABLET PO SCH (14:00)
--- NOTE | 2016-12-25 15:14 | PDOC3 ---
Discharge Summary Visit Information Date of Admission: Dec 23, 2016 Date of Discharge: Dec 25, 2016 Admitting Diagnosis: diverticulitis Final Diagnosis sepsis POA 1. acute abdominal pain, and RT sided diverticulitis 2. Sub cm incidental pulmo nodule 3. SEPSIS, POA, no organ dysfcn 4 HTN, asthma etc stable History of Present Illness History of Present Illness cont IV abx Liquid diet IVF GI consult, following, unable to DC PT./OT Problems Medical Problems: (1) Diverticula of colon Status: Acute (2) Diverticula of intestine Status: Acute (3) Diverticulitis large intestine Status: Acute (4) Ileus Status: Acute Brief Hospital Course Allergies Allergies Coded Allergies Type Severity Reaction Last Updated Verified iodine Adverse Reaction Mild Nausea and Vomiting 03/28/16 Yes shellfish derived Adverse Reaction Mild Nausea and Vomiting 03/28/16 Yes shrimp Adverse Reaction Mild Nausea and Vomiting 03/28/16 Yes Vital Signs Vital Signs Date Time Temp Pulse Resp B/P (MAP) Pulse Ox O2 Delivery O2 Flow Rate FiO2 12/25/16 11:00 97.6 79 18 129/66 (87) 98 Room Air 97.6 Lab Results Laboratory Tests Test 12/24/16 06:45 12/25/16 10:50 White Blood Count 13.3 x10^3/uL (4.0-11.0) Red Blood Count 4.03 x10^6/uL (3.50-5.40) Hemoglobin 11.9 g/dL (12.0-15.5) Hematocrit 35.7 % (36.0-47.0) Mean Corpuscular Volume 89 fL (79-100) Mean Corpuscular Hemoglobin 30 pg (25-35) Mean Corpuscular Hemoglobin Concent 34 g/dL (31-37) Red Cell Distribution Width 14.2 % (11.5-14.5) Platelet Count 185 x10^3/uL (140-400) Neutrophils (%) (Auto) 80 % (31-73) Lymphocytes (%) (Auto) 12 % (24-48) Monocytes (%) (Auto) 7 % (0-9) Eosinophils (%) (Auto) 0 % (0-3) Basophils (%) (Auto) 1 % (0-3) Neutrophils # (Auto) 10.6 x10^3uL (1.8-7.7) Lymphocytes # (Auto) 1.6 x10^3/uL (1.0-4.8) Monocytes # (Auto) 1.0 x10^3/uL (0.0-1.1) Eosinophils # (Auto) 0.1 x10^3/uL (0.0-0.7) Basophils # (Auto) 0.1 x10^3/uL (0.0-0.2) Sodium Level 140 mmol/L (136-145) Potassium Level 4.2 mmol/L (3.5-5.1) Chloride Level 106 mmol/L (98-107) Carbon Dioxide Level 26 mmol/L (21-32) Anion Gap 8 (6-14) Blood Urea Nitrogen 14 mg/dL (7-20) Creatinine 0.7 mg/dL (0.6-1.0) Estimated GFR (Cockcroft-Gault) 80.1 Glucose Level 93 mg/dL (70-99) Calcium Level 9.3 mg/dL (8.5-10.1) Uric Acid 4.9 mg/dL (2.6-6.0) Laboratory Tests Test 12/25/16 10:50 Uric Acid 4.9 mg/dL (2.6-6.0) Brief Hospital Course Ms. Zarate is a 81 old admit for < 48 hours of right lower abdominal pain, worsening, / leukocytosis and CT showed right-sided diverticulitis. Has a h/o diverticulitis ~12 years ago; H/o GERD controlled w/ Prilosec QD, Started on IV Flagyl and Cipro, rigo PO intake, pain better, vitals excellent, DC home on PO . Discharge Information Condition at Discharge: Improved Follow Up: Weeks Disposition/Orders: D/C to Home Scheduled Albuterol Sulfate (Ventolin Hfa Inhaler), 2 PUFF INH QID, (Reported) Ciprofloxacin Hcl (Cipro), 1 TAB PO BID Fluticasone Propionate (Flonase Allergy Relief), 2 SPRAYS NS DAILY, (Reported) Fluticasone/Salmeterol (Advair 250-50 Diskus), 1 INH IH BID, (Reported) Lactobac Cmb #3/Fos/Pantethine (Probiotic & Acidophilus Cap), 1 EACH PO BID Lisinopril (Lisinopril), 10 MG PO DAILY, (Reported) Metronidazole (Flagyl), 500 MG PO TID Omeprazole Magnesium (Prilosec Otc), 20 MG PO DAILY, (Reported) Scheduled PRN Hydrocodone Bit/Acetaminophen (Hydrocodone-Apap 5-325 ), 0.5-1 TAB PO Q4HRS PRN for PAIN Miscellaneous Medications Aspirin (Aspir 81), 81 MG PO, (Reported) Bimatoprost (Lumigan), 2.5 ML OP, (Reported) Patient Instructions Patient Instructions cipro 7 days Flagyl 10 days > 30 in DEVANTE GOLDEN MD Dec 25, 2016 15:14
--- NOTE | 2016-12-25 15:15 | CONS ---
DATE OF CONSULTATION: 12/25/2016 ATTENDING PHYSICIAN: Dr. Reno. The patient was seen at the request of Dr. Wilcox for rehab evaluation about her right wrist pain and swelling. HISTORY OF PRESENT ILLNESS: This is an 81-year-old right-handed female patient admitted on 12/23/2016 with right-sided abdominal pain without any change with her bowel movements. No fever; no nausea, emesis. The patient was seen in the Emergency Room. Radiological studies revealed diverticulitis. She had diverticulitis about 12 years ago, this is second episode. The patient was also noted with leukocytosis. The patient complains of pain and swelling of right wrist without any injury for the last 3 days. She apparently had the same problem before and she already had a wrist cock-up splint at home. The patient with known hypertension, hyperlipidemia, asthmatic bronchitis, diverticulosis, gastroesophageal reflux disease, osteoarthritis, status post hernia repair, total hip arthroplasty, hysterectomy, family history of coronary artery disease. The patient lost her about a month ago. She lives in a [place], [place] home, had 2 daughters who lives in this area to help her. The patient is independent with her mobility and self-care skills prior to the present hospitalization. PHYSICAL EXAMINATION: Today revealed an elderly female. She is alert, oriented to time, place, person and circumstance and follows commands appropriately. The patient had swelling of her right wrist with tenderness to palpation and crepitus on range of motion of right wrist. The patient had 5/5 grade muscle strength in her extremities. Deep tendon reflexes are decreased overall. She had equal perception of touch and pinprick sensation bilaterally. Negative Tinel's sign over right median nerve at the wrist and over ulnar nerve at the wrist and elbow. The patient admits some back pain. She had some pain on range of motion of her lumbar spine. No tenderness to palpation over lumbar spine or adjoining paraspinal muscles or sacroiliac joint area and straight leg raising test is negative bilaterally. She is independent with her mobility in most of the aspects of her self-care. Her skin is intact at this time. ASSESSMENT: An elderly female with a right wrist swelling and pain on range of motion, probably degenerative joint disease with recent irritation are to rule out gouty arthritis. The patient with known diverticulitis, diverticulosis, hypertension, hyperlipidemia, asthmatic bronchitis, gastroesophageal reflux disease, osteoarthritis, status post total hip arthroplasty and chronic lower back pain, most probably from degenerative joint disease. No clinical evidence of ongoing lumbar radiculopathy. RECOMMENDATION: To obtain x-ray of her right wrist and also serum uric acid to make sure she does not have any gouty arthritis, to start her on prednisone and I have advised her to use physical modalities and stretching exercises and use a wrist cock-up splint when she is using her hand actively until the pain eases up. I would like to see her for followup on an as needed basis. Agree with the plans for home when medically stable. Dr. Wilcox, I appreciate asking me to participate in the care of this interesting patient. I will be glad to follow her with you as needed for her rehabilitation. BRENTON ASTORGA MD DR: JO ANN/robert JOB#: [id number] / [id number]
== END 2016-12-25 12:00 | disposition home or self-care (01) | DRG 872 ==
LOC: ER 09:44 → 6 SOUTH 10:30
PROVIDERS: ADMIT Internal Medicine; ATTEND Internal Medicine
DX: A41.9 Sepsis, unspecified organism (principal); K56.7 Ileus, unspecified; I73.9 Peripheral vascular disease, unspecified; K57.32 Diverticulitis of large intestine without perforation or abscess without bleeding; J98.11 Atelectasis; E78.5 Hyperlipidemia, unspecified; H40.9 Unspecified glaucoma; I10 Essential (primary) hypertension; I70.0 Atherosclerosis of aorta; J45.909 Unspecified asthma, uncomplicated; K21.9 Gastro-esophageal reflux disease without esophagitis; Z96.641 Presence of right artificial hip joint; G89.29 Other chronic pain; R07.89 Other chest pain; M19.90 Unspecified osteoarthritis, unspecified site; M41.9 Scoliosis, unspecified; Z82.49 Family history of ischemic heart disease and other diseases of the circulatory system; Z87.891 Personal history of nicotine dependence; Z90.49 Acquired absence of other specified parts of digestive tract; Z90.710 Acquired absence of both cervix and uterus; Z88.8 Allergy status to other drugs, medicaments and biological substances; Z88.6 Allergy status to analgesic agent; Z91.013 Allergy to seafood
CPT/HCPCS: 36415; 74176; 80048; 80053; 81001; 82553; 83690; 84484; 84550; 85025; 85651; 87086; 94250; 94640; 96360; J0744; J3490; J7030; J7512; J7613; J7626; 97110; 99285-25

== ENCOUNTER 2020-11-07 13:56 | Inpatient (IN) | payer MEDICARE, OTHER ==
[~2020-11-07] VITALS: Ht 154.9 cm; Wt 51.8 kg
[~2020-11-07 13:56] MED LIST changes: +CIPR250T30 PO; -HYDR-2758 PO; +HYDR-2761 PO; +LACT1CAP12 PO; +LISI10TA16 PO; -LISI10TA2 PO; +METR500T PO
--- NOTE | 2020-11-07 15:02 | PHYS DOC ---
Past Medical History Past Medical History: Asthma, High Cholesterol, Hypertension Past Surgical History: Angioplasty, Cholecystectomy, Hip Replacement, Hysterectomy, Tonsillectomy, Other Additional Past Surgical Histo: hernia x 2, bladder tie, suspension of vagina Smoking Status: Never Smoker Alcohol Use: None Drug Use: None General Adult EDM: Chief Complaint: ABDOMINAL PAIN HPI: HPI: 85-year-old female with a history of cholecystectomy, myelofibrosis presents to the emergency department complaining of right lower quadrant abdominal pain. She reports that her pain started yesterday and was originally located in her mid central abdomen and then radiated down to the right lower quadrant where it now sets. She was evaluated at urgent care prior to coming to the emergency department and was sent to the ER due to concerns for appendicitis clinically. She reports minimal pain at this time and reports the pain is more like a soreness than a pain. She does admit to fever and chills along with lack of appetite. She denies any nausea, vomiting, stool changes, diarrhea, chest pain, shortness of breath. She does not want pain or nausea medicine at this time Review of Systems: Review of Systems: Constitutional: Admits to fever and chills. Eyes: Denies change in vision, pain. HENT: Denies congestion or sore throat. Respiratory: Denies cough or shortness of breath. Cardiovascular: Denies chest pain or edema. GI: Admits to abdominal pain, denies nausea vomiting or diarrhea. : Denies change in urination, dysuria. Musculoskeletal: Denies extremity pain, or trauma. Skin: Denies rash, skin change. Neurologic: Denies headache, focal weakness. Psychiatric: Denies depression or anxiety. All other systems reviewed as negative except for what was mentioned in the HPI. Heart Score: C/O Chest Pain: No Allergies: Allergies: Allergies Coded Allergies Type Severity Reaction Last Updated Verified iodine Adverse Reaction Mild Nausea and Vomiting 03/28/16 Yes shellfish derived Adverse Reaction Mild Nausea and Vomiting 03/28/16 Yes shrimp Adverse Reaction Mild Nausea and Vomiting 03/28/16 Yes Physical Exam: PE: Constitutional: No acute distress, non-toxic appearance. HENT: Atraumatic, bilateral external ears normal, nose normal. Eyes: PERRLA, EOMI, conjunctiva normal, no discharge. Neck: Normal range of motion, supple, no stridor. Cardiovascular: Heart rate regular rhythm. 2+ radial pulses Lungs & Thorax: No respiratory distress, symmetrical expansion. Abdomen: Soft, nondistended, right lower quadrant tenderness to palpation around McBurney's point Skin: Warm, dry. Extremities: No tenderness, no cyanosis, ROM intact, no edema. Neurologic: Alert and oriented X 3, normal motor function, normal sensory function, no focal deficits noted. Non ataxic gait. GCS 15. Psychologic: Affect normal, judgment normal, mood normal. Current Patient Data: Labs: Laboratory Tests Test 11/07/20 15:08 White Blood Count 27.7 x10^3/uL (4.0-11.0) Red Blood Count 3.73 x10^6/uL (3.50-5.40) Hemoglobin 10.0 g/dL (12.0-15.5) Hematocrit 30.2 % (36.0-47.0) Mean Corpuscular Volume 81 fL (79-100) Mean Corpuscular Hemoglobin 27 pg (25-35) Mean Corpuscular Hemoglobin Concent 33 g/dL (31-37) Red Cell Distribution Width 19.0 % (11.5-14.5) Platelet Count 360 x10^3/uL (140-400) Neutrophils (%) (Auto) 84 % (31-73) Lymphocytes (%) (Auto) 10 % (24-48) Monocytes (%) (Auto) 5 % (0-9) Eosinophils (%) (Auto) 1 % (0-3) Basophils (%) (Auto) 1 % (0-3) Neutrophils # (Auto) 23.2 x10^3/uL (1.8-7.7) Lymphocytes # (Auto) 2.8 x10^3/uL (1.0-4.8) Monocytes # (Auto) 1.2 x10^3/uL (0.0-1.1) Eosinophils # (Auto) 0.3 x10^3/uL (0.0-0.7) Basophils # (Auto) 0.1 x10^3/uL (0.0-0.2) Segmented Neutrophils % 40 % (35-66) Band Neutrophils % 29 % (0-9) Lymphocytes % 12 % (24-48) Monocytes % 2 % (0-10) Basophils % 5 % (0-3) Metamyelocytes % 4 % (0-0) Myelocytes % 8 % (0-0) Nucleated Red Blood Cells 8 Toxic Granulation Present Dohle Bodies Present Platelet Estimate Adequate (ADEQUATE) Large Platelets Occ Giant Platelets Occ Polychromasia Slight Basophilic Stippling Present Anisocytosis Slight Sodium Level 132 mmol/L (136-145) Potassium Level 4.5 mmol/L (3.5-5.1) Chloride Level 97 mmol/L (98-107) Carbon Dioxide Level 24 mmol/L (21-32) Anion Gap 11 (6-14) Blood Urea Nitrogen 27 mg/dL (7-20) Creatinine 1.0 mg/dL (0.6-1.0) Estimated GFR (Cockcroft-Gault) 52.6 BUN/Creatinine Ratio 27 (6-20) Glucose Level 104 mg/dL (70-99) Calcium Level 9.7 mg/dL (8.5-10.1) Total Bilirubin 0.8 mg/dL (0.2-1.0) Aspartate Amino Transf (AST/SGOT) 35 U/L (15-37) Alanine Aminotransferase (ALT/SGPT) 17 U/L (14-59) Alkaline Phosphatase 95 U/L (46-116) Total Protein 8.2 g/dL (6.4-8.2) Albumin 3.7 g/dL (3.4-5.0) Albumin/Globulin Ratio 0.8 (1.0-1.7) Lipase 98 U/L (73-393) Vital Signs: Vital Signs Date Time Temp Pulse Resp B/P (MAP) Pulse Ox O2 Delivery O2 Flow Rate FiO2 11/07/20 14:55 98.0 106 15 211/101 96 98.0 Radiology/Procedures: Radiology/Procedures: PROCEDURE: CT ABD PELV W/ IV CONTRST ONLY INDICATION: Reason: rlq abdominal pain / Spl. Instructions: [id number] 60ML , PREMEDICATED FOR MILD ALLERGY / History: . COMPARISON: December 2016 TECHNIQUE: Axial CT images obtained through the abdomen and pelvis with contrast. One or more of the following individualized dose reduction techniques were utilized for this examination: 1. Automated exposure control; 2. Adjustment of the mA and/or kV according to patient size; 3. Use of iterative reconstruction technique. FINDINGS: 2 mm nodule at the left lung base. Dependent atelectasis at right lung base. Coronary artery calcific atherosclerosis. Severe atherosclerotic disease throughout. Suspected inguinal hernias. Loops of bowel are seen at the orifice on the right with fat seen within the suspected hernia sacs bilaterally. Postcholecystectomy with some mild prominence of intrahepatic bile ducts which is commonly seen postoperatively. Trace right-sided pleural effusion. Low-density lesion is suspected within the pancreas measuring approximately 8 x 5 mm. Spleen is enlarged. Left kidney is displaced medially secondary to enlarged spleen. Thickening of the left adrenal gland. No hydronephrosis. Urinary bladder partially distended. Colonic diverticulosis. The possible appendix is partially seen and not grossly inflamed. There is a couple of mildly prominent loops of small bowel but no high-grade transition point to suggest obstruction. There is some postoperative changes to the anterior abdominal wall with surgical clips and overlying soft tissue defect. There is some apparent wall thickening of the cecum and portion of ascending colon. Degenerative changes the spine with scoliotic curvature and multilevel central canal and neural foraminal stenosis. Osseous demineralization. Right hip arthroplasty. There are some additional metallic density structure seen in the right upper leg and right gluteal region. There is some sclerosis at the pubic symphysis bilaterally. Mild compression deformities of T11 and T10. IMPRESSION: * There is some apparent wall thickening of the proximal colon. Would correlate with symptoms in the region since this can be seen with causes such as colitis with a colonic lesion in the area not excluded and may be helpful to either obtaining colonoscopy or follow-up CT to ensure that this resolves to exclude colonic neoplasm. * Severe calcific atherosclerosis. * Severe osseous demineralization throughout the spine as well as scoliotic curvature and multilevel central canal and neural foraminal stenosis. There is also compression deformities identified at the lower thoracic spine. Very limited examination for nondisplaced fracture given the severe osseous deminer alization. There is also some sclerosis at the pubic symphysis which could be related to chronic degeneration but stress fracture could have this appearance and would correlate with symptoms in the region. * Low-density lesion at the pancreas. Differential considerations would include a cystic structure such as a small pseudocyst or intraductal papillary mucinous neoplasm but would consider obtaining pancreatic protocol MRI to further assess and ensure that this is not solid in nature from a higher grade pancreatic lesion. Its also possible that this is secondary to a dilated portion of the duct within the area. Electronically signed by: Anand Carreon MD (11/07/2020 4:55 PM) Course & Med Decision Making: Course & Med Decision Making Patient will be admitted to the hospital for leukocytosis with findings of colitis, Zosyn was ordered, patient was made n.p.o., plan for antibiotics and bowel rest. GI consult was placed on emergently. There is no sign of appendicitis on imaging. I discussed case with Dr. Boyd who accepted the patient for admission. Blood cultures are pending. My Orders - JIMBO SIMS DO Procedure Category Date Status Time Cbc W Autodiff LAB 11/07/20 Complete 14:59 Ua, Cult If Indicated LAB 11/07/20 Logged 14:59 Lipase LAB 11/07/20 Complete 14:59 Comprehensive LAB 11/07/20 Complete Metabolic Panel 14:59 Ct Abd Pelv W/ Iv CT 11/07/20 Resulted Contrst Only 14:59 Pulse Oximetry: EDI 11/07/20 In Process Standing Order 14:59 Manual Differential LAB 11/07/20 Complete 15:08 Diphenhydramine PHA 11/07/20 Complete (Benadryl) 16:15 Methylprednisolone PHA 11/07/20 Complete 125mg Vial (Solu-Medr 16:15 Iohexol 300 Mg/Ml PHA 11/07/20 Complete (Omnipaque 300 Mg/Ml) 16:15 Contrast Given -- PHA 11/07/20 In Process Info Only (Contrast Gi 16:15 Iohexol 300 Mg/Ml PHA 11/07/20 Complete (Omnipaque 300 Mg/Ml) 16:30 Blood Culture ALESSANDRA 11/07/20 Logged 18:02 [place] Order ADT 11/07/20 Transmitted 18:26 Code Status CODE 11/07/20 Transmitted 18:26 Vital Signs, Per Unit EDI 11/07/20 In Process Protocol 18:26 Nothing By Mouth DIET 11/08/20 Transmitted Breakfast Ambulate Ad Shobha EDI 11/07/20 In Process 18:26 Cbc W Autodiff LAB 11/08/20 Verified 06:00 Basic Metabolic Panel LAB 11/08/20 Verified 06:00 Ondansetron Pf PHA 11/07/20 Logged (Zofran) 18:30 Morphine Sulfate PHA 11/07/20 Logged (Morphine Sulfate) 18:30 Acetaminophen PHA 11/07/20 Logged (Tylenol) 18:30 Consult Physician By CONS 11/07/20 Transmitted Name 18:26 Pip/Tazo Per Pharmacy PHA 11/07/20 Logged (Zosyn Per Pharmac 18:30 Departure Departure Impression: Primary Impression: Colitis Disposition: ADMITTED INPATIENT Admitting Physician: JUAN Allison) Condition: STABLE Referrals: WILBUR KENDRICK MD (PCP) JIMBO SIMS DO Nov 07, 2020 15:02
[2020-11-07 15:32] LABS: BASO # 0.1 x10^3/uL (0.0-0.2); BASO % 1 % (0-3); EOS # 0.3 x10^3/uL (0.0-0.7); EOS % 1 % (0-3); HEMATOCRIT 30.2 % (36.0-47.0); LYMPH # 2.8 x10^3/uL (1.0-4.8); LYMPH % 10 % (24-48); MEAN CORPUSCULAR HEMOGLOBIN 27 pg (25-35); MEAN CORPUSCULAR HGB CONC 33 g/dL (31-37); MEAN CORPUSCULAR VOLUME 81 fL (79-100); MONO # 1.2 x10^3/uL (0.0-1.1); MONO % 5 % (0-9); NEUT # 23.2 x10^3/uL (1.8-7.7); NEUT % 84 % (31-73); PLATELET COUNT 360 x10^3/uL (140-400); RED BLOOD COUNT 3.73 x10^6/uL (3.50-5.40); WHITE BLOOD COUNT 27.7 x10^3/uL (4.0-11.0)
[2020-11-07 15:45] LABS: CALCIUM 9.7 mg/dL (8.5-10.1); GFR 52.6; POTASSIUM 4.5 mmol/L (3.5-5.1)
[2020-11-07 15:52] LABS: ALBUMIN 3.7 g/dL (3.4-5.0); ALBUMIN/GLOBULIN RATIO 0.8 (1.0-1.7); TOTAL BILIRUBIN 0.8 mg/dL (0.2-1.0); TOTAL PROTEIN 8.2 g/dL (6.4-8.2)
[2020-11-07] MEDS ORDERED: IOHEXOL 300 MG/ML 100ML VIAL. IV ONE ×2 (16:15→16:30)
[2020-11-07] MEDS ORDERED: diphenhydrAMINE 50 MG/ML VIAL IVP ONE (16:15)
[2020-11-07] MEDS ORDERED: CONTRAST GIVEN. MC PRN (16:15)
[2020-11-07] MEDS ORDERED: methylPREDNISolone SOD SUCC PF 125 MG/2 ML VIAL. IV ONE (16:15)
[2020-11-07 16:23] LABS: % BANDS 29 % (0-9); % BASOS 5 % (0-3); % LYMPHS 12 % (24-48); % METAS 4 % (0-0); % MONOS 2 % (0-10); % MYELOS 8 % (0-0); % SEGS 40 % (35-66); NUCLEATED RBC 8; PLT ESTIMATE ADEQUATE (ADEQUATE)
[2020-11-07 16:24] LABS: ANISOCYTOSIS SLIGHT; POLYCHROMASIA SLIGHT; TOXIC GRANULATION PRESENT
--- NOTE | 2020-11-07 16:58 | RAD ---
INDICATION: Reason: rlq abdominal pain / Spl. Instructions: [id number] 60ML , PREMEDICATED FOR MILD ESTELLE RGY / History: . COMPARISON: December 2016 TECHNIQUE: Axial CT images obtained through the abdomen and pelvis with contrast. One or more of the following individualized dose reduction techniques were utilized for this examinat ion: 1. Automated exposure control; 2. Adjustment of the mA and/or kV according to patient size; 3 . Use of iterative reconstruction technique. FINDINGS: 2 mm nodule at the left lung base. Dependent atelectasis at right lung base. Coronary artery calcific atherosclerosis. Severe atherosclerotic disease throughout. Suspected inguinal hernias. Loops of bowel are seen at the orifice on the right with fat seen within the suspected hernia sacs bilaterally. Postcholecystectomy with some mild prominence of intrahepatic bile ducts which is commonly seen posto peratively. Trace right-sided pleural effusion. Low-density lesion is suspected within the pancreas measuring approximately 8 x 5 mm. Spleen is enlarged. Left kidney is displaced medially secondary to enlarged spleen. Thickening of the left adrenal gland. No hydronephrosis. Urinary bladder partially distended. Colonic diverticulosis. The possible appendix is partially seen and not grossly inflamed. There is a couple of mildly prominent loops of small bowel but no high-grade transition point to sugg est obstruction. There is some postoperative changes to the anterior abdominal wall with surgical clips and overlying soft tissue defect. There is some apparent wall thickening of the cecum and portion of ascending colon. Degenerative changes the spine with scoliotic curvature and multilevel central canal and neural debbie inal stenosis. Osseous demineralization. Right hip arthroplasty. There are some additional metallic d ensity structure seen in the right upper leg and right gluteal region. There is some sclerosis at the pubic symphysis bilaterally. Mild compression deformities of T11 and T10. IMPRESSION: * There is some apparent wall thickening of the proximal colon. Would correlate with symptoms in the region since this can be seen with causes such as colitis with a colonic lesion in the area not excl uded and may be helpful to either obtaining colonoscopy or follow-up CT to ensure that this resolves to exclude colonic neoplasm. * Severe calcific atherosclerosis. * Severe osseous demineralization throughout the spine as well as scoliotic curvature and multilevel central canal and neural foraminal stenosis. There is also compression deformities identified at the lower thoracic spine. Very limited examination for nondisplaced fracture given the severe osseous de mineralization. There is also some sclerosis at the pubic symphysis which could be related to chronic degeneration but stress fracture could have this appearance and would correlate with symptoms in the region. * Low-density lesion at the pancreas. Differential considerations would include a cystic structure s uch as a small pseudocyst or intraductal papillary mucinous neoplasm but would consider obtaining dowd creatic protocol MRI to further assess and ensure that this is not solid in nature from a higher grad e pancreatic lesion. Its also possible that this is secondary to a dilated portion of the duct within the area. Electronically signed by: Anand Carreon MD (11/07/2020 4:55 PM) [id number]
[2020-11-07] MEDS: PIPERACILLIN/TAZOBACTAM 3.375 GM in IV NORMAL SALINE 50ML 50 ML IV SCH (18:00)
--- NOTE | 2020-11-07 18:03 | PDOC1 ---
History and Physical Date of Admission Date of Admission DATE: 11/07/20 TIME: 18:00 Source Source: Chart review, Patient History of Present Illness History of Present Illness Ms Drew is an 85yo female with PMHx Myelofibrosis, HTN, HLD, PVD w/ LE stents, asthma, GERD, diverticulosis/itis, OA, glaucoma, and prior ERCP w/ ES and balloon dilation who comes to ED from urgent care complaining of right lower quadrant abdominal pain. Pain was sudden onset on 11/05/20 overnight and she had an episode of nausea and vomiting on 11/06 and did not eat anything all day, the pain continued and so she came to urgent care with her daughter due to concerns for appendicitis clinically. She notes pain is still present and has associated loss of appetite and fever and chills. WBC 27.7, Hb 10, platelets 360, NA 132, K4.5, BUN 27, CR 1, glucose 104, LFTs within normal laboratory limits. CT abdomen pelvis with IV contrast wall thickening of proximal colon possibly concerning for colitis as well as low-density lesion pancreas. T10 and T11 mild compression deformities. Splenomegaly noted as well. Admitted for further treatment with IV zosyn, NPO. Past Medical History Cardiovascular: HTN, Hyperlipidemia, Other Pulmonary: Asthma GI: Diverticulosis, GERD Heme/Onc: Cancer (Myelofibrosis) Musculoskeletal: Osteoarthritis Past Surgical History Past Surgical History prior umbilical hernia repair, right total hip replacement/revision, hysterectomy, bladder and vaginal suspension, cholecystectomy, Past Surgical History: Hernia Repair, Total hip replacement, Hysterectomy, Other Family History Family History: Coronary Artery Disease Social History ALCOHOL: occassional Drugs: None Current Medications Current Medications Current Medications Diphenhydramine HCl (Benadryl) 50 mg 1X ONCE IVP Last administered on 11/07/20at 16:09; Start 11/07/20 at 16:15; Stop 11/07/20 at 16:16; Status DC Methylprednisolone Sodium Succinate (SOLU-Medrol 125MG VIAL) 125 mg 1X ONCE IV Last administered on 11/07/20at 16:09; Start 11/07/20 at 16:15; Stop 11/07/20 at 16:16; Status DC Iohexol (Omnipaque 300 Mg/ml) 60 ml 1X ONCE IV Last administered on 11/07/20at 16:32; Start 11/07/20 at 16:15; Stop 11/07/20 at 16:16; Status DC Info (CONTRAST GIVEN -- Rx MONITORING) 1 each PRN DAILY PRN MC SEE COMMENTS; Start 11/07/20 at 16:15; Stop 11/09/20 at 16:14 Iohexol (Omnipaque 300 Mg/ml) 60 ml 1X ONCE IV ; Start 11/07/20 at 16:30; Stop 11/07/20 at 16:31; Status DC Active Scripts Active Probiotic & Acidophilus Cap (Lactobac Cmb #3/Fos/Pantethine) 1 Each Capsule 1 Each PO BID Cipro (Ciprofloxacin Hcl) 250 Mg Tablet 1 Tab PO BID Flagyl (Metronidazole) 500 Mg Tablet 500 Mg PO TID Hydrocodone-Apap 5-325 (Hydrocodone Bit/Acetaminophen) 1 Each Tablet 0.5-1 Tab PO Q4HRS PRN Reported Lumigan (Bimatoprost) 2.5 Ml Drops 2.5 Ml OP Ventolin Hfa Inhaler (Albuterol Sulfate) 18 Gm Hfa.aer.ad 2 Puff INH QID Advair 250-50 Diskus (Fluticasone/Salmeterol) 1 Each Disk.w.dev 1 Inh IH BID Flonase Allergy Relief (Fluticasone Propionate) 9.9 Ml Bradley.susp 2 Sprays NS DAILY Prilosec Otc (Omeprazole Magnesium) 20 Mg Tablet.dr 20 Mg PO DAILY Aspir 81 (Aspirin) 81 Mg Tablet.dr 81 Mg PO Lisinopril 10 Mg Tablet 10 Mg PO DAILY Allergies Allergies: Coded Allergies: iodine (Verified Adverse Reaction, Mild, Nausea and Vomiting, 11/07/20) shellfish derived (Verified Adverse Reaction, Mild, Nausea and Vomiting, 11/07/20) shrimp (Verified Adverse Reaction, Mild, Nausea and Vomiting, 11/07/20) Physical Exam General: Alert, Oriented X3, Cooperative, moderate distress HEENT: Atraumatic, PERRLA, EOMI, Mucous membr. moist/pink Lungs: Clear to auscultation, Normal air movement Heart: S1S2, RRR, no thrills, no rubs, no gallops, no murmurs Abdomen: Normal bowel sounds, Soft, No hepatosplenomegaly, No masses, Other (RLQ tender) Rectal Exam: not examined Extremities: No clubbing, No cyanosis, No edema, Normal pulses, No tenderness/swelling Skin: No rashes, No breakdown, No significant lesion Neuro: Normal gait, Normal speech, Strength at 5/5 X4 ext, Normal tone, Sensation intact, Cranial nerves 3-12 NL, Reflexes 2+ Psych/Mental Status: Mental status NL, Mood NL Vitals Vitals Vital Signs Date Time Temp Pulse Resp B/P (MAP) Pulse Ox O2 Delivery O2 Flow Rate FiO2 11/07/20 14:55 98.0 106 15 211/101 96 98.0 Labs Labs Laboratory Tests Test 11/07/20 15:08 White Blood Count 27.7 x10^3/uL (4.0-11.0) Red Blood Count 3.73 x10^6/uL (3.50-5.40) Hemoglobin 10.0 g/dL (12.0-15.5) Hematocrit 30.2 % (36.0-47.0) Mean Corpuscular Volume 81 fL (79-100) Mean Corpuscular Hemoglobin 27 pg (25-35) Mean Corpuscular Hemoglobin Concent 33 g/dL (31-37) Red Cell Distribution Width 19.0 % (11.5-14.5) Platelet Count 360 x10^3/uL (140-400) Neutrophils (%) (Auto) 84 % (31-73) Lymphocytes (%) (Auto) 10 % (24-48) Monocytes (%) (Auto) 5 % (0-9) Eosinophils (%) (Auto) 1 % (0-3) Basophils (%) (Auto) 1 % (0-3) Neutrophils # (Auto) 23.2 x10^3/uL (1.8-7.7) Lymphocytes # (Auto) 2.8 x10^3/uL (1.0-4.8) Monocytes # (Auto) 1.2 x10^3/uL (0.0-1.1) Eosinophils # (Auto) 0.3 x10^3/uL (0.0-0.7) Basophils # (Auto) 0.1 x10^3/uL (0.0-0.2) Segmented Neutrophils % 40 % (35-66) Band Neutrophils % 29 % (0-9) Lymphocytes % 12 % (24-48) Monocytes % 2 % (0-10) Basophils % 5 % (0-3) Metamyelocytes % 4 % (0-0) Myelocytes % 8 % (0-0) Nucleated Red Blood Cells 8 Toxic Granulation Present Dohle Bodies Present Platelet Estimate Adequate (ADEQUATE) Large Platelets Occ Giant Platelets Occ Polychromasia Slight Basophilic Stippling Present Anisocytosis Slight Sodium Level 132 mmol/L (136-145) Potassium Level 4.5 mmol/L (3.5-5.1) Chloride Level 97 mmol/L (98-107) Carbon Dioxide Level 24 mmol/L (21-32) Anion Gap 11 (6-14) Blood Urea Nitrogen 27 mg/dL (7-20) Creatinine 1.0 mg/dL (0.6-1.0) Estimated GFR (Cockcroft-Gault) 52.6 BUN/Creatinine Ratio 27 (6-20) Glucose Level 104 mg/dL (70-99) Calcium Level 9.7 mg/dL (8.5-10.1) Total Bilirubin 0.8 mg/dL (0.2-1.0) Aspartate Amino Transf (AST/SGOT) 35 U/L (15-37) Alanine Aminotransferase (ALT/SGPT) 17 U/L (14-59) Alkaline Phosphatase 95 U/L (46-116) Total Protein 8.2 g/dL (6.4-8.2) Albumin 3.7 g/dL (3.4-5.0) Albumin/Globulin Ratio 0.8 (1.0-1.7) Lipase 98 U/L (73-393) Laboratory Tests Test 11/07/20 15:08 White Blood Count 27.7 x10^3/uL (4.0-11.0) Red Blood Count 3.73 x10^6/uL (3.50-5.40) Hemoglobin 10.0 g/dL (12.0-15.5) Hematocrit 30.2 % (36.0-47.0) Mean Corpuscular Volume 81 fL (79-100) Mean Corpuscular Hemoglobin 27 pg (25-35) Mean Corpuscular Hemoglobin Concent 33 g/dL (31-37) Red Cell Distribution Width 19.0 % (11.5-14.5) Platelet Count 360 x10^3/uL (140-400) Neutrophils (%) (Auto) 84 % (31-73) Lymphocytes (%) (Auto) 10 % (24-48) Monocytes (%) (Auto) 5 % (0-9) Eosinophils (%) (Auto) 1 % (0-3) Basophils (%) (Auto) 1 % (0-3) Neutrophils # (Auto) 23.2 x10^3/uL (1.8-7.7) Lymphocytes # (Auto) 2.8 x10^3/uL (1.0-4.8) Monocytes # (Auto) 1.2 x10^3/uL (0.0-1.1) Eosinophils # (Auto) 0.3 x10^3/uL (0.0-0.7) Basophils # (Auto) 0.1 x10^3/uL (0.0-0.2) Segmented Neutrophils % 40 % (35-66) Band Neutrophils % 29 % (0-9) Lymphocytes % 12 % (24-48) Monocytes % 2 % (0-10) Basophils % 5 % (0-3) Metamyelocytes % 4 % (0-0) Myelocytes % 8 % (0-0) Nucleated Red Blood Cells 8 Toxic Granulation Present Dohle Bodies Present Platelet Estimate Adequate (ADEQUATE) Large Platelets Occ Giant Platelets Occ Polychromasia Slight Basophilic Stippling Present Anisocytosis Slight Sodium Level 132 mmol/L (136-145) Potassium Level 4.5 mmol/L (3.5-5.1) Chloride Level 97 mmol/L (98-107) Carbon Dioxide Level 24 mmol/L (21-32) Anion Gap 11 (6-14) Blood Urea Nitrogen 27 mg/dL (7-20) Creatinine 1.0 mg/dL (0.6-1.0) Estimated GFR (Cockcroft-Gault) 52.6 BUN/Creatinine Ratio 27 (6-20) Glucose Level 104 mg/dL (70-99) Calcium Level 9.7 mg/dL (8.5-10.1) Total Bilirubin 0.8 mg/dL (0.2-1.0) Aspartate Amino Transf (AST/SGOT) 35 U/L (15-37) Alanine Aminotransferase (ALT/SGPT) 17 U/L (14-59) Alkaline Phosphatase 95 U/L (46-116) Total Protein 8.2 g/dL (6.4-8.2) Albumin 3.7 g/dL (3.4-5.0) Albumin/Globulin Ratio 0.8 (1.0-1.7) Lipase 98 U/L (73-393) Images Images CT ABD PELV W/ IV CONTRST ONLY INDICATION: Reason: rlq abdominal pain / Spl. Instructions: [id number] , PREMEDICATED FOR MILD ALLERGY / History: . COMPARISON: December 2016 TECHNIQUE: Axial CT images obtained through the abdomen and pelvis with contrast. One or more of the following individualized dose reduction techniques were utilized for this examination: 1. Automated exposure control; 2. Adjustment of the mA and/or kV according to patient size; 3. Use of iterative reconstruction technique. FINDINGS: 2 mm nodule at the left lung base. Dependent atelectasis at right lung base. Coronary artery calcific atherosclerosis. Severe atherosclerotic disease throughout. Suspected inguinal hernias. Loops of bowel are seen at the orifice on the right with fat seen within the suspected hernia sacs bilaterally. Postcholecystectomy with some mild prominence of intrahepatic bile ducts which is commonly seen postoperatively. Trace right-sided pleural effusion. Low-density lesion is suspected within the pancreas measuring approximately 8 x 5 mm. Spleen is enlarged. Left kidney is displaced medially secondary to enlarged spleen. Thickening of the left adrenal gland. No hydronephrosis. Urinary bladder partially distended. Colonic diverticulosis. The possible appendix is partially seen and not grossly inflamed. There is a couple of mildly prominent loops of small bowel but no high-grade transition point to suggest obstruction. There is some postoperative changes to the anterior abdominal wall with surgical clips and overlying soft tissue defect. There is some apparent wall thickening of the cecum and portion of ascending colon. Degenerative changes the spine with scoliotic curvature and multilevel central canal and neural foraminal stenosis. Osseous demineralization. Right hip arthroplasty. There are some additional metallic density structure seen in the right upper leg and right gluteal region. There is some sclerosis at the pubic symphysis bilaterally. Mild compression deformities of T11 and T10. IMPRESSION: * There is some apparent wall thickening of the proximal colon. Would correlate with symptoms in the region since this can be seen with causes such as colitis with a colonic lesion in the area not excluded and may be helpful to either obtaining colonoscopy or follow-up CT to ensure that this resolves to exclude colonic neoplasm. * Severe calcific atherosclerosis. * Severe osseous demineralization throughout the spine as well as scoliotic curvature and multilevel central canal and neural foraminal stenosis. There is also compression deformities identified at the lower thoracic spine. Very limited examination for nondisplaced fracture given the severe osseous demineralization. There is also some sclerosis at the pubic symphysis which could be related to chronic degeneration but stress fracture could have this appearance and would correlate with symptoms in the region. * Low-density lesion at the pancreas. Differential considerations would include a cystic structure such as a small pseudocyst or intraductal papillary mucinous neoplasm but would consider obtaining pancreatic protocol MRI to further assess and ensure that this is not solid in nature from a higher grade pancreatic lesion. Its also possible that this is secondary to a dilated portion of the duct within the area. VTE Prophylaxis Ordered VTE Prophylaxis Devices: Yes VTE Pharmacological Prophylaxi: Yes Assessment/Plan Assessment/Plan A/P: Intractable abdominal pain - treating as colitis, IV zosyn. IV zofran, IV fentanyl prn. Consult GI given history and frequency Hyponatremia - likely nutritional, has not eaten for 24 hours. Will hydrate SIRS - with tachycardia, leukocytosis, likely sepsis from colitis. given empiric IVF and antibiotics Splenomegaly - likely related to Myelofibrosis T10 and 11 compression deformities - no recent falls, no focal pain. Will monitor Pancreatic abnormality on CT - will d/w GI, previously required ERCP in the past Myelofibrosis - goes to [facility] outpatient for f/u HTN - cont home meds HLD - statin PVD w/ LE stents - stable Asthma - prn nebs GERD - ppi Glaucoma - gtt prn FEN - NPO, will ADAT at discretion of GI PPX - lovenox CODE - DNR/DNI Dispo - inpatient Justifications for Admission Other Justification MAGDI SCOTT MD Nov 07, 2020 18:03
[2020-11-07] MEDS ORDERED: ONDANSETRON PF 4 MG/2 ML VIAL. IVP PRN (18:30)
[2020-11-07] MEDS ORDERED: PIP/TAZO PER PHARMACY MC PRN (18:30)
[2020-11-07] MEDS ORDERED: ACETAMINOPHEN 325 MG TABLET. PO PRN (18:30)
[2020-11-07] MEDS ORDERED: MORPHINE SULFATE 2 MG/ML INJ. IVP PRN (18:30)
[2020-11-07 20:13] VITALS: BP 174/80
[2020-11-07] MEDS ORDERED: BACLOFEN 10 MG TABLET. PO PRN (22:00)
[2020-11-07] MEDS ORDERED: ALBUTEROL SULFATE 2.5 MG/3 ML NEBU. NEB PRN (22:00)
[2020-11-07 23:00] VITALS: BP 171/79
[2020-11-08] MEDS: IV RINGERS,LACTATED 1000ML 1,000 ML IV SCH ×3 (00:13→17:06)
[2020-11-08] MEDS: PIPERACILLIN/TAZOBACTAM 3.375 GM in IV NORMAL SALINE 50ML 50 ML IV SCH ×5 (00:18→23:52)
[2020-11-08 03:00] VITALS: BP 178/89
--- NOTE | 2020-11-08 07:19 | PDOC ---
[employer] PROGRESS NOTE Date of Service DOS: DATE: 11/08/20 TIME: 07:18 Chief Complaint Chief Complaint A/P: Intractable abdominal pain - treating as colitis, IV zosyn. IV zofran, IV fentanyl prn. Consult GI given history and frequency Hyponatremia - likely nutritional, has not eaten for 24 hours. Will hydrate SIRS - with tachycardia, leukocytosis, likely sepsis from colitis. 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 Will monitor Pancreatic abnormality on CT - will d/w GI, previously required ERCP in the past Myelofibrosis - goes to [facility] outpatient for f/u HTN - cont home meds HLD - statin PVD w/ LE stents - stable Asthma - prn nebs GERD - ppi Glaucoma - gtt prn FEN - ADAT at discretion of GI PPX - lovenox CODE - DNR/DNI Dispo - inpatient History of Present Illness History of Present Illness Ms Drew is an 85yo female with PMHx Myelofibrosis, HTN, HLD, PVD w/ LE stents, asthma, GERD, diverticulosis/itis, OA, glaucoma, and prior ERCP w/ ES and balloon dilation who comes to ED from urgent care complaining of right lower quadrant abdominal pain. Pain was sudden onset on 11/05/20 overnight and she had an episode of nausea and vomiting on 11/06 and did not eat anything all day, the pain continued and so she came to urgent care with her daughter due to concerns for appendicitis clinically. She notes pain is still present and has associated loss of appetite and fever and chills. WBC 27.7, Hb 10, platelets 360, NA 132, K4.5, BUN 27, CR 1, glucose 104, LFTs within normal laboratory limits. CT abdomen pelvis with IV contrast wall thickening of proximal colon possibly concerning for colitis as well as low-density lesion pancreas. T10 and T11 mild compression deformities. Splenomegaly noted as well. Admitted for further treatment with IV zosyn, NPO. Pain better controlled after 2nd dose of zosyn, asking for GI soft diet. Had some nausea this morning after multiple IV attempts. WBC 39.5 Vitals/I&O Vitals/I&O: Vital Signs Date Time Temp Pulse Resp B/P (MAP) Pulse Ox O2 Delivery O2 Flow Rate FiO2 11/08/20 03:00 97.3 112 20 178/89 (118) 95 Room Air 97.3 Physical Exam General: Alert, Oriented X3, Cooperative, moderate distress Lungs: Clear Abdomen: Normal bowel sounds, Soft, No hepatosplenomegaly, No masses, Other (RLQ tender) Extremities: No clubbing, No cyanosis, No edema, Normal pulses, No tenderness/swelling Skin: No rashes, No breakdown, No significant lesion Labs Labs: Laboratory Tests Test 11/07/20 15:08 White Blood Count 27.7 x10^3/uL (4.0-11.0) Red Blood Count 3.73 x10^6/uL (3.50-5.40) Hemoglobin 10.0 g/dL (12.0-15.5) Hematocrit 30.2 % (36.0-47.0) Mean Corpuscular Volume 81 fL (79-100) Mean Corpuscular Hemoglobin 27 pg (25-35) Mean Corpuscular Hemoglobin Concent 33 g/dL (31-37) Red Cell Distribution Width 19.0 % (11.5-14.5) Platelet Count 360 x10^3/uL (140-400) Neutrophils (%) (Auto) 84 % (31-73) Lymphocytes (%) (Auto) 10 % (24-48) Monocytes (%) (Auto) 5 % (0-9) Eosinophils (%) (Auto) 1 % (0-3) Basophils (%) (Auto) 1 % (0-3) Neutrophils # (Auto) 23.2 x10^3/uL (1.8-7.7) Lymphocytes # (Auto) 2.8 x10^3/uL (1.0-4.8) Monocytes # (Auto) 1.2 x10^3/uL (0.0-1.1) Eosinophils # (Auto) 0.3 x10^3/uL (0.0-0.7) Basophils # (Auto) 0.1 x10^3/uL (0.0-0.2) Segmented Neutrophils % 40 % (35-66) Band Neutrophils % 29 % (0-9) Lymphocytes % 12 % (24-48) Monocytes % 2 % (0-10) Basophils % 5 % (0-3) Metamyelocytes % 4 % (0-0) Myelocytes % 8 % (0-0) Nucleated Red Blood Cells 8 Toxic Granulation Present Dohle Bodies Present Platelet Estimate Adequate (ADEQUATE) Large Platelets Occ Giant Platelets Occ Polychromasia Slight Basophilic Stippling Present Anisocytosis Slight Sodium Level 132 mmol/L (136-145) Potassium Level 4.5 mmol/L (3.5-5.1) Chloride Level 97 mmol/L (98-107) Carbon Dioxide Level 24 mmol/L (21-32) Anion Gap 11 (6-14) Blood Urea Nitrogen 27 mg/dL (7-20) Creatinine 1.0 mg/dL (0.6-1.0) Estimated GFR (Cockcroft-Gault) 52.6 BUN/Creatinine Ratio 27 (6-20) Glucose Level 104 mg/dL (70-99) Calcium Level 9.7 mg/dL (8.5-10.1) Total Bilirubin 0.8 mg/dL (0.2-1.0) Aspartate Amino Transf (AST/SGOT) 35 U/L (15-37) Alanine Aminotransferase (ALT/SGPT) 17 U/L (14-59) Alkaline Phosphatase 95 U/L (46-116) Total Protein 8.2 g/dL (6.4-8.2) Albumin 3.7 g/dL (3.4-5.0) Albumin/Globulin Ratio 0.8 (1.0-1.7) Lipase 98 U/L (73-393) Assessment and Plan Assessmemt and Plan Problems Medical Problems: (1) Colitis Status: Acute Comment Review of Relevant I have reviewed the following items rodrigue (where applicable) has been applied. Medications: Current Medications Medications (Trade) Dose Ordered Sig/Gagan Route PRN Reason Start Time Stop Time Status Last Admin Dose Admin Diphenhydramine HCl (Benadryl) 50 mg 1X ONCE IVP 11/07/20 16:15 11/07/20 16:16 DC 11/07/20 16:09 Methylprednisolone Sodium Succinate (SOLU-Medrol 125MG VIAL) 125 mg 1X ONCE IV 11/07/20 16:15 11/07/20 16:16 DC 11/07/20 16:09 Iohexol (Omnipaque 300 Mg/ml) 60 ml 1X ONCE IV 11/07/20 16:15 11/07/20 16:16 DC 11/07/20 16:32 Piperacillin Sod/ Tazobactam Sod 3.375 gm/Sodium Chloride 50 ml @ 100 mls/hr Q6HRS IV 11/07/20 18:00 11/08/20 00:18 Ringer's Solution 1,000 ml @ 100 mls/hr Q10H IV 11/07/20 21:45 11/09/20 03:44 11/08/20 00:13 Justifications for Admission Other Justification MAGDI SCOTT MD Nov 08, 2020 07:19
[2020-11-08 07:30] VITALS: BP 172/61
[2020-11-08] MEDS ORDERED: RUXO10TA PO (07:31)
[2020-11-08] MEDS: ALBUTEROL SULFATE 2.5 MG/3 ML NEBU. NEB SCH ×4 (08:00→19:59)
[2020-11-08] MEDS: BUDESONIDE 0.5 MG/2 ML NEBU. NEB SCH ×2 (08:00→19:59)
[2020-11-08] MEDS ORDERED: FLUTICASONE 50MCG/NASAL SPRAY 16GM BOTTLE. NS SCH (09:00)
[2020-11-08 09:04] LABS: BASO # 0.6 x10^3/uL (0.0-0.2); BASO % 1 % (0-3); EOS # 0.5 x10^3/uL (0.0-0.7); EOS % 1 % (0-3); HEMATOCRIT 31.9 % (36.0-47.0); HEMOGLOBIN 10.3 g/dL (12.0-15.5); LYMPH # 3.2 x10^3/uL (1.0-4.8); LYMPH % 8 % (24-48); MEAN CORPUSCULAR HEMOGLOBIN 27 pg (25-35); MEAN CORPUSCULAR HGB CONC 32 g/dL (31-37); MEAN CORPUSCULAR VOLUME 83 fL (79-100); MONO # 1.3 x10^3/uL (0.0-1.1); MONO % 3 % (0-9); NEUT # 33.8 x10^3/uL (1.8-7.7); NEUT % 86 % (31-73); PLATELET COUNT 400 x10^3/uL (140-400); RED BLOOD COUNT 3.85 x10^6/uL (3.50-5.40); RED CELL DISTRIBUTION WIDTH 19.4 % (11.5-14.5); WHITE BLOOD COUNT 39.5 x10^3/uL (4.0-11.0)
[2020-11-08 09:16] LABS: CALCIUM 9.5 mg/dL (8.5-10.1); GFR 52.6; POTASSIUM 4.4 mmol/L (3.5-5.1)
[2020-11-08] MEDS: FLUTICASONE 50MCG/NASAL SPRAY 16GM BOTTLE. NS SCH (09:42)
[2020-11-08] MEDS: EZETIMIBE 10 MG TABLET. PO SCH (09:42)
[2020-11-08] MEDS: LACTOBACILLUS RHAMNOSUS GG 1 CAPSULE. PO SCH ×2 (09:43→21:54)
[2020-11-08] MEDS: PANTOPRAZOLE 40 MG TABLET.DR. PO SCH (09:43)
[2020-11-08] MEDS: LISINOPRIL 10 MG TABLET PO SCH (09:43)
[2020-11-08] MEDS: FERROUS SULFATE 325 MG TABLET. PO SCH (09:43)
--- NOTE | 2020-11-08 09:56 | PDOC2 ---
GI CONSULT Date of Service: DATE: 11/08/20 TIME: 09:56 Reason For Consult: colitis HPI: HPI: Pleasant 85 y/o female admitted through ER. Ill since either Thursday, Thursday, or Thursday with right-sided abdominal pain. Associated w/ fatigue and nausea. Similar pain 6 weeks ago - associated w/ d iarrhea then, not now. Pain resolved then by keeping to soft food diet. UC eval concerning for appendicitis and sent to ER. CT here noted wall thickening of proximal colon and low density pancreatic lesion. Started on atbx. Pain is improved. H/o GERD on Prilosec QD. No dysphagia, vomiting, diarrhea, constipation, hematochezia, or melena. Normal stool yesterday. Has lost 28 pounds over the past year since myelofibrosis diagnosis. She often has pain in upper abdomen after eating - last noted this on Thursday after eating chili. From past encounter, EGD normal years ago and past colonoscopy by Dr. Payton Snyder >10 years ago. S/p cholecystectomy and ERCP. Past imaging suggestive of right-sided diverticulitis - we saw her re: this in 12/2016. PMH: PMH: HTN, HLD, PVD w/ LE stents, myelofibrosis, asthma, OA, [place] umbilical hernia repair, rigth total hip replacement/revision, hysterectomy, bladder and vaingal suspension, cholecystectomy, ERCP w/ shincterotomy and balloon dilation FH: Family History: CAD Social History: Smoke: Quit ALCOHOL: occassional Drugs: None ROS: GEN: +chills, sweats HEENT: Denies blurred vision, sore throat CV: Denies chest pain RESP: Denies shortness of air, cough GI: Per HPI : Denies hematuria, dysuria ENDO: +weight loss NEURO: Denies confusion, dizziness MSK: Denies weakness, joint pain/swelling SKIN: Denies jaundice, pruritus Vitals: Vitals: Vital Signs Date Time Temp Pulse Resp B/P (MAP) Pulse Ox O2 Delivery O2 Flow Rate FiO2 11/08/20 09:43 86 172/61 11/08/20 07:30 97.8 18 96 Room Air 97.8 Labs: Labs: Laboratory Tests Test 11/07/20 15:08 11/08/20 08:45 White Blood Count 27.7 x10^3/uL (4.0-11.0) 39.5 x10^3/uL (4.0-11.0) Red Blood Count 3.73 x10^6/uL (3.50-5.40) 3.85 x10^6/uL (3.50-5.40) Hemoglobin 10.0 g/dL (12.0-15.5) 10.3 g/dL (12.0-15.5) Hematocrit 30.2 % (36.0-47.0) 31.9 % (36.0-47.0) Mean Corpuscular Volume 81 fL (79-100) 83 fL (79-100) Mean Corpuscular Hemoglobin 27 pg (25-35) 27 pg (25-35) Mean Corpuscular Hemoglobin Concent 33 g/dL (31-37) 32 g/dL (31-37) Red Cell Distribution Width 19.0 % (11.5-14.5) 19.4 % (11.5-14.5) Platelet Count 360 x10^3/uL (140-400) 400 x10^3/uL (140-400) Neutrophils (%) (Auto) 84 % (31-73) 86 % (31-73) Lymphocytes (%) (Auto) 10 % (24-48) 8 % (24-48) Monocytes (%) (Auto) 5 % (0-9) 3 % (0-9) Eosinophils (%) (Auto) 1 % (0-3) 1 % (0-3) Basophils (%) (Auto) 1 % (0-3) 1 % (0-3) Neutrophils # (Auto) 23.2 x10^3/uL (1.8-7.7) 33.8 x10^3/uL (1.8-7.7) Lymphocytes # (Auto) 2.8 x10^3/uL (1.0-4.8) 3.2 x10^3/uL (1.0-4.8) Monocytes # (Auto) 1.2 x10^3/uL (0.0-1.1) 1.3 x10^3/uL (0.0-1.1) Eosinophils # (Auto) 0.3 x10^3/uL (0.0-0.7) 0.5 x10^3/uL (0.0-0.7) Basophils # (Auto) 0.1 x10^3/uL (0.0-0.2) 0.6 x10^3/uL (0.0-0.2) Segmented Neutrophils % 40 % (35-66) Band Neutrophils % 29 % (0-9) Lymphocytes % 12 % (24-48) Monocytes % 2 % (0-10) Basophils % 5 % (0-3) Metamyelocytes % 4 % (0-0) Myelocytes % 8 % (0-0) Nucleated Red Blood Cells 8 Toxic Granulation Present Dohle Bodies Present Platelet Estimate Adequate (ADEQUATE) Large Platelets Occ Giant Platelets Occ Polychromasia Slight Basophilic Stippling Present Anisocytosis Slight Sodium Level 132 mmol/L (136-145) 134 mmol/L (136-145) Potassium Level 4.5 mmol/L (3.5-5.1) 4.4 mmol/L (3.5-5.1) Chloride Level 97 mmol/L (98-107) 101 mmol/L (98-107) Carbon Dioxide Level 24 mmol/L (21-32) 21 mmol/L (21-32) Anion Gap 11 (6-14) 12 (6-14) Blood Urea Nitrogen 27 mg/dL (7-20) 33 mg/dL (7-20) Creatinine 1.0 mg/dL (0.6-1.0) 1.0 mg/dL (0.6-1.0) Estimated GFR (Cockcroft-Gault) 52.6 52.6 BUN/Creatinine Ratio 27 (6-20) Glucose Level 104 mg/dL (70-99) 131 mg/dL (70-99) Calcium Level 9.7 mg/dL (8.5-10.1) 9.5 mg/dL (8.5-10.1) Total Bilirubin 0.8 mg/dL (0.2-1.0) Aspartate Amino Transf (AST/SGOT) 35 U/L (15-37) Alanine Aminotransferase (ALT/SGPT) 17 U/L (14-59) Alkaline Phosphatase 95 U/L (46-116) Total Protein 8.2 g/dL (6.4-8.2) Albumin 3.7 g/dL (3.4-5.0) Albumin/Globulin Ratio 0.8 (1.0-1.7) Lipase 98 U/L (73-393) Allergies: Coded Allergies: iodine (Verified Adverse Reaction, Mild, Nausea and Vomiting, 11/07/20) shellfish derived (Verified Adverse Reaction, Mild, Nausea and Vomiting, 11/07/20) shrimp (Verified Adverse Reaction, Mild, Nausea and Vomiting, 11/07/20) Medications: Current Medications Medications (Trade) Dose Ordered Sig/Gagan Route PRN Reason Start Time Stop Time Status Last Admin Dose Admin Diphenhydramine HCl (Benadryl) 50 mg 1X ONCE IVP 11/07/20 16:15 11/07/20 16:16 DC 11/07/20 16:09 Methylprednisolone Sodium Succinate (SOLU-Medrol 125MG VIAL) 125 mg 1X ONCE IV 11/07/20 16:15 11/07/20 16:16 DC 11/07/20 16:09 Iohexol (Omnipaque 300 Mg/ml) 60 ml 1X ONCE IV 11/07/20 16:15 11/07/20 16:16 DC 11/07/20 16:32 Piperacillin Sod/ Tazobactam Sod 3.375 gm/Sodium Chloride 50 ml @ 100 mls/hr Q6HRS IV 11/07/20 18:00 11/08/20 00:18 Ringer's Solution 1,000 ml @ 100 mls/hr Q10H IV 11/07/20 21:45 11/09/20 03:44 11/08/20 00:13 Ferrous Sulfate (Feosol) 325 mg DAILYWBKFT PO 11/08/20 08:00 11/08/20 09:43 EZETIMIBE (Zetia) 10 mg DAILY PO 11/08/20 09:00 11/08/20 09:42 Lisinopril (Prinivil) 30 mg DAILY PO 11/08/20 09:00 11/08/20 09:43 Fluticasone Propionate (Flonase) 2 spray DAILY NS 11/08/20 09:00 11/08/20 09:42 Lactobacillus Rhamnosus (Culturelle) 1 cap BID PO 11/08/20 09:00 11/08/20 09:43 Pantoprazole Sodium (Protonix) 40 mg DAILYAC PO 11/08/20 07:30 11/08/20 09:43 Imaging: Imaging: CT A/P 11/07 FINDINGS: 2 mm nodule at the left lung base. Dependent atelectasis at right lung base. Coronary artery calcific atherosclerosis. Severe atherosclerotic disease throughout. Suspected inguinal hernias. Loops of bowel are seen at the orifice on the right with fat seen within the suspected hernia sacs bilaterally. Postcholecystectomy with some mild prominence of intrahepatic bile ducts which is commonly seen postoperatively. Trace right-sided pleural effusion. Low-density lesion is suspected within the pancreas measuring approximately 8 x 5 mm. Spleen is enlarged. Left kidney is displaced medially secondary to enlarged spleen. Thickening of the left adrenal gland. No hydronephrosis. Urinary bladder partially distended. Colonic diverticulosis. The possible appendix is partially seen and not grossly inflamed. There is a couple of mildly prominent loops of small bowel but no high-grade transition point to suggest obstruction. There is some postoperative changes to the anterior abdominal wall with surgical clips and overlying soft tissue defect. There is some apparent wall thickening of the cecum and portion of ascending colon. Degenerative changes the spine with scoliotic curvature and multilevel central canal and neural foraminal stenosis. Osseous demineralization. Right hip arthroplasty. There are some additional metallic density structure seen in the right upper leg and right gluteal region. There is some sclerosis at the pubic symphysis bilaterally. Mild compression deformities of T11 and T10. IMPRESSION: * There is some apparent wall thickening of the proximal colon. Would correlate with symptoms in the region since this can be seen with causes such as colitis with a colonic lesion in the area not excluded and may be helpful to either obtaining colonoscopy or follow-up CT to ensure that this resolves to exclude colonic neoplasm. * Severe calcific atherosclerosis. * Severe osseous demineralization throughout the spine as well as scoliotic curvature and multilevel central canal and neural foraminal stenosis. There is also compression deformities identified at the lower thoracic spine. Very limi john examination for nondisplaced fracture given the severe osseous demineralization. There is also some sclerosis at the pubic symphysis which could be related to chronic degeneration but stress fracture could have this appearance and would correlate with symptoms in the region. * Low-density lesion at the pancreas. Differential considerations would include a cystic structure such as a small pseudocyst or intraductal papillary mucinous neoplasm but would consider obtaining pancreatic protocol MRI to further assess and ensure that this is not solid in nature from a higher grade pancreatic lesion. Its also possible that this is secondary to a dilated portion of the duct within the area. PE: GEN: NAD HEENT: Atraumatic, PERRL LUNGS: CTAB HEART: RRR ABD: NABS, S/ND/NT EXTREMITY: No edema SKIN: No rashes, no jaundice NEURO/PSYCH: A & O 3 A/P: A/P: Right-sided abdominal pain Chronic leukocytosis (worse today), anemia - borderline microcytic, on iron Abnormal CT - wall thickening of proximal colon, low density pancreatic lesion GERD - on PPI, continued here CRC screen - last >10 years ago H/o diverticulitis S/p cholecystectomy and ERCP Weight loss, myelofibrosis - follows w/ heme/onc @ [facility] -- Pain improved today. Reviewed w/ Dr. Cook - continue antibiotics and keep to clear liquids for now. PAUL CAIN Nov 08, 2020 09:56
[2020-11-08 11:10] VITALS: BP 182/77
[2020-11-08 14:54] VITALS: BP 106/45
--- NOTE | 2020-11-08 17:53 | PDOC2 ---
CONSULT Date of Consult Date of Consult DATE: 11/08/20 TIME: 15:40 Reason for Consult Reason for Consult: Myelofibrosis Referring Physician Referring Physician: Dr Boyd Identification/Chief Complaint Chief Complaint Abdominal pain Source Source: Chart review History of Present Illness Reason for Visit: Deanne Zarate is an 85 year old female with hx of primary myelofibrosis who has been admitted to [facility] after presenting with abdominal pain. She developed abdominal pain that is diffuse 2 days ago. Pain was associated with nausea, vomiting. She did not have hematemesis or melena. She received further evaluation with labs and CT abdomen and pelvis. Labs showed neutrophilic leucoc ytosis and normocytic anemia that are similar to recent labs obtained at her oncologist's office. CT showed thickening of proximal colon possibly concerning for colitis as well as low-density lesion in the pancreas suggestive of IPMN. She has been placed on empiric abx and GI is following. Hematogy consultation has been sought due to the patient's hx of myelofibrosis. She follows with Dr Alex Ch at [facility]. She currently takes Jakafi 15 mg bid and has been on it since 11/2019. Past Medical History Cardiovascular: HTN, Hyperlipidemia, Other Pulmonary: Asthma GI: Diverticulosis, GERD Heme/Onc: Cancer (Myelofibrosis) Musculoskeletal: Osteoarthritis Past Surgical History Past Surgical History: Hernia Repair, Total hip replacement, Hysterectomy, Other Family History Family History: Coronary Artery Disease Social History Quit ALCOHOL: occassional Drugs: None Lives: with Family Current Problem List Problem List Problems Medical Problems: (1) Colitis Status: Acute Current Medications Current Medications Current Medications Diphenhydramine HCl (Benadryl) 50 mg 1X ONCE IVP Last administered on 11/07/20at 16:09; Start 11/07/20 at 16:15; Stop 11/07/20 at 16:16; Status DC Methylprednisolone Sodium Succinate (SOLU-Medrol 125MG VIAL) 125 mg 1X ONCE IV Last administered on 11/07/20at 16:09; Start 11/07/20 at 16:15; Stop 11/07/20 at 16:16; Status DC Iohexol (Omnipaque 300 Mg/ml) 60 ml 1X ONCE IV Last administered on 11/07/20at 16:32; Start 11/07/20 at 16:15; Stop 11/07/20 at 16:16; Status DC Info (CONTRAST GIVEN -- Rx MONITORING) 1 each PRN DAILY PRN MC SEE COMMENTS; Start 11/07/20 at 16:15; Stop 11/09/20 at 16:14 Iohexol (Omnipaque 300 Mg/ml) 60 ml 1X ONCE IV ; Start 11/07/20 at 16:30; Stop 11/07/20 at 16:31; Status DC Ondansetron HCl (Zofran) 4 mg PRN Q8HRS PRN IVP NAUSEA/VOMITING Last administered on 11/08/20at 12:13; Start 11/07/20 at 18:30; Stop 11/09/20 at 18:29 Morphine Sulfate (Morphine Sulfate) 2 mg PRN Q2HR PRN IVP PAIN Last administered on 11/08/20at 12:13; Start 11/07/20 at 18:30; Stop 11/09/20 at 18:29 Acetaminophen (Tylenol) 650 mg PRN Q4HRS PRN PO FEVER > 100.3'F; Start 11/07/20 at 18:30; Stop 11/09/20 at 18:29 Piperacillin Sod/ Tazobactam Sod (Zosyn Per Pharmacy) 1 each PRN DAILY PRN MC SEE COMMENTS; Start 11/07/20 at 18:30 Piperacillin Sod/ Tazobactam Sod 3.375 gm/Sodium Chloride 50 ml @ 100 mls/hr Q6HRS IV Last administered on 11/08/20at 17:06; Start 11/07/20 at 18:00 Ringer's Solution 1,000 ml @ 100 mls/hr Q10H IV Last administered on 11/08/20at 17:06; Start 11/07/20 at 21:45; Stop 11/09/20 at 03:44 Albuterol Sulfate (Ventolin Neb Soln) 2.5 mg PRN Q4HRS PRN NEB SHORTNESS OF BREATH; Start 11/07/20 at 22:00 Baclofen (Lioresal) 10 mg PRN BID PRN PO MUSCLE SPASMS; Start 11/07/20 at 22:00 Ferrous Sulfate (Feosol) 325 mg DAILYWBKFT PO Last administered on 11/08/20at 09:43; Start 11/08/20 at 08:00 Fluticasone Propionate (Flonase) 2 spray DAILY NS ; Start 11/08/20 at 09:00; Status Cancel EZETIMIBE (Zetia) 10 mg DAILY PO Last administered on 11/08/20at 09:42; Start 11/08/20 at 09:00 Lisinopril (Prinivil) 30 mg DAILY PO Last administered on 11/08/20at 09:43; Start 11/08/20 at 09:00 Albuterol Sulfate (Ventolin Neb Soln) 2.5 mg RTQID NEB ; Start 11/08/20 at 08:00 Fluticasone Propionate (Flonase) 2 spray DAILY NS Last administered on 11/08/20at 09:42; Start 11/08/20 at 09:00 Budesonide (Pulmicort) 0.5 mg RTBID NEB ; Start 11/08/20 at 08:00 Lactobacillus Rhamnosus (Culturelle) 1 cap BID PO Last administered on 11/08/20at 09:43; Start 11/08/20 at 09:00 Pantoprazole Sodium (Protonix) 40 mg DAILYAC PO Last administered on 11/08/20at 09:43; Start 11/08/20 at 07:30 Latanoprost (Xalatan) 1 drop QHS OU ; Start 11/08/20 at 21:00 Active Scripts Active Probiotic & Acidophilus Cap (Lactobac Cmb #3/Fos/Pantethine) 1 Each Capsule 1 Each PO BID Cipro (Ciprofloxacin Hcl) 250 Mg Tablet 1 Tab PO BID Flagyl (Metronidazole) 500 Mg Tablet 500 Mg PO TID Hydrocodone-Apap 5-325 (Hydrocodone Bit/Acetaminophen) 1 Each Tablet 0.5-1 Tab PO Q4HRS PRN Reported Jakafi (Ruxolitinib Phosphate) 10 Mg Tablet 1 Tab PO BID 30 Days Lumigan (Bimatoprost) 2.5 Ml Drops 2.5 Ml OP Ventolin Hfa Inhaler (Albuterol Sulfate) 18 Gm Hfa.aer.ad 2 Puff INH QID Advair 250-50 Diskus (Fluticasone/Salmeterol) 1 Each Disk.w.dev 1 Inh IH BID Flonase Allergy Relief (Fluticasone Propionate) 9.9 Ml [place].susp 2 Sprays NS DAILY Prilosec Otc (Omeprazole Magnesium) 20 Mg Tablet.dr 20 Mg PO DAILY Lisinopril 10 Mg Tablet 30 Mg PO DAILY Allergies Allergies: Coded Allergies: iodine (Verified Adverse Reaction, Mild, Nausea and Vomiting, 11/07/20) shellfish derived (Verified Adverse Reaction, Mild, Nausea and Vomiting, 11/07/20) shrimp (Verified Adverse Reaction, Mild, Nausea and Vomiting, 11/07/20) ROS Review of System Negative unless stated otherwise in HPI Physical Exam General: Alert, Oriented X3 HEENT: Atraumatic Lungs: Clear to auscultation Heart: Regular rate Abdomen: Soft Extremities: No cyanosis Skin: No rashes MUSCULOSKELETAL: No swelling Vitals VITALS Vital Signs Date Time Temp Pulse Resp B/P (MAP) Pulse Ox O2 Delivery O2 Flow Rate FiO2 11/08/20 14:54 98.2 78 20 106/45 (65) 93 Room Air 98.2 Labs Labs Laboratory Tests Test 11/07/20 15:08 11/08/20 08:45 White Blood Count 27.7 x10^3/uL (4.0-11.0) 39.5 x10^3/uL (4.0-11.0) Red Blood Count 3.73 x10^6/uL (3.50-5.40) 3.85 x10^6/uL (3.50-5.40) Hemoglobin 10.0 g/dL (12.0-15.5) 10.3 g/dL (12.0-15.5) Hematocrit 30.2 % (36.0-47.0) 31.9 % (36.0-47.0) Mean Corpuscular Volume 81 fL (79-100) 83 fL (79-100) Mean Corpuscular Hemoglobin 27 pg (25-35) 27 pg (25-35) Mean Corpuscular Hemoglobin Concent 33 g/dL (31-37) 32 g/dL (31-37) Red Cell Distribution Width 19.0 % (11.5-14.5) 19.4 % (11.5-14.5) Platelet Count 360 x10^3/uL (140-400) 400 x10^3/uL (140-400) Neutrophils (%) (Auto) 84 % (31-73) 86 % (31-73) Lymphocytes (%) (Auto) 10 % (24-48) 8 % (24-48) Monocytes (%) (Auto) 5 % (0-9) 3 % (0-9) Eosinophils (%) (Auto) 1 % (0-3) 1 % (0-3) Basophils (%) (Auto) 1 % (0-3) 1 % (0-3) Neutrophils # (Auto) 23.2 x10^3/uL (1.8-7.7) 33.8 x10^3/uL (1.8-7.7) Lymphocytes # (Auto) 2.8 x10^3/uL (1.0-4.8) 3.2 x10^3/uL (1.0-4.8) Monocytes # (Auto) 1.2 x10^3/uL (0.0-1.1) 1.3 x10^3/uL (0.0-1.1) Eosinophils # (Auto) 0.3 x10^3/uL (0.0-0.7) 0.5 x10^3/uL (0.0-0.7) Basophils # (Auto) 0.1 x10^3/uL (0.0-0.2) 0.6 x10^3/uL (0.0-0.2) Segmented Neutrophils % 40 % (35-66) Band Neutrophils % 29 % (0-9) Lymphocytes % 12 % (24-48) Monocytes % 2 % (0-10) Basophils % 5 % (0-3) Metamyelocytes % 4 % (0-0) Myelocytes % 8 % (0-0) Nucleated Red Blood Cells 8 Toxic Granulation Present Dohle Bodies Present Platelet Estimate Adequate (ADEQUATE) Large Platelets Occ Giant Platelets Occ Polychromasia Slight Basophilic Stippling Present Anisocytosis Slight Sodium Level 132 mmol/L (136-145) 134 mmol/L (136-145) Potassium Level 4.5 mmol/L (3.5-5.1) 4.4 mmol/L (3.5-5.1) Chloride Level 97 mmol/L (98-107) 101 mmol/L (98-107) Carbon Dioxide Level 24 mmol/L (21-32) 21 mmol/L (21-32) Anion Gap 11 (6-14) 12 (6-14) Blood Urea Nitrogen 27 mg/dL (7-20) 33 mg/dL (7-20) Creatinine 1.0 mg/dL (0.6-1.0) 1.0 mg/dL (0.6-1.0) Estimated GFR (Cockcroft-Gault) 52.6 52.6 BUN/Creatinine Ratio 27 (6-20) Glucose Level 104 mg/dL (70-99) 131 mg/dL (70-99) Calcium Level 9.7 mg/dL (8.5-10.1) 9.5 mg/dL (8.5-10.1) Total Bilirubin 0.8 mg/dL (0.2-1.0) Aspartate Amino Transf (AST/SGOT) 35 U/L (15-37) Alanine Aminotransferase (ALT/SGPT) 17 U/L (14-59) Alkaline Phosphatase 95 U/L (46-116) Total Protein 8.2 g/dL (6.4-8.2) Albumin 3.7 g/dL (3.4-5.0) Albumin/Globulin Ratio 0.8 (1.0-1.7) Lipase 98 U/L (73-393) Laboratory Tests Test 11/08/20 08:45 White Blood Count 39.5 x10^3/uL (4.0-11.0) Red Blood Count 3.85 x10^6/uL (3.50-5.40) Hemoglobin 10.3 g/dL (12.0-15.5) Hematocrit 31.9 % (36.0-47.0) Mean Corpuscular Volume 83 fL (79-100) Mean Corpuscular Hemoglobin 27 pg (25-35) Mean Corpuscular Hemoglobin Concent 32 g/dL (31-37) Red Cell Distribution Width 19.4 % (11.5-14.5) Platelet Count 400 x10^3/uL (140-400) Neutrophils (%) (Auto) 86 % (31-73) Lymphocytes (%) (Auto) 8 % (24-48) Monocytes (%) (Auto) 3 % (0-9) Eosinophils (%) (Auto) 1 % (0-3) Basophils (%) (Auto) 1 % (0-3) Neutrophils # (Auto) 33.8 x10^3/uL (1.8-7.7) Lymphocytes # (Auto) 3.2 x10^3/uL (1.0-4.8) Monocytes # (Auto) 1.3 x10^3/uL (0.0-1.1) Eosinophils # (Auto) 0.5 x10^3/uL (0.0-0.7) Basophils # (Auto) 0.6 x10^3/uL (0.0-0.2) Sodium Level 134 mmol/L (136-145) Potassium Level 4.4 mmol/L (3.5-5.1) Chloride Level 101 mmol/L (98-107) Carbon Dioxide Level 21 mmol/L (21-32) Anion Gap 12 (6-14) Blood Urea Nitrogen 33 mg/dL (7-20) Creatinine 1.0 mg/dL (0.6-1.0) Estimated GFR (Cockcroft-Gault) 52.6 Glucose Level 131 mg/dL (70-99) Calcium Level 9.5 mg/dL (8.5-10.1) Assessment/Plan Assessment/Plan Assessment: Primary myelofibrosis Normocytic anemia, secondary to MF and Jakafi Colitis Recommendations: -Hold Jakafi at this time given suspected ongoing infection. Resume at discharge -Continue current supportive care -Resume outpatient follow-up with her primary etl software engineer upon discharge -Please call [phone] with any additional questions/concerns VANESA RUBIN MD Nov 08, 2020 17:53
[2020-11-08 19:05] VITALS: BP 133/72
[2020-11-08] MEDS: LATANOPROST 0.005% OPHTH SOLUTION 2.5ML BOTTLE. OU SCH (21:55)
[2020-11-08 22:45] VITALS: BP 106/39
[2020-11-08] MEDS ORDERED: TEMAZEPAM 15 MG CAPSULE PO PRN (22:45)
[2020-11-09 03:24] VITALS: BP 126/49
[2020-11-09] MEDS: PIPERACILLIN/TAZOBACTAM 3.375 GM in IV NORMAL SALINE 50ML 50 ML IV SCH ×4 (06:02→23:21)
[2020-11-09 07:15] VITALS: BP 120/69
[2020-11-09] MEDS: BUDESONIDE 0.5 MG/2 ML NEBU. NEB SCH ×2 (07:41→21:09)
[2020-11-09] MEDS: ALBUTEROL SULFATE 2.5 MG/3 ML NEBU. NEB SCH ×4 (07:42→21:09)
[2020-11-09 08:12] LABS: BASO # 0.3 x10^3/uL (0.0-0.2); BASO % 1 % (0-3); EOS # 0.4 x10^3/uL (0.0-0.7); EOS % 2 % (0-3); HEMATOCRIT 25.9 % (36.0-47.0); HEMOGLOBIN 8.5 g/dL (12.0-15.5); LYMPH # 2.9 x10^3/uL (1.0-4.8); LYMPH % 11 % (24-48); MEAN CORPUSCULAR HEMOGLOBIN 27 pg (25-35); MEAN CORPUSCULAR HGB CONC 33 g/dL (31-37); MEAN CORPUSCULAR VOLUME 82 fL (79-100); MONO % 4 % (0-9); NEUT # 21.6 x10^3/uL (1.8-7.7); NEUT % 82 % (31-73); PLATELET COUNT 339 x10^3/uL (140-400); RED BLOOD COUNT 3.15 x10^6/uL (3.50-5.40); WHITE BLOOD COUNT 26.3 x10^3/uL (4.0-11.0)
[2020-11-09 08:31] LABS: CALCIUM 8.9 mg/dL (8.5-10.1); GFR 52.6; POTASSIUM 4.1 mmol/L (3.5-5.1)
[2020-11-09] MEDS: EZETIMIBE 10 MG TABLET. PO SCH (09:40)
[2020-11-09] MEDS: LACTOBACILLUS RHAMNOSUS GG 1 CAPSULE. PO SCH ×2 (09:40→19:49)
[2020-11-09] MEDS: PANTOPRAZOLE 40 MG TABLET.DR. PO SCH (09:40)
[2020-11-09] MEDS: LISINOPRIL 10 MG TABLET PO SCH (09:40)
[2020-11-09] MEDS: FERROUS SULFATE 325 MG TABLET. PO SCH (09:40)
[2020-11-09] MEDS: FLUTICASONE 50MCG/NASAL SPRAY 16GM BOTTLE. NS SCH (09:43)
[2020-11-09 10:01] LABS: % BANDS 28 % (0-9); % BASOS 4 % (0-3); % EOS 4 % (0-5); % LYMPHS 16 % (24-48); % METAS 4 % (0-0); % MONOS 5 % (0-10); % MYELOS 3 % (0-0); % PROS 1 % (0-0); % SEGS 32 % (35-66); NUCLEATED RBC 9; PLT ESTIMATE ADEQUATE (ADEQUATE)
[2020-11-09 10:02] LABS: ANISOCYTOSIS PRESENT; POIKILOCYTOSIS PRESENT; POLYCHROMASIA PRESENT
[2020-11-09 10:18] LABS: % BLASTS 3 % (0-0)
[2020-11-09 10:19] LABS: % OTHERS 0 % (0-0)
[2020-11-09 11:07] VITALS: BP 112/82
--- NOTE | 2020-11-09 14:00 | NUR ---
Assumed pt care at this time. Pt in bed watching tv. Call light within reach. Family at bedside. No needs at this time.
--- NOTE | 2020-11-09 14:04 | PDOC ---
G I PROGRESS NOTE Subjective Offers no GI complaints. Physical Exam Lungs clear anteriorly. RRR Abdomen soft, not tender nor distended. Review of Relevant I have reviewed the following items rodrigue (where applicable) has been applied. Labs Laboratory Tests Test 11/07/20 15:08 11/08/20 08:45 11/09/20 07:50 White Blood Count 27.7 x10^3/uL (4.0-11.0) 39.5 x10^3/uL (4.0-11.0) 26.3 x10^3/uL (4.0-11.0) Red Blood Count 3.73 x10^6/uL (3.50-5.40) 3.85 x10^6/uL (3.50-5.40) 3.15 x10^6/uL (3.50-5.40) Hemoglobin 10.0 g/dL (12.0-15.5) 10.3 g/dL (12.0-15.5) 8.5 g/dL (12.0-15.5) Hematocrit 30.2 % (36.0-47.0) 31.9 % (36.0-47.0) 25.9 % (36.0-47.0) Mean Corpuscular Volume 81 fL (79-100) 83 fL (79-100) 82 fL (79-100) Mean Corpuscular Hemoglobin 27 pg (25-35) 27 pg (25-35) 27 pg (25-35) Mean Corpuscular Hemoglobin Concent 33 g/dL (31-37) 32 g/dL (31-37) 33 g/dL (31-37) Red Cell Distribution Width 19.0 % (11.5-14.5) 19.4 % (11.5-14.5) 19.0 % (11.5-14.5) Platelet Count 360 x10^3/uL (140-400) 400 x10^3/uL (140-400) 339 x10^3/uL (140-400) Neutrophils (%) (Auto) 84 % (31-73) 86 % (31-73) 82 % (31-73) Lymphocytes (%) (Auto) 10 % (24-48) 8 % (24-48) 11 % (24-48) Monocytes (%) (Auto) 5 % (0-9) 3 % (0-9) 4 % (0-9) Eosinophils (%) (Auto) 1 % (0-3) 1 % (0-3) 2 % (0-3) Basophils (%) (Auto) 1 % (0-3) 1 % (0-3) 1 % (0-3) Neutrophils # (Auto) 23.2 x10^3/uL (1.8-7.7) 33.8 x10^3/uL (1.8-7.7) 21.6 x10^3/uL (1.8-7.7) Lymphocytes # (Auto) 2.8 x10^3/uL (1.0-4.8) 3.2 x10^3/uL (1.0-4.8) 2.9 x10^3/uL (1.0-4.8) Monocytes # (Auto) 1.2 x10^3/uL (0.0-1.1) 1.3 x10^3/uL (0.0-1.1) 1.0 x10^3/uL (0.0-1.1) Eosinophils # (Auto) 0.3 x10^3/uL (0.0-0.7) 0.5 x10^3/uL (0.0-0.7) 0.4 x10^3/uL (0.0-0.7) Basophils # (Auto) 0.1 x10^3/uL (0.0-0.2) 0.6 x10^3/uL (0.0-0.2) 0.3 x10^3/uL (0.0-0.2) Segmented Neutrophils % 40 % (35-66) 32 % (35-66) Band Neutrophils % 29 % (0-9) 28 % (0-9) Lymphocytes % 12 % (24-48) 16 % (24-48) Monocytes % 2 % (0-10) 5 % (0-10) Basophils % 5 % (0-3) 4 % (0-3) Metamyelocytes % 4 % (0-0) 4 % (0-0) Myelocytes % 8 % (0-0) 3 % (0-0) Nucleated Red Blood Cells 8 9 Toxic Granulation Present Dohle Bodies Present Platelet Estimate Adequate (ADEQUATE) Adequate (ADEQUATE) Large Platelets Occ Giant Platelets Occ Polychromasia Slight Present Basophilic Stippling Present Anisocytosis Slight Present Sodium Level 132 mmol/L (136-145) 134 mmol/L (136-145) 139 mmol/L (136-145) Potassium Level 4.5 mmol/L (3.5-5.1) 4.4 mmol/L (3.5-5.1) 4.1 mmol/L (3.5-5.1) Chloride Level 97 mmol/L (98-107) 101 mmol/L (98-107) 105 mmol/L (98-107) Carbon Dioxide Level 24 mmol/L (21-32) 21 mmol/L (21-32) 25 mmol/L (21-32) Anion Gap 11 (6-14) 12 (6-14) 9 (6-14) Blood Urea Nitrogen 27 mg/dL (7-20) 33 mg/dL (7-20) 34 mg/dL (7-20) Creatinine 1.0 mg/dL (0.6-1.0) 1.0 mg/dL (0.6-1.0) 1.0 mg/dL (0.6-1.0) Estimated GFR (Cockcroft-Gault) 52.6 52.6 52.6 BUN/Creatinine Ratio 27 (6-20) Glucose Level 104 mg/dL (70-99) 131 mg/dL (70-99) 98 mg/dL (70-99) Calcium Level 9.7 mg/dL (8.5-10.1) 9.5 mg/dL (8.5-10.1) 8.9 mg/dL (8.5-10.1) Total Bilirubin 0.8 mg/dL (0.2-1.0) Aspartate Amino Transf (AST/SGOT) 35 U/L (15-37) Alanine Aminotransferase (ALT/SGPT) 17 U/L (14-59) Alkaline Phosphatase 95 U/L (46-116) Total Protein 8.2 g/dL (6.4-8.2) Albumin 3.7 g/dL (3.4-5.0) Albumin/Globulin Ratio 0.8 (1.0-1.7) Lipase 98 U/L (73-393) Eosinophils % 4 % (0-5) Promyelocytes % 1 % (0-0) Blast Cells % (Manual) 3 % (0-0) Other Cells % 0 % (0-0) Poikilocytosis Present Macrocytosis Present Laboratory Tests Test 11/09/20 07:50 White Blood Count 26.3 x10^3/uL (4.0-11.0) Red Blood Count 3.15 x10^6/uL (3.50-5.40) Hemoglobin 8.5 g/dL (12.0-15.5) Hematocrit 25.9 % (36.0-47.0) Mean Corpuscular Volume 82 fL (79-100) Mean Corpuscular Hemoglobin 27 pg (25-35) Mean Corpuscular Hemoglobin Concent 33 g/dL (31-37) Red Cell Distribution Width 19.0 % (11.5-14.5) Platelet Count 339 x10^3/uL (140-400) Neutrophils (%) (Auto) 82 % (31-73) Lymphocytes (%) (Auto) 11 % (24-48) Monocytes (%) (Auto) 4 % (0-9) Eosinophils (%) (Auto) 2 % (0-3) Basophils (%) (Auto) 1 % (0-3) Neutrophils # (Auto) 21.6 x10^3/uL (1.8-7.7) Lymphocytes # (Auto) 2.9 x10^3/uL (1.0-4.8) Monocytes # (Auto) 1.0 x10^3/uL (0.0-1.1) Eosinophils # (Auto) 0.4 x10^3/uL (0.0-0.7) Basophils # (Auto) 0.3 x10^3/uL (0.0-0.2) Segmented Neutrophils % 32 % (35-66) Band Neutrophils % 28 % (0-9) Lymphocytes % 16 % (24-48) Monocytes % 5 % (0-10) Eosinophils % 4 % (0-5) Basophils % 4 % (0-3) Metamyelocytes % 4 % (0-0) Myelocytes % 3 % (0-0) Promyelocytes % 1 % (0-0) Blast Cells % (Manual) 3 % (0-0) Other Cells % 0 % (0-0) Nucleated Red Blood Cells 9 Platelet Estimate Adequate (ADEQUATE) Polychromasia Present Poikilocytosis Present Anisocytosis Present Macrocytosis Present Sodium Level 139 mmol/L (136-145) Potassium Level 4.1 mmol/L (3.5-5.1) Chloride Level 105 mmol/L (98-107) Carbon Dioxide Level 25 mmol/L (21-32) Anion Gap 9 (6-14) Blood Urea Nitrogen 34 mg/dL (7-20) Creatinine 1.0 mg/dL (0.6-1.0) Estimated GFR (Cockcroft-Gault) 52.6 Glucose Level 98 mg/dL (70-99) Calcium Level 8.9 mg/dL (8.5-10.1) Microbiology 11/07/20 Blood Culture - Preliminary, Resulted NO GROWTH AFTER 1 DAY Hemoglobin drifting w/o overt bleeding--reflection of MDS? Vitals/I & O Vital Sign - Last 24 Hours 11/08/20 11/08/20 11/08/20 11/08/20 14:54 19:05 19:50 19:56 Temp 98.2 97.5 98.2 97.5 Pulse 78 79 Resp 20 20 B/P (MAP) 106/45 (65) 133/72 (92) Pulse Ox 93 94 96 O2 Delivery Room Air Room Air Room Air Room Air 11/08/20 11/09/20 11/09/20 11/09/20 22:45 03:24 07:15 07:41 Temp 97.7 97.9 98.2 97.7 97.9 98.2 Pulse 78 70 74 Resp 16 14 16 B/P (MAP) 106/39 (61) 126/49 (74) 120/69 (86) Pulse Ox 92 93 95 O2 Delivery Room Air Room Air Room Air Room Air 11/09/20 11/09/20 11/09/20 11/09/20 07:42 09:40 11:05 11:07 Temp 98.3 98.3 Pulse 74 86 Resp 18 B/P (MAP) 120/69 112/82 (92) Pulse Ox 96 96 95 O2 Delivery Room Air Room Air Room Air Intake and Output 11/08/20 11/08/20 11/09/20 15:00 23:00 07:00 Intake Total 0 ml 360 ml 200 ml Balance 0 ml 360 ml 200 ml Problem List Problems Medical Problems: (1) Colitis Status: Acute Assessment Unclear exact nature of syndrome, but seems infectious in some fashion--diverticulitis? typhlitis? Given pain, response to antibiotics not seemingly malignant. Plan of Care Note Check iron studies. Maybe liberalize diet in AM. Justicifation of Admission Dx: Justifications for Admission: Justification of Admission Dx: Yes (infection) PRESTON RANDOLPH MD Nov 09, 2020 14:04
[2020-11-09 15:15] VITALS: BP 109/53
--- NOTE | 2020-11-09 15:44 | PDOC ---
[employer] PROGRESS NOTE Date of Service DOS: DATE: 11/09/20 TIME: 15:36 Chief Complaint Chief Complaint A/P: Intractable abdominal pain - treating as colitis, IV zosyn. IV zofran, IV fentanyl prn. Consult GI given history and frequency Hyponatremia - likely nutritional, has not eaten for 24 hours. Will hydrate SIRS - with tachycardia, leukocytosis, likely sepsis from colitis. 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 Will monitor Pancreatic abnormality on CT - will d/w GI, previously required ERCP in the past Myelofibrosis - goes to [facility] outpatient for f/u HTN - cont home meds HLD - statin PVD w/ LE stents - stable Asthma - prn nebs GERD - ppi Glaucoma - gtt prn FEN - ADAT at discretion of GI PPX - lovenox CODE - DNR/DNI Dispo - inpatient History of Present Illness History of Present Illness Ms Drew is an 85yo female with PMHx Myelofibrosis, HTN, HLD, PVD w/ LE stents, asthma, GERD, diverticulosis/itis, OA, glaucoma, and prior ERCP w/ ES and balloon dilation who comes to ED from urgent care complaining of right lower quadrant abdominal pain. Pain was sudden onset on 11/05/20 overnight and she had an episode of nausea and vomiting on 11/06 and did not eat anything all day, the pain continued and so she came to urgent care with her daughter due to concerns for appendicitis clinically. She notes pain is still present and has associated loss of appetite and fever and chills. WBC 27.7, Hb 10, platelets 360, NA 132, K4.5, BUN 27, CR 1, glucose 104, LFTs within normal laboratory limits. CT abdomen pelvis with IV contrast wall thickening of proximal colon possibly concerning for colitis as well as low-density lesion pancreas. T10 and T11 mild compression deformities. Splenomegaly noted as well. Admitted for further treatment with IV zosyn, NPO. 11/08: Pain better controlled after 2nd dose of zosyn, asking for GI soft diet. Had some nausea this morning after multiple IV attempts. WBC 39.5. Pain resolving. Na improved to 139, CR 1 WBC 26 Hb 8.5. Asking to restart Jakafi. Still on antibiotics, tolerating clear diet well. Vitals/I&O Vitals/I&O: Vital Signs Date Time Temp Pulse Resp B/P (MAP) Pulse Ox O2 Delivery O2 Flow Rate FiO2 11/09/20 15:15 98.3 94 18 109/53 (71) 92 Room Air 98.3 I & O 11/08/20 11/08/20 11/09/20 15:00 23:00 07:00 Intake Total 0 ml 360 ml 200 ml Balance 0 ml 360 ml 200 ml Physical Exam General: Alert, Oriented X3 Heart: Regular rate Lungs: Clear Abdomen: Soft Extremities: No cyanosis Skin: No rashes Labs Labs: Laboratory Tests Test 11/09/20 07:50 White Blood Count 26.3 x10^3/uL (4.0-11.0) Red Blood Count 3.15 x10^6/uL (3.50-5.40) Hemoglobin 8.5 g/dL (12.0-15.5) Hematocrit 25.9 % (36.0-47.0) Mean Corpuscular Volume 82 fL (79-100) Mean Corpuscular Hemoglobin 27 pg (25-35) Mean Corpuscular Hemoglobin Concent 33 g/dL (31-37) Red Cell Distribution Width 19.0 % (11.5-14.5) Platelet Count 339 x10^3/uL (140-400) Neutrophils (%) (Auto) 82 % (31-73) Lymphocytes (%) (Auto) 11 % (24-48) Monocytes (%) (Auto) 4 % (0-9) Eosinophils (%) (Auto) 2 % (0-3) Basophils (%) (Auto) 1 % (0-3) Neutrophils # (Auto) 21.6 x10^3/uL (1.8-7.7) Lymphocytes # (Auto) 2.9 x10^3/uL (1.0-4.8) Monocytes # (Auto) 1.0 x10^3/uL (0.0-1.1) Eosinophils # (Auto) 0.4 x10^3/uL (0.0-0.7) Basophils # (Auto) 0.3 x10^3/uL (0.0-0.2) Segmented Neutrophils % 32 % (35-66) Band Neutrophils % 28 % (0-9) Lymphocytes % 16 % (24-48) Monocytes % 5 % (0-10) Eosinophils % 4 % (0-5) Basophils % 4 % (0-3) Metamyelocytes % 4 % (0-0) Myelocytes % 3 % (0-0) Promyelocytes % 1 % (0-0) Blast Cells % (Manual) 3 % (0-0) Other Cells % 0 % (0-0) Nucleated Red Blood Cells 9 Platelet Estimate Adequate (ADEQUATE) Polychromasia Present Poikilocytosis Present Anisocytosis Present Macrocytosis Present Sodium Level 139 mmol/L (136-145) Potassium Level 4.1 mmol/L (3.5-5.1) Chloride Level 105 mmol/L (98-107) Carbon Dioxide Level 25 mmol/L (21-32) Anion Gap 9 (6-14) Blood Urea Nitrogen 34 mg/dL (7-20) Creatinine 1.0 mg/dL (0.6-1.0) Estimated GFR (Cockcroft-Gault) 52.6 Glucose Level 98 mg/dL (70-99) Calcium Level 8.9 mg/dL (8.5-10.1) Assessment and Plan Assessmemt and Plan Problems Medical Problems: (1) Colitis Status: Acute Comment Review of Relevant I have reviewed the following items rodrigue (where applicable) has been applied. Medications: Current Medications Medications (Trade) Dose Ordered Sig/Gagan Route PRN Reason Start Time Stop Time Status Last Admin Dose Admin Latanoprost (Xalatan) 1 drop QHS OU 11/08/20 21:00 11/08/20 21:55 Justifications for Admission Other Justification MAGDI SCOTT MD Nov 09, 2020 15:44
[2020-11-09 19:25] VITALS: BP 152/61
[2020-11-09] MEDS: LATANOPROST 0.005% OPHTH SOLUTION 2.5ML BOTTLE. OU SCH (19:50)
[2020-11-09 23:31] VITALS: BP 136/52
[2020-11-10 02:47] VITALS: BP 136/52
[2020-11-10] MEDS: PIPERACILLIN/TAZOBACTAM 3.375 GM in IV NORMAL SALINE 50ML 50 ML IV SCH ×3 (05:07→17:46)
[2020-11-10] MEDS: BUDESONIDE 0.5 MG/2 ML NEBU. NEB SCH (06:03)
[2020-11-10] MEDS: ALBUTEROL SULFATE 2.5 MG/3 ML NEBU. NEB SCH ×2 (06:03→11:09)
[2020-11-10] MEDS: PANTOPRAZOLE 40 MG TABLET.DR. PO SCH (06:30)
[2020-11-10 07:00] VITALS: BP 144/58
--- NOTE | 2020-11-10 07:41 | PDOC ---
[employer] PROGRESS NOTE Date of Service DOS: DATE: 11/10/20 TIME: 07:41 Chief Complaint Chief Complaint A/P: Intractable abdominal pain - treating as colitis, IV zosyn. IV zofran, IV fentanyl prn. Consult GI given history and frequency Hyponatremia - likely nutritional, has not eaten for 24 hours. Will hydrate SIRS - with tachycardia, leukocytosis, likely sepsis from colitis. 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 Will monitor Pancreatic abnormality on CT - will d/w GI, previously required ERCP in the past Myelofibrosis - goes to [facility] outpatient for f/u HTN - cont home meds HLD - statin PVD w/ LE stents - stable Asthma - prn nebs GERD - ppi Glaucoma - gtt prn FEN - ADAT at discretion of GI PPX - lovenox CODE - DNR/DNI Dispo - inpatient History of Present Illness History of Present Illness Ms Drew is an 85yo female with PMHx Myelofibrosis, HTN, HLD, PVD w/ LE stents, asthma, GERD, diverticulosis/itis, OA, glaucoma, and prior ERCP w/ ES and balloon dilation who comes to ED from urgent care complaining of right lower quadrant abdominal pain. Pain was sudden onset on 11/05/20 overnight and she had an episode of nausea and vomiting on 11/06 and did not eat anything all day, the pain continued and so she came to urgent care with her daughter due to concerns for appendicitis clinically. She notes pain is still present and has associated loss of appetite and fever and chills. WBC 27.7, Hb 10, platelets 360, NA 132, K4.5, BUN 27, CR 1, glucose 104, LFTs within normal laboratory limits. CT abdomen pelvis with IV contrast wall thickening of proximal colon possibly concerning for colitis as well as low-density lesion pancreas. T10 and T11 mild compression deformities. Splenomegaly noted as well. Admitted for further treatment with IV zosyn, NPO. 11/08: Pain better controlled after 2nd dose of zosyn, asking for GI soft diet. Had some nausea this morning after multiple IV attempts. WBC 39.5. 9/3: Pain resolving. Na improved to 139, CR 1 WBC 26 Hb 8.5. Asking to restart Jakafi. Still on antibiotics, tolerating clear diet well. Pain improved tolerating liquid full liquid diet. Had 3 episodes of diarrhea. Does note that she is previously had C. difficile to nursing staff. WBC 28K. plan: Check c. diff, if negative d/c home off antibiotics, if positive start vancomycin x2 doses, still ok with d/c home. Hold jakafi until resolution of symptoms, f/u with oncology 11/19 as scheduled F/u with GI outpatient Vitals/I&O Vitals/I&O: Vital Signs Date Time Temp Pulse Resp B/P (MAP) Pulse Ox O2 Delivery O2 Flow Rate FiO2 11/10/20 06:02 96 Room Air 11/10/20 02:47 98.5 85 16 136/52 (80) 98.5 I & O 11/09/20 11/09/20 11/10/20 15:00 23:00 07:00 Intake Total 240 ml 240 ml Balance 240 ml 240 ml Physical Exam General: Alert, Oriented X3 Heart: Regular rate Lungs: Clear Abdomen: Soft Extremities: No cyanosis Skin: No rashes Labs Labs: Laboratory Tests Test 11/09/20 07:50 White Blood Count 26.3 x10^3/uL (4.0-11.0) Red Blood Count 3.15 x10^6/uL (3.50-5.40) Hemoglobin 8.5 g/dL (12.0-15.5) Hematocrit 25.9 % (36.0-47.0) Mean Corpuscular Volume 82 fL (79-100) Mean Corpuscular Hemoglobin 27 pg (25-35) Mean Corpuscular Hemoglobin Concent 33 g/dL (31-37) Red Cell Distribution Width 19.0 % (11.5-14.5) Platelet Count 339 x10^3/uL (140-400) Neutrophils (%) (Auto) 82 % (31-73) Lymphocytes (%) (Auto) 11 % (24-48) Monocytes (%) (Auto) 4 % (0-9) Eosinophils (%) (Auto) 2 % (0-3) Basophils (%) (Auto) 1 % (0-3) Neutrophils # (Auto) 21.6 x10^3/uL (1.8-7.7) Lymphocytes # (Auto) 2.9 x10^3/uL (1.0-4.8) Monocytes # (Auto) 1.0 x10^3/uL (0.0-1.1) Eosinophils # (Auto) 0.4 x10^3/uL (0.0-0.7) Basophils # (Auto) 0.3 x10^3/uL (0.0-0.2) Segmented Neutrophils % 32 % (35-66) Band Neutrophils % 28 % (0-9) Lymphocytes % 16 % (24-48) Monocytes % 5 % (0-10) Eosinophils % 4 % (0-5) Basophils % 4 % (0-3) Metamyelocytes % 4 % (0-0) Myelocytes % 3 % (0-0) Promyelocytes % 1 % (0-0) Blast Cells % (Manual) 3 % (0-0) Other Cells % 0 % (0-0) Nucleated Red Blood Cells 9 Platelet Estimate Adequate (ADEQUATE) Polychromasia Present Poikilocytosis Present Anisocytosis Present Macrocytosis Present Sodium Level 139 mmol/L (136-145) Potassium Level 4.1 mmol/L (3.5-5.1) Chloride Level 105 mmol/L (98-107) Carbon Dioxide Level 25 mmol/L (21-32) Anion Gap 9 (6-14) Blood Urea Nitrogen 34 mg/dL (7-20) Creatinine 1.0 mg/dL (0.6-1.0) Estimated GFR (Cockcroft-Gault) 52.6 Glucose Level 98 mg/dL (70-99) Calcium Level 8.9 mg/dL (8.5-10.1) Assessment and Plan Assessmemt and Plan Problems Medical Problems: (1) Colitis Status: Acute Comment Review of Relevant I have reviewed the following items rodrigue (where applicable) has been applied. Justifications for Admission Other Justification MAGDI SCOTT MD Nov 10, 2020 07:41
[2020-11-10] MEDS: FLUTICASONE 50MCG/NASAL SPRAY 16GM BOTTLE. NS SCH (09:00)
[2020-11-10] MEDS: LACTOBACILLUS RHAMNOSUS GG 1 CAPSULE. PO SCH ×2 (09:29→21:25)
[2020-11-10] MEDS: EZETIMIBE 10 MG TABLET. PO SCH (09:29)
[2020-11-10] MEDS: FERROUS SULFATE 325 MG TABLET. PO SCH (09:29)
[2020-11-10] MEDS: LISINOPRIL 10 MG TABLET PO SCH (09:30)
[2020-11-10 10:23] LABS: BASO # 0.4 x10^3/uL (0.0-0.2); BASO % 1 % (0-3); EOS # 0.6 x10^3/uL (0.0-0.7); EOS % 2 % (0-3); HEMATOCRIT 25.4 % (36.0-47.0); HEMOGLOBIN 8.3 g/dL (12.0-15.5); LYMPH # 2.6 x10^3/uL (1.0-4.8); LYMPH % 9 % (24-48); MEAN CORPUSCULAR HEMOGLOBIN 27 pg (25-35); MEAN CORPUSCULAR HGB CONC 33 g/dL (31-37); MEAN CORPUSCULAR VOLUME 83 fL (79-100); MONO # 1.1 x10^3/uL (0.0-1.1); MONO % 4 % (0-9); NEUT # 24.1 x10^3/uL (1.8-7.7); NEUT % 84 % (31-73); PLATELET COUNT 318 x10^3/uL (140-400); RED BLOOD COUNT 3.07 x10^6/uL (3.50-5.40); RED CELL DISTRIBUTION WIDTH 18.6 % (11.5-14.5); WHITE BLOOD COUNT 28.7 x10^3/uL (4.0-11.0)
[2020-11-10 10:40] LABS: ALBUMIN 3.1 g/dL (3.4-5.0); ALBUMIN/GLOBULIN RATIO 0.9 (1.0-1.7); CALCIUM 8.7 mg/dL (8.5-10.1); GFR 52.6; POTASSIUM 3.4 mmol/L (3.5-5.1); TOTAL BILIRUBIN 0.7 mg/dL (0.2-1.0); TOTAL PROTEIN 6.7 g/dL (6.4-8.2)
[2020-11-10 11:00] VITALS: BP 168/63
[2020-11-10] MEDS ORDERED: POTASSIUM BICARB 20 MEQ EFFERVESCENT TABLET. PO ONE (11:30)
--- NOTE | 2020-11-10 13:28 | PDOC ---
G I PROGRESS NOTE Subjective Has had some loose stools, otherwise OK. Physical Exam Lungs clear anteriorly. RRR Abdomen soft, not tender nor distended. Review of Relevant I have reviewed the following items rodrigue (where applicable) has been applied. Labs Laboratory Tests Test 11/09/20 07:50 11/10/20 09:55 White Blood Count 26.3 x10^3/uL (4.0-11.0) 28.7 x10^3/uL (4.0-11.0) Red Blood Count 3.15 x10^6/uL (3.50-5.40) 3.07 x10^6/uL (3.50-5.40) Hemoglobin 8.5 g/dL (12.0-15.5) 8.3 g/dL (12.0-15.5) Hematocrit 25.9 % (36.0-47.0) 25.4 % (36.0-47.0) Mean Corpuscular Volume 82 fL (79-100) 83 fL (79-100) Mean Corpuscular Hemoglobin 27 pg (25-35) 27 pg (25-35) Mean Corpuscular Hemoglobin Concent 33 g/dL (31-37) 33 g/dL (31-37) Red Cell Distribution Width 19.0 % (11.5-14.5) 18.6 % (11.5-14.5) Platelet Count 339 x10^3/uL (140-400) 318 x10^3/uL (140-400) Neutrophils (%) (Auto) 82 % (31-73) 84 % (31-73) Lymphocytes (%) (Auto) 11 % (24-48) 9 % (24-48) Monocytes (%) (Auto) 4 % (0-9) 4 % (0-9) Eosinophils (%) (Auto) 2 % (0-3) 2 % (0-3) Basophils (%) (Auto) 1 % (0-3) 1 % (0-3) Neutrophils # (Auto) 21.6 x10^3/uL (1.8-7.7) 24.1 x10^3/uL (1.8-7.7) Lymphocytes # (Auto) 2.9 x10^3/uL (1.0-4.8) 2.6 x10^3/uL (1.0-4.8) Monocytes # (Auto) 1.0 x10^3/uL (0.0-1.1) 1.1 x10^3/uL (0.0-1.1) Eosinophils # (Auto) 0.4 x10^3/uL (0.0-0.7) 0.6 x10^3/uL (0.0-0.7) Basophils # (Auto) 0.3 x10^3/uL (0.0-0.2) 0.4 x10^3/uL (0.0-0.2) Segmented Neutrophils % 32 % (35-66) Band Neutrophils % 28 % (0-9) Lymphocytes % 16 % (24-48) Monocytes % 5 % (0-10) Eosinophils % 4 % (0-5) Basophils % 4 % (0-3) Metamyelocytes % 4 % (0-0) Myelocytes % 3 % (0-0) Promyelocytes % 1 % (0-0) Blast Cells % (Manual) 3 % (0-0) Other Cells % 0 % (0-0) Nucleated Red Blood Cells 9 Platelet Estimate Adequate (ADEQUATE) Polychromasia Present Poikilocytosis Present Anisocytosis Present Macrocytosis Present Sodium Level 139 mmol/L (136-145) 135 mmol/L (136-145) Potassium Level 4.1 mmol/L (3.5-5.1) 3.4 mmol/L (3.5-5.1) Chloride Level 105 mmol/L (98-107) 100 mmol/L (98-107) Carbon Dioxide Level 25 mmol/L (21-32) 25 mmol/L (21-32) Anion Gap 9 (6-14) 10 (6-14) Blood Urea Nitrogen 34 mg/dL (7-20) 17 mg/dL (7-20) Creatinine 1.0 mg/dL (0.6-1.0) 1.0 mg/dL (0.6-1.0) Estimated GFR (Cockcroft-Gault) 52.6 52.6 Glucose Level 98 mg/dL (70-99) 119 mg/dL (70-99) Calcium Level 8.9 mg/dL (8.5-10.1) 8.7 mg/dL (8.5-10.1) BUN/Creatinine Ratio 17 (6-20) Magnesium Level 2.0 mg/dL (1.8-2.4) Total Bilirubin 0.7 mg/dL (0.2-1.0) Aspartate Amino Transf (AST/SGOT) 37 U/L (15-37) Alanine Aminotransferase (ALT/SGPT) 25 U/L (14-59) Alkaline Phosphatase 78 U/L (46-116) Total Protein 6.7 g/dL (6.4-8.2) Albumin 3.1 g/dL (3.4-5.0) Albumin/Globulin Ratio 0.9 (1.0-1.7) Laboratory Tests Test 11/10/20 09:55 White Blood Count 28.7 x10^3/uL (4.0-11.0) Red Blood Count 3.07 x10^6/uL (3.50-5.40) Hemoglobin 8.3 g/dL (12.0-15.5) Hematocrit 25.4 % (36.0-47.0) Mean Corpuscular Volume 83 fL (79-100) Mean Corpuscular Hemoglobin 27 pg (25-35) Mean Corpuscular Hemoglobin Concent 33 g/dL (31-37) Red Cell Distribution Width 18.6 % (11.5-14.5) Platelet Count 318 x10^3/uL (140-400) Neutrophils (%) (Auto) 84 % (31-73) Lymphocytes (%) (Auto) 9 % (24-48) Monocytes (%) (Auto) 4 % (0-9) Eosinophils (%) (Auto) 2 % (0-3) Basophils (%) (Auto) 1 % (0-3) Neutrophils # (Auto) 24.1 x10^3/uL (1.8-7.7) Lymphocytes # (Auto) 2.6 x10^3/uL (1.0-4.8) Monocytes # (Auto) 1.1 x10^3/uL (0.0-1.1) Eosinophils # (Auto) 0.6 x10^3/uL (0.0-0.7) Basophils # (Auto) 0.4 x10^3/uL (0.0-0.2) Sodium Level 135 mmol/L (136-145) Potassium Level 3.4 mmol/L (3.5-5.1) Chloride Level 100 mmol/L (98-107) Carbon Dioxide Level 25 mmol/L (21-32) Anion Gap 10 (6-14) Blood Urea Nitrogen 17 mg/dL (7-20) Creatinine 1.0 mg/dL (0.6-1.0) Estimated GFR (Cockcroft-Gault) 52.6 BUN/Creatinine Ratio 17 (6-20) Glucose Level 119 mg/dL (70-99) Calcium Level 8.7 mg/dL (8.5-10.1) Magnesium Level 2.0 mg/dL (1.8-2.4) Total Bilirubin 0.7 mg/dL (0.2-1.0) Aspartate Amino Transf (AST/SGOT) 37 U/L (15-37) Alanine Aminotransferase (ALT/SGPT) 25 U/L (14-59) Alkaline Phosphatase 78 U/L (46-116) Total Protein 6.7 g/dL (6.4-8.2) Albumin 3.1 g/dL (3.4-5.0) Albumin/Globulin Ratio 0.9 (1.0-1.7) Microbiology 11/07/20 Blood Culture - Preliminary, Resulted NO GROWTH AFTER 2 DAYS Medications Current Medications Diphenhydramine HCl (Benadryl) 50 mg 1X ONCE IVP Last administered on 11/07/20at 16:09; Start 11/07/20 at 16:15; Stop 11/07/20 at 16:16; Status DC Methylprednisolone Sodium Succinate (SOLU-Medrol 125MG VIAL) 125 mg 1X ONCE IV Last administered on 11/07/20at 16:09; Start 11/07/20 at 16:15; Stop 11/07/20 at 16:16; Status DC Iohexol (Omnipaque 300 Mg/ml) 60 ml 1X ONCE IV Last administered on 11/07/20at 16:32; Start 11/07/20 at 16:15; Stop 11/07/20 at 16:16; Status DC Info (CONTRAST GIVEN -- Rx MONITORING) 1 each PRN DAILY PRN MC SEE COMMENTS; Start 11/07/20 at 16:15; Stop 11/09/20 at 16:14; Status DC Iohexol (Omnipaque 300 Mg/ml) 60 ml 1X ONCE IV ; Start 11/07/20 at 16:30; Stop 11/07/20 at 16:31; Status DC Ondansetron HCl (Zofran) 4 mg PRN Q8HRS PRN IVP NAUSEA/VOMITING Last administered on 11/08/20at 12:13; Start 11/07/20 at 18:30; Stop 11/09/20 at 18:29; Status DC Morphine Sulfate (Morphine Sulfate) 2 mg PRN Q2HR PRN IVP PAIN Last administered on 11/08/20at 12:13; Start 11/07/20 at 18:30; Stop 11/09/20 at 18:29; Status DC Acetaminophen (Tylenol) 650 mg PRN Q4HRS PRN PO FEVER > 100.3'F; Start 11/07/20 at 18:30; Stop 11/09/20 at 18:29; Status DC Piperacillin Sod/ Tazobactam Sod (Zosyn Per Pharmacy) 1 each PRN DAILY PRN MC SEE COMMENTS; Start 11/07/20 at 18:30 Piperacillin Sod/ Tazobactam Sod 3.375 gm/Sodium Chloride 50 ml @ 100 mls/hr Q6HRS IV Last administered on 11/10/20at 13:14; Start 11/07/20 at 18:00 Ringer's Solution 1,000 ml @ 100 mls/hr Q10H IV Last administered on 11/08/20at 17:06; Start 11/07/20 at 21:45; Stop 11/09/20 at 03:44; Status DC Albuterol Sulfate (Ventolin Neb Soln) 2.5 mg PRN Q4HRS PRN NEB SHORTNESS OF BREATH; Start 11/07/20 at 22:00 Baclofen (Lioresal) 10 mg PRN BID PRN PO MUSCLE SPASMS; Start 11/07/20 at 22:00 Ferrous Sulfate (Feosol) 325 mg DAILYWBKFT PO Last administered on 11/10/20at 09:29; Start 11/08/20 at 08:00 Fluticasone Propionate (Flonase) 2 spray DAILY NS ; Start 11/08/20 at 09:00; Status Cancel EZETIMIBE (Zetia) 10 mg DAILY PO Last administered on 11/10/20at 09:29; Start 11/08/20 at 09:00 Lisinopril (Prinivil) 30 mg DAILY PO Last administered on 11/10/20at 09:30; Start 11/08/20 at 09:00 Albuterol Sulfate (Ventolin Neb Soln) 2.5 mg RTQID NEB Last administered on 11/10/20at 06:03; Start 11/08/20 at 08:00; Stop 11/10/20 at 11:11; Status DC Fluticasone Propionate (Flonase) 2 spray DAILY NS Last administered on 11/09/20at 09:43; Start 11/08/20 at 09:00 Budesonide (Pulmicort) 0.5 mg RTBID NEB Last administered on 11/10/20at 06:03; Start 11/08/20 at 08:00; Stop 11/10/20 at 11:11; Status DC Lactobacillus Rhamnosus (Culturelle) 1 cap BID PO Last administered on 11/10/20at 09:29; Start 11/08/20 at 09:00 Pantoprazole Sodium (Protonix) 40 mg DAILYAC PO Last administered on 11/10/20at 06:30; Start 11/08/20 at 07:30 Latanoprost (Xalatan) 1 drop QHS OU Last administered on 11/09/20at 19:50; Start 11/08/20 at 21:00 Temazepam (Restoril) 15 mg PRN QHS PRN PO INSOMNIA; Start 11/08/20 at 22:45 Potassium Bicarbonate (Potassium Effervescent Tablet) 40 meq 1X ONCE PO Last administered on 11/10/20at 13:14; Start 11/10/20 at 11:30; Stop 11/10/20 at 11:31; Status DC Active Scripts Active Probiotic & Acidophilus Cap (Lactobac Cmb #3/Fos/Pantethine) 1 Each Capsule 1 Each PO BID Cipro (Ciprofloxacin Hcl) 250 Mg Tablet 1 Tab PO BID Flagyl (Metronidazole) 500 Mg Tablet 500 Mg PO TID Hydrocodone-Apap 5-325 (Hydrocodone Bit/Acetaminophen) 1 Each Tablet 0.5-1 Tab PO Q4HRS PRN Reported Jakafi (Ruxolitinib Phosphate) 10 Mg Tablet 1 Tab PO BID 30 Days Lumigan (Bimatoprost) 2.5 Ml Drops 2.5 Ml OP Ventolin Hfa Inhaler (Albuterol Sulfate) 18 Gm Hfa.aer.ad 2 Puff INH QID Advair 250-50 Diskus (Fluticasone/Salmeterol) 1 Each Disk.w.dev 1 Inh IH BID Flonase Allergy Relief (Fluticasone Propionate) 9.9 Ml Souris.susp 2 Sprays NS DAILY Prilosec Otc (Omeprazole Magnesium) 20 Mg Tablet.dr 20 Mg PO DAILY Lisinopril 10 Mg Tablet 30 Mg PO DAILY Vitals/I & O Vital Sign - Last 24 Hours 11/09/20 11/09/20 11/09/20 11/09/20 15:15 16:10 19:25 20:00 Temp 98.3 98.0 98.3 98.0 Pulse 94 99 Resp 18 20 B/P (MAP) 109/53 (71) 152/61 (91) Pulse Ox 92 96 92 O2 Delivery Room Air Room Air Nasal Cannula Room Air 11/09/20 11/09/20 11/10/20 11/10/20 21:10 23:31 02:47 06:02 Temp 98.1 98.5 98.1 98.5 Pulse 89 85 Resp 18 16 B/P (MAP) 136/52 (80) 136/52 (80) Pulse Ox 96 93 92 96 O2 Delivery Room Air Room Air Room Air Room Air 11/10/20 11/10/20 11/10/20 07:00 09:30 11:00 Temp 98.0 98.3 98.0 98.3 Pulse 85 85 98 Resp 16 16 B/P (MAP) 144/58 (86) 144/58 168/63 (98) Pulse Ox 94 94 O2 Delivery Room Air Room Air Intake and Output 11/09/20 11/09/20 11/10/20 15:00 23:00 07:00 Intake Total 240 ml 240 ml Balance 240 ml 240 ml Problem List Problems Medical Problems: (1) Colitis Status: Acute Assessment Typhlitis, clinically improved. Diarrhea. Resolving above or C.diff? Plan of Care Note Await pending C.diff. Continue other. Justicifation of Admission Dx: Justifications for Admission: Justification of Admission Dx: Yes (infection) PRESTON RANDOLPH MD Nov 10, 2020 13:28
[2020-11-10 15:00] VITALS: BP 100/82
[2020-11-10 19:30] VITALS: BP 175/71
--- NOTE | 2020-11-10 19:40 | NUR ---
Patient reported bowel movement this evening, attempted to collect for C-Diff sample, stool was small but formed.
[2020-11-10] MEDS: LATANOPROST 0.005% OPHTH SOLUTION 2.5ML BOTTLE. OU SCH (21:25)
[2020-11-10 23:14] VITALS: BP 148/66
[2020-11-11] MEDS: PIPERACILLIN/TAZOBACTAM 3.375 GM in IV NORMAL SALINE 50ML 50 ML IV SCH ×2 (00:16→06:29)
[2020-11-11 03:24] VITALS: BP 154/68
[2020-11-11 07:00] VITALS: BP 168/73
[2020-11-11] MEDS: EZETIMIBE 10 MG TABLET. PO SCH (09:54)
[2020-11-11 09:55] VITALS: BP 168/73
[2020-11-11] MEDS: FERROUS SULFATE 325 MG TABLET. PO SCH (09:55)
[2020-11-11] MEDS: LACTOBACILLUS RHAMNOSUS GG 1 CAPSULE. PO SCH (09:55)
[2020-11-11] MEDS: LISINOPRIL 10 MG TABLET PO SCH (09:55)
[2020-11-11] MEDS: PANTOPRAZOLE 40 MG TABLET.DR. PO SCH (09:56)
[2020-11-11] MEDS: FLUTICASONE 50MCG/NASAL SPRAY 16GM BOTTLE. NS SCH (09:58)
--- NOTE | 2020-11-11 11:22 | PDOC ---
[employer] PROGRESS NOTE Date of Service DOS: DATE: 11/11/20 TIME: 11:12 Chief Complaint Chief Complaint A/P: Intractable abdominal pain - treating as colitis, IV zosyn. IV zofran, IV fentanyl prn. Consult GI given history and frequency Hyponatremia - likely nutritional, has not eaten for 24 hours. Will hydrate SIRS - with tachycardia, leukocytosis, likely sepsis from colitis. 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 Will monitor Pancreatic abnormality on CT - will d/w GI, previously required ERCP in the past Myelofibrosis - goes to [facility] outpatient for f/u HTN - cont home meds HLD - statin PVD w/ LE stents - stable Asthma - prn nebs GERD - ppi Glaucoma - gtt prn FEN - ADAT at discretion of GI PPX - lovenox CODE - DNR/DNI Dispo - inpatient History of Present Illness History of Present Illness Ms Drew is an 85yo female with PMHx Myelofibrosis, HTN, HLD, PVD w/ LE stents, asthma, GERD, diverticulosis/itis, OA, glaucoma, and prior ERCP w/ ES and balloon dilation who comes to ED from urgent care complaining of right lower quadrant abdominal pain. Pain was sudden onset on 11/05/20 overnight and she had an episode of nausea and vomiting on 11/06 and did not eat anything all day, the pain continued and so she came to urgent care with her daughter due to concerns for appendicitis clinically. She notes pain is still present and has associated loss of appetite and fever and chills. WBC 27.7, Hb 10, platelets 360, NA 132, K4.5, BUN 27, CR 1, glucose 104, LFTs within normal laboratory limits. CT abdomen pelvis with IV contrast wall thickening of proximal colon possibly concerning for colitis as well as low-density lesion pancreas. T10 and T11 mild compression deformities. Splenomegaly noted as well. Admitted for further treatment with IV zosyn, NPO. 11/08: Pain better controlled after 2nd dose of zosyn, asking for GI soft diet. Had some nausea this morning after multiple IV attempts. WBC 39.5. 9/3: Pain resolving. Na improved to 139, CR 1 WBC 26 Hb 8.5. Asking to restart Jakafi. Still on antibiotics, tolerating clear diet well. 11/10: Pain improved tolerating liquid full liquid diet. Had 3 episodes of diarrhea. Does note that she is previously had C. difficile to nursing staff. WBC 28K. Had 2 formed stools overnight. Pain is resolved. Plan to discharge home and have outpatient follow-up with GI and oncology. plan: d/c home off antibiotics Hold jakafi until resolution of symptoms at least 48 hours, f/u with oncology as scheduled F/u with GI outpatient Vitals/I&O Vitals/I&O: Vital Signs Date Time Temp Pulse Resp B/P (MAP) Pulse Ox O2 Delivery O2 Flow Rate FiO2 11/11/20 09:55 87 168/73 11/11/20 07:00 98.2 18 95 Room Air 98.2 I & O 11/10/20 11/10/20 11/11/20 15:00 23:00 07:00 Intake Total 50 ml 50 ml 480 ml Balance 50 ml 50 ml 480 ml Physical Exam General: Alert, Oriented X3 Heart: Regular rate Lungs: Clear Abdomen: Soft Extremities: No cyanosis Skin: No rashes Assessment and Plan Assessmemt and Plan Problems Medical Problems: (1) Colitis Status: Acute Comment Review of Relevant I have reviewed the following items rodrigue (where applicable) has been applied. Medications: Current Medications Medications (Trade) Dose Ordered Sig/Gagan Route PRN Reason Start Time Stop Time Status Last Admin Dose Admin Potassium Bicarbonate (Potassium Effervescent Tablet) 40 meq 1X ONCE PO 11/10/20 11:30 11/10/20 11:31 DC 11/10/20 13:14 Justifications for Admission Other Justification MAGDI SCOTT MD Nov 11, 2020 11:21
[2020-11-11] MEDS ORDERED: TRAM50TA PO (11:24)
--- NOTE | 2020-11-11 11:27 | PDOC3 ---
Discharge Summary Visit Information Date of Admission: Nov 07, 2020 Date of Discharge: Nov 11, 2020 Admitting Diagnosis: Colitis Final Diagnosis Problems Medical Problems: (1) Colitis Status: Acute Brief Hospital Course Allergies Allergies Coded Allergies Type Severity Reaction Last Updated Verified iodine Adverse Reaction Mild Nausea and Vomiting 11/07/20 Yes shellfish derived Adverse Reaction Mild Nausea and Vomiting 11/07/20 Yes shrimp Adverse Reaction Mild Nausea and Vomiting 11/07/20 Yes Vital Signs Vital Signs Date Time Temp Pulse Resp B/P (MAP) Pulse Ox O2 Delivery O2 Flow Rate FiO2 11/11/20 09:55 87 168/73 11/11/20 07:00 98.2 18 95 Room Air 98.2 Lab Results Laboratory Tests Test 11/10/20 09:55 White Blood Count 28.7 x10^3/uL (4.0-11.0) Red Blood Count 3.07 x10^6/uL (3.50-5.40) Hemoglobin 8.3 g/dL (12.0-15.5) Hematocrit 25.4 % (36.0-47.0) Mean Corpuscular Volume 83 fL (79-100) Mean Corpuscular Hemoglobin 27 pg (25-35) Mean Corpuscular Hemoglobin Concent 33 g/dL (31-37) Red Cell Distribution Width 18.6 % (11.5-14.5) Platelet Count 318 x10^3/uL (140-400) Neutrophils (%) (Auto) 84 % (31-73) Lymphocytes (%) (Auto) 9 % (24-48) Monocytes (%) (Auto) 4 % (0-9) Eosinophils (%) (Auto) 2 % (0-3) Basophils (%) (Auto) 1 % (0-3) Neutrophils # (Auto) 24.1 x10^3/uL (1.8-7.7) Lymphocytes # (Auto) 2.6 x10^3/uL (1.0-4.8) Monocytes # (Auto) 1.1 x10^3/uL (0.0-1.1) Eosinophils # (Auto) 0.6 x10^3/uL (0.0-0.7) Basophils # (Auto) 0.4 x10^3/uL (0.0-0.2) Sodium Level 135 mmol/L (136-145) Potassium Level 3.4 mmol/L (3.5-5.1) Chloride Level 100 mmol/L (98-107) Carbon Dioxide Level 25 mmol/L (21-32) Anion Gap 10 (6-14) Blood Urea Nitrogen 17 mg/dL (7-20) Creatinine 1.0 mg/dL (0.6-1.0) Estimated GFR (Cockcroft-Gault) 52.6 BUN/Creatinine Ratio 17 (6-20) Glucose Level 119 mg/dL (70-99) Calcium Level 8.7 mg/dL (8.5-10.1) Magnesium Level 2.0 mg/dL (1.8-2.4) Total Bilirubin 0.7 mg/dL (0.2-1.0) Aspartate Amino Transf (AST/SGOT) 37 U/L (15-37) Alanine Aminotransferase (ALT/SGPT) 25 U/L (14-59) Alkaline Phosphatase 78 U/L (46-116) Total Protein 6.7 g/dL (6.4-8.2) Albumin 3.1 g/dL (3.4-5.0) Albumin/Globulin Ratio 0.9 (1.0-1.7) Brief Hospital Course Ms Drew is an 85yo female with PMHx Myelofibrosis, HTN, HLD, PVD w/ LE stents, asthma, GERD, diverticulosis/itis, OA, glaucoma, and prior ERCP w/ ES and balloon dilation who comes to ED from urgent care complaining of right lower quadrant abdominal pain. Pain was sudden onset on 11/05/20 overnight and she had an episode of nausea and vomiting on 11/06 and did not eat anything all day, the pain continued and so she came to urgent care with her daughter due to concerns for appendicitis clinically. She notes pain is still present and has associated loss of appetite and fever and chills. WBC 27.7, Hb 10, platelets 360, NA 132, K4.5, BUN 27, CR 1, glucose 104, LFTs within normal laboratory limits. CT abdomen pelvis with IV contrast wall thickening of proximal colon possibly concerning for colitis as well as low-density lesion pancreas. T10 and T11 mild compression deformities. Splenomegaly noted as well. Admitted for further treatment with IV zosyn, NPO. 11/08: Pain better controlled after 2nd dose of zosyn, asking for GI soft diet. Had some nausea this morning after multiple IV attempts. WBC 39.5. 11/09: Pain resolving. Na improved to 139, CR 1 WBC 26 Hb 8.5. Asking to restart Jakafi. Still on antibiotics, tolerating clear diet well. 11/10: Pain improved tolerating liquid full liquid diet. Had 3 episodes of diarrhea. Does note that she is previously had C. difficile to nursing staff. WBC 28K. 11/11:Had 2 formed stools overnight. Pain is resolved. Plan to discharge home and have outpatient follow-up with GI and oncology. Consults: GI, Heme/Onc Problem list: Intractable abdominal pain - treated as bacterial infectious colitis, IV zosyn. IV zofran, IV fentanyl prn. Consulted GI given history and frequency. Improved after 4 days Hyponatremia - likely nutritional, has not eaten for 24 hours. Will hydrate SIRS - with tachycardia, leukocytosis, likely sepsis from colitis. given empiric IVF and antibiotics Leukocytosis - primarily PMN, may be due to steroids given in ED, but given very high WBC consulted hematology for further recs. 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 Will monitor Pancreatic abnormality on CT - will d/w GI, previously required ERCP in the past Myelofibrosis - goes to [facility] outpatient for f/u HTN - cont home meds HLD - statin PVD w/ LE stents - stable Asthma - prn nebs GERD - ppi Glaucoma - gtt prn H/o C. diff - formed stools plan: d/c home off antibiotics Hold jakafi until resolution of symptoms at least 48 hours, f/u with oncology 11/19 as scheduled F/u with GI outpatient Greater than 30 minutes spent on d/c home with self care. Discharge Information Condition at Discharge: Improved Follow Up: Weeks (1) Disposition/Orders: D/C to Home Scheduled Albuterol Sulfate (Ventolin Hfa Inhaler) 18 Gm Hfa.aer.ad, 2 PUFF INH QID for FOR ASTHMA, Ref 0 (Reported) Entered as Reported by: TEJAL SNELL on 03/24/16 0740 Last Taken: Unknown Dose on 11/02/20 Last Action: Converted on 11/07/20 0642 by MAGDI SCOTT MD Fluticasone Propionate (Flonase Allergy Relief) 9.9 Ml Alfred.susp, 2 SPRAYS NS DAILY, (Reported) Entered as Reported by: TEJAL SNELL on 03/24/16739 Last Taken: Unknown Dose on 11/05/201999 Last Action: Converted on 11/07/202307 by MAGDI SCOTT MD Fluticasone/Salmeterol (Advair 250-50 Diskus) 1 Each Disk.w.dev, 1 INH IH BID, (Reported) Entered as Reported by: TEJAL SNELL on 03/24/16739 Last Taken: Unknown Dose on 11/05/20 Last Action: Converted on 11/07/202307 by MAGDI SCOTT MD Lactobac Cmb #3/Fos/Pantethine (Probiotic & Acidophilus Cap) 1 Each Capsule, 1 EACH PO BID, #60 Prescribed by: DEVANTE GOLDEN on 12/25/16 0904 Last Action: Converted on 11/07/202307 by MAGDI SCOTT MD Lisinopril (Lisinopril) 10 Mg Tablet, 30 MG PO DAILY for hypertension, #30 Ref 0 (Reported) Entered as Reported by: TEJAL SNELL on 03/24/16739 Last Action: Continued on 11/07/202307 by MAGDI SCOTT MD Omeprazole Magnesium (Prilosec Otc) 20 Mg Tablet.dr, 20 MG PO DAILY, (Reported) Entered as Reported by: TEJAL SNELL on 03/24/16739 Last Taken: Unknown Dose on 11/05/20 0900 Last Action: Converted on 11/07/202307 by MAGDI SCOTT MD Ruxolitinib Phosphate (Jakafi) 10 Mg Tablet, 1 TAB PO BID for cancer for 30 Days, #60 Ref 0 (Reported) Entered as Reported by: CLARA MIRAMONTES on 11/08/20730 Last Taken: Unknown Dose on 11/05/20 Last Action: New Order on 11/08/20730 by CLARA MIRAMONTES Scheduled PRN Tramadol Hcl (Tramadol Hcl) 50 Mg Tablet, 50 MG PO PRN Q6HRS PRN for PAIN for 6 Days, #15 Prescribed by: MAGDI SCOTT MD on 11/11/20 1124 Miscellaneous Medications Bimatoprost (Lumigan) 2.5 Ml Drops, 2.5 ML OP, (Reported) Entered as Reported by: TEJAL SNELL on 03/24/16739 Last Taken: Unknown Dose on 10/07/20199 Last Action: Last Taken Edited on 11/07/202205 by CLARA MIRAMONTES Discontinued Medications Aspirin (Aspir 81) 81 Mg Tablet.dr, 81 MG PO, (Reported) Entered as Reported by: TEJAL SNELL on 03/24/16739 Last Action: Discontinued on 11/07/202205 by CLARA MIRAMONTES Ciprofloxacin Hcl (Cipro) 250 Mg Tablet, 1 TAB PO BID, #10 Prescribed by: DEVANTE GOLDEN on 12/25/16 0904 Hydrocodone Bit/Acetaminophen (Hydrocodone-Apap 5-325 ) 1 Each Tablet, 0.5-1 TAB PO Q4HRS PRN for PAIN, #20 Ref 0 Prescribed by: ALEJANDRA HERRERA MD on 03/28/16 1624 Metronidazole (Flagyl) 500 Mg Tablet, 500 MG PO TID, #21 Prescribed by: DEVANTE GOLDEN on 12/25/16 0904 Justicifation of Admission Dx: Justifications for Admission: Justification of Admission Dx: Yes (infection) MAGDI SCOTT MD Nov 11, 2020 11:26
--- NOTE | 2020-11-11 13:00 | NUR ---
Discharge Note: ALIVIA MARRERO [place] Discharge instructions and discharge home medications reviewed with Patient and a copy given. All questions have been answered and understanding verbalized. The following instructions and handouts were given: diet, activity, medication list and follow up instructiosn provided to patient and patient's daughter. Discontinued lines and drains: Peripheral IV discontinued and catheter intact. Patient discharged to Home or Self Care withFamily Membervia Wheelchair
--- NOTE | 2020-11-11 13:07 | PDOC ---
G I PROGRESS NOTE Subjective No complaints. Had a formed stool. Objective Note plans for discharge. Physical Exam Abdomen benign. Review of Relevant I have reviewed the following items rodrigue (where applicable) has been applied. Labs Laboratory Tests Test 11/10/20 09:55 White Blood Count 28.7 x10^3/uL (4.0-11.0) Red Blood Count 3.07 x10^6/uL (3.50-5.40) Hemoglobin 8.3 g/dL (12.0-15.5) Hematocrit 25.4 % (36.0-47.0) Mean Corpuscular Volume 83 fL (79-100) Mean Corpuscular Hemoglobin 27 pg (25-35) Mean Corpuscular Hemoglobin Concent 33 g/dL (31-37) Red Cell Distribution Width 18.6 % (11.5-14.5) Platelet Count 318 x10^3/uL (140-400) Neutrophils (%) (Auto) 84 % (31-73) Lymphocytes (%) (Auto) 9 % (24-48) Monocytes (%) (Auto) 4 % (0-9) Eosinophils (%) (Auto) 2 % (0-3) Basophils (%) (Auto) 1 % (0-3) Neutrophils # (Auto) 24.1 x10^3/uL (1.8-7.7) Lymphocytes # (Auto) 2.6 x10^3/uL (1.0-4.8) Monocytes # (Auto) 1.1 x10^3/uL (0.0-1.1) Eosinophils # (Auto) 0.6 x10^3/uL (0.0-0.7) Basophils # (Auto) 0.4 x10^3/uL (0.0-0.2) Sodium Level 135 mmol/L (136-145) Potassium Level 3.4 mmol/L (3.5-5.1) Chloride Level 100 mmol/L (98-107) Carbon Dioxide Level 25 mmol/L (21-32) Anion Gap 10 (6-14) Blood Urea Nitrogen 17 mg/dL (7-20) Creatinine 1.0 mg/dL (0.6-1.0) Estimated GFR (Cockcroft-Gault) 52.6 BUN/Creatinine Ratio 17 (6-20) Glucose Level 119 mg/dL (70-99) Calcium Level 8.7 mg/dL (8.5-10.1) Magnesium Level 2.0 mg/dL (1.8-2.4) Total Bilirubin 0.7 mg/dL (0.2-1.0) Aspartate Amino Transf (AST/SGOT) 37 U/L (15-37) Alanine Aminotransferase (ALT/SGPT) 25 U/L (14-59) Alkaline Phosphatase 78 U/L (46-116) Total Protein 6.7 g/dL (6.4-8.2) Albumin 3.1 g/dL (3.4-5.0) Albumin/Globulin Ratio 0.9 (1.0-1.7) Microbiology 11/07/20 Blood Culture - Preliminary, Resulted NO GROWTH AFTER 3 DAYS Vitals/I & O Vital Sign - Last 24 Hours 11/10/20 11/10/20 11/10/20 11/10/20 15:00 19:30 19:50 23:14 Temp 98.5 98.1 98.5 98.5 98.1 98.5 Pulse 88 103 84 Resp 16 20 20 B/P (MAP) 100/82 (88) 175/71 (105) 148/66 (93) Pulse Ox 95 94 94 O2 Delivery Room Air Room Air Room Air Room Air 11/11/20 11/11/20 11/11/20 11/11/20 03:24 07:00 08:00 09:55 Temp 98.2 98.2 98.2 98.2 Pulse 84 87 87 Resp 18 18 B/P (MAP) 154/68 (96) 168/73 (104) 168/73 Pulse Ox 91 95 O2 Delivery Room Air Room Air Room Air Intake and Output 11/10/20 11/10/20 11/11/20 15:00 23:00 07:00 Intake Total 50 ml 50 ml 480 ml Balance 50 ml 50 ml 480 ml Problem List Problems Medical Problems: (1) Colitis Status: Acute Assessment Typhlitis, apparently resolved. Plan of Care Note OK with discharge. Can see me prn; had colonoscopy 2017 and no need to repeat. Justicifation of Admission Dx: Justifications for Admission: Justification of Admission Dx: Yes (infection) PRESTON RANDOLPH MD Nov 11, 2020 13:07
== END 2020-11-11 13:50 | disposition home or self-care (01) | DRG 872 ==
LOC: ER 13:56 → 4 NORTH 17:45
PROVIDERS: ADMIT Internal Medicine; ATTEND Internal Medicine
DX: A41.9 Sepsis, unspecified organism (principal); E87.1 Hypo-osmolality and hyponatremia; A09 Infectious gastroenteritis and colitis, unspecified; D47.1 Chronic myeloproliferative disease; D64.9 Anemia, unspecified; E78.00 Pure hypercholesterolemia, unspecified; E78.5 Hyperlipidemia, unspecified; H40.9 Unspecified glaucoma; I10 Essential (primary) hypertension; I73.9 Peripheral vascular disease, unspecified; K57.90 Diverticulosis of intestine, part unspecified, without perforation or abscess without bleeding; R16.1 Splenomegaly, not elsewhere classified; R63.4 Abnormal weight loss; J45.909 Unspecified asthma, uncomplicated; K21.9 Gastro-esophageal reflux disease without esophagitis; K52.89 Other specified noninfective gastroenteritis and colitis; M48.00 Spinal stenosis, site unspecified; Z66 Do not resuscitate; Z82.49 Family history of ischemic heart disease and other diseases of the circulatory system; Z90.49 Acquired absence of other specified parts of digestive tract; Z90.710 Acquired absence of both cervix and uterus; Z96.641 Presence of right artificial hip joint; M19.90 Unspecified osteoarthritis, unspecified site; Z88.8 Allergy status to other drugs, medicaments and biological substances; Z91.041 Radiographic dye allergy status; Z91.013 Allergy to seafood; Z68.21 Body mass index [BMI] 21.0-21.9, adult
CPT/HCPCS: 36415; 74177; 80048; 80053; 83690; 83735; 85007; 85025; 87040; 94640; J1200; J2270; J2405; J2543; J2930; J7120; Q9967; 99285-25; G0378; J7613; J7626